=== PATIENT | male | born 1940 | race Caucasian/White ===

== ENCOUNTER 2016-10-30 19:30 | Emergency (ER) | payer MEDICARE, OTHER ==
[2016-10-30] MEDS ORDERED: atorvaSTATin 40 MG Tab ONE ×2 (19:32→19:57)
[2016-10-30] MEDS ORDERED: Morphine 4 MG/ML Syringe ONE (19:32)
[2016-10-30] MEDS ORDERED: Ticagrelor 90 MG Tab PO ONE (19:32)
[2016-10-30] MEDS ORDERED: Heparin Sodium 5,000 Units/ML Vial ONE (19:32)
[2016-10-30] MEDS ORDERED: Sodium Chloride 0.9% 1,000 ML IV ONE (19:32)
--- NOTE | 2016-10-30 20:10 | EDM.PDOC ---
ED HISTORY OF PRESENT ILLNESS - General Chief Complaint: Chest Pain Stated Complaint: chest pain Time Seen by Provider: 10/30/16 19:30 Source of Information: Reports: Patient History Limitations: Reports: No limitations - History of Present Illness INITIAL COMMENTS - FREE TEXT/NARRATIVE: Patient presents by private vehicle with complaint of substernal aching and cramping chest pain radiating to the left arm that began at 17:00. He reports it was up to 8/10 and on arrival in the ER it was 6/10. He is diaphoretic and obviously uncomfortable on arrival. He was given aspirin 324 mg chewable on arrival and oxygen at 4 L per nasal cannula immediately. He has a history of hypertension and is on Benazepril for that and Rheumatoid Arthritis and is on Methotrexate and Prednisone 5 mg daily for that. He denies a history of UT, CAD , QUINN, or CABG. He denies history of DVT or PE. He denies history of stroke. - Related Data Allergies/ADRs: Allergies Allergy/AdvReac Type Severity Reaction Status Date / Time No Known Allergies Allergy Verified 07/21/13 16:01 Home Meds: Home Meds Benazepril HCl 20 mg PO DAILY 07/21/13 [History] Methotrexate Sodium [Methotrexate] 2.5 mg PO ASDIRECTED 07/21/13 [History] Acetaminophen [Tylenol Extra Strength] 1,000 mg PO Q4HR PRN #90 07/25/13 [Rx] Albuterol/Ipratropium [DuoNeb 3.0-0.5 MG/3 ML] 3 ml NEB QID #30 neb 07/25/13 [Rx ] Ascorbic Acid [Vitamin C] 1,000 mg PO DAILY #30 07/25/13 [Rx] Benazepril [Lotensin] 20 mg PO DAILY #30 tablet 07/25/13 [Rx] Fish Oil/[place]-3 Fatty Acids [Fish Oil 1,000 MG] 1,000 mg PO DAILY #90 [Rx] Folic Acid 1 mg PO DAILY #30 07/25/13 [Rx] Ibuprofen 800 mg PO Q8HR PRN #90 07/25/13 [Rx] Omeprazole [Prilosec] 20 mg PO ASDIRECTED #30 07/25/13 [Rx] Oseltamivir [Tamiflu] 75 mg PO BID #3 cap 07/25/13 [Rx] predniSONE [Prednisone] 5 mg PO DAILY #30 07/25/13 [Rx] Past Medical History Cardiovascular History: Reports: Hypertension Immunologic History: Reports: Other (see below) Other Immunologic History: Rheumatoid Arthritis Social & Family History - Alcohol Use Days Per Week of Alcohol Use: 1 Number of Drinks Per Day: 1 Total Drinks Per Week: 1 - Recreational Drug Use Recreational Drug Use: No - Living Situation & Occupation Living situation: Reports: , with significant other Occupation: retired ( with cancer at home currently undergoing treatments) ED ROS GENERAL - Review of Systems Review Of Systems: ROS reveals no pertinent complaints other than HPI. ED EXAM, GENERAL - Physical Exam Exam: See Below Exam Limited By: No limitations General Appearance: alert, WD/WN, moderate distress (Diaphoretic and moderate pain. Mild tachypnea. ) Eye Exam: bilateral eye: EOMI, normal inspection, PERRL Ears: normal external exam, normal canal, hearing grossly normal, normal TMs Ear Exam: bilateral ear: auricle normal, canal normal, TM normal Nose: normal inspection, normal mucosa, no blood Throat/Mouth: Normal inspection, Normal lips, Normal teeth, Normal gums, Normal oropharynx Head: atraumatic, normocephalic Neck: normal inspection, supple, non-tender, full range of motion Respiratory/Chest: no respiratory distress, lungs clear, normal breath sounds, no accessory muscle use, chest non-tender Cardiovascular: normal peripheral pulses, regular rate, rhythm, no edema, no gallop, no murmur, no rub Peripheral Pulses: 2+: radial (L), radial (R), dorsalis pedis (L), dorsalis pedis (R) GI/Abdominal: normal bowel sounds, soft, non tender, no organomegaly, no distention Extremities: normal inspection, normal range of motion, non-tender, no pedal edema, normal capillary refill Neurological: alert, oriented, CN II-XII intact, normal cognition, normal gait, normal reflexes, no motor/sensory deficits Psychiatric: normal affect, normal mood Skin Exam: Warm, Dry, Intact, Normal color, No rash Lymphatic: no adenopathy EKG INTERPRETATION EKG Interpretation Comments: EKG shows ectopic atrial rhythm with STEMI with ST elevation in III and aVF and reciprocal changes in precordial leads of ST depression. Course - Orders/Labs/Meds Orders: Active Orders 24 hr Category Date Time Status CK W CKMB [CHEM] Routine Lab 10/30/16 19:45 Received COMPREHENSIVE METABOLIC PN,CMP [CHEM] Routine Lab 10/30/16 19:45 Received TROPONIN I [CHEM] Routine Lab 10/30/16 19:45 Received Labs: Laboratory Tests 10/30/16 10/30/16 Range/Units 19:45 19:45 WBC 13.4 H (4.0-10.2) K/uL RBC 4.51 (4.33-5.41) M/uL Hgb 14.1 (13.1-16.8) g/dL Hct 41.9 (39.0-49.0) % MCV 92.9 (84.0-98.0) fL MCH 31.3 (28.2-33.3) pg MCHC 33.7 (31.7-36.0) g/dL RDW 13.7 (11.2-14.1) % Plt Count 215 (150-350) K/uL Neut % (Auto) 87.2 H (45.0-80.0) % Lymph % (Auto) 8.5 L (10.0-50.0) % [place] % (Auto) 3.6 (2.0-14.0) % Eos % (Auto) 0.0 (0.0-5.0) % Baso % (Auto) 0.7 (0.0-2.0) % Neut # (Auto) 11.63 H (1.40-7.00) K/uL Lymph # (Auto) 1.14 (0.50-3.50) K/uL [place] # (Auto) 0.48 (0.00-1.00) K/uL Eos # (Auto) 0.00 (0.00-0.50) K/uL Baso # (Auto) 0.10 (0.00-0.20) K/uL PT 12.0 H (9.8-11.7) SEC INR 1.1 APTT 26.4 (23.5-30.0) SEC Meds: Medications Discontinued Medications Generic Name Dose Route Start Last Admin Trade Name Freq PRN Reason Stop Dose Admin Atorvastatin Calcium Confirm 10/30/16 19:57 Lipitor Administered 10/30/16 19:58 Dose 80 mg .ROUTE .STK-MED ONE Departure - Departure Time of Disposition: 20:05 Disposition: DC/Tfer to Acute Hospital 02 Reason for Transfer *Q: Primary PCI Indicated (STEMI) Clinical Impression: Ectopic atrial rhythm STEMI (ST elevation myocardial infarction) Qualifiers: Involved coronary artery: unspecified coronary artery Qualified Code(s): I21.3 - ST elevation (STEMI) myocardial infarction of unspecified site Forms: ED Department Discharge - My Orders Last 24 Hours: My Active Orders 10/30/16 19:45 CK W CKMB [CHEM] Routine COMPREHENSIVE METABOLIC PN,CMP [CHEM] Routine TROPONIN I [CHEM] Routine - Assessment/Plan Last 24 Hours: My Active Orders 10/30/16 19:45 CK W CKMB [CHEM] Routine COMPREHENSIVE METABOLIC PN,CMP [CHEM] Routine TROPONIN I [CHEM] Routine Assessment:: STEMI with ST Elevation in III and aVF and reciprocal ST depression in precordial leads. Ectopic atrial rhythm. Plan: 1. Given aspirin 324 mg chewable on arrival. 2. Placed on NC at 4 L on arrival. 3. Faxed EKG to [facility] in [place] and called to discuss with on-call program administrator Dr. Jones who agrees with plan below and [facility]. 4. After STEMI identified, rapidly given heparin IV bolus of 4,000 units and drip started at 12 units/kg/hour. 5. Brylinta 180 mg PO in ER. 6. Lipitor 80 mg PO in ER. 7. Normal saline at 75 mL/hour started in ER. 8. Morphine 4 mg IV in ER. 9. [facility] ground ambulance transport to airport. 10. [facility] Flight service will transport to [facility] in [place] with NS at 75 mL/hour, O2 by NC at 4 L, Heparin drip at 12 units/kg/hour, continuous telemetry and pulse oximetry.
[2016-10-30 20:11] LABS: CHLORIDE,CL 101 mmol/L (98-107); SODIUM,NA 139 mmol/L (136-145)
== END 2016-10-30 20:18 ==
LOC: LL.ED 19:30
DX: I21.3 ST elevation (STEMI) myocardial infarction of unspecified site (principal); I49.1 Atrial premature depolarization; I10 Essential (primary) hypertension; M06.9 Rheumatoid arthritis, unspecified; Z79.899 Other long term (current) drug therapy
CPT/HCPCS: 36415; 80053; 82550; 82553; 84484; 85025; 85610; 85730; 93005; 96365; 96374; 96375; 99285; A9270-GY; J1644; J2270; J7030

== ENCOUNTER 2016-11-04 10:03 | Inpatient (IN) | payer MEDICARE, OTHER ==
[2016-11-04] MEDS ORDERED: TRAMADOL PO PRN (14:21)
[2016-11-04] MEDS ORDERED: ACETAMINOPHEN PO PRN (14:21)
[2016-11-04] MEDS ORDERED: Omeprazole 20 MG Cap.CR PO SCH (14:30)
[2016-11-04] MEDS ORDERED: Amiodarone 200 MG Tab PO SCH (14:30)
--- NOTE | 2016-11-04 14:36 | PCM.HP ---
H&P History of Present Illness - General Date of Service: 11/04/16 Admit Problem/Dx: Admission Diagnosis/Problem Admission Diagnosis/Problem Chest pain Source of Information: Patient, Old records History Limitations: Reports: No limitations - History of Present Illness Initial Comments - Free Text/Narative: 76 yowm S/P acute ST elevation myocardial infarction (STEMI) involving right coronary artery, involving right coronary artery, CAD, essential HTN, S/P CABG x4, seropositive rheumatoid arthritis multiple sites. - Related Data Allergies/Adverse Reactions: Allergies Allergy/AdvReac Type Severity Reaction Status Date / Time seasonal Allergy Other Uncoded 11/04/16 13:39 Home Medications: Home Meds Methotrexate Sodium [Methotrexate] 10 tab PO GARCIA@0800 07/21/13 [History] Folic Acid 1 mg PO DAILY #30 07/25/13 [Rx] Acetaminophen/traMADol [Ultracet] 1 tab PO Q4HR PRN 11/04/16 [History] Amiodarone [Cordarone] 200 mg PO [id number] 11/04/16 [History] Apixaban [Eliquis] 5 mg PO BID 11/04/16 [History] Aspirin [Ecotrin] 325 mg PO DAILY 11/04/16 [History] Benazepril [Lotensin] 10 mg PO DAILY 11/04/16 [History] Docusate Sodium [Colace] 250 mg PO DAILY 11/04/16 [History] Metoprolol Tartrate 37.5 mg PO BID 11/04/16 [History] Omeprazole [Prilosec] 20 mg PO [id number] 11/04/16 [History] atorvaSTATin [Lipitor] 40 mg PO DAILY 11/04/16 [History] predniSONE [Prednisone] 10 mg PO QAM 11/04/16 [History] sulfaSALAzine [sulfaSALAzine DR] 2 tab PO BIDMEALS 11/04/16 [History] Past Medical History Cardiovascular History: Reports: Afib, Bypass, CAD, Hypertension, PTCA Immunologic History: Reports: Other (see below) Other Immunologic History: Rheumatoid Arthritis Dermatologic History: Reports: Other (see below) (basal cell carcinoma) Social & Family History - Alcohol Use Days Per Week of Alcohol Use: 1 Number of Drinks Per Day: 1 Total Drinks Per Week: 1 - Recreational Drug Use Recreational Drug Use: No - Living Situation & Occupation Living situation: Reports: , with significant other Occupation: retired ( with cancer at home currently undergoing treatments) H&P Review of Systems - Review of Systems: Review Of Systems: See Below General: Reports: no symptoms HEENT: Reports: no symptoms Pulmonary: Reports: No Symptoms Cardiovascular: Reports: no symptoms Gastrointestinal: Reports: No symptoms Genitourinary: Reports: no symptoms Musculoskeletal: Reports: no symptoms Skin: Reports: no symptoms Psychiatric: Reports: no symptoms Neurological: Reports: No Symptoms Hematologic/Lymphatic: Reports: no symptoms Immunologic: Reports: no symptoms Exam - Exam Exam: See Below - Vital Signs Vital Signs: Last Vital Signs Temp 97.8 F 11/04/16 13:13 Pulse 65 11/04/16 13:13 Resp BP 147/75 H 11/04/16 13:13 Pulse Ox 98 11/04/16 13:13 Weight: 192 lb 12.8 oz - Exam General: alert, cooperative HEENT: Conjunctiva clear, Hearing intact, Mucosa moist & pink, Nares patent Neck: trachea midline Lungs: Decreased breath sounds, Wheezing Cardiovascular: irregular rhythm Abdomen: normal bowel sounds, soft (Male) Exam: Deferred Rectal (Males) Exam: Deferred Back Exam: normal inspection Extremities: other (arthritis deformity, synovial swelling) Skin: warm, dry, intact Neurological: reflexes equal bilateral, strength equal bilateral Neuro Extensive - Mental Status: alert, normal mood/affect, normal cognition Psychiatric: alert, normal affect, normal mood *Q Meaningful Use (ADM) - VTE *Q VTE Criteria *Q: - Stroke *Q Stroke Criteria *Q: - AMI *Q AMI Criteria *Q: - Problem List (1) Coronary arteriosclerosis in patient with history of previous myocardial infarction SNOMED Code(s): 108314571170889 ICD Code: I25.10 - ATHSCL HEART DISEASE OF [place] CORONARY ARTERY W/O ANG PCTRS; I25.2 - OLD MYOCARDIAL INFARCTION Status: Acute Priority: High Current Visit: Yes (2) Asthma SNOMED Code(s): 778206029 ICD Code: J45.909 - UNSPECIFIED ASTHMA, UNCOMPLICATED Status: Acute Priority: Medium Current Visit: No (3) Rheumatoid arthritis SNOMED Code(s): 23846223 ICD Code: M06.9 - RHEUMATOID ARTHRITIS, UNSPECIFIED Status: Acute Priority: Low Current Visit: No (4) ST elevation (STEMI) myocardial infarction involving right coronary artery SNOMED Code(s): 271101698 ICD Code: I21.11 - STEMI INVOLVING RIGHT CORONARY ARTERY Status: Acute Priority: High Current Visit: Yes (5) S/P CABG x 4 SNOMED Code(s): 515357418, 307103259 ICD Code: Z95.1 - PRESENCE OF AORTOCORONARY BYPASS GRAFT Status: Acute Priority: High Current Visit: Yes Problem List Initiated/Reviewed/Updated: Yes Orders Last 24hrs: Active Orders 24 hr Category Date Time Status Patient Status [ADT] Routine ADT 11/04/16 14:11 Ordered May Shower [RC] ASDIRECTED Care 11/04/16 14:11 Ordered Oxygen Therapy [RC] PRN Care 11/04/16 14:11 Ordered Up With Assistance [RC] ASDIRECTED Care 11/04/16 14:11 Ordered VTE/DVT Education [RC] PER UNIT ROUTINE Care 11/04/16 14:11 Ordered Vital Signs [RC] BID Care 11/04/16 14:11 Ordered Consult to Case Management [CONS] Routine Cons 11/04/16 14:11 Ordered OT Evaluation and Treatment [CONS] Routine Cons 11/04/16 14:11 Ordered PT Evaluation and Treatment [CONS] Routine Cons 11/04/16 14:11 Ordered Regular Diet [DIET] Diet 11/04/16 Dinner Ordered Acetaminophen/traMADol [Ultracet] Med 11/04/16 14:21 Ordered 1 tab PO Q4HR PRN Amiodarone [Cordarone] Med 11/05/16 08:00 Ordered 200 mg PO [id number] Apixaban [Eliquis] Med 11/04/16 20:00 Ordered 5 mg PO Q12HR Aspirin [Ecotrin] Med 11/05/16 08:00 Ordered 325 mg PO DAILY Benazepril [Lotensin] Med 11/05/16 08:00 Ordered 10 mg PO DAILY Docusate Sodium [Colace] Med 11/05/16 08:00 Ordered 250 mg PO DAILY Folic Acid Med 11/05/16 08:00 Ordered 1 mg PO DAILY Methotrexate Med 11/09/16 08:00 Ordered 10 tab PO GARCIA@0800 Metoprolol Tartrate [Lopressor] Med 11/04/16 20:00 Ordered 37.5 mg PO Q12HR Omeprazole Med 11/05/16 08:00 Ordered 20 mg PO [id number] atorvaSTATin [Lipitor] Med 11/04/16 20:00 Ordered 40 mg PO BEDTIME predniSONE Med 11/05/16 08:00 Ordered 10 mg PO QAM sulfaSALAzine [sulfaSALAzine DR] Med 11/04/16 17:30 Ordered 2 tab PO BIDMEALS Resuscitation Status Routine Resus Stat 11/04/16 14:11 Ordered Medication Orders Amiodarone HCl (Cordarone) 200 mg PO [id number] [facility] Stop: 11/15/16 08:01 Aspirin (Ecotrin) 325 mg PO DAILY [facility] Atorvastatin Calcium (Lipitor) 40 mg PO BEDTIME [facility] Benazepril HCl (Lotensin) 10 mg PO DAILY [facility] Docusate Sodium (Colace) 250 mg PO DAILY [facility] Folic Acid (Folic Acid) 1 mg PO DAILY [facility] Methotrexate (Methotrexate) mg PO GARCIA@0800 [facility] Metoprolol Tartrate (Lopressor) 37.5 mg PO Q12HR [facility] Non-Formulary Medication (Acetaminophen/Tramadol [Ultracet]) 1 tab PO Q4HR PRN PRN Reason: Pain (moderate 4-6) Non-Formulary Medication (Apixaban [Eliquis]) 5 mg PO Q12HR [facility] Omeprazole (Omeprazole) 20 mg PO [id number] [facility] Stop: 12/05/16 08:01 Prednisone (Prednisone) 10 mg PO QAM [facility] Sulfasalazine (Sulfasalazine Dr) mg PO BIDMEALS [facility] Assessment/Plan Comment:: 76 yowm S/P STEMI and CABG x4 now here for swingbed status for PT-OT.
[2016-11-04] MEDS ORDERED: Acetaminophen 325 MG Tab PO PRN (15:00)
[2016-11-04] MEDS ORDERED: traMADol 50 MG Tab PO PRN (15:00)
[2016-11-04] MEDS ORDERED: Albuterol 0.083% 2.5 MG/3 ML Neb Soln NEB PRN (15:00)
[2016-11-04] MEDS: sulfaSALAzine 500 MG Tab.EC PO SCH (17:11)
[2016-11-04] MEDS: Budesonide 0.5 MG/2 ML Neb Susp NEB SCH (20:59)
[2016-11-04] MEDS: Metoprolol Tartrate 25 MG Tab PO SCH (20:59)
[2016-11-04] MEDS: Apixaban 5 MG Tab PO SCH (20:59)
[2016-11-04] MEDS: Albuterol/Ipratropium 3.0-0.5 MG/3 ML Neb Soln NEB SCH (20:59)
[2016-11-05] MEDS: Metoprolol Tartrate 25 MG Tab PO SCH ×2 (08:07→19:31)
[2016-11-05] MEDS: Docusate Sodium 100 MG Cap PO SCH (08:10)
[2016-11-05] MEDS: predniSONE 5 MG Tab PO SCH (08:11)
[2016-11-05] MEDS: Omeprazole 20 MG Cap.CR PO SCH (08:12)
[2016-11-05] MEDS: Amiodarone 200 MG Tab PO SCH (08:12)
[2016-11-05] MEDS: Aspirin 325 MG Tab.EC PO SCH (08:13)
[2016-11-05] MEDS: Benazepril 10 MG Tab PO SCH (08:14)
[2016-11-05] MEDS: Apixaban 5 MG Tab PO SCH ×2 (08:14→19:30)
[2016-11-05] MEDS: Folic Acid 1 MG Tab PO SCH (08:14)
[2016-11-05] MEDS: sulfaSALAzine 500 MG Tab.EC PO SCH ×2 (08:15→19:01)
[2016-11-05] MEDS: Budesonide 0.5 MG/2 ML Neb Susp NEB SCH ×2 (08:19→19:30)
[2016-11-05] MEDS: Albuterol/Ipratropium 3.0-0.5 MG/3 ML Neb Soln NEB SCH ×3 (08:19→19:30)
[2016-11-05] MEDS: atorvaSTATin 40 MG Tab PO SCH (19:30)
[2016-11-05] MEDS ORDERED: atorvaSTATin 40 MG Tab PO SCH (20:00)
[2016-11-06] MEDS: Docusate Sodium 100 MG Cap PO SCH (08:16)
[2016-11-06] MEDS: sulfaSALAzine 500 MG Tab.EC PO SCH ×2 (08:16→17:14)
[2016-11-06] MEDS: Folic Acid 1 MG Tab PO SCH (08:17)
[2016-11-06] MEDS: Apixaban 5 MG Tab PO SCH ×2 (08:17→19:10)
[2016-11-06] MEDS: Amiodarone 200 MG Tab PO SCH (08:17)
[2016-11-06] MEDS: Albuterol/Ipratropium 3.0-0.5 MG/3 ML Neb Soln NEB SCH ×3 (08:17→19:10)
[2016-11-06] MEDS: Aspirin 325 MG Tab.EC PO SCH (08:17)
[2016-11-06] MEDS: Omeprazole 20 MG Cap.CR PO SCH (08:18)
[2016-11-06] MEDS: predniSONE 5 MG Tab PO SCH (08:18)
[2016-11-06] MEDS: Metoprolol Tartrate 25 MG Tab PO SCH ×2 (08:18→19:10)
[2016-11-06] MEDS: Benazepril 10 MG Tab PO SCH (08:18)
[2016-11-06] MEDS: Budesonide 0.5 MG/2 ML Neb Susp NEB SCH ×2 (08:18→19:10)
[2016-11-06] MEDS: atorvaSTATin 40 MG Tab PO SCH (19:11)
[2016-11-06] MEDS ORDERED: Aloe Vera/Sodium Chloride Gel 14.1 GM Tube NAS PRN (23:27)
[2016-11-06] MEDS ORDERED: Aloe Vera/Sodium Chloride Gel 14.1 GM Tube ONE (23:38)
[2016-11-07] MEDS: Benazepril 10 MG Tab PO SCH (08:19)
[2016-11-07] MEDS: Amiodarone 200 MG Tab PO SCH (08:20)
[2016-11-07] MEDS: Apixaban 5 MG Tab PO SCH ×2 (08:21→21:19)
[2016-11-07] MEDS: Omeprazole 20 MG Cap.CR PO SCH (08:21)
[2016-11-07] MEDS: Aspirin 325 MG Tab.EC PO SCH (08:21)
[2016-11-07] MEDS: predniSONE 5 MG Tab PO SCH (08:22)
[2016-11-07] MEDS: Folic Acid 1 MG Tab PO SCH (08:22)
[2016-11-07] MEDS: Docusate Sodium 100 MG Cap PO SCH (08:24)
[2016-11-07] MEDS: Metoprolol Tartrate 25 MG Tab PO SCH ×2 (08:25→20:57)
[2016-11-07] MEDS: sulfaSALAzine 500 MG Tab.EC PO SCH ×2 (08:27→18:04)
[2016-11-07] MEDS: Albuterol/Ipratropium 3.0-0.5 MG/3 ML Neb Soln NEB SCH ×3 (08:28→20:10)
[2016-11-07] MEDS: Budesonide 0.5 MG/2 ML Neb Susp NEB SCH ×2 (08:28→20:56)
[2016-11-07] MEDS: atorvaSTATin 40 MG Tab PO SCH (20:55)
[2016-11-08] MEDS: sulfaSALAzine 500 MG Tab.EC PO SCH ×2 (07:37→16:41)
[2016-11-08] MEDS: predniSONE 5 MG Tab PO SCH (07:38)
[2016-11-08] MEDS: Omeprazole 20 MG Cap.CR PO SCH (07:38)
[2016-11-08] MEDS: Aspirin 325 MG Tab.EC PO SCH (07:38)
[2016-11-08] MEDS: Docusate Sodium 100 MG Cap PO SCH (07:38)
[2016-11-08] MEDS: Apixaban 5 MG Tab PO SCH ×2 (07:38→20:07)
[2016-11-08] MEDS: Folic Acid 1 MG Tab PO SCH (07:41)
[2016-11-08] MEDS: Benazepril 10 MG Tab PO SCH (07:42)
[2016-11-08] MEDS: Amiodarone 200 MG Tab PO SCH (07:42)
[2016-11-08] MEDS: Metoprolol Tartrate 25 MG Tab PO SCH ×2 (07:44→20:24)
[2016-11-08] MEDS: Albuterol/Ipratropium 3.0-0.5 MG/3 ML Neb Soln NEB SCH ×3 (07:45→20:09)
[2016-11-08] MEDS: Budesonide 0.5 MG/2 ML Neb Susp NEB SCH ×2 (07:45→20:24)
[2016-11-08] MEDS: atorvaSTATin 40 MG Tab PO SCH (20:08)
[2016-11-09] MEDS: Budesonide 0.5 MG/2 ML Neb Susp NEB SCH ×2 (07:54→20:47)
[2016-11-09] MEDS: Albuterol/Ipratropium 3.0-0.5 MG/3 ML Neb Soln NEB SCH ×3 (07:55→20:47)
[2016-11-09] MEDS: Metoprolol Tartrate 25 MG Tab PO SCH ×2 (07:55→20:47)
[2016-11-09] MEDS: Apixaban 5 MG Tab PO SCH ×2 (07:55→20:47)
[2016-11-09] MEDS: sulfaSALAzine 500 MG Tab.EC PO SCH ×2 (07:55→16:40)
[2016-11-09] MEDS ORDERED: Methotrexate 2.5 MG Tab PO SCH (08:00)
[2016-11-09] MEDS: predniSONE 5 MG Tab PO SCH (08:02)
[2016-11-09] MEDS: Docusate Sodium 100 MG Cap PO SCH (08:03)
[2016-11-09] MEDS: Amiodarone 200 MG Tab PO SCH (08:03)
[2016-11-09] MEDS: Aspirin 325 MG Tab.EC PO SCH (08:03)
[2016-11-09] MEDS: Omeprazole 20 MG Cap.CR PO SCH (08:03)
[2016-11-09] MEDS: Benazepril 10 MG Tab PO SCH (08:03)
[2016-11-09] MEDS: Folic Acid 1 MG Tab PO SCH (08:03)
[2016-11-09] MEDS: atorvaSTATin 40 MG Tab PO SCH (20:47)
[2016-11-10] MEDS: Metoprolol Tartrate 25 MG Tab PO SCH ×2 (08:23→20:34)
[2016-11-10] MEDS: sulfaSALAzine 500 MG Tab.EC PO SCH ×2 (08:23→17:55)
[2016-11-10] MEDS: Omeprazole 20 MG Cap.CR PO SCH (08:24)
[2016-11-10] MEDS: Apixaban 5 MG Tab PO SCH ×2 (08:24→20:46)
[2016-11-10] MEDS: Docusate Sodium 100 MG Cap PO SCH (08:25)
[2016-11-10] MEDS: Aspirin 325 MG Tab.EC PO SCH (08:25)
[2016-11-10] MEDS: Benazepril 10 MG Tab PO SCH (08:25)
[2016-11-10] MEDS: Folic Acid 1 MG Tab PO SCH (08:25)
[2016-11-10] MEDS: predniSONE 5 MG Tab PO SCH (08:26)
[2016-11-10] MEDS: Amiodarone 200 MG Tab PO SCH (08:26)
[2016-11-10] MEDS: Albuterol/Ipratropium 3.0-0.5 MG/3 ML Neb Soln NEB SCH ×3 (08:27→20:35)
[2016-11-10] MEDS: Budesonide 0.5 MG/2 ML Neb Susp NEB SCH ×2 (08:27→20:35)
[2016-11-10] MEDS: atorvaSTATin 40 MG Tab PO SCH (20:35)
[2016-11-11] MEDS: Apixaban 5 MG Tab PO SCH ×2 (07:48→20:22)
[2016-11-11] MEDS: Benazepril 10 MG Tab PO SCH (07:48)
[2016-11-11] MEDS: Aspirin 325 MG Tab.EC PO SCH (07:48)
[2016-11-11] MEDS: Omeprazole 20 MG Cap.CR PO SCH (07:49)
[2016-11-11] MEDS: Folic Acid 1 MG Tab PO SCH (07:49)
[2016-11-11] MEDS: Amiodarone 200 MG Tab PO SCH (07:49)
[2016-11-11] MEDS: predniSONE 5 MG Tab PO SCH (07:50)
[2016-11-11] MEDS: Docusate Sodium 100 MG Cap PO SCH (07:50)
[2016-11-11] MEDS: Metoprolol Tartrate 25 MG Tab PO SCH ×2 (07:52→20:22)
[2016-11-11] MEDS: sulfaSALAzine 500 MG Tab.EC PO SCH ×2 (07:54→17:10)
[2016-11-11] MEDS: Budesonide 0.5 MG/2 ML Neb Susp NEB SCH ×2 (07:55→20:23)
[2016-11-11] MEDS: Albuterol/Ipratropium 3.0-0.5 MG/3 ML Neb Soln NEB SCH ×3 (07:55→20:22)
--- NOTE | 2016-11-11 18:22 | PCM.PN ---
- General Info Date of Service: 11/11/16 Admission Dx/Problem (Free Text): Admission Diagnosis/Problem Admission Diagnosis/Problem Chest pain Functional Status: Reports: pain controlled, ambulating - Review of Systems General: Reports: No Symptoms HEENT: Reports: no symptoms Pulmonary: Reports: no symptoms Cardiovascular: Reports: No Symptoms Gastrointestinal: Reports: No symptoms Genitourinary: Reports: no symptoms Musculoskeletal: Reports: no symptoms Skin: Reports: bruising Neurological: Reports: No Symptoms Psychiatric: Reports: no symptoms - Patient Data Vitals - most recent: Last Vital Signs Temp 98.4 F 11/11/16 08:00 Pulse 65 11/11/16 08:00 Resp 15 11/11/16 08:00 BP 138/72 11/11/16 08:00 Pulse Ox 97 11/11/16 08:00 Weight - most recent: 178 lb 12.718 oz I&O - last 24 hours: Intake & Output 11/11/16 11/11/16 11/11/16 06:59 14:59 22:59 Intake Total 1540 Balance 1540 Med Orders - Current: Current Medications Acetaminophen (Tylenol) 325 mg PO Q4H PRN PRN Reason: MODERATE OR SEVERE PAIN Last Admin: 11/10/16 21:30 Dose: 325 mg Albuterol (Proventil Neb Soln) 2.5 mg NEB Q2H PRN PRN Reason: Wheezing Last Admin: 11/04/16 15:43 Dose: 2.5 mg Albuterol/Ipratropium (Duoneb 3.0-0.5 Mg/3 Ml) 3 ml NEB TIDRT [facility] Last Admin: 11/11/16 13:30 Dose: 3 ml Amiodarone HCl (Cordarone) 200 mg PO DAILY [facility] Stop: 11/14/16 08:01 Last Admin: 11/11/16 07:49 Dose: 200 mg Apixaban (Eliquis) 5 mg PO Q12HR [facility] Last Admin: 11/11/16 07:48 Dose: 5 mg Aspirin (Ecotrin) 325 mg PO DAILY [facility] Last Admin: 11/11/16 07:48 Dose: 325 mg Atorvastatin Calcium (Lipitor) 40 mg PO BEDTIME [facility] Last Admin: 11/10/16 20:35 Dose: 40 mg Benazepril HCl (Lotensin) 10 mg PO DAILY [facility] Last Admin: 11/11/16 07:48 Dose: 10 mg Budesonide (Pulmicort) 0.5 mg NEB BIDRT [facility] Last Admin: 11/11/16 07:55 Dose: 0.5 mg Docusate Sodium (Colace) 200 mg PO DAILY [facility] Last Admin: 11/11/16 07:50 Dose: 200 mg Folic Acid (Folic Acid) 1 mg PO DAILY [facility] Last Admin: 11/11/16 07:49 Dose: 1 mg Methotrexate (Methotrexate) 25 mg PO GARCIA@0800 [facility] Last Admin: 11/09/16 08:03 Dose: 25 mg Metoprolol Tartrate (Lopressor) 37.5 mg PO Q12HR [facility] Last Admin: 11/11/16 07:52 Dose: 37.5 mg Omeprazole (Omeprazole) 20 mg PO DAILY [facility] Stop: 12/04/16 08:01 Last Admin: 11/11/16 07:49 Dose: 20 mg Prednisone (Prednisone) 10 mg PO QAM [facility] Last Admin: 11/11/16 07:50 Dose: 10 mg Sodium Chloride ([place] Saline Nasal Gel) 0 gm REGINA ASDIRECTED PRN PRN Reason: dry nares Last Admin: 11/06/16 23:43 Dose: 1 applic Sulfasalazine (Sulfasalazine Dr) 1,000 mg PO BIDMEALS [facility] Last Admin: 11/11/16 17:10 Dose: 1,000 mg Tramadol HCl (Ultram) 25 mg PO Q4H PRN PRN Reason: MODERATE OR SEVERE PAIN Last Admin: 11/10/16 20:44 Dose: 25 mg Discontinued Medications Amiodarone HCl (Cordarone) 200 mg PO [id number] [facility] Atorvastatin Calcium (Lipitor) 40 mg PO BEDTIME [facility] Omeprazole (Omeprazole) 20 mg PO [id number] [facility] Sodium Chloride ([place] Saline Nasal Gel) Confirm Administered Dose 14.1 gm .ROUTE .STK-MED ONE Stop: 11/06/16 23:39 Last Admin: 11/06/16 23:42 Dose: Not Given - Exam General: alert, oriented, no acute distress HEENT: Mucous membr. moist/pink Neck: trachea midline, no JVD Lungs: Clear to auscultation Cardiovascular: Regular Rate, Regular Rhythm Abdomen: bowel sounds present, soft, no tenderness, no distension (Male) Exam: Deferred Back Exam: normal inspection Extremities: no edema Skin: warm, dry, intact, ecchymosis Wound/Incisions: healing well Neurological: no new focal deficit Psy/Mental Status: alert, normal affect, normal mood - Problem List & Annotations (1) Coronary arteriosclerosis in patient with history of previous myocardial infarction SNOMED Code(s): 393850278427070 Code(s): I25.10 - ATHSCL HEART DISEASE OF [place] CORONARY ARTERY W/O ANG PCTRS; I25.2 - OLD MYOCARDIAL INFARCTION Status: Acute Priority: High Current Visit: Yes (2) Asthma SNOMED Code(s): 434041946 Code(s): J45.909 - UNSPECIFIED ASTHMA, UNCOMPLICATED Status: Acute Priority: Medium Current Visit: No (3) Rheumatoid arthritis SNOMED Code(s): 95374981 Code(s): M06.9 - RHEUMATOID ARTHRITIS, UNSPECIFIED Status: Acute Priority : Low Current Visit: No (4) ST elevation (STEMI) myocardial infarction involving right coronary artery SNOMED Code(s): 505914154 Code(s): I21.11 - STEMI INVOLVING RIGHT CORONARY ARTERY Status: Acute Priority: High Current Visit: Yes (5) S/P CABG x 4 SNOMED Code(s): 019194965, 100604157 Code(s): Z95.1 - PRESENCE OF AORTOCORONARY BYPASS GRAFT Status: Acute Priority: High Current Visit: Yes - Problem List Review Problem List Initiated/Reviewed/Updated: Yes - Plan Plan:: 76 yowm S/P STEMI and CABG x4 now here for swingbed status for PT-OT. 11/11/16 Agustin Devi MD Doing okay. [place] a chill last night. Tylenol helped. Working in PT.
[2016-11-11] MEDS: atorvaSTATin 40 MG Tab PO SCH (20:22)
[2016-11-12] MEDS: Folic Acid 1 MG Tab PO SCH (07:23)
[2016-11-12] MEDS: Apixaban 5 MG Tab PO SCH ×2 (07:25→21:43)
[2016-11-12] MEDS: sulfaSALAzine 500 MG Tab.EC PO SCH ×2 (07:25→17:36)
[2016-11-12] MEDS: Amiodarone 200 MG Tab PO SCH (07:25)
[2016-11-12] MEDS: Omeprazole 20 MG Cap.CR PO SCH (07:26)
[2016-11-12] MEDS: Docusate Sodium 100 MG Cap PO SCH (07:26)
[2016-11-12] MEDS: predniSONE 5 MG Tab PO SCH (07:27)
[2016-11-12] MEDS: Aspirin 325 MG Tab.EC PO SCH (07:27)
[2016-11-12] MEDS: Metoprolol Tartrate 25 MG Tab PO SCH ×2 (07:29→21:42)
[2016-11-12] MEDS: Benazepril 10 MG Tab PO SCH (07:29)
[2016-11-12] MEDS: Albuterol/Ipratropium 3.0-0.5 MG/3 ML Neb Soln NEB SCH ×3 (07:31→21:44)
[2016-11-12] MEDS: Budesonide 0.5 MG/2 ML Neb Susp NEB SCH ×2 (07:31→21:44)
[2016-11-12] MEDS: atorvaSTATin 40 MG Tab PO SCH (21:44)
[2016-11-13] MEDS: sulfaSALAzine 500 MG Tab.EC PO SCH ×2 (07:43→17:00)
[2016-11-13] MEDS: Omeprazole 20 MG Cap.CR PO SCH (07:44)
[2016-11-13] MEDS: Docusate Sodium 100 MG Cap PO SCH (07:44)
[2016-11-13] MEDS: Aspirin 325 MG Tab.EC PO SCH (07:44)
[2016-11-13] MEDS: predniSONE 5 MG Tab PO SCH (07:45)
[2016-11-13] MEDS: Benazepril 10 MG Tab PO SCH (07:46)
[2016-11-13] MEDS: Apixaban 5 MG Tab PO SCH ×2 (07:46→20:18)
[2016-11-13] MEDS: Amiodarone 200 MG Tab PO SCH (07:47)
[2016-11-13] MEDS: Folic Acid 1 MG Tab PO SCH (07:47)
[2016-11-13] MEDS: Metoprolol Tartrate 25 MG Tab PO SCH ×2 (07:48→20:18)
[2016-11-13] MEDS: Budesonide 0.5 MG/2 ML Neb Susp NEB SCH ×2 (07:50→20:16)
[2016-11-13] MEDS: Albuterol/Ipratropium 3.0-0.5 MG/3 ML Neb Soln NEB SCH ×3 (07:50→20:16)
[2016-11-13] MEDS: atorvaSTATin 40 MG Tab PO SCH (20:16)
[2016-11-14] MEDS: Docusate Sodium 100 MG Cap PO SCH (07:25)
[2016-11-14] MEDS: Amiodarone 200 MG Tab PO SCH (07:25)
[2016-11-14] MEDS: sulfaSALAzine 500 MG Tab.EC PO SCH (07:25)
[2016-11-14] MEDS: Metoprolol Tartrate 25 MG Tab PO SCH (07:26)
[2016-11-14] MEDS: Albuterol/Ipratropium 3.0-0.5 MG/3 ML Neb Soln NEB SCH (07:26)
[2016-11-14] MEDS: Folic Acid 1 MG Tab PO SCH (07:26)
[2016-11-14] MEDS: Aspirin 325 MG Tab.EC PO SCH (07:26)
[2016-11-14] MEDS: Apixaban 5 MG Tab PO SCH (07:26)
[2016-11-14] MEDS: predniSONE 5 MG Tab PO SCH (07:27)
[2016-11-14] MEDS: Benazepril 10 MG Tab PO SCH (07:27)
[2016-11-14] MEDS: Budesonide 0.5 MG/2 ML Neb Susp NEB SCH (07:27)
[2016-11-14] MEDS: Omeprazole 20 MG Cap.CR PO SCH (07:27)
[2016-11-14 07:28] VITALS: BP 126/66
--- NOTE | 2016-11-14 14:56 | PCM.PN ---
- General Info Date of Service: 11/14/16 Admission Dx/Problem (Free Text): Admission Diagnosis/Problem Admission Diagnosis/Problem Chest pain Functional Status: Reports: pain controlled (except when he coughs) - Review of Systems General: Reports: No Symptoms HEENT: Reports: no symptoms Pulmonary: Reports: no symptoms Cardiovascular: Reports: No Symptoms Gastrointestinal: Reports: No symptoms Genitourinary: Reports: no symptoms Musculoskeletal: Reports: no symptoms Skin: Reports: no symptoms Neurological: Reports: No Symptoms Psychiatric: Reports: no symptoms - Patient Data Vitals - most recent: Last Vital Signs Temp 99.1 F 11/14/16 07:28 Pulse 62 11/14/16 07:28 Resp 18 11/14/16 07:28 BP 126/66 11/14/16 07:28 Pulse Ox 95 11/14/16 07:28 Weight - most recent: 177 lb 12.8 oz I&O - last 24 hours: Intake & Output 11/13/16 11/14/16 11/14/16 22:59 06:59 14:59 Intake Total 120 100 240 Balance 120 100 240 Med Orders - Current: Current Medications Discontinued Medications Acetaminophen (Tylenol) 325 mg PO Q4H PRN PRN Reason: MODERATE OR SEVERE PAIN Last Admin: 11/10/16 21:30 Dose: 325 mg Albuterol (Proventil Neb Soln) 2.5 mg NEB Q2H PRN PRN Reason: Wheezing Last Admin: 11/04/16 15:43 Dose: 2.5 mg Albuterol/Ipratropium (Duoneb 3.0-0.5 Mg/3 Ml) 3 ml NEB TIDRT [facility] Last Admin: 11/14/16 07:26 Dose: 3 ml Amiodarone HCl (Cordarone) 200 mg PO [id number] [facility] Amiodarone HCl (Cordarone) 200 mg PO DAILY [facility] Stop: 11/14/16 08:01 Last Admin: 11/14/16 07:25 Dose: 200 mg Apixaban (Eliquis) 5 mg PO Q12HR [facility] Last Admin: 11/14/16 07:26 Dose: 5 mg Aspirin (Ecotrin) 325 mg PO DAILY [facility] Last Admin: 11/14/16 07:26 Dose: 325 mg Atorvastatin Calcium (Lipitor) 40 mg PO BEDTIME [facility] Atorvastatin Calcium (Lipitor) 40 mg PO BEDTIME [facility] Last Admin: 11/13/16 20:16 Dose: 40 mg Benazepril HCl (Lotensin) 10 mg PO DAILY [facility] Last Admin: 11/14/16 07:27 Dose: 10 mg Budesonide (Pulmicort) 0.5 mg NEB BIDRT [facility] Last Admin: 11/14/16 07:27 Dose: 0.5 mg Docusate Sodium (Colace) 200 mg PO DAILY [facility] Last Admin: 11/14/16 07:25 Dose: 200 mg Folic Acid (Folic Acid) 1 mg PO DAILY [facility] Last Admin: 11/14/16 07:26 Dose: 1 mg Methotrexate (Methotrexate) 25 mg PO GARCIA@0800 [facility] Last Admin: 11/09/16 08:03 Dose: 25 mg Metoprolol Tartrate (Lopressor) 37.5 mg PO Q12HR [facility] Last Admin: 11/14/16 07:26 Dose: 37.5 mg Omeprazole (Omeprazole) 20 mg PO [id number] [facility] Omeprazole (Omeprazole) 20 mg PO DAILY [facility] Stop: 12/04/16 08:01 Last Admin: 11/14/16 07:27 Dose: 20 mg Prednisone (Prednisone) 10 mg PO QAM [facility] Last Admin: 11/14/16 07:27 Dose: 10 mg Sodium Chloride ([place] Saline Nasal Gel) 0 gm REGINA ASDIRECTED PRN PRN Reason: dry nares Last Admin: 11/06/16 23:43 Dose: 1 applic Sodium Chloride ([place] Saline Nasal Gel) Confirm Administered Dose 14.1 gm .ROUTE .STK-MED ONE Stop: 11/06/16 23:39 Last Admin: 11/06/16 23:42 Dose: Not Given Sulfasalazine (Sulfasalazine Dr) 1,000 mg PO BIDMEALS [facility] Last Admin: 11/14/16 07:25 Dose: 1,000 mg Tramadol HCl (Ultram) 25 mg PO Q4H PRN PRN Reason: MODERATE OR SEVERE PAIN Last Admin: 11/10/16 20:44 Dose: 25 mg - Exam General: alert, cooperative, no acute distress HEENT: Pupils equal, Pupils reactive, Mucous membr. moist/pink Neck: trachea midline, no JVD Lungs: Clear to auscultation, Normal respiratory effort Cardiovascular: Regular Rate, Regular Rhythm Abdomen: bowel sounds present, soft, no tenderness, no distension (Male) Exam: Deferred Back Exam: Normal Inspection Extremities: no edema, no calf tenderness Skin: warm, dry, intact, ecchymosis Wound/Incisions: healing well, dressing dry and intact, no drainage, erythema improving Neurological: no new focal deficit Psy/Mental Status: alert, normal affect, normal mood - Problem List & Annotations (1) Coronary arteriosclerosis in patient with history of previous myocardial infarction SNOMED Code(s): 039667541058647 Code(s): I25.10 - ATHSCL HEART DISEASE OF [place] CORONARY ARTERY W/O ANG PCTRS; I25.2 - OLD MYOCARDIAL INFARCTION Status: Acute Priority: High (2) Asthma SNOMED Code(s): 161317553 Code(s): J45.909 - UNSPECIFIED ASTHMA, UNCOMPLICATED Status: Acute Priority: Medium (3) Rheumatoid arthritis SNOMED Code(s): 10069147 Code(s): M06.9 - RHEUMATOID ARTHRITIS, UNSPECIFIED Status: Acute Priority : Low (4) ST elevation (STEMI) myocardial infarction involving right coronary artery SNOMED Code(s): 356393749 Code(s): I21.11 - STEMI INVOLVING RIGHT CORONARY ARTERY Status: Acute Priority: High (5) S/P CABG x 4 SNOMED Code(s): 986100383, 080427649 Code(s): Z95.1 - PRESENCE OF AORTOCORONARY BYPASS GRAFT Status: Acute Priority: High - Problem List Review Problem List Initiated/Reviewed/Updated: Yes - My Orders Last 24 Hours: My Active Orders 11/14/16 10:56 Ready for Discharge [RC] PER UNIT ROUTINE - Plan Plan:: 76 yowm S/P STEMI and CABG x4 now here for [facility] status for PT-OT. 11/11/16 Agustin Devi MD Doing okay. [place] a chill last night. Tylenol helped. Working in PT. 11/14/16 Agustin Devi MD Doing okay. Ready for discharge to home with home health and eventually cardiac rehabilitation.
--- NOTE | 2016-11-14 14:56 | PCM.DCSUM1 ---
Discharge Summary - Discharge Data Discharge Date: 11/14/16 Discharge Disposition: Home, W Home Health Agency 06 Condition: Good - Discharge Diagnosis/Problem(s) (1) Coronary arteriosclerosis in patient with history of previous myocardial infarction SNOMED Code(s): 039139411199391 ICD Code: I25.10 - ATHSCL HEART DISEASE OF [place] CORONARY ARTERY W/O ANG PCTRS; I25.2 - OLD MYOCARDIAL INFARCTION Status: Acute Priority: High (2) Asthma SNOMED Code(s): 774112317 ICD Code: J45.909 - UNSPECIFIED ASTHMA, UNCOMPLICATED Status: Acute Priority: Medium (3) Rheumatoid arthritis SNOMED Code(s): 93906850 ICD Code: M06.9 - RHEUMATOID ARTHRITIS, UNSPECIFIED Status: Acute Priority: Low (4) ST elevation (STEMI) myocardial infarction involving right coronary artery SNOMED Code(s): 074886419 ICD Code: I21.11 - STEMI INVOLVING RIGHT CORONARY ARTERY Status: Acute Priority: High (5) S/P CABG x 4 SNOMED Code(s): 337616817, 395300720 ICD Code: Z95.1 - PRESENCE OF AORTOCORONARY BYPASS GRAFT Status: Acute Priority: High - Patient Summary/Data Consults: Consultations 11/04/16 14:11 Consult to Case Management [CONS] Routine OT Evaluation and Treatment [CONS] Routine PT Evaluation and Treatment [CONS] Routine - Patient Instructions Diet: Heart Healthy Diet Activity: As Tolerated, Cough & Deep Breathe, No Lifting Over 10 Pounds Driving: Do Not Drive Showering/Bathing: May Shower Wound/Incision Care: Keep Operative Site/Wound Site Clean and Dry, Change Dressing Daily Notify Provider of: Fever, Increased Pain, Swelling and Redness, Drainage, Nausea and/or Vomiting Other/Special Instructions: Keep your [place] doctor appointments. Follow up at [facility] as needed. - Discharge Plan Prescriptions/Med Rec: Acetaminophen/traMADol [Ultracet] 1 tab PO Q4HR PRN #30 tablet PRN Reason: Pain (Moderate 4-6) Apixaban [Eliquis] 5 mg PO BID #60 tablet Benazepril [Lotensin] 10 mg PO DAILY #90 tablet Omeprazole 20 mg PO DAILY #30 cap.cr Home Medications: Home Meds Methotrexate Sodium [Methotrexate] 10 tab PO GARCIA@0800 07/21/13 [History] Folic Acid 1 mg PO DAILY #30 07/25/13 [Rx] Aspirin [Ecotrin] 325 mg PO DAILY 11/04/16 [History] Docusate Sodium [Colace] 250 mg PO DAILY 11/04/16 [History] Metoprolol Tartrate 37.5 mg PO BID 11/04/16 [History] predniSONE [Prednisone] 10 mg PO QAM 11/04/16 [History] sulfaSALAzine [sulfaSALAzine DR] 2 tab PO BIDMEALS 11/04/16 [History] Acetaminophen [Tylenol] 325 mg PO Q4H PRN #100 tablet 11/14/16 [Rx] Acetaminophen/traMADol [Ultracet] 1 tab PO Q4HR PRN #30 tablet 11/14/16 [Rx] Albuterol [IJD: Albuterol] 2.5 mg NEB Q2H PRN #30 nebule 11/14/16 [Rx] Albuterol/Ipratropium [DuoNeb 3.0-0.5 MG/3 ML] 3 ml NEB TIDRT neb 11/14/16 [Rx] Aloe Vera/Sodium Chloride [[place] Saline Nasal Gel] 1 gm REGINA ASDIRECTED PRN #1 tube 11/14/16 [Rx] Apixaban [Eliquis] 5 mg PO BID #60 tablet 11/14/16 [Rx] Benazepril [Lotensin] 10 mg PO DAILY #90 tablet 11/14/16 [Rx] Budesonide [Pulmicort] 0.5 mg NEB BIDRT neb 11/14/16 [Rx] Omeprazole 20 mg PO DAILY #30 cap.cr 11/14/16 [Rx] atorvaSTATin [Lipitor] 40 mg PO BEDTIME tablet 11/14/16 [Rx] Patient Handouts: Coronary Artery Bypass Grafting, Care After, [id number], Nonspecific Chest Pain Referrals: Sheets-Jadyn Devi MD [Primary Care Provider] - - Discharge Summary/Plan Comment DC Time >30 min.: No - Patient Data Vitals - Most Recent: Last Vital Signs Temp 99.1 F 11/14/16 07:28 Pulse 62 11/14/16 07:28 Resp 18 11/14/16 07:28 BP 126/66 11/14/16 07:28 Pulse Ox 95 11/14/16 07:28 Weight - Most Recent: 177 lb 12.8 oz I&O - Last 24 hours: Intake & Output 11/13/16 11/14/16 11/14/16 22:59 06:59 14:59 Intake Total 120 100 240 Balance 120 100 240 Med Orders - Current: Current Medications Discontinued Medications Acetaminophen (Tylenol) 325 mg PO Q4H PRN PRN Reason: MODERATE OR SEVERE PAIN Last Admin: 11/10/16 21:30 Dose: 325 mg Albuterol (Proventil Neb Soln) 2.5 mg NEB Q2H PRN PRN Reason: Wheezing Last Admin: 11/04/16 15:43 Dose: 2.5 mg Albuterol/Ipratropium (Duoneb 3.0-0.5 Mg/3 Ml) 3 ml NEB TIDRT [facility] Last Admin: 11/14/16 07:26 Dose: 3 ml Amiodarone HCl (Cordarone) 200 mg PO [id number] [facility] Amiodarone HCl (Cordarone) 200 mg PO DAILY [facility] Stop: 11/14/16 08:01 Last Admin: 11/14/16 07:25 Dose: 200 mg Apixaban (Eliquis) 5 mg PO Q12HR [facility] Last Admin: 11/14/16 07:26 Dose: 5 mg Aspirin (Ecotrin) 325 mg PO DAILY [facility] Last Admin: 11/14/16 07:26 Dose: 325 mg Atorvastatin Calcium (Lipitor) 40 mg PO BEDTIME [facility] Atorvastatin Calcium (Lipitor) 40 mg PO BEDTIME [facility] Last Admin: 11/13/16 20:16 Dose: 40 mg Benazepril HCl (Lotensin) 10 mg PO DAILY [facility] Last Admin: 11/14/16 07:27 Dose: 10 mg Budesonide (Pulmicort) 0.5 mg NEB BIDRT [facility] Last Admin: 11/14/16 07:27 Dose: 0.5 mg Docusate Sodium (Colace) 200 mg PO DAILY [facility] Last Admin: 11/14/16 07:25 Dose: 200 mg Folic Acid (Folic Acid) 1 mg PO DAILY [facility] Last Admin: 11/14/16 07:26 Dose: 1 mg Methotrexate (Methotrexate) 25 mg PO GARCIA@0800 [facility] Last Admin: 11/09/16 08:03 Dose: 25 mg Metoprolol Tartrate (Lopressor) 37.5 mg PO Q12HR [facility] Last Admin: 11/14/16 07:26 Dose: 37.5 mg Omeprazole (Omeprazole) 20 mg PO [id number] [facility] Omeprazole (Omeprazole) 20 mg PO DAILY [facility] Stop: 12/04/16 08:01 Last Admin: 11/14/16 07:27 Dose: 20 mg Prednisone (Prednisone) 10 mg PO QAM [facility] Last Admin: 11/14/16 07:27 Dose: 10 mg Sodium Chloride ([place] Saline Nasal Gel) 0 gm REGINA ASDIRECTED PRN PRN Reason: dry nares Last Admin: 11/06/16 23:43 Dose: 1 applic Sodium Chloride ([place] Saline Nasal Gel) Confirm Administered Dose 14.1 gm .ROUTE .STK-MED ONE Stop: 11/06/16 23:39 Last Admin: 11/06/16 23:42 Dose: Not Given Sulfasalazine (Sulfasalazine Dr) 1,000 mg PO BIDMEALS [facility] Last Admin: 11/14/16 07:25 Dose: 1,000 mg Tramadol HCl (Ultram) 25 mg PO Q4H PRN PRN Reason: MODERATE OR SEVERE PAIN Last Admin: 11/10/16 20:44 Dose: 25 mg *Q Meaningful Use (DIS) - VTE *Q VTE Criteria *Q: - Stroke *Q Stroke Criteria *Q: - AMI *Q AMI Criteria *Q:
== END 2016-11-14 13:20 | disposition home health service (06) | DRG 949 ==
LOC: LL.MS 13:00
PROVIDERS: ADMIT Family Medicine; ATTEND Family Medicine
DX: Z48.812 Encounter for surgical aftercare following surgery on the circulatory system (principal); I21.11 ST elevation (STEMI) myocardial infarction involving right coronary artery; I25.810 Atherosclerosis of coronary artery bypass graft(s) without angina pectoris; I10 Essential (primary) hypertension; Z95.1 Presence of aortocoronary bypass graft; J45.909 Unspecified asthma, uncomplicated; M06.9 Rheumatoid arthritis, unspecified; Z79.82 Long term (current) use of aspirin; Z79.01 Long term (current) use of anticoagulants; Z79.899 Other long term (current) drug therapy; I48.91 Unspecified atrial fibrillation
CPT/HCPCS: 94640; 94664; 97110-GO; 97110-GP; 97116-GP; 97161-GP; 97165-GO; 97530-GP; 97535-GO; A9270-GY; J7620-GY; J8610

== ENCOUNTER 2017-05-29 23:13 | Emergency (ER) | payer MEDICARE, OTHER ==
[2017-05-29 23:28] VITALS: BP 155/78
--- NOTE | 2017-05-29 23:45 | EDM.PDOC ---
ED HPI GENERAL MEDICAL PROBLEM - General Chief Complaint: General Stated Complaint: Tooth pain Time Seen by Provider: 05/29/17 23:40 Source of Information: Reports: Patient, Old Records ([facility] chart/EMR) History Limitations: Reports: No Limitations - History of Present Illness INITIAL COMMENTS - FREE TEXT/NARRATIVE: The patient drove himself to the emergency room via private automobile for evaluation of intermittent 10/10 left upper dental pain secondary to a cracked tooth, which was diagnosed by his local dentist, Dr. Hinojosa, 2 days ago. He denies any drainage, acute injury, etc. with symptoms usually occurring in the evening hours. He did not start ibuprofen as directed by his dentist, however symptoms are refractory to Tylenol with 1000 mg taken earlier this evening. No recent history of abdominal pain, heartburn, nausea, diarrhea, melena, gross hematochezia, or any food intolerance, including fatty foods, etc.. The patient denies any chest pain/pressure, heart flutter, dizziness, orthostasis, orthopnea , diaphoresis, paresthesias, recent decreased exercise tolerance, or any other anginal-type symptoms. The patient also denies any recent fever, cough, wheezing , dyspnea, etc.. Onset: Gradual Onset Date: 05/25/17 Duration: Getting Worse, Intermittent Location: Reports: Face (Dental pain as above). Denies: Head, Neck, Chest, Abdomen, Upper Extremity, Left, Upper Extremity, Right, Generalized Quality: Reports: Same as Previous Episode, Sharp, Stabbing Severity: Severe Improves with: Reports: None Worsens with: Reports: None Context: Reports: Other (As above) Associated Symptoms: Denies: Confusion, Chest Pain, Cough, Diaphoresis, Fever/ Chills, Headaches, Loss of Appetite, Malaise, Nausea/Vomiting, Shortness of Breath, Weakness Treatments TRADE FACILITATOR: Reports: Acetaminophen Left Upper Tooth/Teeth Pain Score (Numeric/FACES): 7 - Related Data Allergies Allergy/AdvReac Type Severity Reaction Status Date / Time seasonal Allergy Other Uncoded 05/29/17 23:28 Home Meds: Home Meds Methotrexate Sodium [Methotrexate] 10 tab PO GARCIA@0800 07/21/13 [History] Folic Acid 1 mg PO DAILY #30 07/25/13 [Rx] Aspirin [Ecotrin] 325 mg PO DAILY 11/04/16 [History] Docusate Sodium [Colace] 250 mg PO DAILY 11/04/16 [History] Metoprolol Tartrate 25 mg PO BID 11/04/16 [History] predniSONE [Prednisone] 10 mg PO QAM 11/04/16 [History] sulfaSALAzine [sulfaSALAzine DR] 2 tab PO BIDMEALS 11/04/16 [History] Albuterol [IJD: Albuterol] 2.5 mg NEB Q2H PRN #30 nebule 11/14/16 [Rx] Albuterol/Ipratropium [DuoNeb 3.0-0.5 MG/3 ML] 3 ml NEB TIDRT neb 11/14/16 [Rx] Aloe Vera/Sodium Chloride [[place] Saline Nasal Gel] 1 gm REGINA ASDIRECTED PRN #1 tube 11/14/16 [Rx] Budesonide [Pulmicort] 0.5 mg NEB BIDRT neb 11/14/16 [Rx] Omeprazole 20 mg PO DAILY #30 cap.cr 11/14/16 [Rx] Benazepril [Lotensin] 20 mg PO DAILY 05/29/17 [History] atorvaSTATin [Lipitor] 40 mg PO BEDTIME 05/29/17 [History] Amoxicillin/Potassium Clav [Augmentin 875-125 Tablet] 1 each PO BIDMEALS #20 tablet 05/30/17 [Rx] Past Medical History HEENT History: Reports: Hard of Hearing, Impaired Vision, Other (See Below) Other HEENT History: Patient wears glasses; bilateral presbycusis with bilateral hearing aide therapy Cardiovascular History: Reports: Afib, Arrhythmia, Bypass, CAD, High Cholesterol , Hypertension, GA, PTCA, Stents, Other (See Below) Other Cardiovascular History: History with inferior wall STEMI requiring four- vessel CABG as below with newly diagnosed atrial fibrillation with rapid ventricular response at that time; PVCs and PACs Respiratory History: Reports: COPD, Intubation, Previous, Pulmonary Fibrosis, Other (See Below). Denies: Intubation, Difficult Other Respiratory History: Bilateral benign pulmonary granulomas Gastrointestinal History: Reports: Chronic Constipation, Colon Polyp, Diverticulosis, Gastritis, GERD, Helicobacter Pylori, Hiatal Hernia, Other (See Below) Other Gastrointestinal History: History of recurrent sigmoid colonic polyps including initial hyperplastic polyps 2 on 06/26/03 with subsequent 1 hyperplastic polyp and an additional tubular adenoma in the sigmoid region on 15/02; positive H pylori biopsy at time of EGD on 09/16/07; nonsymptomatic cholelithiasis by CT scan on 02/21/14 Genitourinary History: Reports: BPH, Other (See Below) Other Genitourinary History: bilateral hydroceles Musculoskeletal History: Reports: Arthritis, Back Pain, Chronic, Fracture, Neck Pain, Chronic, Osteoarthritis, RA, Other (See Below) Other Musculoskeletal History: Left clavicular fracture as a child; bilateral carpal tunnel syndrome with right sided surgery as below; rheumatoid arthritis with current aggressive medical therapy, mild scoliosis Immunologic History: Reports: Other (See Below) Other Immunologic History: Rheumatoid Arthritis Dermatologic History: Reports: Other (See Below) Other Dermatologic History: Actinic keratosis with additional history of unknown type of Skin cancer in the facial region with 3 previous excisions - Past Surgical History HEENT Surgical History: Reports: Adenoidectomy, Tonsillectomy, Other (See Below) Other HEENT Surgeries/Procedures: Tonsillectomy and adenoidectomy at age 4 Cardiovascular Surgical History: Reports: Coronary Artery Bypass, Coronary Artery Stent, Percutaneous Transluminal Angioplasty, Other (See Below) Other Cardiovascular Surgeries/Procedures: CABG 4 on 10/31/16 GI Surgical History: Reports: Colonoscopy, EGD, Polypectomy, Other (See Below) Other GI Surgeries/Procedures: Last EGD and colonoscopy on 09/16/07 with previous colonoscopy on 06/26/03 Male Surgical History: Reports: Other (See Below) Other Male Surgeries/Procedures: Right testicular surgery 1992 Musculoskeletal Surgical History: Reports: Carpal Tunnel, Other (See Below) Other Musculoskeletal Surgeries/Procedures:: Right carpal tunnel release in 1998 Dermatological Surgical History: Reports: Skin Biopsy, Other (See Below) Other Dermatological Surgeries/Procedures: Facial skin excisions 3 as above - Past Imaging History Past Imaging History: Reports: CAT Scan (CT of the chest on 02/21/14), MRI (MRI of the cervical spine on 11/01/13), Stress Testing (Low level cardiac stress test on 11/25/16, Cardiolite stress test on 08/25/02 with ejection fraction of 63% ), Ultrasound (bilateral scrotal ultrasounds on 07/25/13 and 05/26/06 with previous left-sided evaluation on 11/05/04), Venous Doppler (Venous Doppler study of the right leg on 09/09/13) Social & Family History - Family History Endocrine/Metabolic: Reports: Diabetes, Type I, Diabetes, type II, IDDM, Other ( See Below) Other Endocrine/Metabolic Family History: Sister with type I IDDM; brother with AODM with paternal uncle and maternal uncles having IDDM Oncologic: Reports: Other (See Below) Other Oncologic Family History: Mother with fatal breast cancer at age 78, father with possible testicular cancer at age 88 - Alcohol Use Days Per Week of Alcohol Use: 1 Number of Drinks Per Day: 1 Total Drinks Per Week: 1 - Recreational Drug Use Recreational Drug Use: No - Living Situation & Occupation Living situation: Reports: , with Significant Other Occupation: Retired ED ROS GENERAL - Review of Systems Review Of Systems: ROS reveals no pertinent complaints other than HPI. ED EXAM, GENERAL - Physical Exam Exam: See Below Exam Limited By: No Limitations General Appearance: Alert, WD/WN, No Apparent Distress, Anxious Eye Exam: Bilateral Eye: EOMI, Normal Inspection (No nystagmus, patient wearing glasses), PERRL Ears: Normal External Exam, Normal Canal, Normal TMs, Hearing Loss (Moderate bilateral hearing loss with patient only wearing his right hearing aid) Nose: Normal Inspection, Normal Mucosa, No Blood Throat/Mouth: Normal Lips, Normal Oropharynx, Normal Voice, No Airway Compromise. No: Normal Teeth (Mild palpation pain over the last remaining left upper premolar tooth with filling in place but no visual tooth injury, drainage , swelling, etc.), Dysphagia, Perioral Cyanosis Head: Atraumatic, Normocephalic. No: Facial Swelling, Facial Tenderness, Sinus Tenderness Neck: Normal Inspection, Supple, Non-Tender, Full Range of Motion. No: Lymphadenopathy (L), Lymphadenopathy (R), Thyromegaly Respiratory/Chest: No Respiratory Distress, Lungs Clear, Normal Breath Sounds, No Accessory Muscle Use, Chest Non-Tender. No: Pleural Rub, Retractions Cardiovascular: Normal Peripheral Pulses, Regular Rate, Rhythm, No Edema, No Gallop, No JVD, No Murmur, No Rub. No: Gallop/S3, Gallop/S4, Friction Rub Peripheral Pulses: 2+: Radial (L), Radial (R) GI/Abdominal: Normal Bowel Sounds, Soft, Non-Tender, No Organomegaly, No Distention, No Abnormal Bruit, No Mass. No: Guarding (Male) Exam: Deferred Rectal (Males) Exam: Deferred Back Exam: Normal Inspection, Full Range of Motion. No: CVA Tenderness (L), CVA Tenderness (R) Extremities: Normal Inspection, Normal Range of Motion, Non-Tender, No Pedal Edema, Normal Capillary Refill. No: Kya's Sign Neurological: Alert, Oriented, CN II-XII Intact, Normal Cognition, Normal Gait, No Motor/Sensory Deficits Psychiatric: Normal Affect, Normal Mood Skin Exam: Warm, Dry, Intact, Normal Color, No Rash. No: Diaphoretic, Wound/ Incision Lymphatic: No Adenopathy Course - Vital Signs Last Recorded V/S: Last Vital Signs Temp 36.4 C 05/29/17 23:15 Pulse 80 05/29/17 23:15 Resp 20 05/29/17 23:15 BP 155/78 H 05/29/17 23:15 Pulse Ox 95 05/29/17 23:15 Vital Signs - 24 hr 05/29/17 23:15 Temperature [ 36.4 C Oral] Pulse, 80 Peripheral [ Right Radial] Respiratory 20 Rate Blood Pressure 155/78 H [Left] O2 Sat by Pulse 95 Oximetry - Orders/Labs/Meds Labs: None Meds: Medications Discontinued Medications Generic Name Dose Route Start Last Admin Trade Name [place] PRN Reason Stop Dose Admin Amoxicillin/Clavulanate Potassium 1 tab 05/30/17 00:05 05/30/17 00:19 Augmentin 875 Mg/125 Mg PO 05/30/17 00:06 1 tab ONETIME ONE Administration Ketorolac Tromethamine 60 mg 05/30/17 00:07 05/30/17 00:19 Toradol IM 05/30/17 00:08 60 mg ONETIME ONE Administration - Radiology Interpretation Free Text/Narrative:: None Departure - Departure Time of Disposition: 00:40 Disposition: Home, Self-Care 01 Condition: Good Clinical Impression: Dental abscess, Peptic reflux disease Coronary artery disease Qualifiers: Coronary Disease-Associated Artery/Lesion type: bypass graft, autologous vein Associated angina: without angina Qualified Code(s): I25.810 - Atherosclerosis of coronary artery bypass graft(s) without angina pectoris Hypertension Qualifiers: Hypertension type: essential hypertension Qualified Code(s): I10 - Essential ( primary) hypertension COPD (chronic obstructive pulmonary disease) Qualifiers: COPD type: emphysema Emphysema type: panlobular Qualified Code(s): J43.1 - Panlobular emphysema Rheumatoid arthritis Qualifiers: Rheumatoid arthritis location: multiple sites Rheumatoid factor presence: unspecified presence Qualified Code(s): M06.9 - Rheumatoid arthritis, unspecified Hyperlipidemia Qualifiers: Hyperlipidemia type: unspecified Qualified Code(s): E78.5 - Hyperlipidemia, unspecified - Discharge Information Prescriptions: Amoxicillin/Potassium Clav [Augmentin 875-125 Tablet] 1 each PO BIDMEALS #20 tablet Instructions: Dental Abscess, [id number] Referrals: Agustin-Jadyn Devi MD [Primary Care Provider] - Forms: ED Department Discharge Additional Instructions: 1. Follow up with your dentist as already scheduled on 06/01 for probable tooth extraction 2. Tylenol 650 mg by mouth every 4 hours and/or OTC ibuprofen 2-3 tabs by mouth every 6 hours with food as directed./needed. Next dose of ibuprofen in 6 hours as needed secondary to medications given in the emergency room 3. Listerine gargles four times per day, after meals and at bedtime, with additional Chloroseptic lozenges or spray as needed for 10 days and/or until symptoms resolve. - Problem List & Annotations (1) Dental abscess SNOMED Code(s): 331830431 Code(s): K04.7 - PERIAPICAL ABSCESS WITHOUT SINUS Status: Acute Priority : High Onset Date: ~05/25/17 Annotation/Comment:: IM Toradol given and Augmentin therapy initiated in the emergency room. Follow-up with his dentist GRACIELA as already scheduled on 06/01 with probable tooth extraction at that time. Otherwise symptomatic relief as per discharge instructions, including initiation of ibuprofen as advised by his dentist (2) COPD (chronic obstructive pulmonary disease) SNOMED Code(s): 32500908 Code(s): J44.9 - CHRONIC OBSTRUCTIVE PULMONARY DISEASE, UNSPECIFIED Status : Chronic Priority: Medium Annotation/Comment:: Stable by history with no recent fever, cough, or other bronchitic type symptoms Qualifiers: COPD type: emphysema Emphysema type: panlobular Qualified Code(s): J43.1 - Panlobular emphysema (3) Coronary artery disease SNOMED Code(s): 94304653 Code(s): I25.10 - ATHSCL HEART DISEASE OF [place] CORONARY ARTERY W/O ANG PCTRS Status: Chronic Priority: Medium Annotation/Comment:: Stable by history with no recent chest pain or anginal complaints Qualifiers: Coronary Disease-Associated Artery/Lesion type: bypass graft, autologous vein Associated angina: without angina Qualified Code(s): I25.810 - Atherosclerosis of coronary artery bypass graft(s) without angina pectoris (4) Hyperlipidemia SNOMED Code(s): 70341073 Code(s): E78.5 - HYPERLIPIDEMIA, UNSPECIFIED Status: Chronic Priority: Medium Annotation/Comment:: Under therapy Qualifiers: Hyperlipidemia type: unspecified Qualified Code(s): E78.5 - Hyperlipidemia , unspecified (5) Hypertension SNOMED Code(s): 24573764 Code(s): I10 - ESSENTIAL (PRIMARY) HYPERTENSION Status: Acute Qualifiers: Hypertension type: essential hypertension Qualified Code(s): I10 - Essential (primary) hypertension (6) Peptic reflux disease SNOMED Code(s): 77128503 Code(s): K21.9 - GASTRO-ESOPHAGEAL REFLUX DISEASE WITHOUT ESOPHAGITIS Status: Chronic Priority: Medium Annotation/Comment:: Stable by history (7) Rheumatoid arthritis SNOMED Code(s): 83570906 Code(s): M06.9 - RHEUMATOID ARTHRITIS, UNSPECIFIED Status: Chronic Priority: Medium Annotation/Comment:: Continue current aggressive medical therapy. Stable by history - Problem List Review Problem List Initiated/Reviewed/Updated: Yes - Assessment/Plan Assessment:: As above Plan: As above. Extensive precautions were given to the patient, who is in agreement with the treatment plan. See Patient Instructions for further treatment and plan.
[2017-05-30] MEDS ORDERED: Amoxicillin/Clavulanate K 875-125 MG Tab PO ONE (00:05)
[2017-05-30] MEDS ORDERED: Ketorolac 60 MG/2 ML SDV IM ONE (00:07)
== END 2017-05-30 00:40 | disposition home or self-care (01) ==
LOC: LL.ED 23:13
DX: K04.7 Periapical abscess without sinus (principal); J43.1 Panlobular emphysema; M06.9 Rheumatoid arthritis, unspecified; E78.5 Hyperlipidemia, unspecified; I25.810 Atherosclerosis of coronary artery bypass graft(s) without angina pectoris; I10 Essential (primary) hypertension; Z79.82 Long term (current) use of aspirin; Z79.899 Other long term (current) drug therapy
CPT/HCPCS: 96372; 99283; A9270; J1885

== ENCOUNTER 2018-08-12 10:49 | Inpatient (IN) | payer OTHER, MEDICARE ==
[2018-08-12] MEDS ORDERED: Albuterol/Ipratropium 3.0-0.5 MG/3 ML Neb Soln NEB ONE (11:11)
[2018-08-12] MEDS ORDERED: Acetaminophen 325 MG Tab PO ONE (11:11)
--- NOTE | 2018-08-12 11:11 | EDM.PDOC ---
ED HPI GENERAL MEDICAL PROBLEM - General Chief Complaint: General Stated Complaint: fever, cough, weakness, confusion Time Seen by Provider: 08/12/18 11:05 Source of Information: Reports: Family ([id number], Paulina), Old Records ( [facility] chart/EMR), Other ([place] [facility]) History Limitations: Reports: No Limitations - History of Present Illness INITIAL COMMENTS - FREE TEXT/NARRATIVE: Patient was brought to the emergency room via private automobile by his daughter -in-law, Paulina, for evaluation of progressive nonproductive cough with symptoms starting a few days ago as below. His symptoms have progressed during the last 24-48 hours, including some moderate confusion since about 5 PM yesterday afternoon. Patient apparently did not take his evening medications yesterday or morning medications today. His confusion has improved since yesterday, although he did not remember his grandson visited him yesterday afternoon and forgot to take his medications as above. Patient denies any known exposure to infection, including influenza, etc., and he did have his influenza booster in April 2018. No apparent fever with symptoms as above with no recent use of antipyretic medication, etc. The patient denies any chest pain/pressure, heart flutter, dizziness, orthostasis, orthopnea, diaphoresis, paresthesias, recent decreased exercise tolerance, or any other anginal-type symptoms. No recent history of abdominal pain, heartburn, nausea, diarrhea, melena, gross hematochezia, or any food intolerance, including fatty foods, etc.. He denies any gross hematuria, colic, or other UTI symptoms. Note some progressive dyspnea , wheezing, etc. this morning with the patient not taking his nebulizer treatments since yesterday afternoon as above. No history of recent headaches, visual changes, diplopia, or other change in neurological status. He denies any pain or discomfort. Onset: Gradual Onset Date: 08/07/18 Duration: Getting Worse Location: Reports: Other (No pain) Severity: Moderate Improves with: Reports: Rest Worsens with: Reports: Movement Context: Reports: Other (As above). Denies: Sick Contact, Trauma Associated Symptoms: Reports: Confusion, Cough, Shortness of Breath. Denies: Chest Pain, cough w sputum, Diaphoresis, Fever/Chills, Headaches, Loss of Appetite, Malaise, Nausea/Vomiting, Rash, Seizure, Syncope, Weakness Treatments [employer]: Reports: Other (see below) (None) - Related Data Allergies Allergy/AdvReac Type Severity Reaction Status Date / Time seasonal Allergy Other Uncoded 08/12/18 11:06 Home Meds: Home Meds Methotrexate Sodium [Methotrexate] 10 tab PO GARCIA@0800 07/21/13 [History] Folic Acid 1 mg PO DAILY #30 07/25/13 [Rx] Aspirin [Ecotrin] 325 mg PO DAILY 11/04/16 [History] Metoprolol Tartrate 25 mg PO BID 11/04/16 [History] predniSONE [Prednisone] 10 mg PO QAM 11/04/16 [History] sulfaSALAzine [sulfaSALAzine DR] 2 tab PO BIDMEALS 11/04/16 [History] Omeprazole 20 mg PO DAILY #30 cap.cr 11/14/16 [Rx] Benazepril [Lotensin] 20 mg PO DAILY 05/29/17 [History] atorvaSTATin [Lipitor] 40 mg PO BEDTIME 05/29/17 [History] Albuterol/Ipratropium [DuoNeb 3.0-0.5 MG/3 ML] 3 ml NEB QID 08/12/18 [History] Budesonide [Pulmicort] 0.5 mg NEB BID 08/12/18 [History] Past Medical History HEENT History: Reports: Cataract, Hard of Hearing, Impaired Vision, Other (See Below). Denies: Allergic Rhinitis, Glaucoma, Macular Degeneration, Retinal Detachment Other HEENT History: Patient wears glasses; bilateral presbycusis with suboptimal bilateral hearing aide therapy Cardiovascular History: Reports: Afib, Arrhythmia, Bypass, CAD, Cardiomyopathy, Heart Failure, High Cholesterol, Hypertension, LA, PTCA, Stents, Other (See Below). Denies: Aneurysm, Blood Clots/VTE/DVT, Heart Murmur, PVD, Syncope Other Cardiovascular History: Grade 1 diastolic dysfunction by echocardiogram in 2017 as below. History with inferior wall STEMI requiring four-vessel CABG as below with newly diagnosed atrial fibrillation with rapid ventricular response at that time; PVCs and PACs Respiratory History: Reports: Bronchitis, Recurrent, COPD, Intubation, Previous , Pneumonia, Recurrent, Pulmonary Fibrosis, Other (See Below). Denies: Asthma, Intubation, Difficult, PE, Pneumothorax, Sleep Apnea, TB Other Respiratory History: Bilateral benign pulmonary granulomas, including the left lower lobe. Botello's lung/COPD. Gastrointestinal History: Reports: Cholelithiasis, Chronic Constipation, Colon Polyp, Diverticulosis, Gastritis, GERD, Helicobacter Pylori, Hiatal Hernia, Other (See Below). Denies: Bowel Obstruction, Celiac Disease, Chronic Diarrhea , Fecal Incontinence, Hepatitis, Inflammatory Bowel Disease, Irritable Bowel Syndrome, Jaundice, Pancreatitis, PUD Other Gastrointestinal History: History of recurrent sigmoid colonic polyps including initial hyperplastic polyps 2 on 06/26/03 with subsequent 1 hyperplastic polyp and an additional tubular adenoma in the sigmoid region on 15/02; positive H pylori biopsy at time of EGD on 09/16/07; nonsymptomatic cholelithiasis by CT scan on 02/21/14. Genitourinary History: Reports: BPH, Chronic Renal Insuffiency, Other (See Below ). Denies: Renal Calculus, STD, Urinary Incontinence, UTI, Recurrent Other Genitourinary History: bilateral hydroceles Musculoskeletal History: Reports: Arthritis, Back Pain, Chronic, Fracture, Neck Pain, Chronic, Osteoarthritis, RA, Other (See Below). Denies: Amputation, Fibromyalgia, Gout, Osteoporosis, SLE Other Musculoskeletal History: Left clavicular fracture as a child; bilateral carpal tunnel syndrome with right sided surgery as below; rheumatoid factor positive rheumatoid arthritis with current aggressive medical therapy, mild scoliosis Neurological History: Reports: None. Denies: Alzheimers Disease, Cerebral Aneurysms, Concussion, CVA, Headaches, Chronic, Head Trauma, Migraines, MS, Neuropathy, Diabetic, Neuropathy, Peripheral, Parkinson's, Seizure, TIA, Vertigo Psychiatric History: Reports: None. Denies: Abuse, Victim of, ADD, ADHD, Addiction, Anxiety, Depression, Psych Hospitalization(s), PTSD, Suicide Attempt , Suicidal Ideation Endocrine/Metabolic History: Reports: None. Denies: Diabetes, Type I, Diabetes , Type II, Diabetes Mellitus, Type 3c, Hypothyroidism, IDDM, Osteopenia, Osteoporosis Hematologic History: Reports: None. Denies: Anemia, B12 Deficiency, Blood Transfusion(s), Iron Deficiency Immunologic History: Reports: Immunosuppression, Other (See Below). Denies: AIDS, HIV, SLE Other Immunologic History: Rheumatoid Arthritis Oncologic (Cancer) History: Reports: Basal Cell Carcinoma, Squamous Cell Carcinoma, Other (See Below). 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 Dermatologic History: Reports: Other (See Below) Other Dermatologic History: Actinic keratosis with additional history of skin cancer as above. - Infectious Disease History Infectious Disease History: Reports: Chicken Pox, Influenza (Influenza A), Measles, Mumps, Shingles (Left posterior cervical herpes zoster in about 2015.) . Denies: C-Difficile, Meningitis, Mononucleosis, MRSA, Pertussis (Whooping Cough), Rheumatic Fever, Rubella, Scarlet Fever, TB, VRE - Past Surgical History Head Surgeries/Procedures: Reports: None HEENT Surgical History: Reports: Adenoidectomy, Cataract Surgery, Eye Surgery, Oral Surgery, Tonsillectomy, Other (See Below). Denies: Laser Surgery, LASIK, Myringotomy w Tube(s), Naso-Sinus Surgery Other HEENT Surgeries/Procedures: Tonsillectomy and adenoidectomy at age 4. Bilateral cataract surgery in about 2013. [place] teeth extraction 4 and multiple teeth extractions. Cardiovascular Surgical History: Reports: Coronary Artery Bypass, Coronary Artery Stent, Percutaneous Transluminal Angioplasty, Other (See Below) Other Cardiovascular Surgeries/Procedures: CABG 4 on 10/31/16 Respiratory Surgical History: Reports: None. Denies: Thoracentesis GI Surgical History: Reports: Colonoscopy, EGD, Polypectomy, Other (See Below). Denies: Appendectomy, Cholecystectomy, Hernia, Abdominal, Hernia, Inguinal, Hernia Repair/Other Other GI Surgeries/Procedures: Last EGD and colonoscopy on 09/16/07 with previous colonoscopy on 06/26/03 Male Surgical History: Reports: Other (See Below). Denies: Circumcision, TURP-Transurethral Resection of Prostate, Vasectomy Other Male Surgeries/Procedures: Right testicular surgery 1992 Endocrine Surgical History: Reports: None. Denies: Thyroid Biopsy Neurological Surgical History: Reports: None. Denies: C-Spine, Discectomy, Laminectomy, Lumbar Spine, Sacral Spine, Spinal Fusion, Thoracic Spine Musculoskeletal Surgical History: Reports: Carpal Tunnel, Other (See Below). Denies: Amputation, Arthroscopic Procedure, Ganglion Cyst, Joint Replacement, ORIF, Shoulder Surgery Other Musculoskeletal Surgeries/Procedures:: Right carpal tunnel release in 1998 with left-sided carpal tunnel release in about 2000. Oncologic Surgical History: Reports: None Dermatological Surgical History: Reports: Skin Biopsy, Other (See Below) Other Dermatological Surgeries/Procedures: Multiple skin excisions for recurrent skin cancer as above. - Past Imaging History Past Imaging History: Reports: Angiography (Heart catheterization on 10/30/16.), Cardiac Echo (Echocardiogram on 10/31/16 with ejection fraction of 60%.), CAT Scan (CT of the chest on 02/21/14), MRI (MRI of the cervical spine on 11/01/13), Stress Testing (Low level cardiac stress test on 11/25/16, Cardiolite stress test on 08/25/02 with ejection fraction of 63%), Ultrasound (Left arm arterial duplex evaluation prior to CABG on 10/30/17. Bilateral scrotal ultrasounds on and 05/26/06 with previous left-sided evaluation on 11/05/04), Venous Doppler (Venous Doppler study of the right leg on 09/09/13.) Social & Family History - Family History HEENT: Reports: Other (See Below). Denies: Cataract, Glaucoma, Macular Degeneration, Retinal Detachment Other HEENT Family History: Brother with color blindness. Cardiac: Reports: High Cholesterol, Hypertension, Other (See Below). Denies: Afib, Aneurysm, Arrhythmia, Blood Clots/VTE/DVT, CAD, Heart Failure, Heart Murmur, LA, PVD/COD, Syncope Other Cardiac Family History: Brother with hyperlipidemia and hypertension. Respiratory: Reports: COPD, Other (See Below). Denies: Asthma, PE, Sleep Apnea , TB Other Respiratory Family Hisory: Brother with history of COPD with history of tobacco use. GI: Reports: None. Denies: Celiac Disease, Cholelithiasis, Colon Polyps, GERD, GI bleed, Inflammatory Bowel Disease, Irritable Bowel Syndrome, Jaundice, PUD : Reports: None. Denies: Renal Calculus, Renal Disease/Insufficiency OBGYN: Reports: None. Denies: Endometriosis, Recurrent Spontaneous Musculoskeletal: Reports: Arthritis, Osteoarthritis, Other (See Below). Denies : Gout, RA, SLE Other Musculoskeletal Family History: Brother with osteoarthritis. Neurological: Reports: Neuropathy, Diabetic, Other (See Below). Denies: Alzheimers Disease, Cerebral Aneurysms, CVA, Dementia, Migraines, MS, Neuropathy , Peripheral, Parkinson's, Seizure, TIA Other Neurological Family History: Daughter with diabetic neuropathy. Psychiatric: Reports: Anxiety, Depression, PTSD, Other (See Below). Denies: Abuse, Victim of, ADD, ADHD, Psych Hospitalization(s), Suicide Attempt Other Psychiatric Family History: Brother with history of alcohol abuse, PTSD, anxiety, and depression. Endocrine/Metabolic: Reports: Diabetes, Type I, Diabetes, type II, IDDM, Other ( See Below). Denies: Diabetes Mellitus, Type 3c Other Endocrine/Metabolic Family History: Daughter with type I IDDM initially diagnosed at age 28; brother with obesity and subsequent IDDM with fatal complications from his diabetes at age 75. Maternal grandfather with IDDM. AODM in paternal uncle and maternal uncles having IDDM Hematologic: Reports: None. Denies: Anemia, SLE, Transfusion Reaction Immunologic: Reports: None. Denies: AIDS, HIV, SLE Dermatologic: Reports: None. Denies: Eczema, Psoriasis Oncologic: Reports: Breast, Metastatic, Skin, Other (See Below). Denies: Colon , Hodgkin's Lymphoma, Leukemia, Lymphoma, Non-Hodgkin's Lymphoma, Prostate Other Oncologic Family History: Mother with fatal metastatic breast cancer at age 78, father with testicular cancer at age 88. Father with unknown type of skin cancer. - Tobacco Use Smoking Status *Q: Never Smoker Tobacco Use Within Last Twelve Months: No Used Tobacco, but Quit: No Smoking Cessation Information Provided To Patient: No Second Hand Smoke Exposure: No Second Hand Smoke Education Provided: No - Caffeine Use Caffeine Use: Reports: Coffee (4 cups per day). Denies: Energy Drinks, Soda, Tea - Alcohol Use Alcohol Use History: Yes Days Per Week of Alcohol Use: 0 Number of Drinks Per Day: 1 Number of Drinks Per Day Comment: Glass of wine usually for holidays. No previous DWIs, problems with alcohol abuse, etc. 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 ED EXAM, GENERAL - Physical Exam Exam: See Below Exam Limited By: No Limitations General Appearance: Alert, WD/WN, No Apparent Distress Eye Exam: Bilateral Eye: EOMI, Normal Inspection (No nystagmus. Patient wearing glasses.), Proptosis Ears: Normal External Exam. No: Hearing Loss (Bilateral hearing aids with suboptimal effectiveness ) Nose: Normal Inspection, Normal Mucosa, No Blood. No: Clear Rhinorrhea Throat/Mouth: Normal Inspection, Normal Lips, Normal Teeth (Multiple Missing Teeth), Normal Gums, Normal Oropharynx, Normal Voice, No Airway Compromise Head: Atraumatic, Normocephalic. No: Facial Swelling, Facial Tenderness, Sinus Tenderness Neck: Normal Inspection, Supple, Non-Tender, Full Range of Motion, Carotid Bruit (Mild bilateral carotid bruits). No: Lymphadenopathy (L), Lymphadenopathy (R), Thyromegaly Respiratory/Chest: No Respiratory Distress, No Accessory Muscle Use, Chest Non- Tender, Rales (Mild diffuse bilateral), Rhonchi (Occasional bilateral), Wheezing (Diffuse bilateralmild). No: Pleural Rub, Retractions Cardiovascular: Normal Peripheral Pulses, Regular Rate, Rhythm, No Gallop, No JVD, No Murmur, No Rub. No: No Edema (Dependent edema as below), Gallop/S3, Gallop/S4, Friction Rub Peripheral Pulses: 2+: Radial (L), Radial (R), Dorsalis Pedis (L), Dorsalis Pedis (R) GI/Abdominal: Normal Bowel Sounds, Soft, Non-Tender, No Organomegaly, No Distention, No Abnormal Bruit, No Mass, Pelvis Stable. No: Guarding (Male) Exam: Deferred Rectal (Males) Exam: Deferred Back Exam: Full Range of Motion, Other (Mild scoliosis). No: CVA Tenderness (L) , CVA Tenderness (R), Muscle Spasm Extremities: Normal Inspection, Normal Range of Motion, Non-Tender, Normal Capillary Refill, Pedal Edema (Trace to +1 bilateral pedal/pretibial edema). No : Kya's Sign Neurological: Alert, Oriented, CN II-XII Intact, Normal Cognition, Normal Gait, Normal Reflexes (Negative Babinski's), No Motor/Sensory Deficits Psychiatric: Normal Affect, Normal Mood Skin Exam: Warm, Dry, Intact, Normal Color, No Rash. No: Diaphoretic, Ecchymosis, Petechiae, Wound/Incision Lymphatic: No Adenopathy EKG INTERPRETATION EKG Date: 08/12/18 Time: 11:24 Rhythm: Other (Normal sinus rhythm with occasional PVC) Rate (Beats/Min): 86 [place]: Normal (Neutral cardiac axis) P-Wave: Present (Diffuse biphasic P wavesmild) QRS: Normal (QRS interval of 0.[address].) [address]-T: Other (Nonspecific ST changes in leads 2, 3, aVF and V5V6) QT: Normal AL/PQ Interval: 0.14 seconds with no delta waves noted Comparison: Change From Previous EKG (Returned PVC from 11/03/16 at [facility]) EKG Interpretation Comments: 1. No acute ischemic changes with nonspecific inferolateral ST changes 2. Atrial enlargement- left 3. PVC Course - Vital Signs Last Recorded V/S: Last Vital Signs Temp 37.8 C 08/12/18 10:51 Pulse 93 08/12/18 11:05 Resp 25 H 08/12/18 13:15 BP 142/65 H 08/12/18 13:15 Pulse Ox 94 L 08/12/18 13:15 Vital Signs - 24 hr 08/12/18 08/12/18 08/12/18 10:51 11:05 12:00 Temperature [ 37.8 C Oral] Pulse, 92 93 Peripheral [ Right Pulse Oximetry] Respiratory 28 H 28 H 25 H Rate Blood Pressure 147/59 H [Left Upper Arm ] Blood Pressure 170/86 H 156/69 H [Right Upper Arm] O2 Sat by Pulse 94 L 96 96 Oximetry 08/12/18 08/12/18 08/12/18 12:30 12:45 13:00 Temperature [ Oral] Pulse, Peripheral [ Right Pulse Oximetry] Respiratory 23 H 26 H 22 H Rate Blood Pressure 156/62 H 140/63 154/99 H [Left Upper Arm ] Blood Pressure [Right Upper Arm] O2 Sat by Pulse 94 L 93 L 94 L Oximetry 08/12/18 13:15 Temperature [ Oral] Pulse, Peripheral [ Right Pulse Oximetry] Respiratory 25 H Rate Blood Pressure 142/65 H [Left Upper Arm ] Blood Pressure [Right Upper Arm] O2 Sat by Pulse 94 L Oximetry - Orders/Labs/Meds Orders: Active Orders 24 hr Category Date Time Status Cardiac Monitoring [RC] CONTINUOUS Care 08/12/18 11:11 Active Communication Order [RC] ROUTINE Care 08/12/18 11:11 Active EKG Documentation Completion [RC] ASDIRECTED Care 08/12/18 11:13 Active Oxygen Therapy, ED [RC] CONTINUOUS Care 08/12/18 11:11 Active Peripheral IV Care [RC] . DIRECTED Care 08/12/18 11:13 Active Pulse Oximetry [RC] PRN Care 08/12/18 11:11 Active Up With Assistance [RC] ASDIRECTED Care 08/12/18 11:11 Active Nothing Per Oral Diet [DIET] Diet 08/12/18 Breakfast Active Chest 2V [CR] Stat Exams 08/12/18 11:11 Taken Chest PE [Ang Chest] [CT] Stat Exams 08/12/18 12:05 Taken CULTURE BLOOD [BC] Stat Lab 08/12/18 11:20 Received CULTURE BLOOD [BC] Stat Lab 08/12/18 11:25 Received CULTURE SPUTUM + SMEAR [] Urgent Lab 08/12/18 12:00 Results CULTURE STREP A CONFIRMATION [] Stat Lab 08/12/18 11:40 Results STREP SCRN A RAPID W CULT CONF [RM] Stat Lab 08/12/18 11:40 Results UA W/MICROSCOPIC [URIN] Stat Lab 08/12/18 11:11 Ordered Sodium Chloride 0.9% [Saline Flush] Med 08/12/18 11:11 Active 10 ml FLUSH ASDIRECTED PRN Blood Culture x2 Reflex Set [OM.PC] Stat Oth 08/12/18 11:11 Ordered Obtain Past Medical Record [OM.PC] Stat Oth 08/12/18 11:11 Active Peripheral IV Insertion Adult [OM.PC] Stat Oth 08/12/18 11:11 Ordered Resuscitation Status Routine Resus Stat 08/12/18 11:11 Ordered Medication Orders Sodium Chloride (Saline Flush) 10 ml FLUSH ASDIRECTED PRN PRN Reason: Keep Vein Open Last Admin: 08/12/18 11:42 Dose: 10 ml Labs: Laboratory Tests 02/07/19 02/07/19 02/07/19 Range/Units 11:20 11:20 11:20 WBC 6.8 (4.0-10.2) K/uL RBC 4.36 (4.33-5.41) M/uL Hgb 13.8 (13.1-16.8) g/dL Hct 41.1 (39.0-49.0) % MCV 94.3 (84.0-98.0) fL MCH 31.7 (28.2-33.3) pg MCHC 33.6 (31.7-36.0) g/dL RDW 14.5 H (11.2-14.1) % Plt Count 141 L (150-350) K/uL Neut % (Auto) 73.6 (45.0-80.0) % Lymph % (Auto) 12.7 (10.0-50.0) % [place] % (Auto) 13.1 (2.0-14.0) % Eos % (Auto) 0.0 (0.0-5.0) % Baso % (Auto) 0.6 (0.0-2.0) % Neut # (Auto) 4.99 (1.40-7.00) K/uL Lymph # (Auto) 0.86 (0.50-3.50) K/uL [place] # (Auto) 0.89 (0.00-1.00) K/uL Eos # (Auto) 0.00 (0.00-0.50) K/uL Baso # (Auto) 0.04 (0.00-0.20) K/uL PT 13.2 H (9.5-12.0) SEC INR 1.2 APTT 28.5 (21.0-31.3) SEC D-Dimer, Quantitative 1060 H (0-400) ng/mL Sodium (136-145) mmol/L Potassium (3.5-5.1) mmol/L Chloride (98-107) mmol/L Carbon Dioxide (21.0-32.0) mmol/L BUN (7-18) mg/dL Creatinine (0.51-1.17) mg/dL Est Cr Clr Drug Dosing mL/min Estimated GFR (MDRD) mL/min Glucose (74-106) mg/dL Lactic Acid (0.4-2.0) mmol/L Calcium (8.5-10.1) mg/dL Magnesium (1.8-2.4) mg/dL Total Bilirubin (0.2-1.0) mg/dL AST (15-37) U/L ALT (12-78) U/L Alkaline Phosphatase (46-116) IU/L Creatine Kinase (26-308) U/L Creatine Kinase Index (0.0-2.5) % CK-MB (CK-2) (0.00-3.60) ng/mL Troponin I (0.000-0.056) ng/mL NT-Pro-B Natriuret Pep (0-125) pg/mL Total Protein (6.4-8.2) g/dL Albumin (3.4-5.0) g/dL TSH, Ultra Sensitive (0.358-3.740) mIU/mL 08/12/18 08/12/18 Range/Units 11:20 11:20 WBC (4.0-10.2) K/uL RBC (4.33-5.41) M/uL Hgb (13.1-16.8) g/dL Hct (39.0-49.0) % MCV (84.0-98.0) fL MCH (28.2-33.3) pg MCHC (31.7-36.0) g/dL RDW (11.2-14.1) % Plt Count (150-350) K/uL Neut % (Auto) (45.0-80.0) % Lymph % (Auto) (10.0-50.0) % [place] % (Auto) (2.0-14.0) % Eos % (Auto) (0.0-5.0) % Baso % (Auto) (0.0-2.0) % Neut # (Auto) (1.40-7.00) K/uL Lymph # (Auto) (0.50-3.50) K/uL [place] # (Auto) (0.00-1.00) K/uL Eos # (Auto) (0.00-0.50) K/uL Baso # (Auto) (0.00-0.20) K/uL PT (9.5-12.0) SEC INR APTT (21.0-31.3) SEC D-Dimer, Quantitative (0-400) ng/mL Sodium 139 (136-145) mmol/L Potassium 4.0 (3.5-5.1) mmol/L Chloride 99 (98-107) mmol/L Carbon Dioxide 31.0 (21.0-32.0) mmol/L BUN 22 H (7-18) mg/dL Creatinine 1.19 H (0.51-1.17) mg/dL Est Cr Clr Drug Dosing 51.97 mL/min Estimated GFR (MDRD) 59 mL/min Glucose 107 H (74-106) mg/dL Lactic Acid 2.0 (0.4-2.0) mmol/L Calcium 9.1 (8.5-10.1) mg/dL Magnesium 1.7 L (1.8-2.4) mg/dL Total Bilirubin 0.6 (0.2-1.0) mg/dL AST 23 (15-37) U/L ALT 29 (12-78) U/L Alkaline Phosphatase 23 L (46-116) IU/L Creatine Kinase 68 (26-308) U/L Creatine Kinase Index 1.2 (0.0-2.5) % CK-MB (CK-2) 0.80 (0.00-3.60) ng/mL Troponin I 0.040 (0.000-0.056) ng/mL NT-Pro-B Natriuret Pep 447 H (0-125) pg/mL Total Protein 6.9 (6.4-8.2) g/dL Albumin 3.7 (3.4-5.0) g/dL TSH, Ultra Sensitive 0.609 (0.358-3.740) mIU/mL Blood Cultures 2 and sputum collected Microbiology 08/12/18 11:40 Group A Streptococcus Rapid Screen - Final Throat NEGATIVE STREP A SCREEN 08/12/18 11:40 Influenza Type A Antigen Screen - Final Nasal, Unspecified Positive Influenza A Ag Influenza Type B Antigen Screen - Final NEGATIVE INFLUENZA B VIRUS AG Meds: Medications Generic Name Dose Route Start Last Admin Trade Name Freq PRN Reason Stop Dose Admin Sodium Chloride 10 ml 08/12/18 11:11 08/12/18 11:42 Saline Flush FLUSH 10 ml ASDIRECTED PRN Administration Keep Vein Open Discontinued Medications Generic Name Dose Route Start Last Admin Trade Name Freq PRN Reason Stop Dose Admin Acetaminophen 650 mg 08/12/18 11:11 08/12/18 11:42 Tylenol PO 08/12/18 11:12 650 mg ONETIME ONE Administration Albuterol/Ipratropium 3 ml 08/12/18 11:11 08/12/18 11:43 Duoneb 3.0-0.5 Mg/3 Ml NEB 08/12/18 11:12 3 ml ONETIME ONE Administration Iopamidol 100 ml 08/12/18 12:06 [id number] (76%) IVPUSH 08/12/18 12:07 ONETIME ONE - Radiology Interpretation Free Text/Narrative:: active directory administrator shows overall normal sinus rhythm in the 70s to 80s with only very occasional PVCs noted. Chest x-ray, PA and lateral, shows status post medial sternotomy with moderate COPD changes present. Mild pulmonary hypertension, bilateral perihilar infiltrates, and concomitant mild CHF also noted. Mild aortic valve calcification. Scoliosis with mild osteophytic changes in the thoracic spine. No pneumothorax. Telephone consultation at 13:08 hours with the radiology department at [facility] with preliminary verbal report of CTA of the chest under PE protocol. No acute findings, including evidence of PE. Note stable cholelithiasis with some nonspecific increased headache duct visualized but no evidence of dilatation. Stable left lower lobe pulmonary nodule. CT Results Date: 08/12/18 CT Results Time: 13:08 Departure - Departure Time of Disposition: 13:30 Disposition: Admitted As Inpatient 65 Condition: Good Clinical Impression: Influenza, Peptic reflux disease, D-dimer, elevated, Confusion, Hypomagnesemia , Renal insufficiency Bilateral pneumonia Qualifiers: Pneumonia type: due to unspecified organism Lung location: unspecified part of lung Qualified Code(s): J18.9 - Pneumonia, unspecified organism Hypertension Qualifiers: Hypertension type: essential hypertension Qualified Code(s): I10 - Essential ( primary) hypertension COPD (chronic obstructive pulmonary disease) Qualifiers: COPD type: COPD with acute lower respiratory infection Qualified Code(s): J44.0 - Chronic obstructive pulmonary disease with acute lower respiratory infection Coronary artery disease Qualifiers: Coronary Disease-Associated Artery/Lesion type: bypass graft, autologous vein Associated angina: without angina Qualified Code(s): I25.810 - Atherosclerosis of coronary artery bypass graft(s) without angina pectoris Rheumatoid arthritis Qualifiers: Rheumatoid arthritis location: multiple sites Rheumatoid factor presence: unspecified presence Qualified Code(s): M06.9 - Rheumatoid arthritis, unspecified Hyperlipidemia Qualifiers: Hyperlipidemia type: unspecified Qualified Code(s): E78.5 - Hyperlipidemia, unspecified CHF (congestive heart failure) Qualifiers: Heart failure type: combined systolic and diastolic Heart failure chronicity: acute on chronic Qualified Code(s): I50.43 - Acute on chronic combined systolic (congestive) and diastolic (congestive) heart failure - Discharge Information *PRESCRIPTION DRUG MONITORING PROGRAM REVIEWED*: Not Applicable *COPY OF PRESCRIPTION DRUG MONITORING REPORT IN PATIENT LISA: Not Applicable - Problem List & Annotations (1) Bilateral pneumonia SNOMED Code(s): 968532337 Code(s): J18.9 - PNEUMONIA, UNSPECIFIED ORGANISM Status: Acute Priority: High Current Visit: Yes Onset Date: ~08/07/18 Annotation/Comment:: Initiate IV antibiotic therapy as prophylaxis with etiology of his pneumonia likely secondary to his influenza A infection as below. Continue aggressive nebulizer treatments with overall good results of his DuoNeb treatment in the emergency room. Blood Cultures 2 and sputum specimen collected. Qualifiers: Pneumonia type: due to unspecified organism Lung location: unspecified part of lung Qualified Code(s): J18.9 - Pneumonia, unspecified organism (2) Influenza due to Influenza A virus SNOMED Code(s): 225783244 Code(s): J10.1 - FLU DUE TO OTH IDENT INFLUENZA VIRUS W OTH RESP MANIFEST Status: Acute Priority: High Current Visit: No Onset Date: ~08/07/18 Annotation/Comment:: Note patient did have an influenza booster this past season , however he does have a history of chronic methotrexate and prednisone use with breakthrough influenza A infection about 3 years ago as above. Secondary to length of his symptoms he is not a candidate for Tamiflu at this time with overall improved symptoms with nebulizer treatments as above. Droplet precautions to be initiated. (3) COPD (chronic obstructive pulmonary disease) SNOMED Code(s): 60818928 Code(s): J44.9 - CHRONIC OBSTRUCTIVE PULMONARY DISEASE, UNSPECIFIED Status : Chronic Priority: Medium Current Visit: Yes Annotation/Comment:: Continue nebulizer treatments as above. Qualifiers: COPD type: COPD with acute lower respiratory infection Qualified Code(s): J44.0 - Chronic obstructive pulmonary disease with acute lower respiratory infection (4) CHF (congestive heart failure) SNOMED Code(s): 69023031 Code(s): I50.9 - HEART FAILURE, UNSPECIFIED Status: Acute Priority: High Current Visit: Yes Onset Date: 08/12/18 Annotation/Comment:: Initiate low -dose IV Lasix therapy. Note previous echocardiogram on 10/23/16 at time of his [place]. Patient is requesting a NO CODE STATUS with no further repeat echocardiogram , etc. per their request. Qualifiers: Heart failure type: combined systolic and diastolic Heart failure chronicity: acute on chronic Qualified Code(s): I50.43 - Acute on chronic combined systolic (congestive) and diastolic (congestive) heart failure (5) D-dimer, elevated SNOMED Code(s): 405252587 Code(s): R79.89 - OTHER SPECIFIED ABNORMAL FINDINGS OF BLOOD CHEMISTRY Status: Acute Priority: High Current Visit: Yes Onset Date: 08/12/18 Annotation/Comment:: CTA of the chest results as above. Secondary to blizzard conditions venous Doppler evaluation cannot be conducted until tomorrow. High- dose subcutaneous Lovenox as prophylaxis until results are obtained. Note mild thrombocytopenia. Repeat blood work in the a.m. (6) Coronary artery disease SNOMED Code(s): 63382562 Code(s): I25.10 - ATHSCL HEART DISEASE OF [place] CORONARY ARTERY W/O ANG PCTRS Status: Chronic Priority: Medium Current Visit: Yes Annotation/ Comment:: Stable by history with no recent chest pain or anginal complaints. Repeat EKG and blood work in the a.m. secondary to his borderline CHF. Qualifiers: Coronary Disease-Associated Artery/Lesion type: bypass graft, autologous vein Associated angina: without angina Qualified Code(s): I25.810 - Atherosclerosis of coronary artery bypass graft(s) without angina pectoris (7) Rheumatoid arthritis SNOMED Code(s): 09707310 Code(s): M06.9 - RHEUMATOID ARTHRITIS, UNSPECIFIED Status: Chronic Priority: Medium Current Visit: Yes Annotation/Comment:: Stable by history current methotrexate and prednisone therapy as above. He is closely followed by agricultural equipment design engineer [facility] in [place] with next appointment on 09/09 by their history. (8) Hypertension SNOMED Code(s): 02587054 Code(s): I10 - ESSENTIAL (PRIMARY) HYPERTENSION Status: Acute Priority: Medium Current Visit: Yes Annotation/Comment:: His blood pressures were initially somewhat elevated in the emergency room secondary to medication noncompliance from current illness as above. Continue to observe closely during this hospitalization. Qualifiers: Hypertension type: essential hypertension Qualified Code(s): I10 - Essential (primary) hypertension (9) Peptic reflux disease SNOMED Code(s): 262370803 Code(s): K21.9 - GASTRO-ESOPHAGEAL REFLUX DISEASE WITHOUT ESOPHAGITIS Status: Chronic Priority: Medium Current Visit: Yes Annotation/Comment:: Stable by history (10) Hyperlipidemia SNOMED Code(s): 03885376 Code(s): E78.5 - HYPERLIPIDEMIA, UNSPECIFIED Status: Chronic Priority: Medium Current Visit: Yes Annotation/Comment:: Under therapy with patient and family requesting repeat lipid panel by his regular providers on his outpatient basis Qualifiers: Hyperlipidemia type: unspecified Qualified Code(s): E78.5 - Hyperlipidemia , unspecified (11) Confusion SNOMED Code(s): 600878706 Code(s): R41.0 - DISORIENTATION, UNSPECIFIED Status: Acute Priority: High Current Visit: Yes Onset Date: ~08/11/18 Annotation/Comment:: Confusion improved at this time as above. Neurological checks with vitals. Cannot rule out possible threatening sepsis, however note no leukocytosis or lactic acid elevation. (12) Hypomagnesemia SNOMED Code(s): 068905407 Code(s): E83.42 - HYPOMAGNESEMIA Status: Acute Priority: Medium Current Visit: Yes Onset Date: 08/12/18 Annotation/Comment:: Initiate magnesium oxide therapy especially in light of IV Lasix as above. (13) Need for comfort care SNOMED Code(s): 993206145, 523173229 Code(s): TKT5117 - Status: Chronic Priority: High Current Visit: Yes Annotation/Comment:: NO CODE STATUS confirmed by patient and his daughter today. (14) Renal insufficiency SNOMED Code(s): 178185626, 074405946 Code(s): N28.9 - DISORDER OF KIDNEY AND URETER, UNSPECIFIED Status: Acute Priority: Medium Current Visit: Yes Annotation/Comment:: Mild Renal insufficiency. Observe closely especially in light of IV Lasix therapy. - Problem List Review Problem List Initiated/Reviewed/Updated: Yes - My Orders Last 24 Hours: My Active Orders 08/12/18 11:11 Cardiac Monitoring [RC] CONTINUOUS Communication Order [RC] ROUTINE Oxygen Therapy, ED [RC] CONTINUOUS Pulse Oximetry [RC] PRN Up With Assistance [RC] ASDIRECTED Chest 2V [CR] Stat UA W/MICROSCOPIC [URIN] Stat Sodium Chloride 0.9% [Saline Flush] 10 ml FLUSH ASDIRECTED PRN Blood Culture x2 Reflex Set [OM.PC] Stat Obtain Past Medical Record [OM.PC] Stat Peripheral IV Insertion Adult [OM.PC] Stat Resuscitation Status Routine 08/12/18 11:13 EKG Documentation Completion [RC] ASDIRECTED Peripheral IV Care [RC] . DIRECTED 08/12/18 11:20 CULTURE BLOOD [BC] Stat 08/12/18 11:25 CULTURE BLOOD [BC] Stat 08/12/18 11:40 CULTURE STREP A CONFIRMATION [RM] Stat STREP SCRN A RAPID W CULT CONF [RM] Stat 08/12/18 12:00 CULTURE SPUTUM + SMEAR [RM] Urgent 08/12/18 12:05 Chest PE [Ang Chest] [CT] Stat 08/12/18 Breakfast Nothing Per Oral Diet [DIET] - Assessment/Plan Admission H&P: Please use this note as an admission H&P Last 24 Hours: My Active Orders 08/12/18 11:11 Cardiac Monitoring [RC] CONTINUOUS Communication Order [RC] ROUTINE Oxygen Therapy, ED [RC] CONTINUOUS Pulse Oximetry [RC] PRN Up With Assistance [RC] ASDIRECTED Chest 2V [CR] Stat UA W/MICROSCOPIC [URIN] Stat Sodium Chloride 0.9% [Saline Flush] 10 ml FLUSH ASDIRECTED PRN Blood Culture x2 Reflex Set [OM.PC] Stat Obtain Past Medical Record [OM.PC] Stat Peripheral IV Insertion Adult [OM.PC] Stat Resuscitation Status Routine 08/12/18 11:13 EKG Documentation Completion [RC] ASDIRECTED Peripheral IV Care [RC] . DIRECTED 08/12/18 11:20 CULTURE BLOOD [BC] Stat 08/12/18 11:25 CULTURE BLOOD [BC] Stat 08/12/18 11:40 CULTURE STREP A CONFIRMATION [RM] Stat STREP SCRN A RAPID W CULT CONF [RM] Stat 08/12/18 12:00 CULTURE SPUTUM + SMEAR [RM] Urgent 08/12/18 12:05 Chest PE [Ang Chest] [CT] Stat 08/12/18 Breakfast Nothing Per Oral Diet [DIET] Assessment:: As above. Plan: As above. Extensive precautions were given to the patient and his family, who are in agreement with the treatment plan. The patient will require about 3-4 days of inpatient/acute care secondary to multiple health problems as above. [facility] [place] care in the a.[place].
[2018-08-12] MEDS: Sodium Chloride 0.9% 10 ML Syringe FLUSH PRN ×3 (11:42→22:12)
[2018-08-12] MEDS ORDERED: Albuterol/Ipratropium 3.0-0.5 MG/3 ML Neb Soln NEB PRN (13:43)
[2018-08-12] MEDS ORDERED: Temazepam 15 MG Cap PO PRN (13:43)
[2018-08-12] MEDS ORDERED: Albuterol 0.083% 2.5 MG/3 ML Neb Soln NEB PRN (14:00)
[2018-08-12] MEDS: Iopamidol 755 Mg/ML 100 ML Bottle IVPUSH ONE ×2 (14:13→14:23)
[2018-08-12] MEDS: predniSONE 5 MG Tab PO SCH (15:10)
[2018-08-12] MEDS: Omeprazole 20 MG Cap.CR PO SCH (15:10)
[2018-08-12] MEDS: Benazepril 10 MG Tab PO SCH (15:10)
[2018-08-12] MEDS: Levofloxacin/Dextrose 5%-Water 500 MG in Premix Bag 1 BAG IV SCH (15:10)
[2018-08-12] MEDS: Albuterol/Ipratropium 3.0-0.5 MG/3 ML Neb Soln NEB SCH ×2 (15:10→19:30)
[2018-08-12] MEDS: Furosemide 40 MG/4 ML VIAL IVPUSH SCH (15:10)
[2018-08-12] MEDS: Enoxaparin 80 MG/0.8 ML Syringe SUBCUT SCH (15:11)
[2018-08-12] MEDS: Magnesium Oxide 400 MG Tab PO SCH (15:11)
[2018-08-12] MEDS: Piperacillin/Tazobactam 3.375 GM in Sodium Chloride 0.9% 100 ML IV SCH ×2 (16:21→22:11)
[2018-08-12] MEDS: sulfaSALAzine 500 MG Tab.EC PO SCH (17:39)
[2018-08-12] MEDS: Potassium Chloride 20 MEQ Tab.ER PO SCH (17:40)
[2018-08-12] MEDS: Metoprolol Tartrate 25 MG Tab PO SCH (17:40)
[2018-08-12] MEDS: Dextromethorphan/guaiFENesin 600-30 MG Tab.ER PO SCH (17:40)
[2018-08-12] MEDS: Budesonide 0.5 MG/2 ML Neb Susp NEB SCH (19:30)
[2018-08-12] MEDS: atorvaSTATin 40 MG Tab PO SCH (19:30)
[2018-08-12] MEDS: Sodium Chloride 0.9% 10 ML Syringe FLUSH SCH (19:31)
[2018-08-13] MEDS: Albuterol/Ipratropium 3.0-0.5 MG/3 ML Neb Soln NEB SCH ×5 (02:59→21:08)
[2018-08-13] MEDS: Furosemide 40 MG/4 ML VIAL IVPUSH SCH (02:59)
[2018-08-13] MEDS: Sodium Chloride 0.9% 10 ML Syringe FLUSH PRN (02:59)
[2018-08-13] MEDS: Piperacillin/Tazobactam 3.375 GM in Sodium Chloride 0.9% 100 ML IV SCH ×4 (02:59→21:26)
[2018-08-13] MEDS ORDERED: Folic Acid 1 MG Tab PO SCH (08:00)
[2018-08-13] MEDS: sulfaSALAzine 500 MG Tab.EC PO SCH (08:10)
[2018-08-13] MEDS: Benazepril 10 MG Tab PO SCH (08:11)
[2018-08-13] MEDS: Metoprolol Tartrate 25 MG Tab PO SCH ×2 (08:11→21:03)
[2018-08-13] MEDS: Potassium Chloride 20 MEQ Tab.ER PO SCH (08:11)
[2018-08-13] MEDS: Magnesium Oxide 400 MG Tab PO SCH (08:12)
[2018-08-13] MEDS: Omeprazole 20 MG Cap.CR PO SCH (08:12)
[2018-08-13] MEDS: Dextromethorphan/guaiFENesin 600-30 MG Tab.ER PO SCH ×2 (08:12→21:03)
[2018-08-13] MEDS: predniSONE 5 MG Tab PO SCH (08:12)
[2018-08-13] MEDS: Sodium Chloride 0.9% 10 ML Syringe FLUSH SCH ×2 (08:13→20:36)
[2018-08-13] MEDS: Budesonide 0.5 MG/2 ML Neb Susp NEB SCH (08:13)
[2018-08-13] MEDS: Enoxaparin 80 MG/0.8 ML Syringe SUBCUT SCH (13:13)
[2018-08-13] MEDS: Levofloxacin/Dextrose 5%-Water 500 MG in Premix Bag 1 BAG IV SCH (13:13)
[2018-08-13] MEDS ORDERED: Oseltamivir 75 MG Cap PO ONE (14:30)
--- NOTE | 2018-08-13 16:37 | PCM.PN ---
- General Info Date of Service: 08/13/18 Functional Status: Reports: Pain Controlled - Review of Systems General: Reports: Fever (improved), Weakness (improving), Malaise HEENT: Reports: No Symptoms Pulmonary: Reports: Cough Cardiovascular: Reports: No Symptoms Gastrointestinal: Reports: No Symptoms Genitourinary: Reports: No Symptoms Musculoskeletal: Reports: No Symptoms Skin: Reports: No Symptoms Neurological: Reports: Confusion (improved), Weakness (improving) Psychiatric: Reports: Confusion - Patient Data Vitals - Most Recent: Last Vital Signs Temp 99.1 F 08/13/18 12:00 Pulse 75 08/13/18 12:00 Resp 16 08/13/18 12:00 BP 141/69 H 08/13/18 12:00 Pulse Ox 96 08/13/18 12:00 Weight - Most Recent: 174 lb 6.417 oz I&O - Last 24 Hours: Intake & Output 08/13/18 08/13/18 08/13/18 06:59 14:59 22:59 Intake Total 100 1320 Output Total 1150 900 Balance -1050 420 Lab Results Last 24 Hours: Laboratory Results - last 24 hr 08/13/18 08/13/18 08/13/18 Range/Units 06:30 06:30 06:30 WBC 5.6 (4.0-10.2) K/uL RBC 4.44 (4.33-5.41) M/uL Hgb 13.8 (13.1-16.8) g/dL Hct 41.7 (39.0-49.0) % MCV 93.9 (84.0-98.0) fL MCH 31.1 (28.2-33.3) pg MCHC 33.1 (31.7-36.0) g/dL RDW 14.4 H (11.2-14.1) % Plt Count 125 L (150-350) K/uL Neut % (Auto) 71.4 (45.0-80.0) % Lymph % (Auto) 14.7 (10.0-50.0) % [place] % (Auto) 12.9 (2.0-14.0) % Eos % (Auto) 0.5 (0.0-5.0) % Baso % (Auto) 0.5 (0.0-2.0) % Neut # (Auto) 3.97 (1.40-7.00) K/uL Lymph # (Auto) 0.82 (0.50-3.50) K/uL [place] # (Auto) 0.72 (0.00-1.00) K/uL Eos # (Auto) 0.03 (0.00-0.50) K/uL Baso # (Auto) 0.03 (0.00-0.20) K/uL D-Dimer, Quantitative 1070 H (0-400) ng/mL Sodium 140 (136-145) mmol/L Potassium 3.5 (3.5-5.1) mmol/L Chloride 98 (98-107) mmol/L Carbon Dioxide 34.5 H (21.0-32.0) mmol/L BUN 21 H (7-18) mg/dL Creatinine 1.37 H (0.51-1.17) mg/dL Est Cr Clr Drug Dosing 45.14 mL/min Estimated GFR (MDRD) 50 mL/min Glucose 100 (74-106) mg/dL Calcium 9.0 (8.5-10.1) mg/dL Total Bilirubin 0.6 (0.2-1.0) mg/dL AST 28 (15-37) U/L ALT 29 (12-78) U/L Alkaline Phosphatase 22 L (46-116) IU/L Creatine Kinase 154 (26-308) U/L Creatine Kinase Index 0.6 (0.0-2.5) % CK-MB (CK-2) 1.00 (0.00-3.60) ng/mL Troponin I 0.054 (0.000-0.056) ng/mL C-Reactive Protein (<=0.9) mg/dL NT-Pro-B Natriuret Pep 418 H (0-125) pg/mL Total Protein 6.7 (6.4-8.2) g/dL Albumin 3.4 (3.4-5.0) g/dL 08/13/18 Range/Units 06:30 WBC (4.0-10.2) K/uL RBC (4.33-5.41) M/uL Hgb (13.1-16.8) g/dL Hct (39.0-49.0) % MCV (84.0-98.0) fL MCH (28.2-33.3) pg MCHC (31.7-36.0) g/dL RDW (11.2-14.1) % Plt Count (150-350) K/uL Neut % (Auto) (45.0-80.0) % Lymph % (Auto) (10.0-50.0) % [place] % (Auto) (2.0-14.0) % Eos % (Auto) (0.0-5.0) % Baso % (Auto) (0.0-2.0) % Neut # (Auto) (1.40-7.00) K/uL Lymph # (Auto) (0.50-3.50) K/uL [place] # (Auto) (0.00-1.00) K/uL Eos # (Auto) (0.00-0.50) K/uL Baso # (Auto) (0.00-0.20) K/uL D-Dimer, Quantitative (0-400) ng/mL Sodium (136-145) mmol/L Potassium (3.5-5.1) mmol/L Chloride (98-107) mmol/L Carbon Dioxide (21.0-32.0) mmol/L BUN (7-18) mg/dL Creatinine (0.51-1.17) mg/dL Est Cr Clr Drug Dosing mL/min Estimated GFR (MDRD) mL/min Glucose (74-106) mg/dL Calcium (8.5-10.1) mg/dL Total Bilirubin (0.2-1.0) mg/dL AST (15-37) U/L ALT (12-78) U/L Alkaline Phosphatase (46-116) IU/L Creatine Kinase (26-308) U/L Creatine Kinase Index (0.0-2.5) % CK-MB (CK-2) (0.00-3.60) ng/mL Troponin I (0.000-0.056) ng/mL C-Reactive Protein 9.8 H (<=0.9) mg/dL NT-Pro-B Natriuret Pep (0-125) pg/mL Total Protein (6.4-8.2) g/dL Albumin (3.4-5.0) g/dL Neftali Results Last 24 Hours: Microbiology 08/12/18 11:20 Aerobic Blood Culture - Preliminary Blood - Venous NO GROWTH AFTER 1 DAY Anaerobic Blood Culture - Preliminary NO GROWTH AFTER 1 DAY 08/12/18 11:25 Aerobic Blood Culture - Preliminary Blood - Venous - Lab Draw NO GROWTH AFTER 1 DAY Anaerobic Blood Culture - Preliminary NO GROWTH AFTER 1 DAY 08/12/18 15:36 Urine Culture - Preliminary Urine, Clean Catch NO GROWTH AFTER 1 DAY 08/12/18 12:00 Gram Stain - Final Sputum - Expectorated Sputum Culture - Preliminary Normal Leti 08/12/18 11:40 Quick Strep Confirmation Culture - Final Throat NO GROUP A STREP ISOLATED Group A Streptococcus Rapid Screen - Final NEGATIVE STREP A SCREEN 08/12/18 15:36 Stool Occult Blood (NEFTALI) - Final Stool / Feces NEGATIVE OCCULT BLOOD 08/12/18 11:40 Influenza Type A Antigen Screen - Final Nasal, Unspecified Positive Influenza A Ag Influenza Type B Antigen Screen - Final NEGATIVE INFLUENZA B VIRUS AG Med Orders - Current: Current Medications Acetaminophen (Tylenol) 650 mg PO Q4H PRN PRN Reason: Pain/Fever Albuterol (Proventil Neb Soln) 2.5 mg NEB Q2H PRN PRN Reason: Dyspnea Albuterol/Ipratropium (Duoneb 3.0-0.5 Mg/3 Ml) 3 ml NEB QIDRT [facility] Last Admin: 08/13/18 15:01 Dose: Not Given Atorvastatin Calcium (Lipitor) 40 mg PO BEDTIME [facility] Last Admin: 08/12/18 19:30 Dose: 40 mg Benazepril HCl (Lotensin) 20 mg PO DAILY [facility] Last Admin: 08/13/18 08:11 Dose: 20 mg Famotidine (Pepcid) 20 mg IVPUSH Q12HR [facility] Guaifenesin/Dextromethorphan (Mucinex Dm Er 600-30 Mg) 1 tab PO BID [facility] Last Admin: 08/13/18 08:12 Dose: 1 tab Piperacillin Sod/Tazobactam (Sod 3.375 gm/ Sodium Chloride) 100 mls @ 200 mls/ hr IV Q6H [facility] Last Admin: 08/13/18 14:19 Dose: 200 mls/hr Magnesium Oxide (Magnesium Oxide) 400 mg PO DAILY [facility] Last Admin: 08/13/18 08:12 Dose: 400 mg Methylprednisolone Sodium Succinate (Solu-Medrol) 20 mg IVPUSH Q12HR [facility] Metoprolol Tartrate (Lopressor) 25 mg PO Q12HR [facility] Oseltamivir Phosphate (Tamiflu) 30 mg PO BID [facility] Stop: 08/18/18 18:01 Sodium Chloride (Saline Flush) 10 ml FLUSH ASDIRECTED PRN PRN Reason: Keep Vein Open Last Admin: 08/13/18 02:59 Dose: 10 ml Sodium Chloride (Saline Flush) 10 ml FLUSH Q12HR [facility] Last Admin: 08/13/18 08:13 Dose: 10 ml Temazepam (Restoril) 15 mg PO BEDTIME PRN PRN Reason: Insomnia Discontinued Medications Acetaminophen (Tylenol) 650 mg PO ONETIME ONE Stop: 08/12/18 11:12 Last Admin: 08/12/18 11:42 Dose: 650 mg Albuterol/Ipratropium (Duoneb 3.0-0.5 Mg/3 Ml) 3 ml NEB ONETIME ONE Stop: 08/12/18 11:12 Last Admin: 08/12/18 11:43 Dose: 3 ml Albuterol/Ipratropium (Duoneb 3.0-0.5 Mg/3 Ml) 3 ml NEB Q4HRRT PRN PRN Reason: Dyspnea Albuterol/Ipratropium (Duoneb 3.0-0.5 Mg/3 Ml) 3 ml NEB Q6HRRT [facility] Last Admin: 08/13/18 13:13 Dose: 3 ml Budesonide (Pulmicort) 0.5 mg NEB BIDRT [facility] Last Admin: 08/13/18 08:13 Dose: 0.5 mg Enoxaparin Sodium (Lovenox) 80 mg SUBCUT Q24H [facility] Last Admin: 08/13/18 13:13 Dose: 80 mg Folic Acid (Folic Acid) 1 mg PO DAILY [facility] Last Admin: 08/13/18 08:10 Dose: 1 mg Furosemide (Lasix) 40 mg IVPUSH Q12H [facility] Last Admin: 08/13/18 02:59 Dose: 40 mg Levofloxacin/Dextrose 500 mg/ (Premix) 100 mls @ 100 mls/hr IV Q24H [facility] Last Admin: 08/13/18 13:13 Dose: 100 mls/hr Iopamidol (Isovue-370 (76%)) 100 ml IVPUSH ONETIME ONE Stop: 08/12/18 12:07 Last Admin: 08/12/18 14:23 Dose: 100 ml Methotrexate (Methotrexate) 25 mg PO GARCIA@0800 [facility] Metoprolol Tartrate (Lopressor) 25 mg PO BID [facility] Last Admin: 08/13/18 08:11 Dose: 25 mg Omeprazole (Omeprazole) 20 mg PO DAILY [facility] Last Admin: 08/13/18 08:12 Dose: 20 mg Oseltamivir Phosphate (Tamiflu) 75 mg PO BID [facility] Oseltamivir Phosphate (Tamiflu) 75 mg PO ONETIME ONE Stop: 08/13/18 14:31 Last Admin: 08/13/18 15:00 Dose: 75 mg Potassium Chloride (Klor-Con M20) 20 meq PO BID [facility] Last Admin: 08/13/18 08:11 Dose: 20 meq Prednisone (Prednisone) 10 mg PO QAM [facility] Last Admin: 08/13/18 08:12 Dose: 10 mg Sulfasalazine (Sulfasalazine Dr) 1,000 mg PO BIDMEALS [facility] Last Admin: 08/13/18 08:10 Dose: 1,000 mg - Exam General: Alert, Cooperative, No Acute Distress HEENT: Mucous Membr. Moist/[place] Neck: Trachea Midline, No JVD Lungs: Clear to Auscultation, Normal Respiratory Effort Cardiovascular: Regular Rate, Regular Rhythm GI/Abdominal Exam: Soft, Non-Tender, No Distention (Male) Exam: Deferred Back Exam: Normal Inspection Extremities: Normal Inspection, Non-Tender (venous doppler studies negative for DVT), No Pedal Edema Skin: Warm, Dry, Intact Neurological: No New Focal Deficit, Other (generalized weakness but improving) Psy/Mental Status: Alert, Normal Affect, Normal Mood - Problem List & Annotations (1) Influenza A virus present SNOMED Code(s): 635213770731 Code(s): J10.1 - FLU DUE TO OTH IDENT INFLUENZA VIRUS W OTH RESP MANIFEST Status: Acute Priority: High Current Visit: Yes (2) Acute delirium SNOMED Code(s): 4336679, 9742552 Code(s): R41.0 - DISORIENTATION, UNSPECIFIED Status: Acute Priority: High Current Visit: Yes (3) D-dimer, elevated SNOMED Code(s): 516944404 Code(s): R79.89 - OTHER SPECIFIED ABNORMAL FINDINGS OF BLOOD CHEMISTRY Status: Acute Priority: High Current Visit: Yes Onset Date: 08/12/18 Annotation/Comment:: CTA of the chest results as above. Secondary to blizzard conditions venous Doppler evaluation cannot be conducted until tomorrow. High- dose subcutaneous Lovenox as prophylaxis until results are obtained. Note mild thrombocytopenia. Repeat blood work in the a.m. (4) Hypertension SNOMED Code(s): 10547264 Code(s): I10 - ESSENTIAL (PRIMARY) HYPERTENSION Status: Acute Priority: Medium Current Visit: Yes Qualifiers: Hypertension type: essential hypertension Qualified Code(s): I10 - Essential (primary) hypertension Annotation/Comment:: His blood pressures were initially somewhat elevated in the emergency room secondary to medication noncompliance from current illness as above. Continue to observe closely during this hospitalization. (5) Hypomagnesemia SNOMED Code(s): 593455555 Code(s): E83.42 - HYPOMAGNESEMIA Status: Acute Priority: Medium Current Visit: Yes Onset Date: 08/12/18 Annotation/Comment:: Initiate magnesium oxide therapy especially in light of IV Lasix as above. (6) Renal insufficiency SNOMED Code(s): 722099359, 160236201 Code(s): N28.9 - DISORDER OF KIDNEY AND URETER, UNSPECIFIED Status: Acute Priority: Medium Current Visit: Yes Annotation/Comment:: Mild Renal insufficiency. Observe closely especially in light of IV Lasix therapy. (7) Rheumatoid arthritis SNOMED Code(s): 81124032 Code(s): M06.9 - RHEUMATOID ARTHRITIS, UNSPECIFIED Status: Acute Current Visit: Yes Qualifiers: Rheumatoid arthritis location: multiple sites Rheumatoid factor presence: unspecified presence Qualified Code(s): M06.9 - Rheumatoid arthritis, unspecified (8) COPD (chronic obstructive pulmonary disease) SNOMED Code(s): 79135955 Code(s): J44.9 - CHRONIC OBSTRUCTIVE PULMONARY DISEASE, UNSPECIFIED Status : Chronic Priority: Medium Current Visit: Yes Qualifiers: COPD type: COPD with acute lower respiratory infection Qualified Code(s): J44.0 - Chronic obstructive pulmonary disease with acute lower respiratory infection Annotation/Comment:: Continue nebulizer treatments as above. (9) Coronary artery disease SNOMED Code(s): 95036184 Code(s): I25.10 - ATHSCL HEART DISEASE OF [place] CORONARY ARTERY W/O ANG PCTRS Status: Chronic Priority: Medium Current Visit: Yes Qualifiers: Coronary Disease-Associated Artery/Lesion type: bypass graft, autologous vein Associated angina: without angina Qualified Code(s): I25.810 - Atherosclerosis of coronary artery bypass graft(s) without angina pectoris Annotation/Comment:: Stable by history with no recent chest pain or anginal complaints. Repeat EKG and blood work in the a.m. secondary to his borderline CHF. (10) Hyperlipidemia SNOMED Code(s): 87759031 Code(s): E78.5 - HYPERLIPIDEMIA, UNSPECIFIED Status: Chronic Priority: Medium Current Visit: Yes Qualifiers: Hyperlipidemia type: unspecified Qualified Code(s): E78.5 - Hyperlipidemia , unspecified Annotation/Comment:: Under therapy with patient and family requesting repeat lipid panel by his regular providers on his outpatient basis (11) Need for comfort care SNOMED Code(s): 717411309, 249235041 Code(s): BHO2419 - Status: Chronic Priority: High Current Visit: Yes Annotation/Comment:: NO CODE STATUS confirmed by patient and his daughter today. (12) Peptic reflux disease SNOMED Code(s): 098605557 Code(s): K21.9 - GASTRO-ESOPHAGEAL REFLUX DISEASE WITHOUT ESOPHAGITIS Status: Chronic Priority: Medium Current Visit: Yes Annotation/Comment:: Stable by history (13) Asthma SNOMED Code(s): 952436521 Code(s): J45.909 - UNSPECIFIED ASTHMA, UNCOMPLICATED Status: Acute Priority: Medium Current Visit: No (14) Coronary arteriosclerosis in patient with history of previous myocardial infarction SNOMED Code(s): 914186483259285 Code(s): I25.10 - ATHSCL HEART DISEASE OF [place] CORONARY ARTERY W/O ANG PCTRS; I25.2 - OLD MYOCARDIAL INFARCTION Status: Acute Priority: High Current Visit: No (15) Pneumonia SNOMED Code(s): 752967710 Code(s): J18.9 - PNEUMONIA, UNSPECIFIED ORGANISM Status: Acute Current Visit: No (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 SNOMED Code(s): 179648586, 413243044, 651969211 Code(s): Z95.1 - PRESENCE OF AORTOCORONARY BYPASS GRAFT Status: Acute Priority: High Current Visit: No - Problem List Review Problem List Initiated/Reviewed/Updated: Yes - My Orders Last 24 Hours: My Active Orders 08/13/18 14:26 Discontinue Telemetry Monitoring [Cardiac Monitoring Discontinue] [RC] Click to Edit 08/13/18 16:00 Albuterol/Ipratropium [DuoNeb 3.0-0.5 MG/3 ML] 3 ml NEB QIDRT 08/13/18 20:00 Famotidine [Pepcid] 20 mg IVPUSH Q12HR Metoprolol Tartrate [Lopressor] 25 mg PO Q12HR methylPREDNISolone Sod Succ [Solu-MEDROL] 20 mg IVPUSH Q12HR 08/13/18 Dinner Heart Healthy Diet [DIET] 08/14/18 05:11 CBC WITH AUTO DIFF [HEME] DAILY CMP [COMPREHENSIVE METABOLIC PN,CMP] [CHEM] DAILY CRP [C-REACTIVE PROTEIN] [CHEM] DAILY MAGNESIUM [CHEM] Routine 08/14/18 08:00 Oseltamivir [Tamiflu] 30 mg PO BID 08/15/18 05:11 CBC WITH AUTO DIFF [HEME] DAILY CMP [COMPREHENSIVE METABOLIC PN,CMP] [CHEM] DAILY CRP [C-REACTIVE PROTEIN] [CHEM] DAILY 08/16/18 05:11 CBC WITH AUTO DIFF [HEME] DAILY CMP [COMPREHENSIVE METABOLIC PN,CMP] [CHEM] DAILY CRP [C-REACTIVE PROTEIN] [CHEM] DAILY - Plan Plan:: 08/13/18 Agustin Devi MD He is feeling a little bit better today. Still coughing. No mental confusion. Medications adjusted.
[2018-08-13] MEDS ORDERED: Oseltamivir 75 MG Cap PO SCH (18:00)
[2018-08-13] MEDS: methylPREDNISolone Sodium Succinate 40 MG/1 ML SDV IVPUSH SCH (20:35)
[2018-08-13] MEDS: Famotidine 20 MG/2 ML SDV IVPUSH SCH (20:55)
[2018-08-13] MEDS: Acetaminophen 325 MG Tab PO PRN (21:07)
[2018-08-13] MEDS: atorvaSTATin 40 MG Tab PO SCH (21:07)
[2018-08-14] MEDS: Piperacillin/Tazobactam 3.375 GM in Sodium Chloride 0.9% 100 ML IV SCH ×4 (02:45→20:28)
[2018-08-14] MEDS: Sodium Chloride 0.9% 10 ML Syringe FLUSH PRN ×4 (02:46→20:29)
[2018-08-14] MEDS: Benazepril 10 MG Tab PO SCH (08:13)
[2018-08-14] MEDS: Metoprolol Tartrate 25 MG Tab PO SCH ×2 (08:14→19:46)
[2018-08-14] MEDS: Dextromethorphan/guaiFENesin 600-30 MG Tab.ER PO SCH ×2 (08:14→19:47)
[2018-08-14] MEDS: methylPREDNISolone Sodium Succinate 40 MG/1 ML SDV IVPUSH SCH ×2 (08:15→19:57)
[2018-08-14] MEDS: Oseltamivir 30 MG Cap PO SCH ×2 (08:15→17:34)
[2018-08-14] MEDS: Albuterol/Ipratropium 3.0-0.5 MG/3 ML Neb Soln NEB SCH ×4 (08:15→19:45)
[2018-08-14] MEDS: Famotidine 20 MG/2 ML SDV IVPUSH SCH ×2 (08:16→19:48)
[2018-08-14] MEDS: Sodium Chloride 0.9% 10 ML Syringe FLUSH SCH ×2 (08:16→19:51)
[2018-08-14] MEDS: Magnesium Oxide 400 MG Tab PO SCH (08:17)
--- NOTE | 2018-08-14 08:40 | PCM.PN ---
- General Info Date of Service: 08/14/18 Admission Dx/Problem (Free Text): Influenza Pneumonia Acute delirium from the Influenza and Pneumonia Functional Status: Reports: Pain Controlled, Tolerating Diet - Review of Systems General: Reports: Weakness HEENT: Reports: No Symptoms Pulmonary: Reports: Cough, Sputum (yellow sputum) Cardiovascular: Reports: No Symptoms Gastrointestinal: Reports: No Symptoms Genitourinary: Reports: No Symptoms Musculoskeletal: Reports: No Symptoms Skin: Reports: No Symptoms Neurological: Reports: No Symptoms Psychiatric: Reports: No Symptoms - Patient Data Vitals - Most Recent: Last Vital Signs Temp 97.5 F 08/14/18 08:00 Pulse 60 08/14/18 08:14 Resp 16 08/14/18 08:00 BP 148/71 H 08/14/18 08:14 Pulse Ox 95 08/14/18 08:00 Weight - Most Recent: 174 lb 6.417 oz I&O - Last 24 Hours: Intake & Output 08/13/18 08/14/18 08/14/18 22:59 06:59 14:59 Intake Total 240 Balance 240 Lab Results Last 24 Hours: Laboratory Results - last 24 hr 08/13/18 08/14/18 08/14/18 Range/Units 06:30 07:15 07:15 WBC 4.9 (4.0-10.2) K/uL RBC 4.31 L (4.33-5.41) M/uL Hgb 13.3 (13.1-16.8) g/dL Hct 40.7 (39.0-49.0) % MCV 94.4 (84.0-98.0) fL MCH 30.9 (28.2-33.3) pg MCHC 32.7 (31.7-36.0) g/dL RDW 14.4 H (11.2-14.1) % Plt Count 126 L (150-350) K/uL Neut % (Auto) 68.8 (45.0-80.0) % Lymph % (Auto) 19.1 (10.0-50.0) % [place] % (Auto) 11.9 (2.0-14.0) % Eos % (Auto) 0.0 (0.0-5.0) % Baso % (Auto) 0.2 (0.0-2.0) % Neut # (Auto) 3.35 (1.40-7.00) K/uL Lymph # (Auto) 0.93 (0.50-3.50) K/uL [place] # (Auto) 0.58 (0.00-1.00) K/uL Eos # (Auto) 0.00 (0.00-0.50) K/uL Baso # (Auto) 0.01 (0.00-0.20) K/uL Sodium 141 (136-145) mmol/L Potassium 4.4 (3.5-5.1) mmol/L Chloride 102 (98-107) mmol/L Carbon Dioxide 32.9 H (21.0-32.0) mmol/L BUN 24 H (7-18) mg/dL Creatinine 1.28 H (0.51-1.17) mg/dL Est Cr Clr Drug Dosing 48.44 mL/min Estimated GFR (MDRD) 54 mL/min Glucose 108 H (74-106) mg/dL Calcium 8.9 (8.5-10.1) mg/dL Magnesium 1.8 (1.8-2.4) mg/dL Total Bilirubin 0.4 (0.2-1.0) mg/dL AST 30 (15-37) U/L ALT 27 (12-78) U/L Alkaline Phosphatase 20 L (46-116) IU/L C-Reactive Protein 9.8 H 6.2 H (<=0.9) mg/dL Total Protein 6.4 (6.4-8.2) g/dL Albumin 3.1 L (3.4-5.0) g/dL Neftali Results Last 24 Hours: Microbiology 08/12/18 11:20 Aerobic Blood Culture - Preliminary Blood - Venous NO GROWTH AFTER 1 DAY Anaerobic Blood Culture - Preliminary NO GROWTH AFTER 1 DAY 08/12/18 11:25 Aerobic Blood Culture - Preliminary Blood - Venous - Lab Draw NO GROWTH AFTER 1 DAY Anaerobic Blood Culture - Preliminary NO GROWTH AFTER 1 DAY 08/12/18 15:36 Urine Culture - Preliminary Urine, Clean Catch NO GROWTH AFTER 1 DAY 08/12/18 12:00 Gram Stain - Final Sputum - Expectorated Sputum Culture - Preliminary Normal Leti 08/12/18 11:40 Quick Strep Confirmation Culture - Final Throat NO GROUP A STREP ISOLATED Group A Streptococcus Rapid Screen - Final NEGATIVE STREP A SCREEN Med Orders - Current: Current Medications Acetaminophen (Tylenol) 650 mg PO Q4H PRN PRN Reason: Pain/Fever Last Admin: 08/13/18 21:07 Dose: 650 mg Albuterol (Proventil Neb Soln) 2.5 mg NEB Q2H PRN PRN Reason: Dyspnea Albuterol/Ipratropium (Duoneb 3.0-0.5 Mg/3 Ml) 3 ml NEB QIDRT [facility] Last Admin: 08/14/18 08:15 Dose: 3 ml Atorvastatin Calcium (Lipitor) 40 mg PO BEDTIME [facility] Last Admin: 08/13/18 21:07 Dose: 40 mg Benazepril HCl (Lotensin) 20 mg PO DAILY [facility] Last Admin: 08/14/18 08:13 Dose: 20 mg Famotidine (Pepcid) 20 mg IVPUSH Q12HR [facility] Last Admin: 08/14/18 08:16 Dose: 20 mg Guaifenesin/Dextromethorphan (Mucinex Dm Er 600-30 Mg) 1 tab PO 0800,1999 [facility] Last Admin: 08/14/18 08:14 Dose: 1 tab Piperacillin Sod/Tazobactam (Sod 3.375 gm/ Sodium Chloride) 100 mls @ 200 mls/ hr IV Q6H [facility] Last Admin: 08/14/18 08:21 Dose: 200 mls/hr Magnesium Oxide (Magnesium Oxide) 400 mg PO DAILY [facility] Last Admin: 08/14/18 08:17 Dose: 400 mg Methylprednisolone Sodium Succinate (Solu-Medrol) 20 mg IVPUSH Q12HR [facility] Last Admin: 08/14/18 08:15 Dose: 20 mg Metoprolol Tartrate (Lopressor) 25 mg PO Q12HR [facility] Last Admin: 08/14/18 08:14 Dose: 25 mg Oseltamivir Phosphate (Tamiflu) 30 mg PO BID [facility] Stop: 08/18/18 18:01 Last Admin: 08/14/18 08:15 Dose: 30 mg Sodium Chloride (Saline Flush) 10 ml FLUSH ASDIRECTED PRN PRN Reason: Keep Vein Open Last Admin: 08/14/18 02:46 Dose: 10 ml Sodium Chloride (Saline Flush) 10 ml FLUSH Q12HR [facility] Last Admin: 08/14/18 08:16 Dose: 10 ml Temazepam (Restoril) 15 mg PO BEDTIME PRN PRN Reason: Insomnia Discontinued Medications Acetaminophen (Tylenol) 650 mg PO ONETIME ONE Stop: 08/12/18 11:12 Last Admin: 08/12/18 11:42 Dose: 650 mg Albuterol/Ipratropium (Duoneb 3.0-0.5 Mg/3 Ml) 3 ml NEB ONETIME ONE Stop: 08/12/18 11:12 Last Admin: 08/12/18 11:43 Dose: 3 ml Albuterol/Ipratropium (Duoneb 3.0-0.5 Mg/3 Ml) 3 ml NEB Q4HRRT PRN PRN Reason: Dyspnea Albuterol/Ipratropium (Duoneb 3.0-0.5 Mg/3 Ml) 3 ml NEB Q6HRRT [facility] Last Admin: 08/13/18 13:13 Dose: 3 ml Budesonide (Pulmicort) 0.5 mg NEB BIDRT [facility] Last Admin: 08/13/18 08:13 Dose: 0.5 mg Enoxaparin Sodium (Lovenox) 80 mg SUBCUT Q24H [facility] Last Admin: 08/13/18 13:13 Dose: 80 mg Folic Acid (Folic Acid) 1 mg PO DAILY [facility] Last Admin: 08/13/18 08:10 Dose: 1 mg Furosemide (Lasix) 40 mg IVPUSH Q12H [facility] Last Admin: 08/13/18 02:59 Dose: 40 mg Guaifenesin/Dextromethorphan (Mucinex Dm Er 600-30 Mg) 1 tab PO BID [facility] Last Admin: 08/13/18 08:12 Dose: 1 tab Levofloxacin/Dextrose 500 mg/ (Premix) 100 mls @ 100 mls/hr IV Q24H [facility] Last Admin: 08/13/18 13:13 Dose: 100 mls/hr Iopamidol (Isovue-370 (76%)) 100 ml IVPUSH ONETIME ONE Stop: 08/12/18 12:07 Last Admin: 08/12/18 14:23 Dose: 100 ml Methotrexate (Methotrexate) 25 mg PO GARCIA@0800 [facility] Metoprolol Tartrate (Lopressor) 25 mg PO BID [facility] Last Admin: 08/13/18 08:11 Dose: 25 mg Omeprazole (Omeprazole) 20 mg PO DAILY [facility] Last Admin: 08/13/18 08:12 Dose: 20 mg Oseltamivir Phosphate (Tamiflu) 75 mg PO BID [facility] Oseltamivir Phosphate (Tamiflu) 75 mg PO ONETIME ONE Stop: 08/13/18 14:31 Last Admin: 08/13/18 15:00 Dose: 75 mg Potassium Chloride (Klor-Con M20) 20 meq PO BID [facility] Last Admin: 08/13/18 08:11 Dose: 20 meq Prednisone (Prednisone) 10 mg PO QAM [facility] Last Admin: 08/13/18 08:12 Dose: 10 mg Sulfasalazine (Sulfasalazine Dr) 1,000 mg PO BIDMEALS [facility] Last Admin: 08/13/18 08:10 Dose: 1,000 mg - Exam Quality Assessment: DVT Prophylaxis General: Alert, Oriented, Cooperative, No Acute Distress HEENT: Mucous Membr. Moist/[place] Neck: Supple, Trachea Midline, No JVD Lungs: Normal Respiratory Effort, Decreased Breath Sounds, Rhonchi Cardiovascular: Regular Rate, Regular Rhythm, No Murmurs GI/Abdominal Exam: Normal Bowel Sounds, Soft, Non-Tender, No Organomegaly Back Exam: Normal Inspection Extremities: Normal Inspection, No Pedal Edema, Normal Capillary Refill Peripheral Pulses: 1+: Dorsalis Pedis (L), Dorsalis Pedis (R) Skin: Warm, Dry, Intact Neurological: No New Focal Deficit Psy/Mental Status: Alert, Normal Affect, Normal Mood (discussed with patient the recent loss of his , states doing okay but lonely. He states having close family support) - Problem List & Annotations (1) Bilateral pneumonia SNOMED Code(s): 198649126 Code(s): J18.9 - PNEUMONIA, UNSPECIFIED ORGANISM Status: Acute Priority: High Current Visit: Yes Onset Date: ~08/07/18 Qualifiers: Pneumonia type: due to unspecified organism Lung location: unspecified part of lung Qualified Code(s): J18.9 - Pneumonia, unspecified organism Annotation/Comment:: Will continue on IV antibiotics and nebulizer treatments (2) Acute delirium SNOMED Code(s): 4473822, 2325599 Code(s): R41.0 - DISORIENTATION, UNSPECIFIED Status: Acute Priority: High Current Visit: Yes Annotation/Comment:: Delirium resolved which was due to the infections (3) Influenza SNOMED Code(s): 5159901 Code(s): J11.1 - FLU DUE TO UNIDENTIFIED INFLUENZA VIRUS W OTH RESP MANIFEST Status: Acute Current Visit: Yes (4) Asthma SNOMED Code(s): 947508136 Code(s): J45.909 - UNSPECIFIED ASTHMA, UNCOMPLICATED Status: Acute Priority: Medium Current Visit: No Annotation/Comment:: Will continue on IV solumedrol - Problem List Review Problem List Initiated/Reviewed/Updated: Yes - Plan Plan:: 08/13/18 Agustin Devi MD He is feeling a little bit better today. Still coughing. No mental confusion. Medications adjusted. 08/14/2018 Patient is feeling better, still with productive cough yellow phlegm. Labs reviewed, cr improved after IV Lasix adjusted. Patient states recently lost his , it would be her birthday tomorrow. Patient states he has close family support, who checks on him often. Patient states doing okay and not wanting to start on any medications for depression. Support was given. Patient continues to need inpatient hospitalization for treatment of pneumonia and influenza. Patient has asthma and RA, in which pneumonia and influenza could be life threatening in this elderly patient. Marie Morales,BALANCE RECESSER
[2018-08-14] MEDS: atorvaSTATin 40 MG Tab PO SCH (19:45)
[2018-08-15] MEDS: Piperacillin/Tazobactam 3.375 GM in Sodium Chloride 0.9% 100 ML IV SCH ×4 (03:09→21:52)
[2018-08-15] MEDS: Sodium Chloride 0.9% 10 ML Syringe FLUSH PRN ×5 (03:11→21:55)
[2018-08-15] MEDS: Dextromethorphan/guaiFENesin 600-30 MG Tab.ER PO SCH ×2 (07:24→19:12)
[2018-08-15] MEDS: Magnesium Oxide 400 MG Tab PO SCH (07:24)
[2018-08-15] MEDS: Benazepril 10 MG Tab PO SCH (07:24)
[2018-08-15] MEDS: Metoprolol Tartrate 25 MG Tab PO SCH ×2 (07:26→19:12)
[2018-08-15] MEDS: Albuterol/Ipratropium 3.0-0.5 MG/3 ML Neb Soln NEB SCH ×4 (07:26→19:08)
[2018-08-15] MEDS: Oseltamivir 30 MG Cap PO SCH ×2 (07:26→17:14)
[2018-08-15] MEDS: Famotidine 20 MG/2 ML SDV IVPUSH SCH ×2 (07:26→19:13)
[2018-08-15] MEDS: methylPREDNISolone Sodium Succinate 40 MG/1 ML SDV IVPUSH SCH (07:26)
[2018-08-15] MEDS: Sodium Chloride 0.9% 10 ML Syringe FLUSH SCH ×2 (07:27→19:13)
[2018-08-15] MEDS ORDERED: Methotrexate 2.5 MG Tab PO SCH (08:00)
--- NOTE | 2018-08-15 08:34 | PCM.PN ---
- General Info Date of Service: 08/15/18 Admission Dx/Problem (Free Text): Influenza Pneumonia Acute delirium from the Influenza and Pneumonia Functional Status: Reports: Pain Controlled, Tolerating Diet, Ambulating - Review of Systems General: Reports: No Symptoms HEENT: Reports: No Symptoms Pulmonary: Reports: Cough, Sputum Cardiovascular: Reports: No Symptoms Gastrointestinal: Reports: No Symptoms Genitourinary: Reports: Frequency Musculoskeletal: Reports: No Symptoms Skin: Reports: No Symptoms Neurological: Reports: No Symptoms Psychiatric: Reports: No Symptoms - Patient Data Vitals - Most Recent: Last Vital Signs Temp 97.8 F 08/15/18 07:35 Pulse 60 08/15/18 07:35 Resp 15 08/15/18 07:35 BP 159/82 H 08/15/18 07:35 Pulse Ox 96 08/15/18 07:35 Weight - Most Recent: 174 lb 6.417 oz I&O - Last 24 Hours: Intake & Output 08/14/18 08/15/18 08/15/18 22:59 06:59 14:59 Intake Total 200 Balance 200 Lab Results Last 24 Hours: Laboratory Results - last 24 hr 08/15/18 08/15/18 Range/Units 07:05 07:05 WBC 4.4 (4.0-10.2) K/uL RBC 4.09 L (4.33-5.41) M/uL Hgb 12.9 L (13.1-16.8) g/dL Hct 38.5 L (39.0-49.0) % MCV 94.1 (84.0-98.0) fL MCH 31.5 (28.2-33.3) pg MCHC 33.5 (31.7-36.0) g/dL RDW 14.3 H (11.2-14.1) % Plt Count 127 L (150-350) K/uL Neut % (Auto) 66.1 (45.0-80.0) % Lymph % (Auto) 22.6 (10.0-50.0) % [place] % (Auto) 11.1 (2.0-14.0) % Eos % (Auto) 0.0 (0.0-5.0) % Baso % (Auto) 0.2 (0.0-2.0) % Neut # (Auto) 2.92 (1.40-7.00) K/uL Lymph # (Auto) 1.00 (0.50-3.50) K/uL [place] # (Auto) 0.49 (0.00-1.00) K/uL Eos # (Auto) 0.00 (0.00-0.50) K/uL Baso # (Auto) 0.01 (0.00-0.20) K/uL Sodium 141 (136-145) mmol/L Potassium 4.5 (3.5-5.1) mmol/L Chloride 103 (98-107) mmol/L Carbon Dioxide 32.1 H (21.0-32.0) mmol/L BUN 24 H (7-18) mg/dL Creatinine 1.24 H (0.51-1.17) mg/dL Est Cr Clr Drug Dosing 50.00 mL/min Estimated GFR (MDRD) 56 mL/min Glucose 105 (74-106) mg/dL Calcium 9.0 (8.5-10.1) mg/dL Total Bilirubin 0.4 (0.2-1.0) mg/dL AST 29 (15-37) U/L ALT 30 (12-78) U/L Alkaline Phosphatase 24 L (46-116) IU/L C-Reactive Protein 3.7 H (<=0.9) mg/dL Total Protein 6.1 L (6.4-8.2) g/dL Albumin 3.1 L (3.4-5.0) g/dL Neftali Results Last 24 Hours: Microbiology 08/12/18 11:20 Aerobic Blood Culture - Preliminary Blood - Venous NO GROWTH AFTER 2 DAYS Anaerobic Blood Culture - Preliminary NO GROWTH AFTER 2 DAYS 08/12/18 11:25 Aerobic Blood Culture - Preliminary Blood - Venous - Lab Draw NO GROWTH AFTER 2 DAYS Anaerobic Blood Culture - Preliminary NO GROWTH AFTER 2 DAYS 08/12/18 12:00 Gram Stain - Final Sputum - Expectorated Sputum Culture - Final Normal Leti 08/12/18 15:36 Urine Culture - Final Urine, Clean Catch NO GROWTH AFTER 2 DAYS Med Orders - Current: Current Medications Acetaminophen (Tylenol) 650 mg PO Q4H PRN PRN Reason: Pain/Fever Last Admin: 08/13/18 21:07 Dose: 650 mg Albuterol (Proventil Neb Soln) 2.5 mg NEB Q2H PRN PRN Reason: Dyspnea Albuterol/Ipratropium (Duoneb 3.0-0.5 Mg/3 Ml) 3 ml NEB QIDRT [facility] Last Admin: 08/15/18 07:26 Dose: 3 ml Atorvastatin Calcium (Lipitor) 40 mg PO BEDTIME [facility] Last Admin: 08/14/18 19:45 Dose: 40 mg Benazepril HCl (Lotensin) 20 mg PO DAILY [facility] Last Admin: 08/15/18 07:24 Dose: 20 mg Famotidine (Pepcid) 20 mg IVPUSH Q12HR [facility] Last Admin: 08/15/18 07:26 Dose: 20 mg Guaifenesin/Dextromethorphan (Mucinex Dm Er 600-30 Mg) 1 tab PO 08,1999 [facility] Last Admin: 08/15/18 07:24 Dose: 1 tab Piperacillin Sod/Tazobactam (Sod 3.375 gm/ Sodium Chloride) 100 mls @ 200 mls/ hr IV Q6H [facility] Last Admin: 08/15/18 03:09 Dose: 200 mls/hr Magnesium Oxide (Magnesium Oxide) 400 mg PO DAILY [facility] Last Admin: 08/15/18 07:24 Dose: 400 mg Methylprednisolone Sodium Succinate (Solu-Medrol) 20 mg IVPUSH Q12HR [facility] Last Admin: 08/15/18 07:26 Dose: 20 mg Metoprolol Tartrate (Lopressor) 25 mg PO Q12HR [facility] Last Admin: 08/15/18 07:26 Dose: 25 mg Oseltamivir Phosphate (Tamiflu) 30 mg PO BID [facility] Stop: 08/18/18 18:01 Last Admin: 08/15/18 07:26 Dose: 30 mg Sodium Chloride (Saline Flush) 10 ml FLUSH ASDIRECTED PRN PRN Reason: Keep Vein Open Last Admin: 08/15/18 03:11 Dose: 10 ml Sodium Chloride (Saline Flush) 10 ml FLUSH Q12HR [facility] Last Admin: 08/15/18 07:27 Dose: 10 ml Temazepam (Restoril) 15 mg PO BEDTIME PRN PRN Reason: Insomnia Discontinued Medications Acetaminophen (Tylenol) 650 mg PO ONETIME ONE Stop: 08/12/18 11:12 Last Admin: 08/12/18 11:42 Dose: 650 mg Albuterol/Ipratropium (Duoneb 3.0-0.5 Mg/3 Ml) 3 ml NEB ONETIME ONE Stop: 08/12/18 11:12 Last Admin: 08/12/18 11:43 Dose: 3 ml Albuterol/Ipratropium (Duoneb 3.0-0.5 Mg/3 Ml) 3 ml NEB Q4HRRT PRN PRN Reason: Dyspnea Albuterol/Ipratropium (Duoneb 3.0-0.5 Mg/3 Ml) 3 ml NEB Q6HRRT [facility] Last Admin: 08/13/18 13:13 Dose: 3 ml Budesonide (Pulmicort) 0.5 mg NEB BIDRT [facility] Last Admin: 08/13/18 08:13 Dose: 0.5 mg Enoxaparin Sodium (Lovenox) 80 mg SUBCUT Q24H [facility] Last Admin: 08/13/18 13:13 Dose: 80 mg Folic Acid (Folic Acid) 1 mg PO DAILY [facility] Last Admin: 08/13/18 08:10 Dose: 1 mg Furosemide (Lasix) 40 mg IVPUSH Q12H [facility] Last Admin: 08/13/18 02:59 Dose: 40 mg Guaifenesin/Dextromethorphan (Mucinex Dm Er 600-30 Mg) 1 tab PO BID [facility] Last Admin: 08/13/18 08:12 Dose: 1 tab Levofloxacin/Dextrose 500 mg/ (Premix) 100 mls @ 100 mls/hr IV Q24H [facility] Last Admin: 08/13/18 13:13 Dose: 100 mls/hr Iopamidol (Isovue-370 (76%)) 100 ml IVPUSH ONETIME ONE Stop: 08/12/18 12:07 Last Admin: 08/12/18 14:23 Dose: 100 ml Methotrexate (Methotrexate) 25 mg PO GARCIA@0800 [facility] Metoprolol Tartrate (Lopressor) 25 mg PO BID [facility] Last Admin: 08/13/18 08:11 Dose: 25 mg Omeprazole (Omeprazole) 20 mg PO DAILY [facility] Last Admin: 08/13/18 08:12 Dose: 20 mg Oseltamivir Phosphate (Tamiflu) 75 mg PO BID [facility] Oseltamivir Phosphate (Tamiflu) 75 mg PO ONETIME ONE Stop: 08/13/18 14:31 Last Admin: 08/13/18 15:00 Dose: 75 mg Potassium Chloride (Klor-Con M20) 20 meq PO BID [facility] Last Admin: 08/13/18 08:11 Dose: 20 meq Prednisone (Prednisone) 10 mg PO QAM [facility] Last Admin: 08/13/18 08:12 Dose: 10 mg Sulfasalazine (Sulfasalazine Dr) 1,000 mg PO BIDMEALS [facility] Last Admin: 08/13/18 08:10 Dose: 1,000 mg - Exam Quality Assessment: DVT Prophylaxis General: Alert, Oriented, Cooperative, No Acute Distress HEENT: Mucous Membr. Moist/[place] Neck: Supple Lungs: Normal Respiratory Effort, Decreased Breath Sounds Cardiovascular: Regular Rate, Regular Rhythm, No Murmurs GI/Abdominal Exam: Normal Bowel Sounds, Soft, Non-Tender, No Organomegaly, No Distention Extremities: Normal Inspection, Normal Range of Motion, Non-Tender, No Pedal Edema, Normal Capillary Refill Peripheral Pulses: 1+: Dorsalis Pedis (L), Dorsalis Pedis (R) Skin: Warm, Dry, Intact Neurological: No New Focal Deficit Psy/Mental Status: Alert, Normal Affect, Normal Mood - Problem List & Annotations (1) Bilateral pneumonia SNOMED Code(s): 737630228 Code(s): J18.9 - PNEUMONIA, UNSPECIFIED ORGANISM Status: Acute Priority: High Current Visit: Yes Onset Date: ~08/07/18 Qualifiers: Pneumonia type: due to unspecified organism Lung location: unspecified part of lung Qualified Code(s): J18.9 - Pneumonia, unspecified organism Annotation/Comment:: Will continue on IV antibiotics and nebulizer treatments (2) Acute delirium SNOMED Code(s): 2763716, 6420914 Code(s): R41.0 - DISORIENTATION, UNSPECIFIED Status: Acute Priority: High Current Visit: Yes Annotation/Comment:: Delirium resolved which was due to the infections (3) Influenza SNOMED Code(s): 7844894 Code(s): J11.1 - FLU DUE TO UNIDENTIFIED INFLUENZA VIRUS W OTH RESP MANIFEST Status: Acute Current Visit: Yes (4) Asthma SNOMED Code(s): 477589866 Code(s): J45.909 - UNSPECIFIED ASTHMA, UNCOMPLICATED Status: Acute Priority: Medium Current Visit: No Annotation/Comment:: Will continue on IV solumedrol - Problem List Review Problem List Initiated/Reviewed/Updated: Yes - My Orders Last 24 Hours: My Active Orders 08/16/18 05:11 PSA DIAGNOSTIC [CHEM] Routine 08/16/18 07:00 Chest 2V [CR] Routine - Plan Plan:: 08/13/18 Agustin Devi MD He is feeling a little bit better today. Still coughing. No mental confusion. Medications adjusted. 08/14/2018 Patient is feeling better, still with productive cough yellow phlegm. Labs reviewed, cr improved after IV Lasix adjusted. Patient states recently lost his , it would be her birthday tomorrow. Patient states he has close family support, who checks on him often. Patient states doing okay and not wanting to start on any medications for depression. Support was given. Patient continues to need inpatient hospitalization for treatment of pneumonia and influenza. Patient has asthma and RA, in which pneumonia and influenza could be life threatening in this elderly patient. Marie Morales CNP 08/15/2018 Patient states he is getting stronger. Will continue on tamiflu and IV antibiotics. Labs reviewed, CRP still elevated but trending downward. Patient continues to have a productive cough, but states slept well. Chest Xray ordered for tomorrow. Recheck labs in the morning. Will decrease Solumedrol IV to daily , patient's lung are improving, no wheezing noted. Marie Morales,CURT
[2018-08-15] MEDS: atorvaSTATin 40 MG Tab PO SCH (19:11)
[2018-08-15] MEDS: Acetaminophen 325 MG Tab PO PRN (19:11)
[2018-08-16] MEDS: Piperacillin/Tazobactam 3.375 GM in Sodium Chloride 0.9% 100 ML IV SCH ×2 (02:56→08:43)
[2018-08-16] MEDS: Sodium Chloride 0.9% 10 ML Syringe FLUSH PRN ×2 (02:57→08:47)
[2018-08-16] MEDS ORDERED: methylPREDNISolone Sodium Succinate 40 MG/1 ML SDV IVPUSH SCH (08:00)
[2018-08-16] MEDS: Sodium Chloride 0.9% 10 ML Syringe FLUSH SCH (08:43)
[2018-08-16] MEDS: Albuterol/Ipratropium 3.0-0.5 MG/3 ML Neb Soln NEB SCH ×2 (08:45→12:02)
[2018-08-16] MEDS: Famotidine 20 MG/2 ML SDV IVPUSH SCH (08:45)
[2018-08-16] MEDS: Magnesium Oxide 400 MG Tab PO SCH (08:46)
[2018-08-16] MEDS: Dextromethorphan/guaiFENesin 600-30 MG Tab.ER PO SCH (08:47)
[2018-08-16] MEDS: Oseltamivir 30 MG Cap PO SCH (08:47)
[2018-08-16] MEDS: Metoprolol Tartrate 25 MG Tab PO SCH (08:47)
[2018-08-16] MEDS: Benazepril 10 MG Tab PO SCH (08:47)
[2018-08-16 12:01] VITALS: BP 167/98
--- NOTE | 2018-08-16 14:43 | PCM.PN ---
- General Info Date of Service: 08/16/18 Admission Dx/Problem (Free Text): Influenza Pneumonia Acute delirium from the Influenza and Pneumonia Functional Status: Reports: Pain Controlled - Review of Systems General: Reports: No Symptoms HEENT: Reports: No Symptoms Pulmonary: Reports: Cough Cardiovascular: Reports: No Symptoms Gastrointestinal: Reports: No Symptoms Genitourinary: Reports: No Symptoms Musculoskeletal: Reports: No Symptoms Skin: Reports: No Symptoms Neurological: Reports: No Symptoms Psychiatric: Reports: No Symptoms - Patient Data Vitals - Most Recent: Last Vital Signs Temp 97.3 F 08/16/18 12:00 Pulse 56 L 08/16/18 12:00 Resp 16 08/16/18 12:00 BP 167/98 H 08/16/18 12:00 Pulse Ox 92 L 08/16/18 12:00 Weight - Most Recent: 174 lb 6.417 oz I&O - Last 24 Hours: Intake & Output 08/15/18 08/16/18 08/16/18 22:59 06:59 14:59 Intake Total 500 200 720 Balance 500 200 720 Lab Results Last 24 Hours: Laboratory Results - last 24 hr 08/16/18 08/16/18 Range/Units 06:55 06:55 WBC 5.2 (4.0-10.2) K/uL RBC 3.99 L (4.33-5.41) M/uL Hgb 12.6 L (13.1-16.8) g/dL Hct 38.0 L (39.0-49.0) % MCV 95.2 (84.0-98.0) fL MCH 31.6 (28.2-33.3) pg MCHC 33.2 (31.7-36.0) g/dL RDW 14.3 H (11.2-14.1) % Plt Count 125 L (150-350) K/uL Neut % (Auto) 52.4 (45.0-80.0) % Lymph % (Auto) 35.3 (10.0-50.0) % [place] % (Auto) 11.7 (2.0-14.0) % Eos % (Auto) 0.2 (0.0-5.0) % Baso % (Auto) 0.4 (0.0-2.0) % Neut # (Auto) 2.70 (1.40-7.00) K/uL Lymph # (Auto) 1.82 (0.50-3.50) K/uL [place] # (Auto) 0.60 (0.00-1.00) K/uL Eos # (Auto) 0.01 (0.00-0.50) K/uL Baso # (Auto) 0.02 (0.00-0.20) K/uL Sodium 142 (136-145) mmol/L Potassium 4.1 (3.5-5.1) mmol/L Chloride 105 (98-107) mmol/L Carbon Dioxide 32.5 H (21.0-32.0) mmol/L BUN 23 H (7-18) mg/dL Creatinine 1.25 H (0.51-1.17) mg/dL Est Cr Clr Drug Dosing 49.60 mL/min Estimated GFR (MDRD) 56 mL/min Glucose 96 (74-106) mg/dL Calcium 8.6 (8.5-10.1) mg/dL Total Bilirubin 0.4 (0.2-1.0) mg/dL AST 30 (15-37) U/L ALT 33 (12-78) U/L Alkaline Phosphatase 29 L (46-116) IU/L C-Reactive Protein 2.1 H (<=0.9) mg/dL Total Protein 5.7 L (6.4-8.2) g/dL Albumin 2.8 L (3.4-5.0) g/dL Prostate Specific Ag 2.40 (0.13-4.0) ng/ml Neftali Results Last 24 Hours: Microbiology 08/12/18 11:20 Aerobic Blood Culture - Preliminary Blood - Venous NO GROWTH AFTER 4 DAYS Anaerobic Blood Culture - Preliminary NO GROWTH AFTER 4 DAYS 08/12/18 11:25 Aerobic Blood Culture - Preliminary Blood - Venous - Lab Draw NO GROWTH AFTER 4 DAYS Anaerobic Blood Culture - Preliminary NO GROWTH AFTER 4 DAYS Med Orders - Current: Current Medications Acetaminophen (Tylenol) 650 mg PO Q4H PRN PRN Reason: Pain/Fever Last Admin: 08/15/18 19:11 Dose: 650 mg Albuterol (Proventil Neb Soln) 2.5 mg NEB Q2H PRN PRN Reason: Dyspnea Albuterol/Ipratropium (Duoneb 3.0-0.5 Mg/3 Ml) 3 ml NEB QIDRT [facility] Last Admin: 08/16/18 12:02 Dose: 3 ml Atorvastatin Calcium (Lipitor) 40 mg PO BEDTIME [facility] Last Admin: 08/15/18 19:11 Dose: 40 mg Benazepril HCl (Lotensin) 20 mg PO DAILY [facility] Last Admin: 08/16/18 08:47 Dose: 20 mg Famotidine (Pepcid) 20 mg IVPUSH Q12HR [facility] Last Admin: 08/16/18 08:45 Dose: 20 mg Guaifenesin/Dextromethorphan (Mucinex Dm Er 600-30 Mg) 1 tab PO 08,1999 [facility] Last Admin: 08/16/18 08:47 Dose: 1 tab Piperacillin Sod/Tazobactam (Sod 3.375 gm/ Sodium Chloride) 100 mls @ 200 mls/ hr IV Q6H [facility] Last Admin: 08/16/18 08:43 Dose: 200 mls/hr Magnesium Oxide (Magnesium Oxide) 400 mg PO DAILY [facility] Last Admin: 08/16/18 08:46 Dose: 400 mg Methylprednisolone Sodium Succinate (Solu-Medrol) 20 mg IVPUSH DAILY [facility] Last Admin: 08/16/18 08:43 Dose: 20 mg Metoprolol Tartrate (Lopressor) 25 mg PO Q12HR [facility] Last Admin: 08/16/18 08:47 Dose: 25 mg Oseltamivir Phosphate (Tamiflu) 30 mg PO BID [facility] Stop: 08/18/18 18:01 Last Admin: 08/16/18 08:47 Dose: 30 mg Sodium Chloride (Saline Flush) 10 ml FLUSH ASDIRECTED PRN PRN Reason: Keep Vein Open Last Admin: 08/16/18 08:47 Dose: 10 ml Sodium Chloride (Saline Flush) 10 ml FLUSH Q12HR [facility] Last Admin: 08/16/18 08:43 Dose: 10 ml Temazepam (Restoril) 15 mg PO BEDTIME PRN PRN Reason: Insomnia Discontinued Medications Acetaminophen (Tylenol) 650 mg PO ONETIME ONE Stop: 08/12/18 11:12 Last Admin: 08/12/18 11:42 Dose: 650 mg Albuterol/Ipratropium (Duoneb 3.0-0.5 Mg/3 Ml) 3 ml NEB ONETIME ONE Stop: 08/12/18 11:12 Last Admin: 08/12/18 11:43 Dose: 3 ml Albuterol/Ipratropium (Duoneb 3.0-0.5 Mg/3 Ml) 3 ml NEB Q4HRRT PRN PRN Reason: Dyspnea Albuterol/Ipratropium (Duoneb 3.0-0.5 Mg/3 Ml) 3 ml NEB Q6HRRT [facility] Last Admin: 08/13/18 13:13 Dose: 3 ml Budesonide (Pulmicort) 0.5 mg NEB BIDRT [facility] Last Admin: 08/13/18 08:13 Dose: 0.5 mg Enoxaparin Sodium (Lovenox) 80 mg SUBCUT Q24H [facility] Last Admin: 08/13/18 13:13 Dose: 80 mg Folic Acid (Folic Acid) 1 mg PO DAILY [facility] Last Admin: 08/13/18 08:10 Dose: 1 mg Furosemide (Lasix) 40 mg IVPUSH Q12H [facility] Last Admin: 08/13/18 02:59 Dose: 40 mg Guaifenesin/Dextromethorphan (Mucinex Dm Er 600-30 Mg) 1 tab PO BID [facility] Last Admin: 08/13/18 08:12 Dose: 1 tab Levofloxacin/Dextrose 500 mg/ (Premix) 100 mls @ 100 mls/hr IV Q24H [facility] Last Admin: 08/13/18 13:13 Dose: 100 mls/hr Iopamidol (Isovue-370 (76%)) 100 ml IVPUSH ONETIME ONE Stop: 08/12/18 12:07 Last Admin: 08/12/18 14:23 Dose: 100 ml Methotrexate (Methotrexate) 25 mg PO GARCIA@0800 [facility] Methylprednisolone Sodium Succinate (Solu-Medrol) 20 mg IVPUSH Q12HR [facility] Last Admin: 08/15/18 07:26 Dose: 20 mg Metoprolol Tartrate (Lopressor) 25 mg PO BID [facility] Last Admin: 08/13/18 08:11 Dose: 25 mg Omeprazole (Omeprazole) 20 mg PO DAILY [facility] Last Admin: 08/13/18 08:12 Dose: 20 mg Oseltamivir Phosphate (Tamiflu) 75 mg PO BID [facility] Oseltamivir Phosphate (Tamiflu) 75 mg PO ONETIME ONE Stop: 08/13/18 14:31 Last Admin: 08/13/18 15:00 Dose: 75 mg Potassium Chloride (Klor-Con M20) 20 meq PO BID [facility] Last Admin: 08/13/18 08:11 Dose: 20 meq Prednisone (Prednisone) 10 mg PO QAM [facility] Last Admin: 08/13/18 08:12 Dose: 10 mg Sulfasalazine (Sulfasalazine Dr) 1,000 mg PO BIDMEALS [facility] Last Admin: 08/13/18 08:10 Dose: 1,000 mg - Exam General: Alert, Cooperative, No Acute Distress HEENT: Pupils Equal, Mucous Membr. Moist/[place] Neck: Trachea Midline, No JVD Lungs: Clear to Auscultation, Normal Respiratory Effort Cardiovascular: Regular Rate, Regular Rhythm GI/Abdominal Exam: Soft, Non-Tender, No Distention (Male) Exam: Deferred Back Exam: Normal Inspection Extremities: Normal Inspection, Non-Tender Skin: Warm, Dry, Intact Neurological: No New Focal Deficit Psy/Mental Status: Alert, Normal Affect, Normal Mood - Problem List & Annotations (1) Influenza A virus present SNOMED Code(s): 045637835697 Code(s): J10.1 - FLU DUE TO OTH IDENT INFLUENZA VIRUS W OTH RESP MANIFEST Status: Acute Priority: High Current Visit: Yes (2) Acute delirium SNOMED Code(s): 6258844, 9082780 Code(s): R41.0 - DISORIENTATION, UNSPECIFIED Status: Acute Priority: High Current Visit: Yes Annotation/Comment:: Delirium resolved which was due to the infections (3) D-dimer, elevated SNOMED Code(s): 330943225 Code(s): R79.89 - OTHER SPECIFIED ABNORMAL FINDINGS OF BLOOD CHEMISTRY Status: Acute Priority: High Current Visit: Yes Onset Date: 08/12/18 Annotation/Comment:: CTA of the chest results as above. Secondary to blizzard conditions venous Doppler evaluation cannot be conducted until tomorrow. High- dose subcutaneous Lovenox as prophylaxis until results are obtained. Note mild thrombocytopenia. Repeat blood work in the a.m. (4) Hypertension SNOMED Code(s): 10058449 Code(s): I10 - ESSENTIAL (PRIMARY) HYPERTENSION Status: Acute Priority: [facility] Current Visit: Yes Qualifiers: Hypertension type: essential hypertension Qualified Code(s): I10 - Essential (primary) hypertension Annotation/Comment:: His blood pressures were initially somewhat elevated in the emergency room secondary to medication noncompliance from current illness as above. Continue to observe closely during this hospitalization. (5) Hypomagnesemia SNOMED Code(s): 578761456 Code(s): E83.42 - HYPOMAGNESEMIA Status: Acute Priority: Medium Current Visit: Yes Onset Date: 08/12/18 Annotation/Comment:: Initiate magnesium oxide therapy especially in light of IV Lasix as above. (6) Renal insufficiency SNOMED Code(s): 764402512, 604501574 Code(s): N28.9 - DISORDER OF KIDNEY AND URETER, UNSPECIFIED Status: Acute Priority: Medium Current Visit: Yes Annotation/Comment:: Mild Renal insufficiency. Observe closely especially in light of IV Lasix therapy. (7) Rheumatoid arthritis SNOMED Code(s): 26318160 Code(s): M06.9 - RHEUMATOID ARTHRITIS, UNSPECIFIED Status: Acute Current Visit: Yes Qualifiers: Rheumatoid arthritis location: multiple sites Rheumatoid factor presence: unspecified presence Qualified Code(s): M06.9 - Rheumatoid arthritis, unspecified (8) COPD (chronic obstructive pulmonary disease) SNOMED Code(s): 65971309 Code(s): J44.9 - CHRONIC OBSTRUCTIVE PULMONARY DISEASE, UNSPECIFIED Status : Chronic Priority: Medium Current Visit: Yes Qualifiers: COPD type: COPD with acute lower respiratory infection Qualified Code(s): J44.0 - Chronic obstructive pulmonary disease with acute lower respiratory infection Annotation/Comment:: Continue nebulizer treatments as above. (9) Coronary artery disease SNOMED Code(s): 57466714 Code(s): I25.10 - ATHSCL HEART DISEASE OF [place] CORONARY ARTERY W/O ANG PCTRS Status: Chronic Priority: Medium Current Visit: Yes Qualifiers: Coronary Disease-Associated Artery/Lesion type: bypass graft, autologous vein Associated angina: without angina Qualified Code(s): I25.810 - Atherosclerosis of coronary artery bypass graft(s) without angina pectoris Annotation/Comment:: Stable by history with no recent chest pain or anginal complaints. Repeat EKG and blood work in the a.m. secondary to his borderline CHF. (10) Hyperlipidemia SNOMED Code(s): 47741699 Code(s): E78.5 - HYPERLIPIDEMIA, UNSPECIFIED Status: Chronic Priority: Medium Current Visit: Yes Qualifiers: Hyperlipidemia type: unspecified Qualified Code(s): E78.5 - Hyperlipidemia , unspecified Annotation/Comment:: Under therapy with patient and family requesting repeat lipid panel by his regular providers on his outpatient basis (11) Need for comfort care SNOMED Code(s): 424640027, 919545635 Code(s): SSQ3248 - Status: Chronic Priority: High Current Visit: Yes Annotation/Comment:: NO CODE STATUS confirmed by patient and his daughter today. (12) Peptic reflux disease SNOMED Code(s): 927811611 Code(s): K21.9 - GASTRO-ESOPHAGEAL REFLUX DISEASE WITHOUT ESOPHAGITIS Status: Chronic Priority: Medium Current Visit: Yes Annotation/Comment:: Stable by history (13) Asthma SNOMED Code(s): 892460539 Code(s): J45.909 - UNSPECIFIED ASTHMA, UNCOMPLICATED Status: Acute Priority: Medium Current Visit: No Annotation/Comment:: Will continue on IV solumedrol (14) Coronary arteriosclerosis in patient with history of previous myocardial infarction SNOMED Code(s): 980700861167391 Code(s): I25.10 - ATHSCL HEART DISEASE OF [place] CORONARY ARTERY W/O ANG PCTRS; I25.2 - OLD MYOCARDIAL INFARCTION Status: Acute Priority: High Current Visit: No (15) Pneumonia SNOMED Code(s): 990522730 Code(s): J18.9 - PNEUMONIA, UNSPECIFIED ORGANISM Status: Acute Current Visit: No (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 SNOMED Code(s): 626465046, 864744402, 609425501 Code(s): Z95.1 - PRESENCE OF AORTOCORONARY BYPASS GRAFT Status: Acute Priority: High Current Visit: No - Problem List Review Problem List Initiated/Reviewed/Updated: Yes - My Orders Last 24 Hours: My Active Orders 08/16/18 13:01 Discontinue Saline Lock [Peripheral IV Discontinue] [OM.PC] Routine 08/16/18 13:09 Ready for Discharge [RC] PER UNIT ROUTINE - Plan Plan:: 08/13/18 Agustin Devi MD He is feeling a little bit better today. Still coughing. No mental confusion. Medications adjusted. 08/14/2018 Patient is feeling better, still with productive cough yellow phlegm. Labs reviewed, cr improved after IV Lasix adjusted. Patient states recently lost his , it would be her birthday tomorrow. Patient states he has close family support, who checks on him often. Patient states doing okay and not wanting to start on any medications for depression. Support was given. Patient continues to need inpatient hospitalization for treatment of pneumonia and influenza. Patient has asthma and RA, in which pneumonia and influenza could be life threatening in this elderly patient. Marie Morales,CURT 08/15/2018 Patient states he is getting stronger. Will continue on tamiflu and IV antibiotics. Labs reviewed, CRP still elevated but trending downward. Patient continues to have a productive cough, but states slept well. Chest Xray ordered for tomorrow. Recheck labs in the morning. Will decrease Solumedrol IV to daily , patient's lung are improving, no wheezing noted. Marie Morales,CURT 08/16/18 Agustin Devi MD Feels better. Still some cough but improved. Ready for home.
--- NOTE | 2018-08-16 14:47 | PCM.DCSUM1 ---
Discharge Summary - Hospital Course Diagnosis: Stroke: No - Discharge Data Discharge Date: 08/16/18 Discharge Disposition: Home, Self-Care 01 Condition: Good - Discharge Diagnosis/Problem(s) (1) Influenza A virus present SNOMED Code(s): 984490369750 ICD Code: J10.1 - FLU DUE TO OTH IDENT INFLUENZA VIRUS W OTH RESP MANIFEST Status: Acute Priority: High Current Visit: Yes (2) Acute delirium SNOMED Code(s): 7126197, 5003763 ICD Code: R41.0 - DISORIENTATION, UNSPECIFIED Status: Acute Priority: High Current Visit: Yes Problem Details: Delirium resolved which was due to the infections (3) D-dimer, elevated SNOMED Code(s): 027821078 ICD Code: R79.89 - OTHER SPECIFIED ABNORMAL FINDINGS OF BLOOD CHEMISTRY Status: Acute Priority: High Current Visit: Yes Onset Date: 08/12/18 Problem Details: CTA of the chest results as above. Secondary to blizzard conditions venous Doppler evaluation cannot be conducted until tomorrow. High- dose subcutaneous Lovenox as prophylaxis until results are obtained. Note mild thrombocytopenia. Repeat blood work in the a.m. (4) Hypertension SNOMED Code(s): 39476405 ICD Code: I10 - ESSENTIAL (PRIMARY) HYPERTENSION Status: Acute Priority: Medium Current Visit: Yes Problem Details: His blood pressures were initially somewhat elevated in the emergency room secondary to medication noncompliance from current illness as above. Continue to observe closely during this hospitalization. Qualifiers: Hypertension type: essential hypertension Qualified Code(s): I10 - Essential (primary) hypertension (5) Hypomagnesemia SNOMED Code(s): 269272405 ICD Code: E83.42 - HYPOMAGNESEMIA Status: Acute Priority: Medium Current Visit: Yes Onset Date: 08/12/18 Problem Details: Initiate magnesium oxide therapy especially in light of IV Lasix as above. (6) Renal insufficiency SNOMED Code(s): 135304756, 924114760 ICD Code: N28.9 - DISORDER OF KIDNEY AND URETER, UNSPECIFIED Status: Acute Priority: Medium Current Visit: Yes Problem Details: Mild Renal insufficiency. Observe closely especially in light of IV Lasix therapy. (7) Rheumatoid arthritis SNOMED Code(s): 61034495 ICD Code: M06.9 - RHEUMATOID ARTHRITIS, UNSPECIFIED Status: Acute Current Visit: Yes Qualifiers: Rheumatoid arthritis location: multiple sites Rheumatoid factor presence: unspecified presence Qualified Code(s): M06.9 - Rheumatoid arthritis, unspecified (8) COPD (chronic obstructive pulmonary disease) SNOMED Code(s): 27408815 ICD Code: J44.9 - CHRONIC OBSTRUCTIVE PULMONARY DISEASE, UNSPECIFIED Status : Chronic Priority: Medium Current Visit: Yes Problem Details: Continue nebulizer treatments as above. Qualifiers: COPD type: COPD with acute lower respiratory infection Qualified Code(s): J44.0 - Chronic obstructive pulmonary disease with acute lower respiratory infection (9) Coronary artery disease SNOMED Code(s): 63915027 ICD Code: I25.10 - ATHSCL HEART DISEASE OF [place] CORONARY ARTERY W/O ANG PCTRS Status: Chronic Priority: Medium Current Visit: Yes Problem Details: Stable by history with no recent chest pain or anginal complaints. Repeat EKG and blood work in the a.m. secondary to his borderline CHF. Qualifiers: Coronary Disease-Associated Artery/Lesion type: bypass graft, autologous vein Associated angina: without angina Qualified Code(s): I25.810 - Atherosclerosis of coronary artery bypass graft(s) without angina pectoris (10) Hyperlipidemia SNOMED Code(s): 88949940 ICD Code: E78.5 - HYPERLIPIDEMIA, UNSPECIFIED Status: Chronic Priority: Medium Current Visit: Yes Problem Details: Under therapy with patient and family requesting repeat lipid panel by his regular providers on his outpatient basis Qualifiers: Hyperlipidemia type: unspecified Qualified Code(s): E78.5 - Hyperlipidemia , unspecified (11) Need for comfort care SNOMED Code(s): 708428280, 415212150 ICD Code: [id number] - Status: Chronic Priority: High Current Visit: Yes Problem Details: NO CODE STATUS confirmed by patient and his daughter today. (12) Peptic reflux disease SNOMED Code(s): 056313006 ICD Code: K21.9 - GASTRO-ESOPHAGEAL REFLUX DISEASE WITHOUT ESOPHAGITIS Status: Chronic Priority: Medium Current Visit: Yes Problem Details: Stable by history (13) Asthma SNOMED Code(s): 953846544 ICD Code: J45.909 - UNSPECIFIED ASTHMA, UNCOMPLICATED Status: Acute Priority: Medium Current Visit: No Problem Details: Will continue on IV solumedrol (14) Coronary arteriosclerosis in patient with history of previous myocardial infarction SNOMED Code(s): 912755746717564 ICD Code: I25.10 - ATHSCL HEART DISEASE OF [place] CORONARY ARTERY W/O ANG PCTRS; I25.2 - OLD MYOCARDIAL INFARCTION Status: Acute Priority: High Current Visit: No (15) Pneumonia SNOMED Code(s): 506503210 ICD Code: J18.9 - PNEUMONIA, UNSPECIFIED ORGANISM Status: Acute Current Visit: No (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 SNOMED Code(s): 308319623, 593553218, 409207960 ICD Code: Z95.1 - PRESENCE OF AORTOCORONARY BYPASS GRAFT Status: Acute Priority: High Current Visit: No - Patient Instructions Diet: Heart Healthy Diet Activity: As Tolerated Showering/Bathing: May Shower Other/Special Instructions: Follow up with [facility]/ Bessy SALAS in the next 1-2 weeks. Call for an appointment. - Discharge Plan *PRESCRIPTION DRUG MONITORING PROGRAM REVIEWED*: Not Applicable *COPY OF PRESCRIPTION DRUG MONITORING REPORT IN PATIENT LISA: Not Applicable Prescriptions/Med Rec: Cefuroxime Axetil [Ceftin] 500 mg PO BID #14 tablet Oseltamivir [Tamiflu] 30 mg PO BID #5 cap Home Medications: Home Meds Aspirin [Ecotrin] 325 mg PO DAILY 11/04/16 [History] Metoprolol Tartrate 25 mg PO BID 11/04/16 [History] predniSONE [Prednisone] 10 mg PO QAM 11/04/16 [History] Omeprazole 20 mg PO DAILY #30 cap.cr 11/14/16 [Rx] Benazepril [Lotensin] 20 mg PO DAILY 05/29/17 [History] atorvaSTATin [Lipitor] 40 mg PO BEDTIME 05/29/17 [History] Albuterol/Ipratropium [DuoNeb 3.0-0.5 MG/3 ML] 3 ml NEB QID 08/12/18 [History] Budesonide [Pulmicort] 0.5 mg NEB BID 08/12/18 [History] Cefuroxime Axetil [Ceftin] 500 mg PO BID #14 tablet 08/16/18 [Rx] Oseltamivir [Tamiflu] 30 mg PO BID #5 cap 08/16/18 [Rx] Oxygen Therapy Mode: Room Air Forms: ED Department Discharge Referrals: Bessy English PA [Primary Care Provider] - - Discharge Summary/Plan Comment DC Time >30 min.: No - Patient Data Vitals - Most Recent: Last Vital Signs Temp 97.3 F 08/16/18 12:00 Pulse 56 L 08/16/18 12:00 Resp 16 08/16/18 12:00 BP 167/98 H 08/16/18 12:00 Pulse Ox 92 L 08/16/18 12:00 Weight - Most Recent: 174 lb 6.417 oz I&O - Last 24 hours: Intake & Output 08/15/18 08/16/18 08/16/18 22:59 06:59 14:59 Intake Total 500 200 720 Balance 500 200 720 Lab Results - Last 24 hrs: Laboratory Results - last 24 hr 08/16/18 08/16/18 Range/Units 06:55 06:55 WBC 5.2 (4.0-10.2) K/uL RBC 3.99 L (4.33-5.41) M/uL Hgb 12.6 L (13.1-16.8) g/dL Hct 38.0 L (39.0-49.0) % MCV 95.2 (84.0-98.0) fL MCH 31.6 (28.2-33.3) pg MCHC 33.2 (31.7-36.0) g/dL RDW 14.3 H (11.2-14.1) % Plt Count 125 L (150-350) K/uL Neut % (Auto) 52.4 (45.0-80.0) % Lymph % (Auto) 35.3 (10.0-50.0) % [place] % (Auto) 11.7 (2.0-14.0) % Eos % (Auto) 0.2 (0.0-5.0) % Baso % (Auto) 0.4 (0.0-2.0) % Neut # (Auto) 2.70 (1.40-7.00) K/uL Lymph # (Auto) 1.82 (0.50-3.50) K/uL [place] # (Auto) 0.60 (0.00-1.00) K/uL Eos # (Auto) 0.01 (0.00-0.50) K/uL Baso # (Auto) 0.02 (0.00-0.20) K/uL Sodium 142 (136-145) mmol/L Potassium 4.1 (3.5-5.1) mmol/L Chloride 105 (98-107) mmol/L Carbon Dioxide 32.5 H (21.0-32.0) mmol/L BUN 23 H (7-18) mg/dL Creatinine 1.25 H (0.51-1.17) mg/dL Est Cr Clr Drug Dosing 49.60 mL/min Estimated GFR (MDRD) 56 mL/min Glucose 96 (74-106) mg/dL Calcium 8.6 (8.5-10.1) mg/dL Total Bilirubin 0.4 (0.2-1.0) mg/dL AST 30 (15-37) U/L ALT 33 (12-78) U/L Alkaline Phosphatase 29 L (46-116) IU/L C-Reactive Protein 2.1 H (<=0.9) mg/dL Total Protein 5.7 L (6.4-8.2) g/dL Albumin 2.8 L (3.4-5.0) g/dL Prostate Specific Ag 2.40 (0.13-4.0) ng/ml [facility]INA Results - Last 24 hrs: Microbiology 08/12/18 11:20 Aerobic Blood Culture - Preliminary Blood - Venous NO GROWTH AFTER 4 DAYS Anaerobic Blood Culture - Preliminary NO GROWTH AFTER 4 DAYS 08/12/18 11:25 Aerobic Blood Culture - Preliminary Blood - Venous - Lab Draw NO GROWTH AFTER 4 DAYS Anaerobic Blood Culture - Preliminary NO GROWTH AFTER 4 DAYS Med Orders - Current: Current Medications Acetaminophen (Tylenol) 650 mg PO Q4H PRN PRN Reason: Pain/Fever Last Admin: 08/15/18 19:11 Dose: 650 mg Albuterol (Proventil Neb Soln) 2.5 mg NEB Q2H PRN PRN Reason: Dyspnea Albuterol/Ipratropium (Duoneb 3.0-0.5 Mg/3 Ml) 3 ml NEB QIDRT [facility] Last Admin: 08/16/18 12:02 Dose: 3 ml Atorvastatin Calcium (Lipitor) 40 mg PO BEDTIME [facility] Last Admin: 08/15/18 19:11 Dose: 40 mg Benazepril HCl (Lotensin) 20 mg PO DAILY [facility] Last Admin: 08/16/18 08:47 Dose: 20 mg Famotidine (Pepcid) 20 mg IVPUSH Q12HR [facility] Last Admin: 08/16/18 08:45 Dose: 20 mg Guaifenesin/Dextromethorphan (Mucinex Dm Er 600-30 Mg) 1 tab PO 08,1999 [facility] Last Admin: 08/16/18 08:47 Dose: 1 tab Piperacillin Sod/Tazobactam (Sod 3.375 gm/ Sodium Chloride) 100 mls @ 200 mls/ hr IV Q6H [facility] Last Admin: 08/16/18 08:43 Dose: 200 mls/hr Magnesium Oxide (Magnesium Oxide) 400 mg PO DAILY [facility] Last Admin: 08/16/18 08:46 Dose: 400 mg Methylprednisolone Sodium Succinate (Solu-Medrol) 20 mg IVPUSH DAILY [facility] Last Admin: 08/16/18 08:43 Dose: 20 mg Metoprolol Tartrate (Lopressor) 25 mg PO Q12HR [facility] Last Admin: 08/16/18 08:47 Dose: 25 mg Oseltamivir Phosphate (Tamiflu) 30 mg PO BID [facility] Stop: 08/18/18 18:01 Last Admin: 08/16/18 08:47 Dose: 30 mg Sodium Chloride (Saline Flush) 10 ml FLUSH ASDIRECTED PRN PRN Reason: Keep Vein Open Last Admin: 08/16/18 08:47 Dose: 10 ml Sodium Chloride (Saline Flush) 10 ml FLUSH Q12HR [facility] Last Admin: 08/16/18 08:43 Dose: 10 ml Temazepam (Restoril) 15 mg PO BEDTIME PRN PRN Reason: Insomnia Discontinued Medications Acetaminophen (Tylenol) 650 mg PO ONETIME ONE Stop: 08/12/18 11:12 Last Admin: 08/12/18 11:42 Dose: 650 mg Albuterol/Ipratropium (Duoneb 3.0-0.5 Mg/3 Ml) 3 ml NEB ONETIME ONE Stop: 08/12/18 11:12 Last Admin: 08/12/18 11:43 Dose: 3 ml Albuterol/Ipratropium (Duoneb 3.0-0.5 Mg/3 Ml) 3 ml NEB Q4HRRT PRN PRN Reason: Dyspnea Albuterol/Ipratropium (Duoneb 3.0-0.5 Mg/3 Ml) 3 ml NEB Q6HRRT [facility] Last Admin: 08/13/18 13:13 Dose: 3 ml Budesonide (Pulmicort) 0.5 mg NEB BIDRT [facility] Last Admin: 08/13/18 08:13 Dose: 0.5 mg Enoxaparin Sodium (Lovenox) 80 mg SUBCUT Q24H [facility] Last Admin: 08/13/18 13:13 Dose: 80 mg Folic Acid (Folic Acid) 1 mg PO DAILY [facility] Last Admin: 08/13/18 08:10 Dose: 1 mg Furosemide (Lasix) 40 mg IVPUSH Q12H [facility] Last Admin: 08/13/18 02:59 Dose: 40 mg Guaifenesin/Dextromethorphan (Mucinex Dm Er 600-30 Mg) 1 tab PO BID [facility] Last Admin: 08/13/18 08:12 Dose: 1 tab Levofloxacin/Dextrose 500 mg/ (Premix) 100 mls @ 100 mls/hr IV Q24H [facility] Last Admin: 08/13/18 13:13 Dose: 100 mls/hr Iopamidol (Isovue-370 (76%)) 100 ml IVPUSH ONETIME ONE Stop: 08/12/18 12:07 Last Admin: 08/12/18 14:23 Dose: 100 ml Methotrexate (Methotrexate) 25 mg PO GARCIA@0800 [facility] Methylprednisolone Sodium Succinate (Solu-Medrol) 20 mg IVPUSH Q12HR [facility] Last Admin: 08/15/18 07:26 Dose: 20 mg Metoprolol Tartrate (Lopressor) 25 mg PO BID [facility] Last Admin: 08/13/18 08:11 Dose: 25 mg Omeprazole (Omeprazole) 20 mg PO DAILY [facility] Last Admin: 08/13/18 08:12 Dose: 20 mg Oseltamivir Phosphate (Tamiflu) 75 mg PO BID [facility] Oseltamivir Phosphate (Tamiflu) 75 mg PO ONETIME ONE Stop: 08/13/18 14:31 Last Admin: 08/13/18 15:00 Dose: 75 mg Potassium Chloride (Klor-Con M20) 20 meq PO BID [facility] Last Admin: 08/13/18 08:11 Dose: 20 meq Prednisone (Prednisone) 10 mg PO QAM [facility] Last Admin: 08/13/18 08:12 Dose: 10 mg Sulfasalazine (Sulfasalazine Dr) 1,000 mg PO BIDMEALS [facility] Last Admin: 08/13/18 08:10 Dose: 1,000 mg
== END 2018-08-16 14:00 | disposition home or self-care (01) | DRG 193 ==
LOC: LL.ED 10:49 → LL.MS 13:17 → OBSVTOIN 13:17
PROVIDERS: ADMIT Family Medicine; ATTEND Family Medicine
DX: J10.00 Influenza due to other identified influenza virus with unspecified type of pneumonia (principal); I50.43 Acute on chronic combined systolic (congestive) and diastolic (congestive) heart failure; F05 Delirium due to known physiological condition; J44.0 Chronic obstructive pulmonary disease with (acute) lower respiratory infection; I42.9 Cardiomyopathy, unspecified; I13.0 Hypertensive heart and chronic kidney disease with heart failure and stage 1 through stage 4 chronic kidney disease, or unspecified chronic kidney disease; J18.9 Pneumonia, unspecified organism; R79.1 Abnormal coagulation profile; D69.6 Thrombocytopenia, unspecified; E83.42 Hypomagnesemia; M06.9 Rheumatoid arthritis, unspecified; I25.10 Atherosclerotic heart disease of native coronary artery without angina pectoris; E78.5 Hyperlipidemia, unspecified; K21.9 Gastro-esophageal reflux disease without esophagitis; K63.5 Polyp of colon; H54.7 Unspecified visual loss; H91.90 Unspecified hearing loss, unspecified ear; I48.91 Unspecified atrial fibrillation; E78.00 Pure hypercholesterolemia, unspecified; J84.10 Pulmonary fibrosis, unspecified; K59.09 Other constipation; N40.0 Benign prostatic hyperplasia without lower urinary tract symptoms; N18.9 Chronic kidney disease, unspecified; M19.90 Unspecified osteoarthritis, unspecified site; G89.29 Other chronic pain; M41.9 Scoliosis, unspecified; L57.0 Actinic keratosis; I25.2 Old myocardial infarction; Z51.5 Encounter for palliative care; Z95.1 Presence of aortocoronary bypass graft; Z79.899 Other long term (current) drug therapy; Z85.828 Personal history of other malignant neoplasm of skin; Z95.5 Presence of coronary angioplasty implant and graft; Z79.52 Long term (current) use of systemic steroids; Z87.01 Personal history of pneumonia (recurrent); Z79.82 Long term (current) use of aspirin; Z91.14 Patient's other noncompliance with medication regimen
CPT/HCPCS: 36000; 36415; 71046; 71275; 80053; 81001; 82272; 82550; 82553; 83605; 83735; 83880; 84153; 84443; 84484; 85025; 85379; 85610; 85730; 86140; 87040; 87070; 87081; 87086; 87205; 87430; 87804; 93005; 93970; 94640; 99285; A9270-GY; J1650; J1940; J1956; J2543; J2920; J3490; J7050; J7620-GY; Q9967

== ENCOUNTER 2019-01-09 18:04 | Emergency (ER) | payer MEDICARE, OTHER ==
--- NOTE | 2019-01-09 18:45 | EDM.PDOC ---
ED HPI GENERAL MEDICAL PROBLEM - General Chief Complaint: Respiratory Problem Stated Complaint: Fever, cough Time Seen by Provider: 01/09/19 18:20 Source of Information: Reports: Patient, Family History Limitations: Reports: No Limitations - History of Present Illness INITIAL COMMENTS - FREE TEXT/NARRATIVE: Patient brought in by family member to be evaluated for cough. Also mild fever last night. Has been coughing for several weeks. No significant sputum production. No earlier fevers. Denies acute increase in SOB, has baseline issues with COPD and uses nebs at home. No obvious cold symptoms such as runny nose/sore throat. No GI/Gu/Neuro changes. Denies chest pain/palpitations/CV complaints. No other reported changes. Generalized Pain Score (Numeric/FACES): 8 - Related Data Allergies Allergy/AdvReac Type Severity Reaction Status Date / Time seasonal Allergy Other Uncoded 01/09/19 18:06 Home Meds: Home Meds Aspirin [Ecotrin EC] 325 mg PO DAILY 11/04/16 [History] Metoprolol Tartrate 25 mg PO BID 11/04/16 [History] predniSONE [Prednisone] 10 mg PO QAM 11/04/16 [History] Omeprazole 20 mg PO DAILY #30 cap.cr 11/14/16 [Rx] Benazepril [Lotensin] 20 mg PO DAILY 05/29/17 [History] atorvaSTATin [Lipitor] 40 mg PO BEDTIME 05/29/17 [History] Albuterol/Ipratropium [DuoNeb 3.0-0.5 MG/3 ML] 3 ml NEB QID 08/12/18 [History] Budesonide [Pulmicort] 0.5 mg NEB BID 08/12/18 [History] Acetaminophen [Tylenol Arthritis] 1,300 mg PO Q6H PRN 01/09/19 [History] Cetirizine [ZyrTEC] 10 mg PO DAILY 01/09/19 [History] Doxycycline [Vibramycin] 100 mg PO BID #10 cap 01/09/19 [Rx] Past Medical History HEENT History: Reports: Cataract, Hard of Hearing, Impaired Vision, Other (See Below) Other HEENT History: Patient wears glasses; bilateral presbycusis with suboptimal bilateral hearing aide therapy Cardiovascular History: Reports: Afib, Arrhythmia, Bypass, CAD, Cardiomyopathy, Heart Failure, High Cholesterol, Hypertension, [place], PTCA, Stents, Other (See Below) Other Cardiovascular History: Grade 1 diastolic dysfunction by echocardiogram in 2017 as below. History with inferior wall STEMI requiring four-vessel CABG as below with newly diagnosed atrial fibrillation with rapid ventricular response at that time; PVCs and PACs Respiratory History: Reports: Bronchitis, Recurrent, COPD, Intubation, Previous , Pneumonia, Recurrent, Pulmonary Fibrosis, Other (See Below) Other Respiratory History: Bilateral benign pulmonary granulomas, including the left lower lobe. [place]ello's lung/COPD. Gastrointestinal History: Reports: Cholelithiasis, Chronic Constipation, Colon Polyp, Diverticulosis, Gastritis, GERD, Helicobacter Pylori, Hiatal Hernia, Other (See Below) Other Gastrointestinal History: History of recurrent sigmoid colonic polyps including initial hyperplastic polyps 2 on 06/26/03 with subsequent 1 hyperplastic polyp and an additional tubular adenoma in the sigmoid region on 15/02; positive H pylori biopsy at time of EGD on 09/16/07; nonsymptomatic cholelithiasis by CT scan on 02/21/14. Genitourinary History: Reports: BPH, Chronic Renal Insuffiency, Other (See Below ) Other Genitourinary History: bilateral hydroceles Musculoskeletal History: Reports: Arthritis, Back Pain, Chronic, Fracture, Neck Pain, Chronic, Osteoarthritis, RA, Other (See Below) Other Musculoskeletal History: Left clavicular fracture as a child; bilateral carpal tunnel syndrome with right sided surgery as below; rheumatoid factor positive rheumatoid arthritis with current aggressive medical therapy, mild scoliosis Neurological History: Reports: None Psychiatric History: Reports: None Endocrine/Metabolic History: Reports: None Hematologic History: Reports: None Immunologic History: Reports: Immunosuppression, Other (See Below) Other Immunologic History: Rheumatoid Arthritis Oncologic (Cancer) History: Reports: Basal Cell Carcinoma, Squamous Cell Carcinoma, Other (See Below) Other Oncologic History: 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 Dermatologic History: Reports: Other (See Below) Other Dermatologic History: Actinic keratosis with additional history of skin cancer as above. - Infectious Disease History Infectious Disease History: Reports: Chicken Pox, Influenza, Measles, Mumps, Shingles - Past Surgical History Head Surgeries/Procedures: Reports: None HEENT Surgical History: Reports: Adenoidectomy, Cataract Surgery, Eye Surgery, Oral Surgery, Tonsillectomy, Other (See Below) Other HEENT Surgeries/Procedures: Tonsillectomy and adenoidectomy at age 4. Bilateral cataract surgery in about 2013. [place] teeth extraction 4 and multiple teeth extractions. Cardiovascular Surgical History: Reports: Coronary Artery Bypass, Coronary Artery Stent, Percutaneous Transluminal Angioplasty, Other (See Below) Other Cardiovascular Surgeries/Procedures: CABG 4 on 10/31/16 Respiratory Surgical History: Reports: None GI Surgical History: Reports: Colonoscopy, EGD, Polypectomy, Other (See Below) Other GI Surgeries/Procedures: Last EGD and colonoscopy on 09/16/07 with previous colonoscopy on 06/26/03 Male Surgical History: Reports: Other (See Below) Other Male Surgeries/Procedures: Right testicular surgery 1992 Endocrine Surgical History: Reports: None Neurological Surgical History: Reports: None Musculoskeletal Surgical History: Reports: Carpal Tunnel, Other (See Below) Other Musculoskeletal Surgeries/Procedures:: Right carpal tunnel release in 1998 with left-sided carpal tunnel release in about 2000. Oncologic Surgical History: Reports: None Dermatological Surgical History: Reports: Skin Biopsy, Other (See Below) - Past Imaging History Past Imaging History: Reports: Angiography (Heart catheterization on 10/30/16.), Cardiac Echo (Echocardiogram on 10/31/16 with ejection fraction of 60%.), CAT Scan (CT of the chest on 02/21/14), MRI (MRI of the cervical spine on 11/01/13), Stress Testing (Low level cardiac stress test on 11/25/16, Cardiolite stress test on 08/25/02 with ejection fraction of 63%), Ultrasound (Left arm arterial duplex evaluation prior to CABG on 10/30/17. Bilateral scrotal ultrasounds on and 05/26/06 with previous left-sided evaluation on 11/05/04), Venous Doppler (Venous Doppler study of the right leg on 09/09/13.) Social & Family History - Family History HEENT: Reports: Other (See Below) Other HEENT Family History: Brother with color blindness. Cardiac: Reports: High Cholesterol, Hypertension, Other (See Below) Other Cardiac Family History: Brother with hyperlipidemia and hypertension. Respiratory: Reports: COPD, Other (See Below) Other Respiratory Family Hisory: Brother with history of COPD with history of tobacco use. GI: Reports: None : Reports: None OBGYN: Reports: None Musculoskeletal: Reports: Arthritis, Osteoarthritis, Other (See Below) Other Musculoskeletal Family History: Brother with osteoarthritis. Neurological: Reports: Neuropathy, Diabetic, Other (See Below) Other Neurological Family History: Daughter with diabetic neuropathy. Psychiatric: Reports: Anxiety, Depression, PTSD, Other (See Below) Other Psychiatric Family History: Brother with history of alcohol abuse, PTSD, anxiety, and depression. Endocrine/Metabolic: Reports: Diabetes, Type I, Diabetes, type II, IDDM, Other ( See Below) Other Endocrine/Metabolic Family History: Daughter with type I IDDM initially diagnosed at age 28; brother with obesity and subsequent IDDM with fatal complications from his diabetes at age 75. Maternal grandfather with IDDM. AODM in paternal uncle and maternal uncles having IDDM Hematologic: Reports: None Immunologic: Reports: None Dermatologic: Reports: None Oncologic: Reports: Breast, Metastatic, Skin, Other (See Below) Other Oncologic Family History: Mother with fatal metastatic breast cancer at age 78, father with testicular cancer at age 88. Father with unknown type of skin cancer. 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 ED EXAM, GENERAL - Physical Exam Exam: See Below Exam Limited By: No Limitations General Appearance: Alert, WD/WN, No Apparent Distress Eye Exam: Bilateral Eye: EOMI, PERRL Ears: Normal External Exam Nose: No: Nasal Deformity, Nasal Swelling, Nasal Drainage Throat/Mouth: Normal Lips, Normal Voice, No Airway Compromise Head: Atraumatic, Normocephalic Neck: Normal Inspection, Supple, Non-Tender, Full Range of Motion Respiratory/Chest: No Respiratory Distress, Lungs Clear, No Accessory Muscle Use , Chest Non-Tender, Decreased Breath Sounds (throughout) Cardiovascular: Normal Peripheral Pulses, Regular Rate, Rhythm, No Murmur Peripheral Pulses: 2+: Radial (L), Radial (R) GI/Abdominal: Normal Bowel Sounds, Soft, Non-Tender, No Distention (Male) Exam: Deferred Rectal (Males) Exam: Deferred Back Exam: No: CVA Tenderness (L), CVA Tenderness (R), Muscle Spasm, Paraspinal Tenderness, Vertebral Tenderness Extremities: Normal Range of Motion, Non-Tender, Normal Capillary Refill Neurological: Alert, Oriented, Normal Cognition, No Motor/Sensory Deficits Psychiatric: Normal Affect, Normal Mood Skin Exam: Warm, Dry, Intact, Normal Color Course - Orders/Labs/Meds Orders: Active Orders 24 hr Category Date Time Status Chest 2V [CR] Stat Exams 01/09/19 18:20 Ordered Labs: Laboratory Tests 01/09/19 01/09/19 01/09/19 Range/Units 18:27 18:27 18:27 WBC 6.6 (4.0-10.2) K/uL RBC 5.16 (4.33-5.41) M/uL Hgb 15.6 D (13.1-16.8) g/dL Hct 45.8 (39.0-49.0) % MCV 88.8 D (84.0-98.0) fL MCH 30.2 (28.2-33.3) pg MCHC 34.1 (31.7-36.0) g/dL RDW 14.2 H (11.2-14.1) % Plt Count 145 L (150-350) K/uL Neut % (Auto) 73.7 (45.0-80.0) % Lymph % (Auto) 15.8 (10.0-50.0) % [place] % (Auto) 8.0 (2.0-14.0) % Eos % (Auto) 1.7 (0.0-5.0) % Baso % (Auto) 0.8 (0.0-2.0) % Neut # (Auto) 4.87 (1.40-7.00) K/uL Lymph # (Auto) 1.04 (0.50-3.50) K/uL [place] # (Auto) 0.53 (0.00-1.00) K/uL Eos # (Auto) 0.11 (0.00-0.50) K/uL Baso # (Auto) 0.05 (0.00-0.20) K/uL Sodium 137 (136-145) mmol/L Potassium 4.7 (3.5-5.1) mmol/L Chloride 100 (98-107) mmol/L Carbon Dioxide 29.5 (21.0-32.0) mmol/L BUN 26 H (7-18) mg/dL Creatinine 1.34 H (0.51-1.17) mg/dL Est Cr Clr Drug Dosing 43.25 mL/min Estimated GFR (MDRD) 51 mL/min Glucose 120 H (74-106) mg/dL Lactic Acid 1.5 (0.4-2.0) mmol/L Calcium 9.1 (8.5-10.1) mg/dL Magnesium 1.7 L (1.8-2.4) mg/dL Total Bilirubin 0.8 (0.2-1.0) mg/dL AST 22 (15-37) U/L ALT 44 (12-78) U/L Alkaline Phosphatase 33 L (46-116) IU/L Total Protein 6.5 (6.4-8.2) g/dL Albumin 2.8 L (3.4-5.0) g/dL - Radiology Interpretation Free Text/Narrative:: Chest xray showed no acute infiltrates. Pending RAdiology review. - Re-Assessments/Exams Free Text/Narrative Re-Assessment/Exam: 01/09/19 19:26 WBC normal. O2 sats on room air above 95%. Afebrile. Plan at this time is to place patient on a 10 day course of Doxy given his history. Precautions reviewed. To follow up as needed if any worsening problems develop. Departure - Departure Time of Disposition: 19:00 Disposition: Home, Self-Care 01 Condition: Good Clinical Impression: Bronchitis - Discharge Information *PRESCRIPTION DRUG MONITORING PROGRAM REVIEWED*: Not Applicable *COPY OF PRESCRIPTION DRUG MONITORING REPORT IN PATIENT LISA: Not Applicable Prescriptions: Doxycycline [Vibramycin] 100 mg PO BID #10 cap Referrals: Bessy English PA [Primary Care Provider] - Forms: ED Department Discharge Additional Instructions: Continue your breathing treatments. Start the Doxy and take it every 12 hours for 10 days. supply manager the remaining pills at the pharmacy. Follow up for recheck if you start to feel worse. - My Orders Last 24 Hours: My Active Orders 01/09/19 18:20 Chest 2V [CR] Stat - Assessment/Plan Last 24 Hours: My Active Orders 01/09/19 18:20 Chest 2V [CR] Stat
[2019-01-09 19:28] VITALS: BP 135/57; PULSE 62
== END 2019-01-09 19:05 | disposition home or self-care (01) ==
LOC: LL.ED 18:04
DX: J40 Bronchitis, not specified as acute or chronic (principal); I48.91 Unspecified atrial fibrillation; Z79.82 Long term (current) use of aspirin; Z79.899 Other long term (current) drug therapy; Z91.048 Other nonmedicinal substance allergy status
CPT/HCPCS: 36415; 71046; 80053; 83605; 83735; 85025; 99283; 99284-25

== ENCOUNTER 2019-01-20 12:45 | Day surgery (SDC) | payer MEDICARE, OTHER ==
[~2019-01-20 12:45] MED LIST: Lactated Ringers 1,000 ML IV SCH; Propofol 200 MG/20 ML SDV ONE; Sodium Chloride 0.9% 10 ML Syringe FLUSH PRN
--- NOTE | 2019-01-20 14:55 | PCM.PN ---
- General Info Date of Service: 01/20/19 - Review of Systems Systems Review Comment:: 78-year-old male referred for colonoscopy. He notes a recent history of hematochezia. It is been several years since his last colonoscopy. He is medically stable to proceed today. His recent history and physical is reviewed and no significant changes are noted. I have discussed the proposed colonoscopy with the patient. He agrees to proceed accepting risks. - Patient Data Vitals - Most Recent: Last Vital Signs Temp 98.2 F 01/20/19 13:52 Pulse 61 01/20/19 13:55 Resp 18 01/20/19 13:52 BP 181/88 H 01/20/19 13:55 Pulse Ox 98 01/20/19 13:52 Weight - Most Recent: 84.368 kg Med Orders - Current: Current Medications Lactated Ringer's (Ringers, Lactated) 1,000 mls @ 125 mls/hr IV ASDIRECTED LANDY Last Admin: 01/20/19 13:40 Dose: 125 mls/hr Sodium Chloride (Saline Flush) 10 ml FLUSH ASDIRECTED PRN PRN Reason: Keep Vein Open Discontinued Medications Propofol (Diprivan 20 Ml) Confirm Administered Dose 400 mg .ROUTE .STK-MED ONE Stop: 01/20/19 12:13 - Problem List Review Problem List Initiated/Reviewed/Updated: Yes - Assessment Assessment:: hematochezia - Plan Plan:: colonoscopy
[2019-01-20] MEDS ORDERED: Propofol 200 MG/20 ML SDV ONE (14:56)
--- NOTE | 2019-01-20 15:30 | PCM.OPNOTE ---
- General Post-Op/Procedure Note Date of Surgery/Procedure: 01/20/19 Operative Procedure(s): Colonoscopy with polypectomy Findings: Colon polyps in rectum and transverse colon Small hemorrhoids Pre Op Diagnosis: Hematochezia Post-Op Diagnosis: Colon Polyps. Hemorrhoids Anesthesia Technique: MAC Primary Surgeon: Jc Thomas Pathology: Colon polyps Output, Urine Amount: 0 EBL in mLs: 2 Complications: None Condition: Good
[2019-01-20 16:39] VITALS: BP 158/82; PULSE 60
--- NOTE | 2019-01-21 10:31 | OR ---
Date of Procedure: 01/20/2019 PREOPERATIVE DIAGNOSIS: Hematochezia. POSTOPERATIVE DIAGNOSIS: Colon polyps and internal hemorrhoids. OPERATION PERFORMED: Colonoscopy with polypectomy. INDICATIONS FOR SURGERY: This 78-year-old male has developed some recent symptoms of hematochezia. It has been several years since his last colonoscopy and he comes for this exam. FINDINGS: The patient has multiple polyps. There was a cluster of 3 small polyps in the rectum approximately 5 cm from the anal verge. These are 4 to 5 mm in size. There is a 7 mm semi-pedunculated polyp noted in the transverse colon. The colon otherwise appears normal. He does have some small internal hemorrhoids. There is no active bleeding seen today. DESCRIPTION OF PROCEDURE: The patient was taken to the operating room. He was given intravenous sedation, and with him in the left lateral decubitus position, digital rectal exam was performed showing no rectal masses. The Olympus colonoscope was inserted into the rectum and retroflexed examination of the rectal canal was performed. In the rectum, the above-described small rectal polyps were identified. These were each removed with biopsy forceps and will be submitted as a single specimen. The scope was then carefully advanced under direct visualization through the entire length of the colon until the cecum was reached. Cecal acquisition was confirmed by noting the normal internal cecal anatomy including the appendiceal orifice and ileocecal valve. The light was also noted to transilluminate the abdominal wall in the right lower quadrant. After examining the cecum, the scope was slowly withdrawn sequentially re- examining the colonic segments. In the transverse colon, the other above- described polyp was identified. This was removed with a cautery snare and retrieved into a polyp trap. The scope was then slowly withdrawn sequentially re-examining the colonic segments, and once the entire colon and rectum had been fully examined and with no sign of any complication, the scope was removed, and the patient was taken from the operating room in satisfactory condition. ESTIMATED BLOOD LOSS: 2 mL. COMPLICATIONS: None. PROGNOSIS: Good. LEANDRO Thomas MD /[id number]
== END 2019-01-20 16:15 | disposition home or self-care (01) ==
LOC: LL.SDS 12:45
PROVIDERS: ATTEND Surgery
DX: K63.5 Polyp of colon (principal); K62.1 Rectal polyp; K64.8 Other hemorrhoids; I10 Essential (primary) hypertension; I25.2 Old myocardial infarction; J45.40 Moderate persistent asthma, uncomplicated; M06.9 Rheumatoid arthritis, unspecified; N40.0 Benign prostatic hyperplasia without lower urinary tract symptoms; Z95.1 Presence of aortocoronary bypass graft; Z79.82 Long term (current) use of aspirin; Z79.899 Other long term (current) drug therapy
CPT/HCPCS: 45380; 45385; J2704; J7120; 00811; 88305

== ENCOUNTER 2019-08-12 17:44 | Inpatient (IN) | payer MEDICARE, OTHER ==
[2019-08-12] MEDS ORDERED: Acetaminophen 325 MG Tab PO PRN (19:46)
[2019-08-12] MEDS ORDERED: Metoprolol Tartrate 25 MG Tab PO SCH (20:00)
[2019-08-12] MEDS ORDERED: Albuterol 0.083% 2.5 MG/3 ML Neb Soln NEB PRN (20:08)
[2019-08-12] MEDS ORDERED: Sodium Chloride 0.9% 1,000 ML IV SCH (20:15)
[2019-08-12] MEDS: Albuterol/Ipratropium 3.0-0.5 MG/3 ML Neb Soln NEB SCH (21:00)
[2019-08-12] MEDS: cefTRIAXone 1 GM in Sodium Chloride 0.9% 100 ML IV SCH (21:00)
[2019-08-12] MEDS: Budesonide 0.5 MG/2 ML Neb Susp NEB SCH (21:00)
[2019-08-12] MEDS: Sodium Chloride 0.9% 10 ML Syringe FLUSH PRN (21:01)
[2019-08-12] MEDS: Oseltamivir 30 MG Cap PO SCH (21:34)
--- NOTE | 2019-08-12 22:19 | PCM.HP.2 ---
H&P History of Present Illness - General Date of Service: 08/12/19 Admit Problem/Dx: Admission Diagnosis/Problem Admission Diagnosis/Problem Influenza-like illness Source of Information: Patient, Old Records History Limitations: Reports: No Limitations - History of Present Illness Onset of Symptoms: Reports: Today, Sudden Duration of Symptoms: Reports: Getting Worse Context: Reports: Sick Contact (strep throat, ?flu) Associated Symptoms: Reports: Cough, Fever/Chills, Weakness - Related Data Allergies/Adverse Reactions: Allergies Allergy/AdvReac Type Severity Reaction Status Date / Time doxycycline AdvReac Redness Verified 01/20/19 13:51 seasonal Allergy Other Uncoded 01/20/19 10:17 Home Medications: Home Meds Albuterol [Ventolin HFA] 2 puff INH Q4H PRN 01/20/19 [History] Aspirin 325 mg PO DAILY 01/20/19 [History] Budesonide [Pulmicort] 0.5 mg IH BID 01/20/19 [History] Metoprolol Tartrate [Lopressor] 25 mg PO BID 01/20/19 [History] Omeprazole 20 mg PO DAILY 01/20/19 [History] Albuterol/Ipratropium [DuoNeb 3.0-0.5 MG/3 ML] 1 unit PO QID PRN 08/12/19 [ History] Benazepril [Lotensin] 1 tab PO DAILY 08/12/19 [History] Folic Acid 1 tab PO DAILY 08/12/19 [History] Methotrexate Sodium [Methotrexate] 8 tab PO WEEKLY 08/12/19 [History] atorvaSTATin Calcium [Lipitor] 20 mg PO BEDTIME 08/12/19 [History] predniSONE [Prednisone] 2 tab PO DAILY 08/12/19 [History] Past Medical History HEENT History: Reports: Cataract, Hard of Hearing, Impaired Vision, Other (See Below) Other HEENT History: Patient wears glasses; bilateral presbycusis with suboptimal bilateral hearing aide therapy Cardiovascular History: Reports: Bypass, Hypertension, MS Other Cardiovascular History: Grade 1 diastolic dysfunction by echocardiogram in 2017 as below. History with inferior wall STEMI requiring four-vessel CABG as below with newly diagnosed atrial fibrillation with rapid ventricular response at that time; PVCs and PACs Respiratory History: Reports: Asthma Other Respiratory History: Bilateral benign pulmonary granulomas, including the left lower lobe. [place]'s lung/COPD. Gastrointestinal History: Reports: Cholelithiasis, Chronic Constipation, Colon Polyp, Diverticulosis, Gastritis, GERD, Helicobacter Pylori, Hiatal Hernia, Other (See Below) Other Gastrointestinal History: History of recurrent sigmoid colonic polyps including initial hyperplastic polyps 2 on 06/26/03 with subsequent 1 hyperplastic polyp and an additional tubular adenoma in the sigmoid region on 15/02; positive H pylori biopsy at time of EGD on 09/16/07; nonsymptomatic cholelithiasis by CT scan on 02/21/14. Genitourinary History: Reports: BPH Other Genitourinary History: bilateral hydroceles Musculoskeletal History: Reports: Arthritis Other Musculoskeletal History: Left clavicular fracture as a child; bilateral carpal tunnel syndrome with right sided surgery as below; rheumatoid factor positive rheumatoid arthritis with current aggressive medical therapy, mild scoliosis Neurological History: Reports: None Psychiatric History: Reports: None Endocrine/Metabolic History: Reports: None Hematologic History: Reports: None Immunologic History: Reports: Immunosuppression, Other (See Below) Other Immunologic History: Rheumatoid Arthritis Oncologic (Cancer) History: Reports: Basal Cell Carcinoma, Squamous Cell Carcinoma, Other (See Below) Other Oncologic History: 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 Dermatologic History: Reports: Other (See Below) Other Dermatologic History: Actinic keratosis with additional history of skin cancer as above. - Infectious Disease History Infectious Disease History: Reports: Chicken Pox, Influenza, Measles, Mumps, Shingles - Past Surgical History Head Surgeries/Procedures: Reports: None HEENT Surgical History: Reports: Adenoidectomy, Cataract Surgery, Eye Surgery, Oral Surgery, Tonsillectomy, Other (See Below) Other HEENT Surgeries/Procedures: Tonsillectomy and adenoidectomy at age 4. Bilateral cataract surgery in about 2013. [place] teeth extraction 4 and multiple teeth extractions. Cardiovascular Surgical History: Reports: Coronary Artery Bypass, Coronary Artery Stent, Percutaneous Transluminal Angioplasty, Other (See Below) Other Cardiovascular Surgeries/Procedures: CABG 4 on 10/31/16 Respiratory Surgical History: Reports: None GI Surgical History: Reports: Colonoscopy, EGD, Polypectomy, Other (See Below) Other GI Surgeries/Procedures: Last EGD and colonoscopy on 09/16/07 with previous colonoscopy on 06/26/03 Male Surgical History: Reports: Other (See Below) Other Male Surgeries/Procedures: Right testicular surgery 1993 Endocrine Surgical History: Reports: None Neurological Surgical History: Reports: None Musculoskeletal Surgical History: Reports: Carpal Tunnel, Other (See Below) Other Musculoskeletal Surgeries/Procedures:: Right carpal tunnel release in 1998 with left-sided carpal tunnel release in about 2000. Oncologic Surgical History: Reports: None Dermatological Surgical History: Reports: Skin Biopsy, Other (See Below) - Past Imaging History Past Imaging History: Reports: Angiography (Heart catheterization on 10/30/16.), Cardiac Echo (Echocardiogram on 10/31/16 with ejection fraction of 60%.), CAT Scan (CT of the chest on 02/21/14), MRI (MRI of the cervical spine on 11/01/13), Stress Testing (Low level cardiac stress test on 11/25/16, Cardiolite stress test on 08/25/02 with ejection fraction of 63%), Ultrasound (Left arm arterial duplex evaluation prior to CABG on 10/30/17. Bilateral scrotal ultrasounds on and 05/26/06 with previous left-sided evaluation on 11/05/04), Venous Doppler (Venous Doppler study of the right leg on 09/09/13.) Social & Family History - Family History HEENT: Reports: Other (See Below) Other HEENT Family History: Brother with color blindness. Cardiac: Reports: High Cholesterol, Hypertension, Other (See Below) Other Cardiac Family History: Brother with hyperlipidemia and hypertension. Respiratory: Reports: COPD, Other (See Below) Other Respiratory Family Hisory: Brother with history of COPD with history of tobacco use. GI: Reports: None : Reports: None OBGYN: Reports: None Musculoskeletal: Reports: Arthritis, Osteoarthritis, Other (See Below) Other Musculoskeletal Family History: Brother with osteoarthritis. Neurological: Reports: Neuropathy, Diabetic, Other (See Below) Other Neurological Family History: Daughter with diabetic neuropathy. Psychiatric: Reports: Anxiety, Depression, PTSD, Other (See Below) Other Psychiatric Family History: Brother with history of alcohol abuse, PTSD, anxiety, and depression. Endocrine/Metabolic: Reports: Diabetes, Type I, Diabetes, type II, IDDM, Other ( See Below) Other Endocrine/Metabolic Family History: Daughter with type I IDDM initially diagnosed at age 28; brother with obesity and subsequent IDDM with fatal complications from his diabetes at age 75. Maternal grandfather with IDDM. AODM in paternal uncle and maternal uncles having IDDM Hematologic: Reports: None Immunologic: Reports: None Dermatologic: Reports: None Oncologic: Reports: Breast, Metastatic, Skin, Other (See Below) Other Oncologic Family History: Mother with fatal metastatic breast cancer at age 78, father with testicular cancer at age 88. Father with unknown type of skin cancer. 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[employer]) H&P Review of Systems - Review of Systems: Review Of Systems: See Below General: Reports: Fever, Chills, Weakness, Diaphoresis HEENT: Reports: Sore Throat Pulmonary: Reports: Cough Cardiovascular: Reports: No Symptoms Gastrointestinal: Reports: No Symptoms Genitourinary: Reports: No Symptoms Musculoskeletal: Reports: No Symptoms Skin: Reports: Diaphoresis, Change in Color (flushed, ears red) Psychiatric: Reports: No Symptoms Hematologic/Lymphatic: Reports: No Symptoms Immunologic: Reports: Other (suceptible to infections) Exam - Exam Exam: See Below - Vital Signs Vital Signs: Last Vital Signs Temp 98.5 F 08/12/19 20:50 Pulse 57 L 08/12/19 21:00 Resp 20 08/12/19 20:50 BP 139/78 08/12/19 21:00 Pulse Ox 96 08/12/19 20:50 Weight: 199 lb 3.2 oz - Exam General: Alert, Cooperative, Mild Distress HEENT: Nares Patent, Other (posterior pharynx injection) Neck: Trachea Midline Lungs: Normal Respiratory Effort, Decreased Breath Sounds, Rhonchi Cardiovascular: Regular Rate, Regular Rhythm GI/Abdominal Exam: Soft, Non-Tender, No Distention (Male) Exam: Deferred Rectal (Males) Exam: Deferred Back Exam: Normal Inspection Extremities: Non-Tender, Joint Swelling (chronic synovial swelling) Skin: Warm, Dry, Intact, Other (face flushed and ears red) Neurological: Other (generalized weakness) Neuro Extensive - Mental Status: Alert, Normal Mood/Affect, Normal Cognition, Memory Intact - Patient Data Lab Results Last 24 hrs: Laboratory Results - last 24 hr 08/12/19 08/12/19 Range/Units 19:35 19:35 WBC 10.2 (4.0-10.2) K/uL RBC 4.34 (4.33-5.41) M/uL Hgb 13.6 (13.1-16.8) g/dL Hct 41.3 (39.0-49.0) % MCV 95.2 (84.0-98.0) fL MCH 31.3 (28.2-33.3) pg MCHC 32.9 (31.7-36.0) g/dL RDW 14.0 (11.2-14.1) % Plt Count 158 (150-350) K/uL Neut % (Auto) 88.2 H (45.0-80.0) % Lymph % (Auto) 6.3 L (10.0-50.0) % [place] % (Auto) 4.9 (2.0-14.0) % Eos % (Auto) 0.1 (0.0-5.0) % Baso % (Auto) 0.5 (0.0-2.0) % Neut # (Auto) 8.95 H (1.40-7.00) K/uL Lymph # (Auto) 0.64 (0.50-3.50) K/uL [place] # (Auto) 0.50 (0.00-1.00) K/uL Eos # (Auto) 0.01 (0.00-0.50) K/uL Baso # (Auto) 0.05 (0.00-0.20) K/uL Sodium 143 (136-145) mmol/L Potassium 5.0 (3.5-5.1) mmol/L Chloride 105 (98-107) mmol/L Carbon Dioxide 30.4 (21.0-32.0) mmol/L BUN 21 H (7-18) mg/dL Creatinine 1.17 (0.51-1.17) mg/dL Est Cr Clr Drug Dosing 43.80 mL/min Estimated GFR (MDRD) 60 mL/min Glucose 124 H (74-106) mg/dL Calcium 9.1 (8.5-10.1) mg/dL Total Bilirubin 0.6 (0.2-1.0) mg/dL AST 26 (15-37) U/L ALT 38 (12-78) U/L Alkaline Phosphatase 38 L (46-116) IU/L C-Reactive Protein 1.8 H (<=0.9) mg/dL Total Protein 6.5 (6.4-8.2) g/dL Albumin 3.4 (3.4-5.0) g/dL Result Diagrams: 08/12/19 19:35 08/12/19 19:35 [place] Results Last 24 hrs: Microbiology 08/12/19 19:40 Group A Streptococcus Rapid Screen - Final Throat NEGATIVE STREP A SCREEN REFERENCE RANGE: NEGATIVE Sepsis Event Note - Evaluation Sepsis Screening Result: No Definite Risk - Focused Exam Vital Signs: Vital Signs Temp Temp Pulse Pulse Resp BP BP 08/12/19 21:00 57 L 139/78 08/12/19 20:50 98.5 F 60 20 115/49 L 08/12/19 19:47 08/12/19 17:45 98.7 F 57 L 16 139/78 Pulse Ox 08/12/19 21:00 08/12/19 20:50 96 08/12/19 19:47 99 08/12/19 17:45 99 Date Exam was Performed: 08/12/19 Time Exam was Performed: 22:14 *Q Meaningful Use (ADM) - VTE *Q VTE Mechanical Contraindications *Q: At Risk for Falls VTE Pharmacological Contraindications *Q: Renal Impairment VTE Anticoagulation Contraindications: Treatment Not Tolerated - Problem List (1) COPD (chronic obstructive pulmonary disease) SNOMED Code(s): 79847419 ICD Code: J44.9 - CHRONIC OBSTRUCTIVE PULMONARY DISEASE, UNSPECIFIED Status : Chronic Priority: Medium Current Visit: No Problem Details: Continue nebulizer treatments as above. Qualifiers: COPD type: COPD with acute lower respiratory infection Qualified Code(s): J44.0 - Chronic obstructive pulmonary disease with (acute) lower respiratory infection (2) Dehydration determined by examination SNOMED Code(s): 068614047 ICD Code: E86.0 - DEHYDRATION Status: Acute Priority: High Current Visit: Yes (3) Influenza SNOMED Code(s): 7197781 ICD Code: J11.1 - FLU DUE TO UNIDENTIFIED INFLUENZA VIRUS W OTH RESP MANIFEST Status: Acute Priority: High Current Visit: No (4) Dehydration SNOMED Code(s): 59438762 ICD Code: E86.0 - DEHYDRATION Status: Acute Current Visit: No (5) Asthma SNOMED Code(s): 128435815 ICD Code: J45.909 - UNSPECIFIED ASTHMA, UNCOMPLICATED Status: Acute Priority: Medium Current Visit: No Problem Details: Will continue on IV solumedrol (6) Coronary arteriosclerosis in patient with history of previous myocardial infarction SNOMED Code(s): 469170064827139 ICD Code: I25.10 - ATHSCL HEART DISEASE OF [place] CORONARY ARTERY W/O ANG PCTRS; I25.2 - OLD MYOCARDIAL INFARCTION Status: Acute Priority: High Current Visit: No (7) Hypertension SNOMED Code(s): 94926114 ICD Code: I10 - ESSENTIAL (PRIMARY) HYPERTENSION Status: Acute Priority: Medium Current Visit: No Problem Details: His blood pressures were initially somewhat elevated in the emergency room secondary to medication noncompliance from current illness as above. Continue to observe closely during this hospitalization. Qualifiers: Hypertension type: essential hypertension Qualified Code(s): I10 - Essential (primary) hypertension (8) Renal insufficiency SNOMED Code(s): 383063186, 231416089 ICD Code: N28.9 - DISORDER OF KIDNEY AND URETER, UNSPECIFIED Status: Acute Priority: Medium Current Visit: No Problem Details: Mild Renal insufficiency. Observe closely especially in light of IV Lasix therapy. (9) Rheumatoid arthritis SNOMED Code(s): 87662236 ICD Code: M06.9 - RHEUMATOID ARTHRITIS, UNSPECIFIED Status: Acute Current Visit: No Qualifiers: Rheumatoid arthritis location: multiple sites Rheumatoid factor presence: unspecified presence Qualified Code(s): M06.9 - Rheumatoid arthritis, unspecified (10) S/P CABG x 4 SNOMED Code(s): 490930961, 288590126, 377951582 ICD Code: Z95.1 - PRESENCE OF AORTOCORONARY BYPASS GRAFT Status: Acute Priority: High Current Visit: No (11) Coronary artery disease SNOMED Code(s): 11073949 ICD Code: I25.10 - ATHSCL HEART DISEASE OF [place] CORONARY ARTERY W/O ANG PCTRS Status: Chronic Priority: Medium Current Visit: No Problem Details : Stable by history with no recent chest pain or anginal complaints. Repeat EKG and blood work in the a.m. secondary to his borderline CHF. Qualifiers: Coronary Disease-Associated Artery/Lesion type: bypass graft, autologous vein Associated angina: without angina Qualified Code(s): I25.810 - Atherosclerosis of coronary artery bypass graft(s) without angina pectoris (12) Hyperlipidemia SNOMED Code(s): 43998549 ICD Code: E78.5 - HYPERLIPIDEMIA, UNSPECIFIED Status: Chronic Priority: Medium Current Visit: No Problem Details: Under therapy with patient and family requesting repeat lipid panel by his regular providers on his outpatient basis Qualifiers: Hyperlipidemia type: unspecified Qualified Code(s): E78.5 - Hyperlipidemia , unspecified (13) Need for comfort care SNOMED Code(s): 339496667, 411841381 ICD Code: CGO2011 - Status: Chronic Priority: High Current Visit: No Problem Details: NO CODE STATUS confirmed by patient and his daughter today. (14) Peptic reflux disease SNOMED Code(s): 409895913 ICD Code: K21.9 - GASTRO-ESOPHAGEAL REFLUX DISEASE WITHOUT ESOPHAGITIS Status: Chronic Priority: Medium Current Visit: No Problem Details: Stable by history Problem List Initiated/Reviewed/Updated: Yes Orders Last 24hrs: Active Orders 24 hr Category Date Time Status Patient Status [ADT] Routine ADT 08/12/19 17:48 Active Ambulate [RC] ASDIRECTED Care 08/12/19 19:46 Active Influenza Vaccine Charge [RC] .DISCHARGE Care 08/12/19 20:14 Active May Shower [RC] ASDIRECTED Care 08/12/19 19:46 Active Oxygen Therapy [RC] .PRN Care 08/12/19 19:47 Active Pulse Oximetry [RC] PRN Care 08/12/19 19:47 Active RT Aerosol Therapy [RC] .PRN Care 08/12/19 20:08 Active RT Aerosol Therapy [RC] 08,12,16,20 Care 08/12/19 20:00 Active Vaccines to be Administered [RC] .DISCHARGE Care 08/12/19 19:49 Active Vital Signs [RC] QID Care 08/12/19 19:46 Active Regular Diet [DIET] Diet 08/13/19 Breakfast Active Chest 2V [CR] Routine Exams 08/12/19 17:50 Taken BASIC METABOLIC PANEL,BMP [CHEM] DAILY Lab 08/13/19 05:11 Ordered BASIC METABOLIC PANEL,BMP [CHEM] DAILY Lab 08/14/19 05:11 Ordered BASIC METABOLIC PANEL,BMP [CHEM] DAILY Lab 08/15/19 05:11 Ordered CBC WITH AUTO DIFF [HEME] DAILY Lab 08/13/19 05:11 Ordered CBC WITH AUTO DIFF [HEME] DAILY Lab 08/14/19 05:11 Ordered CBC WITH AUTO DIFF [HEME] DAILY Lab 08/15/19 05:11 Ordered CRP [C-REACTIVE PROTEIN] [CHEM] DAILY Lab 08/13/19 05:11 Ordered CRP [C-REACTIVE PROTEIN] [CHEM] DAILY Lab 08/14/19 05:11 Ordered CRP [C-REACTIVE PROTEIN] [CHEM] DAILY Lab 08/15/19 05:11 Ordered CULTURE BLOOD [BC] Stat Lab 08/12/19 19:35 Received CULTURE BLOOD [BC] Stat Lab 08/12/19 19:50 Received CULTURE STREP A CONFIRMATION [RM] Stat Lab 08/12/19 19:40 Results LACTIC ACID [CHEM] Routine Lab 08/13/19 05:11 Ordered SEDIMENTATION RATE AUTO [HEME] Routine Lab 08/13/19 05:11 Ordered STREP SCRN A RAPID W CULT CONF [RM] Stat Lab 08/12/19 19:40 Results UA W/NEFTALI RFLX IF INDICATED [URIN] Routine Lab 08/12/19 17:50 Ordered Acetaminophen [Tylenol] Med 08/12/19 19:46 Active 650 mg PO Q4H PRN Albuterol [Proventil Neb Soln] Med 08/12/19 20:08 Active 2.5 mg NEB Q2H PRN Albuterol/Ipratropium [DuoNeb 3.0-0.5 MG/3 ML] Med 08/12/19 20:00 Active 3 ml NEB QIDRT Budesonide [Pulmicort] Med 08/12/19 20:00 Active 0.5 mg NEB BID Metoprolol Tartrate [Lopressor] Med 08/13/19 08:00 Ordered 25 mg PO Q12HR Omeprazole Med 08/13/19 07:30 Active 20 mg PO ACBREAKFAST Oseltamivir [Tamiflu] Med 08/12/19 21:00 Active 30 mg PO BID Sodium Chloride 0.9% [Normal Saline] 1,000 ml Med 08/12/19 20:15 Active IV ASDIRECTED Sodium Chloride 0.9% [Saline Flush] Med 08/12/19 17:50 Active 10 ml FLUSH ASDIRECTED PRN cefTRIAXone [Rocephin] 1 gm Med 08/12/19 20:00 Active Sodium Chloride 0.9% [Normal Saline] 100 ml IV Q24H lisinopriL [Prinivil] Med 08/13/19 08:00 Active 20 mg PO DAILY methylPREDNISolone Sod Succ [Solu-MEDROL] Med 08/13/19 08:00 Active 40 mg IVPUSH Q12HR Blood Culture x2 Reflex Set [OM.PC] Stat Ot 08/12/19 17:50 Ordered GM Immunization Reflex [OM.PC] Click To Edit Oth 08/12/19 19:46 Ordered Saline Lock Insert [OM.PC] Routine Oth 08/12/19 17:50 Ordered Resuscitation Status Routine Resus Stat 08/12/19 17:50 Ordered Medication Orders Acetaminophen (Tylenol) 650 mg PO Q4H PRN PRN Reason: analgesia/fever Albuterol (Proventil Neb Soln) 2.5 mg NEB Q2H PRN PRN Reason: Shortness of Breath Albuterol/Ipratropium (Duoneb 3.0-0.5 Mg/3 Ml) 3 ml NEB QIDRT [facility] Last Admin: 08/12/19 21:00 Dose: 3 ml Budesonide (Pulmicort) 0.5 mg NEB BID [facility] Last Admin: 08/12/19 21:00 Dose: 0.5 mg Ceftriaxone Sodium 1 gm/ (Sodium Chloride) 100 mls @ 200 mls/hr IV Q24H [facility] Last Admin: 08/12/19 21:00 Dose: 200 mls/hr Sodium Chloride (Normal Saline) 1,000 mls @ 75 mls/hr IV ASDIRECTED [facility] Last Admin: 08/12/19 21:01 Dose: 75 mls/hr Lisinopril (Prinivil) 20 mg PO DAILY [facility] Methylprednisolone Sodium Succinate (Solu-Medrol) 40 mg IVPUSH Q12HR [facility] Metoprolol Tartrate (Lopressor) 25 mg PO Q12HR [facility] Omeprazole (Omeprazole) 20 mg PO ACBREAKFAST [facility] Oseltamivir Phosphate (Tamiflu) 30 mg PO BID [facility] Last Admin: 08/12/19 21:34 Dose: 30 mg Sodium Chloride (Saline Flush) 10 ml FLUSH ASDIRECTED PRN PRN Reason: Keep Vein Open Last Admin: 08/12/19 21:01 Dose: 10 ml Assessment/Plan Comment:: 08/12/2019 Agustin Devi MD He started feeling ill ~11:00am today. Had fever and then shaking chills. Then took a nap. Now coughing and sore throat. He is immuno-compromised on methotrexate and prednisone for RA. Has been exposed to strep throat and people with "flu-like" syndrome. He needs inpatient status for IV antibiotics, IV fluids. - Mortality Measure Prognosis:: Good
[2019-08-13] MEDS: Lisinopril 20 MG Tab PO SCH (07:27)
[2019-08-13] MEDS: Metoprolol Tartrate 25 MG Tab PO SCH ×2 (07:27→20:14)
[2019-08-13] MEDS: Omeprazole 20 MG Cap.CR PO SCH (07:27)
[2019-08-13] MEDS: Oseltamivir 30 MG Cap PO SCH ×2 (07:27→17:17)
[2019-08-13] MEDS: methylPREDNISolone Sodium Succinate 40 MG/1 ML SDV IVPUSH SCH ×2 (07:27→19:59)
[2019-08-13] MEDS: Budesonide 0.5 MG/2 ML Neb Susp NEB SCH ×2 (07:28→17:18)
[2019-08-13] MEDS: Albuterol/Ipratropium 3.0-0.5 MG/3 ML Neb Soln NEB SCH ×4 (07:28→20:14)
[2019-08-13 07:49] LABS: CHLORIDE,CL 107 mmol/L (98-107); SODIUM,NA 144 mmol/L (136-145)
[2019-08-13] MEDS ORDERED: BENAZEPRIL PO SCH (08:00)
[2019-08-13] MEDS ORDERED: Ondansetron 4 MG/2 ML SDV IVPUSH PRN (17:22)
--- NOTE | 2019-08-13 18:05 | PCM.PN ---
- General Info Date of Service: 08/13/19 Admission Dx/Problem (Free Text): Admission Diagnosis/Problem Admission Diagnosis/Problem Influenza-like illness Functional Status: Reports: Ambulating, Urinating, New Symptoms (emesis) - Review of Systems General: Reports: Malaise, Other (feels hot) HEENT: Reports: No Symptoms Pulmonary: Reports: Cough (improved) Cardiovascular: Reports: No Symptoms Gastrointestinal: Reports: Vomiting Genitourinary: Reports: No Symptoms Musculoskeletal: Reports: Joint Swelling (wrists and hands) Skin: Reports: No Symptoms Neurological: Reports: No Symptoms Psychiatric: Reports: No Symptoms - Patient Data Vitals - Most Recent: Last Vital Signs Temp 98.1 F 08/13/19 16:00 Pulse 77 08/13/19 16:00 Resp 18 08/13/19 16:00 BP 137/59 L 08/13/19 16:00 Pulse Ox 97 08/13/19 16:00 Weight - Most Recent: 199 lb 3.2 oz I&O - Last 24 Hours: Intake & Output 08/13/19 08/13/19 08/13/19 06:59 14:59 22:59 Intake Total 694 1080 Balance 694 1080 Lab Results Last 24 Hours: Laboratory Results - last 24 hr 08/12/19 08/12/19 08/12/19 Range/Units 19:35 19:35 21:50 WBC 10.2 (4.0-10.2) K/uL RBC 4.34 (4.33-5.41) M/uL Hgb 13.6 (13.1-16.8) g/dL Hct 41.3 (39.0-49.0) % MCV 95.2 (84.0-98.0) fL MCH 31.3 (28.2-33.3) pg MCHC 32.9 (31.7-36.0) g/dL RDW 14.0 (11.2-14.1) % Plt Count 158 (150-350) K/uL Neut % (Auto) 88.2 H (45.0-80.0) % Lymph % (Auto) 6.3 L (10.0-50.0) % [place] % (Auto) 4.9 (2.0-14.0) % Eos % (Auto) 0.1 (0.0-5.0) % Baso % (Auto) 0.5 (0.0-2.0) % Neut # (Auto) 8.95 H (1.40-7.00) K/uL Lymph # (Auto) 0.64 (0.50-3.50) K/uL [place] # (Auto) 0.50 (0.00-1.00) K/uL Eos # (Auto) 0.01 (0.00-0.50) K/uL Baso # (Auto) 0.05 (0.00-0.20) K/uL ESR (0-20) mm/hr Sodium 143 (136-145) mmol/L Potassium 5.0 (3.5-5.1) mmol/L Chloride 105 (98-107) mmol/L Carbon Dioxide 30.4 (21.0-32.0) mmol/L BUN 21 H (7-18) mg/dL Creatinine 1.17 (0.51-1.17) mg/dL Est Cr Clr Drug Dosing 43.80 mL/min Estimated GFR (MDRD) 60 mL/min Glucose 124 H (74-106) mg/dL Lactic Acid (0.4-2.0) mmol/L Calcium 9.1 (8.5-10.1) mg/dL Total Bilirubin 0.6 (0.2-1.0) mg/dL AST 26 (15-37) U/L ALT 38 (12-78) U/L Alkaline Phosphatase 38 L (46-116) IU/L C-Reactive Protein 1.8 H (<=0.9) mg/dL Total Protein 6.5 (6.4-8.2) g/dL Albumin 3.4 (3.4-5.0) g/dL Specimen Type . Urine Color Yellow Urine Appearance Clear Urine pH 5.5 (5.0-9.0) Ur Specific [place] 1.010 (1.005-1.030) Urine Protein Negative (NEGATIVE) mg/dL Urine Glucose (UA) Negative (NEGATIVE) mg/dL Urine Ketones Negative (NEGATIVE) mg/dL Urine Occult Blood Negative (NEGATIVE) Urine Nitrite Negative (NEGATIVE) Urine Bilirubin Negative (NEGATIVE) Urine Urobilinogen 0.2 (0.2-1.0) E.U./dL Ur Leukocyte Esterase Trace H (NEGATIVE) Urine RBC 0-5 /HPF Urine WBC 5-10 H /HPF Ur Epithelial Cells Few /LPF Urine Bacteria Few (NONE TO FEW) /HPF 08/13/19 08/13/19 08/13/19 Range/Units 07:04 07:04 07:04 WBC 5.7 (4.0-10.2) K/uL RBC 4.03 L (4.33-5.41) M/uL Hgb 12.4 L (13.1-16.8) g/dL Hct 38.2 L (39.0-49.0) % MCV 94.8 (84.0-98.0) fL MCH 30.8 (28.2-33.3) pg MCHC 32.5 (31.7-36.0) g/dL RDW 14.0 (11.2-14.1) % Plt Count 127 L (150-350) K/uL Neut % (Auto) 74.9 (45.0-80.0) % Lymph % (Auto) 15.6 (10.0-50.0) % [place] % (Auto) 8.7 (2.0-14.0) % Eos % (Auto) 0.4 (0.0-5.0) % Baso % (Auto) 0.4 (0.0-2.0) % Neut # (Auto) 4.24 (1.40-7.00) K/uL Lymph # (Auto) 0.88 (0.50-3.50) K/uL [place] # (Auto) 0.49 (0.00-1.00) K/uL Eos # (Auto) 0.02 (0.00-0.50) K/uL Baso # (Auto) 0.02 (0.00-0.20) K/uL ESR 19 (0-20) mm/hr Sodium 144 (136-145) mmol/L Potassium 4.0 (3.5-5.1) mmol/L Chloride 107 (98-107) mmol/L Carbon Dioxide 30.5 (21.0-32.0) mmol/L BUN 19 H (7-18) mg/dL Creatinine 1.02 (0.51-1.17) mg/dL Est Cr Clr Drug Dosing 50.25 mL/min Estimated GFR (MDRD) > 60 mL/min Glucose 90 (74-106) mg/dL Lactic Acid 1.0 (0.4-2.0) mmol/L Calcium 8.7 (8.5-10.1) mg/dL Total Bilirubin (0.2-1.0) mg/dL AST (15-37) U/L ALT (12-78) U/L Alkaline Phosphatase (46-116) IU/L C-Reactive Protein 4.1 H (<=0.9) mg/dL Total Protein (6.4-8.2) g/dL Albumin (3.4-5.0) g/dL Specimen Type Urine Color Urine Appearance Urine pH (5.0-9.0) Ur Specific [place] (1.005-1.030) Urine Protein (NEGATIVE) mg/dL Urine Glucose (UA) (NEGATIVE) mg/dL Urine Ketones (NEGATIVE) mg/dL Urine Occult Blood (NEGATIVE) Urine Nitrite (NEGATIVE) Urine Bilirubin (NEGATIVE) Urine Urobilinogen (0.2-1.0) E.U./dL Ur Leukocyte Esterase (NEGATIVE) Urine RBC /HPF Urine WBC /HPF Ur Epithelial Cells /LPF Urine Bacteria (NONE TO FEW) /HPF [place] Results Last 24 Hours: Microbiology 08/12/19 19:40 Group A Streptococcus Rapid Screen - Final Throat NEGATIVE STREP A SCREEN REFERENCE RANGE: NEGATIVE Med Orders - Current: Current Medications Acetaminophen (Tylenol) 650 mg PO Q4H PRN PRN Reason: analgesia/fever Albuterol (Proventil Neb Soln) 2.5 mg NEB Q2H PRN PRN Reason: Shortness of Breath Albuterol/Ipratropium (Duoneb 3.0-0.5 Mg/3 Ml) 3 ml NEB QIDRT [facility] Last Admin: 08/13/19 15:31 Dose: 3 ml Budesonide (Pulmicort) 0.5 mg NEB BID [facility] Last Admin: 08/13/19 17:18 Dose: 0.5 mg Ceftriaxone Sodium 1 gm/ (Sodium Chloride) 100 mls @ 200 mls/hr IV Q24H [facility] Last Admin: 08/12/19 21:00 Dose: 200 mls/hr Lisinopril (Prinivil) 20 mg PO DAILY [facility] Last Admin: 08/13/19 07:27 Dose: 20 mg Methylprednisolone Sodium Succinate (Solu-Medrol) 40 mg IVPUSH Q12HR [facility] Last Admin: 08/13/19 07:27 Dose: 40 mg Metoprolol Tartrate (Lopressor) 25 mg PO Q12HR [facility] Last Admin: 08/13/19 07:27 Dose: 25 mg Omeprazole (Omeprazole) 20 mg PO ACBREAKFAST [facility] Last Admin: 08/13/19 07:27 Dose: 20 mg Ondansetron HCl (Zofran) 4 mg IVPUSH Q4H PRN PRN Reason: Nausea/Vomiting Last Admin: 08/13/19 17:32 Dose: 4 mg Oseltamivir Phosphate (Tamiflu) 30 mg PO BID [facility] Stop: 08/17/19 08:01 Last Admin: 08/13/19 17:17 Dose: 30 mg Sodium Chloride (Saline Flush) 10 ml FLUSH ASDIRECTED PRN PRN Reason: Keep Vein Open Last Admin: 08/12/19 21:01 Dose: 10 ml Sodium Chloride (Saline Flush) 10 ml FLUSH Q12HR [facility] Discontinued Medications Sodium Chloride (Normal Saline) 1,000 mls @ 75 mls/hr IV ASDIRECTED [facility] Last Admin: 08/12/19 21:01 Dose: 75 mls/hr Metoprolol Tartrate (Lopressor) 25 mg PO BID [facility] Last Admin: 08/12/19 21:00 Dose: 25 mg Non-Formulary Medication (Benazepril) 1 tab PO DAILY [facility] - Exam General: Alert, Cooperative, No Acute Distress HEENT: Mucous Membr. Moist/[place] Neck: Trachea Midline, No JVD Lungs: Normal Respiratory Effort, Decreased Breath Sounds Cardiovascular: Regular Rate, Regular Rhythm GI/Abdominal Exam: Normal Bowel Sounds, Soft, Non-Tender, No Distention (Male) Exam: Deferred Back Exam: Normal Inspection Extremities: Joint Swelling (MCPs, PIP, DIP) Skin: Warm, Dry, Intact Neurological: No New Focal Deficit Psy/Mental Status: Alert, Normal Affect, Normal Mood Sepsis Event Note - Evaluation Sepsis Screening Result: No Definite Risk - Focused Exam Vital Signs: Vital Signs Temp Pulse Pulse Pulse Resp BP BP 08/13/19 16:00 98.1 F 77 18 137/59 L 08/13/19 13:00 98.3 F 76 18 138/57 L 08/13/19 07:59 98.0 F 52 L 16 167/79 H 08/13/19 07:27 52 L 167/69 H Pulse Ox 08/13/19 16:00 97 08/13/19 13:00 93 L 08/13/19 07:59 94 L 08/13/19 07:27 Date Exam was Performed: 08/13/19 Time Exam was Performed: 17:57 - Problem List & Annotations (1) COPD (chronic obstructive pulmonary disease) SNOMED Code(s): 16937315 Code(s): J44.9 - CHRONIC OBSTRUCTIVE PULMONARY DISEASE, UNSPECIFIED Status : Chronic Priority: Medium Current Visit: No Qualifiers: COPD type: COPD with acute lower respiratory infection Qualified Code(s): J44.0 - Chronic obstructive pulmonary disease with (acute) lower respiratory infection Annotation/Comment:: Continue nebulizer treatments as above. (2) Dehydration determined by examination SNOMED Code(s): 071900758 Code(s): E86.0 - DEHYDRATION Status: Acute Priority: High Current Visit : Yes (3) Influenza SNOMED Code(s): 0557230 Code(s): J11.1 - FLU DUE TO UNIDENTIFIED INFLUENZA VIRUS W OTH RESP MANIFEST Status: Acute Priority: High Current Visit: No (4) Asthma SNOMED Code(s): 792957012 Code(s): J45.909 - UNSPECIFIED ASTHMA, UNCOMPLICATED Status: Acute Priority: Medium Current Visit: No Annotation/Comment:: Will continue on IV solumedrol (5) Coronary arteriosclerosis in patient with history of previous myocardial infarction SNOMED Code(s): 897839209574938 Code(s): I25.10 - ATHSCL HEART DISEASE OF [place] CORONARY ARTERY W/O ANG PCTRS; I25.2 - OLD MYOCARDIAL INFARCTION Status: Acute Priority: High Current Visit: No (6) Hypertension SNOMED Code(s): 78920245 Code(s): I10 - ESSENTIAL (PRIMARY) HYPERTENSION Status: Acute Priority: Medium Current Visit: No Qualifiers: Hypertension type: essential hypertension Qualified Code(s): I10 - Essential (primary) hypertension Annotation/Comment:: His blood pressures were initially somewhat elevated in the emergency room secondary to medication noncompliance from current illness as above. Continue to observe closely during this hospitalization. (7) Renal insufficiency SNOMED Code(s): 327418130, 275628591 Code(s): N28.9 - DISORDER OF KIDNEY AND URETER, UNSPECIFIED Status: Acute Priority: Medium Current Visit: No Annotation/Comment:: Mild Renal insufficiency. Observe closely especially in light of IV Lasix therapy. (8) Rheumatoid arthritis SNOMED Code(s): 55041487 Code(s): M06.9 - RHEUMATOID ARTHRITIS, UNSPECIFIED Status: Acute Current Visit: No Qualifiers: Rheumatoid arthritis location: multiple sites Rheumatoid factor presence: unspecified presence Qualified Code(s): M06.9 - Rheumatoid arthritis, unspecified (9) S/P CABG x 4 SNOMED Code(s): 622260868, 030931444, 704958690 Code(s): Z95.1 - PRESENCE OF AORTOCORONARY BYPASS GRAFT Status: Acute Priority: High Current Visit: No (10) Coronary artery disease SNOMED Code(s): 62429570 Code(s): I25.10 - ATHSCL HEART DISEASE OF [place] CORONARY ARTERY W/O ANG PCTRS Status: Chronic Priority: Medium Current Visit: No Qualifiers: Coronary Disease-Associated Artery/Lesion type: bypass graft, autologous vein Associated angina: without angina Qualified Code(s): I25.810 - Atherosclerosis of coronary artery bypass graft(s) without angina pectoris Annotation/Comment:: Stable by history with no recent chest pain or anginal complaints. Repeat EKG and blood work in the a.m. secondary to his borderline CHF. (11) Hyperlipidemia SNOMED Code(s): 93374493 Code(s): E78.5 - HYPERLIPIDEMIA, UNSPECIFIED Status: Chronic Priority: Medium Current Visit: No Qualifiers: Hyperlipidemia type: unspecified Qualified Code(s): E78.5 - Hyperlipidemia , unspecified Annotation/Comment:: Under therapy with patient and family requesting repeat lipid panel by his regular providers on his outpatient basis (12) Need for comfort care SNOMED Code(s): 246078033, 318995580 Code(s): MIS0395 - Status: Chronic Priority: High Current Visit: No Annotation/Comment:: NO CODE STATUS confirmed by patient and his daughter today. (13) Peptic reflux disease SNOMED Code(s): 959640387 Code(s): K21.9 - GASTRO-ESOPHAGEAL REFLUX DISEASE WITHOUT ESOPHAGITIS Status: Chronic Priority: Medium Current Visit: No Annotation/Comment:: Stable by history - Problem List Review Problem List Initiated/Reviewed/Updated: Yes - My Orders Last 24 Hours: My Active Orders 08/12/19 17:48 Patient Status [ADT] Routine 08/12/19 17:50 Chest 2V [CR] Routine Sodium Chloride 0.9% [Saline Flush] 10 ml FLUSH ASDIRECTED PRN Blood Culture x2 Reflex Set [OM.PC] Stat Saline Lock Insert [OM.PC] Routine Resuscitation Status Routine 08/12/19 19:35 CULTURE BLOOD [BC] Stat 08/12/19 19:40 CULTURE STREP A CONFIRMATION [RM] Stat STREP SCRN A RAPID W CULT CONF [RM] Stat 08/12/19 19:46 Ambulate [RC] ASDIRECTED May Shower [RC] ASDIRECTED Vital Signs [RC] QID Acetaminophen [Tylenol] 650 mg PO Q4H PRN GM Immunization Reflex [OM.PC] Click To Edit 08/12/19 19:47 Oxygen Therapy [RC] .PRN Pulse Oximetry [RC] .PRN 08/12/19 19:49 Vaccines to be Administered [RC] .DISCHARGE 08/12/19 19:50 CULTURE BLOOD [BC] Stat 08/12/19 20:00 RT Aerosol Therapy [RC] 08,12,16,20 Albuterol/Ipratropium [DuoNeb 3.0-0.5 MG/3 ML] 3 ml NEB QIDRT Budesonide [Pulmicort] 0.5 mg NEB BID cefTRIAXone [Rocephin] 1 gm Sodium Chloride 0.9% [Normal Saline] 100 ml IV Q24H 08/12/19 20:08 RT Aerosol Therapy [RC] .PRN Albuterol [Proventil Neb Soln] 2.5 mg NEB Q2H PRN 08/12/19 20:14 Influenza Vaccine Charge [RC] .DISCHARGE 08/12/19 21:00 Oseltamivir [Tamiflu] 30 mg PO BID 08/13/19 07:30 Omeprazole 20 mg PO ACBREAKFAST 08/13/19 08:00 Metoprolol Tartrate [Lopressor] 25 mg PO Q12HR lisinopriL [Prinivil] 20 mg PO DAILY methylPREDNISolone Sod Succ [Solu-MEDROL] 40 mg IVPUSH Q12HR 08/13/19 17:06 Comfort Measures [OM.PC] Routine 08/13/19 17:22 Ondansetron [Zofran] 4 mg IVPUSH Q4H PRN 08/13/19 20:00 Sodium Chloride 0.9% [Saline Flush] 10 ml FLUSH Q12HR 08/13/19 Breakfast Regular Diet [DIET] 08/14/19 05:11 BASIC METABOLIC PANEL,BMP [CHEM] DAILY CBC WITH AUTO DIFF [HEME] DAILY CRP [C-REACTIVE PROTEIN] [CHEM] DAILY 08/15/19 05:11 BASIC METABOLIC PANEL,BMP [CHEM] DAILY CBC WITH AUTO DIFF [HEME] DAILY CRP [C-REACTIVE PROTEIN] [CHEM] DAILY 08/15/19 08:00 Consult to Case Management/Laboratory Specialist [CONS] Routine Consult to Occupational Therapy [OT Evaluation and Treatment] [CONS] Routine Consult to Physical Therapy [PT Evaluation and Treatment] [CONS] Routine - Plan Plan:: 08/12/2019 Agustin Devi MD He started feeling ill ~11:00am today. Had fever and then shaking chills. Then took a nap. Now coughing and sore throat. He is immuno-compromised on methotrexate and prednisone for RA. Has been exposed to strep throat and people with "flu-like" syndrome. He needs inpatient status for IV antibiotics, IV fluids. 08/13/2019 Agustin Devi MD He was feeling much better but now he had abrupt episode of emesis x4. Stomach still a little bit upset. Otherwise cough and sore throat improved. Labs reviewed. Continue inpatient status and IV antibiotics and IV solumedrol.
[2019-08-13] MEDS: metroNIDAZOLE/Normal Saline 500 MG in Premix Bag 1 BAG IV SCH (18:21)
[2019-08-13] MEDS: Sodium Chloride 0.9% 10 ML Syringe FLUSH SCH (19:59)
[2019-08-13] MEDS: cefTRIAXone 1 GM in Sodium Chloride 0.9% 100 ML IV SCH (20:03)
[2019-08-14] MEDS: metroNIDAZOLE/Normal Saline 500 MG in Premix Bag 1 BAG IV SCH ×3 (01:15→17:01)
[2019-08-14] MEDS: Sodium Chloride 0.9% 10 ML Syringe FLUSH PRN ×3 (01:16→16:30)
[2019-08-14 07:38] LABS: CHLORIDE,CL 106 mmol/L (98-107); SODIUM,NA 143 mmol/L (136-145)
[2019-08-14] MEDS: Sodium Chloride 0.9% 10 ML Syringe FLUSH SCH ×2 (08:00→08:15)
[2019-08-14] MEDS: Budesonide 0.5 MG/2 ML Neb Susp NEB SCH ×2 (08:09→16:21)
[2019-08-14] MEDS: methylPREDNISolone Sodium Succinate 40 MG/1 ML SDV IVPUSH SCH (08:09)
[2019-08-14] MEDS: Albuterol/Ipratropium 3.0-0.5 MG/3 ML Neb Soln NEB SCH ×3 (08:09→16:21)
[2019-08-14] MEDS: Metoprolol Tartrate 25 MG Tab PO SCH (08:10)
[2019-08-14] MEDS: Lisinopril 20 MG Tab PO SCH (08:10)
[2019-08-14] MEDS: Oseltamivir 30 MG Cap PO SCH ×2 (08:10→16:22)
[2019-08-14] MEDS: Omeprazole 20 MG Cap.CR PO SCH (08:11)
[2019-08-14] MEDS ORDERED: Furosemide 20 MG/2 ML VIAL IVPUSH ONE (11:39)
--- NOTE | 2019-08-14 11:47 | PCM.DCSUM1 ---
Discharge Summary - Hospital Course Brief History: Patient admitted from clinic for treatment of dehydration. Suspicion of developing influenza/pneumonia. Diagnosis: Stroke: No - Discharge Data Discharge Date: 08/14/19 Discharge Disposition: Home, Self-Care 01 Condition: Good - Referral to Home Health Primary Care Physician: Jadyn Trent MD - Discharge Diagnosis/Problem(s) (1) Dehydration determined by examination SNOMED Code(s): 826944240 ICD Code: E86.0 - DEHYDRATION Status: Acute Priority: High Current Visit: Yes Problem Details: Initially seen in clinic and there was family concern that patient may be dehydrated. Clinical correlation per Dr.Sheets- [place]. IV fluids administered. D/C yesterday. Patient drinking well/good urine output. Brisk cap refill. Still receiving some fluid in the form of IV medications. (2) Influenza SNOMED Code(s): 7386265 ICD Code: J11.1 - FLU DUE TO UNIDENTIFIED INFLUENZA VIRUS W OTH RESP MANIFEST Status: Acute Priority: High Current Visit: Yes Problem Details : Concern that pt was developing viral infection/possible influenza based on complaint of cough/feeling feverish. Influenza and Strep negative. Blood cultures negative at this time. No fevers noted since admission. Normal WBC. Cough has essentially resolved since arrival and no additional symptoms other than single episode of emesis noted. Patient was started on Tamiflu as a precaution. This will be continued after discharge. (3) Peripheral edema SNOMED Code(s): 118510931 ICD Code: R60.9 - EDEMA, UNSPECIFIED Status: Chronic Priority: Medium Current Visit: Yes Problem Details: Patient notes increasing puffiness around ankles when trying to put on shoes for approximately 6 weeks per self report. Hx of elevated proBNPs noted a year ago but today's proBNP within normal limits. Suspect some degree of CHF given patient's cardiac history despite the negative proBNP. Edema worsened, moreso around hands/lower arms, since admission. Suspect lack of activity and IV fluids contributed. No increased in weight however. Will give single dose of lasix today. Patient to observe how the edema behaves over the next 24 hours and is to follow up with primary provider this week for continued care. (4) Allergy history, drug SNOMED Code(s): 626636599 ICD Code: Z88.9 - ALLERGY STATUS TO [facility] DRUG/MEDS/BIOL SUBST STATUS Status : Suspected Priority: Medium Current Visit: No Problem Details: Patient's clinic has listed Doxy as an allergy. Patient and his family member deny Doxy allergy. Patient tolerated Doxy well last year when he was placed on course of treatment utilizing the medication. (5) Asthma SNOMED Code(s): 589957042 ICD Code: J45.909 - UNSPECIFIED ASTHMA, UNCOMPLICATED Status: Chronic Priority: Medium Current Visit: No Problem Details: IV steroids given during stay. Stable. (6) Hypertension SNOMED Code(s): 62535858 ICD Code: I10 - ESSENTIAL (PRIMARY) HYPERTENSION Status: Chronic Priority : Medium Current Visit: No Problem Details: Overall stable during stay Qualifiers: Hypertension type: essential hypertension Qualified Code(s): I10 - Essential (primary) hypertension (7) Renal insufficiency SNOMED Code(s): 058086086, 789476567 ICD Code: N28.9 - DISORDER OF KIDNEY AND URETER, UNSPECIFIED Status: Chronic Priority: Medium Current Visit: No Problem Details: Currently stable (8) Rheumatoid arthritis SNOMED Code(s): 00018539 ICD Code: M06.9 - RHEUMATOID ARTHRITIS, UNSPECIFIED Status: Chronic Priority: Low Current Visit: Yes Problem Details: Patient has chronic issues with pain. Solumedrol received during stay. Methotrexate held today. CRP mild elevation. Qualifiers: Rheumatoid arthritis location: multiple sites Rheumatoid factor presence: unspecified presence (9) COPD (chronic obstructive pulmonary disease) SNOMED Code(s): 97248367 ICD Code: J44.9 - CHRONIC OBSTRUCTIVE PULMONARY DISEASE, UNSPECIFIED Status : Chronic Priority: Medium Current Visit: No Problem Details: Continue nebulizer treatments as above. No report of signficant cough at this time. No sputum complaint. No focal changes on chest xray noted suggestive of acute focal infiltrate Qualifiers: COPD type: COPD with acute lower respiratory infection Qualified Code(s): J44.0 - Chronic obstructive pulmonary disease with (acute) lower respiratory infection (10) Coronary artery disease SNOMED Code(s): 52245502 ICD Code: I25.10 - ATHSCL HEART DISEASE OF [place] CORONARY ARTERY W/O ANG PCTRS Status: Chronic Priority: Medium Current Visit: No Problem Details : Stable by history Qualifiers: Coronary Disease-Associated Artery/Lesion type: bypass graft, autologous vein Associated angina: without angina Qualified Code(s): I25.810 - Atherosclerosis of coronary artery bypass graft(s) without angina pectoris (11) Hyperlipidemia SNOMED Code(s): 27217230 ICD Code: E78.5 - HYPERLIPIDEMIA, UNSPECIFIED Status: Chronic Priority: Medium Current Visit: No Problem Details: Under therapy and followed by primary provider Qualifiers: Hyperlipidemia type: unspecified Qualified Code(s): E78.5 - Hyperlipidemia , unspecified (12) Need for comfort care SNOMED Code(s): 766142885, 494064828 ICD Code: JCF0355 - Status: Chronic Priority: High Current Visit: No Problem Details: NO CODE STATUS confirmed by patient and his daughter today. (13) Peptic reflux disease SNOMED Code(s): 452484969 ICD Code: K21.9 - GASTRO-ESOPHAGEAL REFLUX DISEASE WITHOUT ESOPHAGITIS Status: Chronic Priority: Medium Current Visit: No Problem Details: Stable by history (14) CHF (congestive heart failure) SNOMED Code(s): 97845806 ICD Code: I50.9 - HEART FAILURE, UNSPECIFIED Status: Acute Priority: High Current Visit: No Onset Date: 08/12/18 Problem Details: Suspect CHF contributing to patient's increased peripheral edema. He expressed interest in have cardiac echo performed and possibly seeing a Agricultural Research Engineer to have this further investigated. Negative proBNP today however has been elevated in past. Significant cardiac history including CABG/IL. Qualifiers: Heart failure type: combined systolic and diastolic Heart failure chronicity: acute on chronic Qualified Code(s): I50.43 - Acute on chronic combined systolic (congestive) and diastolic (congestive) heart failure - Patient Summary/Data Consults: Consultations 08/15/19 08:00 Consult to Case Management/Bakery Machine Mechanic [CONS] Routine Consult to Occupational Therapy [OT Evaluation and Treatment] [CONS] Routine Consult to Physical Therapy [PT Evaluation and Treatment] [CONS] Routine Hospital Course: Unremarkable hospital course. Received coverage with Tamiflu/Rocephin/ Solumedrol/Flagyl. Patient has history of rapid downhill progression in past with what appears to start out as mild illness/cold symptoms. WBC normal. Patient afebrile during stay/vital signs stable. Cough quickly improved. Patient had single episode emesis and no other GI complaints. Weight remained stable despite increased peripheral edema in forearms/hands. IV fluids given for rehydration discontinued on day two of stay. Influenza/Strep/Blood Cx negative. Patient would like to go home today. Plans made to give single dose Lasix and have patient and family observe response in area of edema. Will continue patient on Tamiflu. Given negative WBC/chest xray/UA/lactic acid will not continue antibiotics at this time. Patient to follow up closely with primary provider this week for recheck and to discuss outpatient cardiac echo/possible cardiology evaluation given the increasing problems with edema. He has not had a cardiology follow up for some time. Precautions reviewed. To return to ER if sudden worsening problems noted. - Patient Instructions Diet: Usual Diet as Tolerated Fluid Restriction: 1500 mL Activity: As Tolerated Showering/Bathing: May Shower Notify Provider of: Fever, Increased Pain, Swelling and Redness, Nausea and/or Vomiting Other/Special Instructions: Follow up this next week with your primary provider. Review results you had with the edema after taking the Lasix. Discuss arrangements for updated cardiac echo and possible recheck with Cardiology. Follow up in the ER if you have sudden worsening problems. - Discharge Plan *PRESCRIPTION DRUG MONITORING PROGRAM REVIEWED*: Not Applicable *COPY OF PRESCRIPTION DRUG MONITORING REPORT IN PATIENT LISA: Not Applicable Prescriptions/Med Rec: Oseltamivir [Tamiflu] 30 mg PO BID #5 cap Home Medications: Home Meds Albuterol [Ventolin HFA] 2 puff INH Q4H PRN 01/20/19 [History] Aspirin 325 mg PO DAILY 01/20/19 [History] Budesonide [Pulmicort] 0.5 mg IH BID 01/20/19 [History] Metoprolol Tartrate [Lopressor] 25 mg PO BID 01/20/19 [History] Omeprazole 20 mg PO DAILY 01/20/19 [History] Albuterol/Ipratropium [DuoNeb 3.0-0.5 MG/3 ML] 1 unit PO QID PRN 08/12/19 [ History] Benazepril [Lotensin] 1 tab PO DAILY 08/12/19 [History] Folic Acid 1 tab PO DAILY 08/12/19 [History] Methotrexate Sodium [Methotrexate] 8 tab PO WEEKLY 08/12/19 [History] atorvaSTATin Calcium [Lipitor] 20 mg PO BEDTIME 08/12/19 [History] predniSONE [Prednisone] 2 tab PO DAILY 08/12/19 [History] Oseltamivir [Tamiflu] 30 mg PO BID #5 cap 08/14/19 [Rx] - Discharge Summary/Plan Comment DC Time >30 min.: Yes (discharge later this afternoon) - General Info Date of Service: 08/14/19 Admission Dx/Problem (Free Text: Admission Diagnosis/Problem Admission Diagnosis/Problem Influenza-like illness Subjective Update: Patient feels back to baseline. Would like to go home. Functional Status: Reports: Pain Controlled, Tolerating Diet, Ambulating, Urinating. Denies: New Symptoms - Review of Systems General: Reports: Appetite (good). Denies: Fever, Weakness, Fatigue, Malaise, Chills, Night Sweats HEENT: Denies: Ear Pain, Eye Pain, Headaches, Post Nasal Drip, Sinus Congestion , Sore Throat, Rhinitis, Visual Changes Pulmonary: Reports: Cough (minmal). Denies: Shortness of Breath, Pleuritic Chest Pain, Sputum, Hemoptysis, Wheezing Cardiovascular: Reports: Edema. Denies: Chest Pain, Palpitations, Dyspnea on Exertion, Lightheadedness Gastrointestinal: Denies: Abdominal Pain, Constipation, Diarrhea, Difficulty Swallowing, Melena, Nausea, Vomiting Genitourinary: Denies: Dysuria, Frequency, Burning, Pain, Urgency, Hematuria, Retention, Flank Pain Musculoskeletal: Reports: Other (has chronic issues with R.A./chronic joint discomfort. No acute changes per patient) Skin: Reports: No Symptoms Neurological: Reports: No Symptoms Psychiatric: Reports: No Symptoms - Patient Data Vitals - Most Recent: Last Vital Signs Temp 36.6 C 08/14/19 08:00 Pulse 60 08/14/19 08:10 Resp 18 08/14/19 08:00 BP 157/76 H 08/14/19 08:10 Pulse Ox 96 08/14/19 08:00 Weight - Most Recent: 90.356 kg I&O - Last 24 hours: Intake & Output 08/13/19 08/14/19 08/14/19 22:59 06:59 14:59 Intake Total 400 Balance 400 Lab Results - Last 24 hrs: Laboratory Results - last 24 hr 08/14/19 08/14/19 08/14/19 Range/Units 07:07 07:07 07:07 WBC 9.8 (4.0-10.2) K/uL RBC 3.97 L (4.33-5.41) M/uL Hgb 12.4 L (13.1-16.8) g/dL Hct 37.7 L (39.0-49.0) % MCV 95.0 (84.0-98.0) fL MCH 31.2 (28.2-33.3) pg MCHC 32.9 (31.7-36.0) g/dL RDW 13.9 (11.2-14.1) % Plt Count 147 L (150-350) K/uL Neut % (Auto) 91.7 H (45.0-80.0) % Lymph % (Auto) 4.3 L (10.0-50.0) % [place] % (Auto) 3.8 (2.0-14.0) % Eos % (Auto) 0.0 (0.0-5.0) % Baso % (Auto) 0.2 (0.0-2.0) % Neut # (Auto) 8.97 H (1.40-7.00) K/uL Lymph # (Auto) 0.42 L (0.50-3.50) K/uL [place] # (Auto) 0.37 (0.00-1.00) K/uL Eos # (Auto) 0.00 (0.00-0.50) K/uL Baso # (Auto) 0.02 (0.00-0.20) K/uL Sodium 143 (136-145) mmol/L Potassium 4.4 (3.5-5.1) mmol/L Chloride 106 (98-107) mmol/L Carbon Dioxide 30.7 (21.0-32.0) mmol/L BUN 25 H (7-18) mg/dL Creatinine 0.97 (0.51-1.17) mg/dL Est Cr Clr Drug Dosing 52.84 mL/min Estimated GFR (MDRD) > 60 mL/min Glucose 124 H (74-106) mg/dL Calcium 8.3 L (8.5-10.1) mg/dL C-Reactive Protein 2.9 H (<=0.9) mg/dL NT-Pro-B Natriuret Pep 1 (0-125) pg/mL [facility] Results - Last 24 hrs: Microbiology 08/12/19 19:40 Quick Strep Confirmation Culture - Final Throat NO GROUP A STREP ISOLATED REFERENCE RANGE: NEGATIVE Group A Streptococcus Rapid Screen - Final NEGATIVE STREP A SCREEN REFERENCE RANGE: NEGATIVE 08/12/19 19:50 Aerobic Blood Culture - Preliminary Blood - Venous - Lab Draw NO GROWTH AFTER 1 DAY Anaerobic Blood Culture - Preliminary NO GROWTH AFTER 1 DAY 08/12/19 19:35 Aerobic Blood Culture - Preliminary Blood - Venous NO GROWTH AFTER 1 DAY Anaerobic Blood Culture - Preliminary NO GROWTH AFTER 1 DAY Med Orders - Current: Current Medications Acetaminophen (Tylenol) 650 mg PO Q4H PRN PRN Reason: analgesia/fever Albuterol (Proventil Neb Soln) 2.5 mg NEB Q2H PRN PRN Reason: Shortness of Breath Albuterol/Ipratropium (Duoneb 3.0-0.5 Mg/3 Ml) 3 ml NEB QIDRT [facility] Last Admin: 08/14/19 08:09 Dose: 3 ml Budesonide (Pulmicort) 0.5 mg NEB BID [facility] Last Admin: 08/14/19 08:09 Dose: 0.5 mg Furosemide (Lasix) 20 mg IVPUSH ONETIME ONE Stop: 08/14/19 11:40 Ceftriaxone Sodium 1 gm/ (Sodium Chloride) 100 mls @ 200 mls/hr IV Q24H [facility] Last Admin: 08/13/19 20:03 Dose: 200 mls/hr Metronidazole 500 mg/ Premix 100 mls @ 100 mls/hr IV Q8H [facility] Last Admin: 08/14/19 10:58 Dose: 100 mls/hr Lisinopril (Prinivil) 20 mg PO DAILY [facility] Last Admin: 08/14/19 08:10 Dose: 20 mg Methylprednisolone Sodium Succinate (Solu-Medrol) 40 mg IVPUSH Q12HR [facility] Last Admin: 08/14/19 08:09 Dose: 40 mg Metoprolol Tartrate (Lopressor) 25 mg PO Q12HR [facility] Last Admin: 08/14/19 08:10 Dose: 25 mg Omeprazole (Omeprazole) 20 mg PO ACBREAKFAST [facility] Last Admin: 08/14/19 08:11 Dose: 20 mg Ondansetron HCl (Zofran) 4 mg IVPUSH Q4H PRN PRN Reason: Nausea/Vomiting Last Admin: 08/13/19 17:32 Dose: 4 mg Oseltamivir Phosphate (Tamiflu) 30 mg PO BID [facility] Stop: 08/17/19 08:01 Last Admin: 08/14/19 08:10 Dose: 30 mg Sodium Chloride (Saline Flush) 10 ml FLUSH ASDIRECTED PRN PRN Reason: Keep Vein Open Last Admin: 08/14/19 01:16 Dose: 10 ml Sodium Chloride (Saline Flush) 10 ml FLUSH Q12HR [facility] Last Admin: 08/14/19 08:15 Dose: 10 ml Discontinued Medications Sodium Chloride (Normal Saline) 1,000 mls @ 75 mls/hr IV ASDIRECTED [facility] Last Admin: 08/12/19 21:01 Dose: 75 mls/hr Metoprolol Tartrate (Lopressor) 25 mg PO BID [facility] Last Admin: 08/12/19 21:00 Dose: 25 mg Non-Formulary Medication (Benazepril) 1 tab PO DAILY [facility] - Exam General: Reports: Alert, Oriented, Cooperative, No Acute Distress HEENT: Reports: Pupils Equal, Pupils Reactive, EOMI, Mucous Membr. Moist/[place] Neck: Reports: Supple Lungs: Reports: Clear to Auscultation, Normal Respiratory Effort Cardiovascular: Reports: Regular Rate, Regular Rhythm, No Murmurs GI/Abdominal Exam: Normal Bowel Sounds, Soft, Non-Tender, No Distention (Male) Exam: Deferred Rectal (Males) Exam: Deferred Back Exam: Denies: CVA Tenderness (L), CVA Tenderness (R), Muscle Spasm Extremities: Normal Capillary Refill, Pedal Edema, Other (also noted to have mildy puffiness lower arms/hands/fingers bilaterally). No: Kya's Sign, Increased Warmth Skin: Reports: Warm, Dry Neurological: Reports: No New Focal Deficit Psy/Mental Status: Reports: Alert, Normal Affect, Normal Mood *Q Meaningful Use (DIS) - VTE *Q VTE Mechanical Contraindications *Q: At Risk for Falls VTE Pharmacological Contraindications *Q: Renal Impairment VTE Anticoagulation Contraindications: Treatment Not Tolerated
[2019-08-14 17:00] VITALS: BP 158/79; PULSE 73
== END 2019-08-14 18:20 | disposition home or self-care (01) | DRG 640 ==
LOC: UNDOADMIN 17:44 → LL.MS 17:44 → UNDODISIN 08-14 18:20
PROVIDERS: ADMIT Family Medicine; ATTEND Family Medicine
DX: E86.0 Dehydration (principal); I50.43 Acute on chronic combined systolic (congestive) and diastolic (congestive) heart failure; J44.0 Chronic obstructive pulmonary disease with (acute) lower respiratory infection; I25.810 Atherosclerosis of coronary artery bypass graft(s) without angina pectoris; J11.1 Influenza due to unidentified influenza virus with other respiratory manifestations; N28.9 Disorder of kidney and ureter, unspecified; D89.9 Disorder involving the immune mechanism, unspecified; I11.0 Hypertensive heart disease with heart failure; H54.7 Unspecified visual loss; H91.90 Unspecified hearing loss, unspecified ear; M19.90 Unspecified osteoarthritis, unspecified site; M06.9 Rheumatoid arthritis, unspecified; E78.5 Hyperlipidemia, unspecified; Z51.5 Encounter for palliative care; K21.9 Gastro-esophageal reflux disease without esophagitis; Z88.8 Allergy status to other drugs, medicaments and biological substances; Z79.51 Long term (current) use of inhaled steroids; Z79.82 Long term (current) use of aspirin; Z85.828 Personal history of other malignant neoplasm of skin; Z90.89 Acquired absence of other organs; Z98.49 Cataract extraction status, unspecified eye; Z95.5 Presence of coronary angioplasty implant and graft; Z98.890 Other specified postprocedural states; Z95.1 Presence of aortocoronary bypass graft; I25.2 Old myocardial infarction
CPT/HCPCS: 36415; 71046; 80048; 80053; 81001; 83605; 83735; 83880; 85025; 85652; 86140; 87040; 87081; 87430; 94640; A9270-GY; J0696; J1940; J2405; J2920; J3490; J7030; J7050; J7620-GY

== ENCOUNTER 2021-03-29 16:40 | Observation (INO) | payer MEDICARE, OTHER ==
--- NOTE | 2021-03-29 17:08 | EDM.PDOC ---
ED HPI GENERAL MEDICAL PROBLEM - General Chief Complaint: General Stated Complaint: n/v, diarrhea, dehydrated, body aches Time Seen by Provider: 03/29/21 17:08 Source of Information: Reports: Patient History Limitations: Reports: No Limitations - History of Present Illness INITIAL COMMENTS - FREE TEXT/NARRATIVE: Patient comes emergency department today with complaints of nausea vomiting diarrhea malaise fatigue and body aches. This patient who has a significant history of hypertension STEMI coronary artery disease status post CABG x4 seropositive rheumatoid arthritis who is currently on methotrexate and prednisone chronically. This patient yesterday had high-dose influenza vaccine administered. During the night he started having body aches malaise fatigue nausea vomiting and diarrhea. Subjective fever and chills although he did not check his temperature. He has been unable to keep any fluids down. He continues to have chills and body aches malaise and fatigue and arthralgias. He has had no other change in his medications. No cough or congestion. No chest pain no shortness of breath or difficulty breathing. He is Covid vaccinated. No abdominal pain other than the nausea and the vomiting. And diarrhea. No hematuria dysuria urinary frequency. He has had some diarrhea has not been on antibiotics recently nor has he traveled recently. - Related Data Allergies Allergy/AdvReac Type Severity Reaction Status Date / Time doxycycline AdvReac Redness Verified 03/29/21 17:21 seasonal Allergy Other Uncoded 03/29/21 17:21 Home Meds: Home Meds Aspirin 325 mg PO DAILY 01/20/19 [History] Metoprolol Tartrate [Lopressor] 25 mg PO BID 01/20/19 [History] Omeprazole 20 mg PO DAILY 01/20/19 [History] Albuterol/Ipratropium [DuoNeb 3.0-0.5 MG/3 ML] 1 unit PO QID PRN 08/12/19 [History] Benazepril [Lotensin] 1 tab PO DAILY 08/12/19 [History] Folic Acid 1 tab PO DAILY 08/12/19 [History] metHOTREXate sodium [Methotrexate] 8 tab PO WEEKLY 08/12/19 [History] predniSONE [Prednisone] 2 tab PO DAILY 08/12/19 [History] Past Medical History HEENT History: Reports: Cataract, Hard of Hearing, Impaired Vision, Other (See Below) Other HEENT History: Patient wears glasses; bilateral presbycusis with suboptimal bilateral hearing aide therapy Cardiovascular History: Reports: Bypass, Hypertension, ND Other Cardiovascular History: Grade 1 diastolic dysfunction by echocardiogram in 2017 as below. History with inferior wall STEMI requiring four-vessel CABG as below with newly diagnosed atrial fibrillation with rapid ventricular response at that time; PVCs and PACs Respiratory History: Reports: Asthma Other Respiratory History: Bilateral benign pulmonary granulomas, including the left lower lobe. Botello's lung/COPD. Gastrointestinal History: Reports: Cholelithiasis, Chronic Constipation, Colon Polyp, Diverticulosis, Gastritis, GERD, Helicobacter Pylori, Hiatal Hernia, Other (See Below) Other Gastrointestinal History: History of recurrent sigmoid colonic polyps including initial hyperplastic polyps 2 on 06/26/03 with subsequent 1 hyperplastic polyp and an additional tubular adenoma in the sigmoid region on 09/16/07; positive H pylori biopsy at time of EGD on 09/16/07; nonsymptomatic cholelithiasis by CT scan on 02/21/14. Genitourinary History: Reports: BPH Other Genitourinary History: bilateral hydroceles Musculoskeletal History: Reports: Arthritis Other Musculoskeletal History: Left clavicular fracture as a child; bilateral carpal tunnel syndrome with right sided surgery as below; rheumatoid factor positive rheumatoid arthritis with current aggressive medical therapy, mild scoliosis Neurological History: Reports: None Psychiatric History: Reports: None Endocrine/Metabolic History: Reports: None Hematologic History: Reports: None Immunologic History: Reports: Immunosuppression, Other (See Below) Other Immunologic History: Rheumatoid Arthritis Oncologic (Cancer) History: Reports: Basal Cell Carcinoma, Squamous Cell Carcinoma, Other (See Below) Other Oncologic History: 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 Dermatologic History: Reports: Other (See Below) Other Dermatologic History: Actinic keratosis with additional history of skin cancer as above. - Infectious Disease History Infectious Disease History: Reports: Chicken Pox, Influenza, Measles, Mumps, Shingles - Past Surgical History Head Surgeries/Procedures: Reports: None HEENT Surgical History: Reports: Adenoidectomy, Cataract Surgery, Eye Surgery, Oral Surgery, Tonsillectomy, Other (See Below) Other HEENT Surgeries/Procedures: Tonsillectomy and adenoidectomy at age 4. Bilateral cataract surgery in about 2013. [place] teeth extraction 4 and multiple teeth extractions. Cardiovascular Surgical History: Reports: Coronary Artery Bypass, Coronary Artery Stent, Percutaneous Transluminal Angioplasty, Other (See Below) Other Cardiovascular Surgeries/Procedures: CABG 4 on 10/31/16 Respiratory Surgical History: Reports: None GI Surgical History: Reports: Colonoscopy, EGD, Polypectomy, Other (See Below) Other GI Surgeries/Procedures: Last EGD and colonoscopy on 09/16/07 with previous colonoscopy on 06/26/03 Male Surgical History: Reports: Other (See Below) Other Male Surgeries/Procedures: Right testicular surgery 1992 Endocrine Surgical History: Reports: None Neurological Surgical History: Reports: None Musculoskeletal Surgical History: Reports: Carpal Tunnel, Other (See Below) Other Musculoskeletal Surgeries/Procedures:: Right carpal tunnel release in 1998 with left-sided carpal tunnel release in about 2000. Oncologic Surgical History: Reports: None Dermatological Surgical History: Reports: Skin Biopsy, Other (See Below) - Past Imaging History Past Imaging History: Reports: Angiography (Heart catheterization on 10/30/16.), Cardiac Echo (Echocardiogram on 10/31/16 with ejection fraction of 60%.), CAT Scan (CT of the chest on 02/21/14), MRI (MRI of the cervical spine on 11/01/13), Stress Testing (Low level cardiac stress test on 11/25/16, Cardiolite stress test on 08/25/02 with ejection fraction of 63%), Ultrasound (Left arm arterial duplex evaluation prior to CABG on 10/30/17. Bilateral scrotal ultrasounds on 07/25/13 and 05/26/06 with previous left-sided evaluation on 11/05/04), Venous Doppler (Venous Doppler study of the right leg on 09/09/13.) Social & Family History - Family History HEENT: Reports: Other (See Below) Other HEENT Family History: Brother with color blindness. Cardiac: Reports: High Cholesterol, Hypertension, Other (See Below) Other Cardiac Family History: Brother with hyperlipidemia and hypertension. Respiratory: Reports: COPD, Other (See Below) Other Respiratory Family Hisory: Brother with history of COPD with history of tobacco use. GI: Reports: None : Reports: None OBGYN: Reports: None Musculoskeletal: Reports: Arthritis, Osteoarthritis, Other (See Below) Other Musculoskeletal Family History: Brother with osteoarthritis. Neurological: Reports: Neuropathy, Diabetic, Other (See Below) Other Neurological Family History: Daughter with diabetic neuropathy. Psychiatric: Reports: Anxiety, Depression, PTSD, Other (See Below) Other Psychiatric Family History: Brother with history of alcohol abuse, PTSD, anxiety, and depression. Endocrine/Metabolic: Reports: Diabetes, Type I, Diabetes, type II, IDDM, Other (See Below) Other Endocrine/Metabolic Family History: Daughter with type I IDDM initially diagnosed at age 28; brother with obesity and subsequent IDDM with fatal complications from his diabetes at age 75. Maternal grandfather with IDDM. AODM in paternal uncle and maternal uncles having IDDM Hematologic: Reports: None Immunologic: Reports: None Dermatologic: Reports: None Oncologic: Reports: Breast, Metastatic, Skin, Other (See Below) Other Oncologic Family History: Mother with fatal metastatic breast cancer at age 78, father with testicular cancer at age 88. Father with unknown type of skin cancer. 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 ED EXAM, GENERAL - Physical Exam Exam: See Below Exam Limited By: No Limitations General Appearance: Alert, WD/WN, No Apparent Distress Eye Exam: Bilateral Eye: EOMI Head: Atraumatic, Normocephalic Neck: Normal Inspection, Supple, Non-Tender, Full Range of Motion Respiratory/Chest: No Respiratory Distress, Lungs Clear, Normal Breath Sounds, No Accessory Muscle Use, Chest Non-Tender Cardiovascular: Normal Peripheral Pulses, Regular Rate, Rhythm GI/Abdominal: Normal Bowel Sounds, Soft, Non-Tender Back Exam: Normal Inspection, Full Range of Motion Extremities: Normal Inspection, Normal Range of Motion, No Pedal Edema, Normal Capillary Refill Neurological: Alert, Oriented, Normal Cognition, No Motor/Sensory Deficits Psychiatric: Normal Affect, Normal Mood Skin Exam: Dry, Intact, Normal Color, No Rash, Cool Course - Vital Signs Last Recorded V/S: Last Vital Signs Temp 98.8 F 03/29/21 16:42 Pulse 79 03/29/21 18:45 Resp 18 03/29/21 18:45 BP 113/90 03/29/21 18:45 Pulse Ox 93 L 03/29/21 18:45 - Orders/Labs/Meds Orders: Active Orders 24 hr Category Date Time Status Admission Status [Patient Status] [ADT] Routine ADT 03/29/21 19:27 Active Peripheral IV Care [RC] . DIRECTED Care 03/29/21 17:09 Active Chest 2V [CR] Urgent Exams 03/29/21 17:08 Taken CULTURE BLOOD [BC] Stat Lab 03/29/21 17:30 Received PROCALCITONIN [REF] Stat Lab 03/29/21 17:30 Received UA RFX TRINA AND CULT IF INDIC [URIN] Stat Lab 03/29/21 17:09 Ordered Sodium Chloride 0.9% [Saline Flush] Med 03/29/21 17:09 Active 10 ml FLUSH ASDIRECTED PRN Blood Culture x2 Reflex Set [OM.PC] Stat Oth 03/29/21 17:09 Ordered Peripheral IV Insertion Adult [OM.PC] Stat Oth 03/29/21 17:08 Ordered Medication Orders Albuterol/Ipratropium (Albuterol/Ipratropium 3.0-0.5 Mg/3 Ml Neb Soln) 3 ml NEB QID PRN PRN Reason: Shortness of Breath Aspirin (Aspirin 325 Mg Tab) 325 mg PO DAILY LANDY Folic Acid (Folic Acid 1 Mg Tab) 1 mg PO DAILY LANDY Lactated Ringer's (Ringers, Lactated) 1,000 mls @ 100 mls/hr IV ASDIRECTED LANDY Lisinopril (Lisinopril 20 Mg Tab) 20 mg PO DAILY LANDY Metoprolol Tartrate (Metoprolol Tartrate 25 Mg Tab) 25 mg PO BID LANDY Omeprazole (Omeprazole 20 Mg Cap.Cr) 20 mg PO DAILY LANDY Ondansetron HCl (Ondansetron 4 Mg/2 Ml Sdv) 4 mg IVPUSH Q6H PRN PRN Reason: Nausea/Vomiting Prednisone (Prednisone 5 Mg Tab) 10 mg PO DAILY LANDY Sodium Chloride (Sodium Chloride 0.9% 10 Ml Syringe) 10 ml FLUSH ASDIRECTED PRN PRN Reason: Keep Vein Open Labs: Laboratory Tests 03/29/21 03/29/21 03/29/21 Range/Units 17:08 17:09 17:30 WBC 5.8 (4.0-10.2) K/uL RBC 4.49 (4.33-5.41) M/uL Hgb 14.0 D (13.1-16.8) g/dL Hct 42.5 (39.0-49.0) % MCV 94.7 (84.0-98.0) fL MCH 31.2 (28.2-33.3) pg MCHC 32.9 (31.7-36.0) g/dL RDW 14.9 H (11.2-14.1) % Plt Count 153 (150-350) K/uL Neut % (Auto) 69.1 (45.0-80.0) % Lymph % (Auto) 18.6 (10.0-50.0) % [place] % (Auto) 11.5 (2.0-14.0) % Eos % (Auto) 0.3 (0.0-5.0) % Baso % (Auto) 0.5 (0.0-2.0) % Neut # (Auto) 3.98 (1.40-7.00) K/uL Lymph # (Auto) 1.07 (0.50-3.50) K/uL [place]uming # (Auto) 0.66 (0.00-1.00) K/uL Eos # (Auto) 0.02 (0.00-0.50) K/uL Baso # (Auto) 0.03 (0.00-0.20) K/uL Sodium 141 (136-145) mmol/L Potassium 4.2 (3.5-5.1) mmol/L Chloride 103 (98-107) mmol/L Carbon Dioxide 30.5 (21.0-32.0) mmol/L Anion Gap 7.5 (7-15) meq/L BUN 22 H (7-18) mg/dL Creatinine 1.50 H (0.51-1.17) mg/dL Est Cr Clr Drug Dosing TNP Estimated GFR (MDRD) 45 mL/min Glucose 92 (70-99) mg/dL Lactic Acid (0.4-2.0) mmol/L Calcium 8.9 (8.5-10.1) mg/dL Total Bilirubin 0.9 (0.2-1.0) mg/dL AST 51 H (15-37) U/L ALT 44 (12-78) U/L Alkaline Phosphatase 27 L (46-116) IU/L C-Reactive Protein 5.9 H (<=0.9) mg/dL Total Protein 6.8 (6.4-8.2) g/dL Albumin 3.6 (3.4-5.0) g/dL SARS-CoV-2 Ag (Rapid) Negative (NEGATIVE) 03/29/21 Range/Units 17:30 WBC (4.0-10.2) K/uL RBC (4.33-5.41) M/uL Hgb (13.1-16.8) g/dL Hct (39.0-49.0) % MCV (84.0-98.0) fL MCH (28.2-33.3) pg MCHC (31.7-36.0) g/dL RDW (11.2-14.1) % Plt Count (150-350) K/uL Neut % (Auto) (45.0-80.0) % Lymph % (Auto) (10.0-50.0) % [place] % (Auto) (2.0-14.0) % Eos % (Auto) (0.0-5.0) % Baso % (Auto) (0.0-2.0) % Neut # (Auto) (1.40-7.00) K/uL Lymph # (Auto) (0.50-3.50) K/uL [place] # (Auto) (0.00-1.00) K/uL Eos # (Auto) (0.00-0.50) K/uL Baso # (Auto) (0.00-0.20) K/uL Sodium (136-145) mmol/L Potassium (3.5-5.1) mmol/L Chloride (98-107) mmol/L Carbon Dioxide (21.0-32.0) mmol/L Anion Gap (7-15) meq/L BUN (7-18) mg/dL Creatinine (0.51-1.17) mg/dL Est Cr Clr Drug Dosing Estimated GFR (MDRD) mL/min Glucose (70-99) mg/dL Lactic Acid 2.1 H (0.4-2.0) mmol/L Calcium (8.5-10.1) mg/dL Total Bilirubin (0.2-1.0) mg/dL AST (15-37) U/L ALT (12-78) U/L Alkaline Phosphatase (46-116) IU/L C-Reactive Protein (<=0.9) mg/dL Total Protein (6.4-8.2) g/dL Albumin (3.4-5.0) g/dL SARS-CoV-2 Ag (Rapid) (NEGATIVE) Meds: Medications Generic Name Dose Route Start Last Admin Trade Name West PRN Reason Stop Dose Admin Albuterol/Ipratropium 3 ml 03/29/21 21:25 Albuterol/Ipratropium 3.0-0.5 Mg/3 Ml Neb Soln NEB QID PRN Shortness of Breath Aspirin 325 mg 03/30/21 08:00 Aspirin 325 Mg Tab PO DAILY LANDY Folic Acid 1 mg 03/30/21 08:00 Folic Acid 1 Mg Tab PO DAILY LANDY Lactated Ringer's 1,000 mls @ 100 mls/hr 03/29/21 20:30 Ringers, Lactated IV ASDIRECTED LANDY Lisinopril 20 mg 03/30/21 08:00 Lisinopril 20 Mg Tab PO DAILY LANDY Metoprolol Tartrate 25 mg 03/30/21 08:00 Metoprolol Tartrate 25 Mg Tab PO BID LANDY Omeprazole 20 mg 03/30/21 08:00 Omeprazole 20 Mg Cap.Cr PO DAILY LANDY Ondansetron HCl 4 mg 03/29/21 20:18 Ondansetron 4 Mg/2 Ml Sdv IVPUSH Q6H PRN Nausea/Vomiting Prednisone 10 mg 03/30/21 08:00 Prednisone 5 Mg Tab PO DAILY LANDY Sodium Chloride 10 ml 03/29/21 17:09 Sodium Chloride 0.9% 10 Ml Syringe FLUSH ASDIRECTED PRN Keep Vein Open Discontinued Medications Generic Name Dose Route Start Last Admin Trade Name West PRN Reason Stop Dose Admin Lactated Ringer's 1,000 mls @ 1,000 mls/hr 03/29/21 17:10 03/29/21 17:44 Ringers, Lactated IV 03/29/21 18:09 1,000 mls/hr .BOLUS ONE Administration - Radiology Interpretation Free Text/Narrative:: Chest x-ray per radiology shows stable chest no acute process. - Re-Assessments/Exams Free Text/Narrative Re-Assessment/Exam: 03/29/21 IV was established labs were drawn. Blood cultures x2. LR 500 mill bolus of 125 mils an hour blood pressure is little bit on the labile side 95 systolically. His chest x-ray is negative. His Covid test is negative. Laboratory evaluation with a normal CBC. CMP creatinine 1.50 with a BUN of 22 his baseline creatinine appears to be about 1.15-1.2 His lactic acid is mildly elevated at 2.1. His CRP is 5.9. The patient did feel quite a bit better after the fluid bolus. He is still wet shaky and cold fatigue and malaise. He has not had a fever. His Covid test is negative. His work-up is otherwise unremarkable. Morning with his underlying immunocompromise state in the presence of methotrexate as well as chronic prednisone if he is just not having more of an immune response to his high-dose influenza vaccine. He clearly has acute kidney injury at this time. I do not think that discharge is appropriate as he is unable to keep fluids down. We will admit him to the hospital under observation for IV hydration repeat labs and monitoring. He is comfortable with this plan and his questions were answered. Departure - Departure Time of Disposition: 19:00 Disposition: Refer to Observation Clinical Impression: Nausea vomiting and diarrhea, Acute kidney injury, Immunocompromised - Discharge Information Sepsis Event Note (ED) - Evaluation Sepsis Screening Result: No Definite Risk - Focused Exam Vital Signs: Vital Signs Temp Pulse Resp BP Pulse Ox 03/29/21 18:45 79 18 113/90 93 L 03/29/21 17:00 74 18 95/61 98 03/29/21 16:42 98.8 F 80 18 148/54 H 97 - Problem List & Annotations (1) Rheumatoid arthritis SNOMED Code(s): 72726539 Code(s): M06.9 - RHEUMATOID ARTHRITIS, UNSPECIFIED Status: Chronic Priority: Medium Current Visit: No Annotation/Comment:: Stable by history current methotrexate and prednisone therapy as above. He is closely followed by ethanol quality leader [facility] in [place]. Continue his prednisone he is getting his methotrexate on Sundays no acute flares or concerns. (2) Coronary artery disease SNOMED Code(s): 66975262 Code(s): I25.10 - ATHSCL HEART DISEASE OF [place] CORONARY ARTERY W/O ANG PCTRS Status: Chronic Priority: Medium Current Visit: No Annotation/Comment:: Stable by history. No complaints of chest pain coronary syndrome or shortness of breath monitor Qualifiers: Coronary Disease-Associated Artery/Lesion type: bypass graft, autologous vein Associated angina: without angina Qualified Code(s): I25.810 - Atherosclerosis of coronary artery bypass graft(s) without angina pectoris (3) Hypertension SNOMED Code(s): 95496315 Code(s): I10 - ESSENTIAL (PRIMARY) HYPERTENSION Status: Chronic Priority: Medium Current Visit: No Annotation/Comment:: Initially was was somewhat hypotensive in the emergency department with a blood pressure 95. Improved to the 130s systolically after fluid. We will continue his home medications monitor his blood pressure closely. Qualifiers: Hypertension type: essential hypertension Qualified Code(s): I10 - Essential (primary) hypertension (4) COPD (chronic obstructive pulmonary disease) SNOMED Code(s): 53457122 Code(s): J44.9 - CHRONIC OBSTRUCTIVE PULMONARY DISEASE, UNSPECIFIED Status: Chronic Priority: Medium Current Visit: No Annotation/Comment:: Continue home nebulizers. No increased work of breathing or signs of COPD exacerbation. Monitor not requiring oxygen Qualifiers: COPD type: COPD with acute lower respiratory infection (5) Acute kidney injury SNOMED Code(s): 49621702, 09392432 Code(s): N17.9 - ACUTE KIDNEY FAILURE, UNSPECIFIED Status: Acute Current Visit: Yes Annotation/Comment:: His acute kidney injury is most likely due to nausea vomiting dehydration. Creatinine is 1.5 on admission it appears his baseline is 1.151.2. We will gently hydrate him overnight repeat labs in the morning. I's and O's. (6) Immunocompromised SNOMED Code(s): 887893606 Code(s): D84.9 - IMMUNODEFICIENCY, UNSPECIFIED Status: Acute Current Visit: Yes Annotation/Comment:: He is chronically on methotrexate once a week as well as prednisone 10 mg daily which we will continue in the hospital. (7) Nausea vomiting and diarrhea SNOMED Code(s): 9659686 Code(s): R11.2 - NAUSEA WITH VOMITING, UNSPECIFIED; R19.7 - DIARRHEA, UNSPECIFIED Status: Acute Current Visit: Yes - Problem List Review Problem List Initiated/Reviewed/Updated: Yes - My Orders Last 24 Hours: My Active Orders 03/29/21 17:08 Chest 2V [CR] Urgent Peripheral IV Insertion Adult [OM.PC] Stat 03/29/21 17:09 Peripheral IV Care [RC] . DIRECTED UA RFX TRINA AND CULT IF INDIC [URIN] Stat Sodium Chloride 0.9% [Saline Flush] 10 ml FLUSH ASDIRECTED PRN Blood Culture x2 Reflex Set [OM.PC] Stat 03/29/21 17:30 CULTURE BLOOD [BC] Stat PROCALCITONIN [REF] Stat 03/29/21 19:27 Admission Status [Patient Status] [ADT] Routine - Assessment/Plan Admission H&P: Please use this note as an admission H&P Last 24 Hours: My Active Orders 03/29/21 17:08 Chest 2V [CR] Urgent Peripheral IV Insertion Adult [OM.PC] Stat 03/29/21 17:09 Peripheral IV Care [RC] . DIRECTED UA RFX TRINA AND CULT IF INDIC [URIN] Stat Sodium Chloride 0.9% [Saline Flush] 10 ml FLUSH ASDIRECTED PRN Blood Culture x2 Reflex Set [OM.PC] Stat 03/29/21 17:30 CULTURE BLOOD [BC] Stat PROCALCITONIN [REF] Stat 03/29/21 19:27 Admission Status [Patient Status] [ADT] Routine Assessment:: Assessment/plan as above. We will admit the patient in observation. I do not anticipate more than 1 to 2 days of dehydration and monitoring unless other situations develop or new complaints. LR 100 mils an hour overnight as needed Zofran. VTE: Short stay low risk. Teds. Sepsis: Lactic is normal blood cultures pending UA pending on admission. No fever. Continue to monitor closely. CODE STATUS: Full code. We will admit the patient in observation for gentle rehydration and monitoring. Continue his home therapies. Please use this note as the admission H&P.
[2021-03-29] MEDS ORDERED: Sodium Chloride 0.9% 10 ML Syringe FLUSH PRN (17:09)
[2021-03-29] MEDS ORDERED: Lactated Ringers 1,000 ML IV ONE (17:10)
[2021-03-29 18:34] LABS: ANION GAP 7.5 meq/L (7-15); CHLORIDE,CL 103 mmol/L (98-107); SODIUM,NA 141 mmol/L (136-145)
[2021-03-29] MEDS ORDERED: Ondansetron 4 MG/2 ML SDV IVPUSH PRN (20:18)
[2021-03-29] MEDS ORDERED: Albuterol/Ipratropium 3.0-0.5 MG/3 ML Neb Soln NEB PRN (21:25)
[2021-03-29] MEDS: Lactated Ringers 1,000 ML IV SCH (22:16)
[2021-03-30] MEDS: Lactated Ringers 1,000 ML IV SCH (05:45)
[2021-03-30 07:55] LABS: ANION GAP 7.9 meq/L (7-15)
[2021-03-30] MEDS ORDERED: Folic Acid 1 MG Tab PO SCH (08:00)
[2021-03-30] MEDS ORDERED: Lisinopril 20 MG Tab PO SCH (08:00)
[2021-03-30] MEDS ORDERED: Omeprazole 20 MG Cap.CR PO SCH (08:00)
[2021-03-30] MEDS ORDERED: Metoprolol Tartrate 25 MG Tab PO SCH (08:00)
[2021-03-30] MEDS ORDERED: Aspirin 325 MG Tab PO SCH (08:00)
[2021-03-30] MEDS ORDERED: Budesonide 0.5 MG/2 ML Neb Susp NEB SCH (08:00)
[2021-03-30] MEDS ORDERED: predniSONE 5 MG Tab PO SCH (08:00)
[2021-03-30 09:15] VITALS: BP 149/54; PULSE 82
--- NOTE | 2021-03-30 12:11 | PCM.DCSUM1 ---
Discharge Summary - Hospital Course Diagnosis: Stroke: No - Discharge Data Discharge Date: 03/30/21 Discharge Disposition: Home, Self-Care 01 Condition: Good - Referral to Home Health Primary Care Physician: ANGELIA Haywood - Discharge Diagnosis/Problem(s) (1) Rheumatoid arthritis SNOMED Code(s): 30777675 ICD Code: M06.9 - RHEUMATOID ARTHRITIS, UNSPECIFIED Status: Chronic Priority: Medium Current Visit: No Problem Details: Stable by history current methotrexate and prednisone therapy as above. He is closely followed by master plumber [facility] in [place]. Continue his prednisone he is getting his methotrexate on Sundays no acute flares or concerns. (2) Coronary artery disease SNOMED Code(s): 31340297 ICD Code: I25.10 - ATHSCL HEART DISEASE OF [place] CORONARY ARTERY W/O ANG PCTRS Status: Chronic Priority: Medium Current Visit: No Problem Details: Stable by history. No complaints of chest pain coronary syndrome or shortness of breath monitor. Continue home therapy Qualifiers: Coronary Disease-Associated Artery/Lesion type: bypass graft, autologous vein Associated angina: without angina Qualified Code(s): I25.810 - Atherosclerosis of coronary artery bypass graft(s) without angina pectoris (3) Hypertension SNOMED Code(s): 21758902 ICD Code: I10 - ESSENTIAL (PRIMARY) HYPERTENSION Status: Chronic Priority: Medium Current Visit: No Problem Details: 149/54. No hypotension. Continue home medications. Qualifiers: Hypertension type: essential hypertension Qualified Code(s): I10 - Essential (primary) hypertension (4) COPD (chronic obstructive pulmonary disease) SNOMED Code(s): 15289754 ICD Code: J44.9 - CHRONIC OBSTRUCTIVE PULMONARY DISEASE, UNSPECIFIED Status: Chronic Priority: Medium Current Visit: No Problem Details: Continue home nebulizers. No signs of acute flare. Qualifiers: COPD type: COPD with acute lower respiratory infection Qualified Code(s): J44.0 - Chronic obstructive pulmonary disease with (acute) lower respiratory infection (5) Acute kidney injury SNOMED Code(s): 21969234, 98820136 ICD Code: N17.9 - ACUTE KIDNEY FAILURE, UNSPECIFIED Status: Acute Current Visit: Yes Problem Details: Creat 1.5 on admission 1.29 today which is his baseline. Urinating well. No NVD. Continue hydration at home. (6) Immunocompromised SNOMED Code(s): 348630480 ICD Code: D84.9 - IMMUNODEFICIENCY, UNSPECIFIED Status: Acute Current Visit: Yes Problem Details: He is chronically on methotrexate once a week as well as prednisone 10 mg daily which we will continue in the hospital. NO fevers no chills. WBC normal lactic improving and normal. (7) Nausea vomiting and diarrhea SNOMED Code(s): 0881598 ICD Code: R11.2 - NAUSEA WITH VOMITING, UNSPECIFIED; R19.7 - DIARRHEA, UNSPECIFIED Status: Acute Current Visit: Yes Problem Details: No Nausea vomiting diarrhea. Urinating without difficulty. Normal bowel movement. Most likely from the side effects of the vaccine and resolved. Refuses anything for home management. Good appetite eating well. - Patient Summary/Data Hospital Course: Patient was admitted to the hospital under observation last evening following an episode of subjective chills nausea vomiting and diarrhea following getting his high-dose flu vaccination. His highest temperature was 100.2 which was upon admission but he has not had any fevers while his been in the hospital. He had acute kidney injury with a baseline creatinine of 1.2 upon arrival it was 1.5. Blood cultures were pending and so far negative. Covid was negative. Urinalysis was negative for infectious. He was hydrated gently overnight with lactated Ringer's 150 mils an hour. His kidney function has improved back down to his baseline. He feels quite a bit better today. He has been eating and drinking he has much more strength he has no fever or chills. He does not want a thing for nausea or vomiting at home. This is most likely sequelae of an immunocompromised patient post vaccine high-dose influenza vaccination. No signs of infection. He feels much better. We will discharge him home at this time without any new therapies and continue home medications. - Patient Instructions Other/Special Instructions: Home today. Rest. Drink plenty of fluids especially electrolyte containing fluids such as Gatorade and/or Powerade. Diet as tolerated. No dairy products until 48 hours symptom-free of nausea vomiting and diarrhea. Tylenol for discomfort. Continue all home medications as previous. Return to the emergency department new or worsening symptoms. Recheck with primary care middle of this week. - Discharge Plan *PRESCRIPTION DRUG MONITORING PROGRAM REVIEWED*: Not Applicable *COPY OF PRESCRIPTION DRUG MONITORING REPORT IN PATIENT LISA: Not Applicable Home Medications: Home Meds Aspirin 325 mg PO DAILY 01/20/19 [History] Metoprolol Tartrate [Lopressor] 25 mg PO BID 01/20/19 [History] Omeprazole 20 mg PO DAILY 01/20/19 [History] Albuterol/Ipratropium [DuoNeb 3.0-0.5 MG/3 ML] 1 unit PO QID PRN 08/12/19 [History] Benazepril [Lotensin] 1 tab PO DAILY 08/12/19 [History] Folic Acid 1 tab PO DAILY 08/12/19 [History] metHOTREXate sodium [Methotrexate] 8 tab PO WEEKLY 08/12/19 [History] predniSONE [Prednisone] 2 tab PO DAILY 08/12/19 [History] Alendronate Sodium [Fosamax] 1 tab PO WEEKLY 03/30/21 [History] Benazepril [Lotensin] 1 tab PO DAILY 03/30/21 [History] Budesonide [Pulmicort] 0.5 mg NEB BIDRT neb 03/30/21 [Rx] Budesonide [Pulmicort] 1 inh NEB BID 03/30/21 [History] atorvaSTATin [Lipitor] 1 tab PO DAILY 03/30/21 [History] atorvaSTATin [Lipitor] 20 mg PO BEDTIME tablet 03/30/21 [Rx] sulfaSALAzine [Azulfidine] 0.5 tab PO BIDMEALS 03/30/21 [History] Forms: ED Department Discharge Referrals: PCP,None [Ordering Only Provider] - - Discharge Summary/Plan Comment DC Time >30 min.: No Total # of Minutes for Discharge Time: 20 - General Info Date of Service: 03/30/21 Admission Dx/Problem (Free Text: Nausea vomiting diarrhea status post high-dose flu vaccination. Acute kidney injury in the presence of chronic renal insufficiency. Subjective Update: This patient feels back to his baseline today. He has much more energy. He has no fever no chills. No shortness of breath no chest pain weakness dizziness lightheadedness. No abdominal pain. No nausea no vomiting. He has had a normal bowel movement today. He is making urine. He feels back to baseline he feels much better and would like to go home. He has had a good appetite. He is not received anything for nausea or vomiting throughout the night. Functional Status: Reports: Pain Controlled - Patient Data Vitals - Most Recent: Last Vital Signs Temp 98.0 F 03/30/21 08:00 Pulse 82 03/30/21 09:14 Resp 20 03/30/21 09:14 BP 149/54 H 03/30/21 09:14 Pulse Ox 96 03/30/21 09:14 Weight - Most Recent: 193 lb 4.8 oz I&O - Last 24 hours: Intake & Output 03/29/21 03/30/21 03/30/21 22:59 06:59 14:59 Intake Total 966 Output Total 300 700 Balance 666 -700 Lab Results - Last 24 hrs: Laboratory Results - last 24 hr 03/29/21 03/29/21 03/29/21 Range/Units 00:00 17:08 17:09 WBC 5.8 (4.0-10.2) K/uL RBC 4.49 (4.33-5.41) M/uL Hgb 14.0 D (13.1-16.8) g/dL Hct 42.5 (39.0-49.0) % MCV 94.7 (84.0-98.0) fL MCH 31.2 (28.2-33.3) pg MCHC 32.9 (31.7-36.0) g/dL RDW 14.9 H (11.2-14.1) % Plt Count 153 (150-350) K/uL Neut % (Auto) 69.1 (45.0-80.0) % Lymph % (Auto) 18.6 (10.0-50.0) % [place] % (Auto) 11.5 (2.0-14.0) % Eos % (Auto) 0.3 (0.0-5.0) % Baso % (Auto) 0.5 (0.0-2.0) % Neut # (Auto) 3.98 (1.40-7.00) K/uL Lymph # (Auto) 1.07 (0.50-3.50) K/uL [place] # (Auto) 0.66 (0.00-1.00) K/uL Eos # (Auto) 0.02 (0.00-0.50) K/uL Baso # (Auto) 0.03 (0.00-0.20) K/uL Sodium (136-145) mmol/L Potassium (3.5-5.1) mmol/L Chloride (98-107) mmol/L Carbon Dioxide (21.0-32.0) mmol/L Anion Gap (7-15) meq/L BUN (7-18) mg/dL Creatinine (0.51-1.17) mg/dL Est Cr Clr Drug Dosing Estimated GFR (MDRD) mL/min Glucose (70-99) mg/dL Lactic Acid (0.4-2.0) mmol/L Calcium (8.5-10.1) mg/dL Total Bilirubin (0.2-1.0) mg/dL AST (15-37) U/L ALT (12-78) U/L Alkaline Phosphatase (46-116) IU/L C-Reactive Protein (<=0.9) mg/dL Total Protein (6.4-8.2) g/dL Albumin (3.4-5.0) g/dL Specimen Type Urinvoid Urine Color Dark yellow Urine Appearance Slightly cloudy Urine pH 6.0 (5.0-9.0) Ur Specific [place] 1.025 (1.005-1.030) Urine Protein 100 H (NEGATIVE) mg/dL Urine Glucose (UA) Negative (NEGATIVE) mg/dL Urine Ketones 15 H (NEGATIVE) mg/dL Urine Occult Blood Moderate H (NEGATIVE) Urine Nitrite Negative (NEGATIVE) Urine Bilirubin Small H (NEGATIVE) Urine Urobilinogen 0.2 (0.2-1.0) E.U./dL Ur Leukocyte Esterase Negative (NEGATIVE) U Hyaline Cast (Auto) Occasional Urine RBC 50-75 H /HPF Urine WBC 0-5 /HPF Ur Epithelial Cells Few /LPF Urine Bacteria Few (NONE TO FEW) /HPF Granular Casts (Auto) Occasional Urine Mucus Many H (NEGATIVE) /LPF SARS-CoV-2 Ag (Rapid) Negative (NEGATIVE) 03/29/21 03/29/21 03/30/21 Range/Units 17:30 17:30 07:36 WBC 4.8 (4.0-10.2) K/uL RBC 4.18 L (4.33-5.41) M/uL Hgb 13.1 (13.1-16.8) g/dL Hct 39.8 (39.0-49.0) % MCV 95.2 (84.0-98.0) fL MCH 31.3 (28.2-33.3) pg MCHC 32.9 (31.7-36.0) g/dL RDW 14.7 H (11.2-14.1) % Plt Count 137 L (150-350) K/uL Neut % (Auto) 62.1 (45.0-80.0) % Lymph % (Auto) 25.9 (10.0-50.0) % [place] % (Auto) 11.2 (2.0-14.0) % Eos % (Auto) 0.2 (0.0-5.0) % Baso % (Auto) 0.6 (0.0-2.0) % Neut # (Auto) 2.99 (1.40-7.00) K/uL Lymph # (Auto) 1.25 (0.50-3.50) K/uL [place] # (Auto) 0.54 (0.00-1.00) K/uL Eos # (Auto) 0.01 (0.00-0.50) K/uL Baso # (Auto) 0.03 (0.00-0.20) K/uL Sodium 141 (136-145) mmol/L Potassium 4.2 (3.5-5.1) mmol/L Chloride 103 (98-107) mmol/L Carbon Dioxide 30.5 (21.0-32.0) mmol/L Anion Gap 7.5 (7-15) meq/L BUN 22 H (7-18) mg/dL Creatinine 1.50 H (0.51-1.17) mg/dL Est Cr Clr Drug Dosing TNP Estimated GFR (MDRD) 45 mL/min Glucose 92 (70-99) mg/dL Lactic Acid 2.1 H (0.4-2.0) mmol/L Calcium 8.9 (8.5-10.1) mg/dL Total Bilirubin 0.9 (0.2-1.0) mg/dL AST 51 H (15-37) U/L ALT 44 (12-78) U/L Alkaline Phosphatase 27 L (46-116) IU/L C-Reactive Protein 5.9 H (<=0.9) mg/dL Total Protein 6.8 (6.4-8.2) g/dL Albumin 3.6 (3.4-5.0) g/dL Specimen Type Urine Color Urine Appearance Urine pH (5.0-9.0) Ur Specific [place] (1.005-1.030) Urine Protein (NEGATIVE) mg/dL Urine Glucose (UA) (NEGATIVE) mg/dL Urine Ketones (NEGATIVE) mg/dL Urine Occult Blood (NEGATIVE) Urine Nitrite (NEGATIVE) Urine Bilirubin (NEGATIVE) Urine Urobilinogen (0.2-1.0) E.U./dL Ur Leukocyte Esterase (NEGATIVE) U Hyaline Cast (Auto) Urine RBC /HPF Urine WBC /HPF Ur Epithelial Cells /LPF Urine Bacteria (NONE TO FEW) /HPF Granular Casts (Auto) Urine Mucus (NEGATIVE) /LPF SARS-CoV-2 Ag (Rapid) (NEGATIVE) 03/30/21 03/30/21 Range/Units 07:36 07:36 WBC (4.0-10.2) K/uL RBC (4.33-5.41) M/uL Hgb (13.1-16.8) g/dL Hct (39.0-49.0) % MCV (84.0-98.0) fL MCH (28.2-33.3) pg MCHC (31.7-36.0) g/dL RDW (11.2-14.1) % Plt Count (150-350) K/uL Neut % (Auto) (45.0-80.0) % Lymph % (Auto) (10.0-50.0) % [place] % (Auto) (2.0-14.0) % Eos % (Auto) (0.0-5.0) % Baso % (Auto) (0.0-2.0) % Neut # (Auto) (1.40-7.00) K/uL Lymph # (Auto) (0.50-3.50) K/uL [place] # (Auto) (0.00-1.00) K/uL Eos # (Auto) (0.00-0.50) K/uL Baso # (Auto) (0.00-0.20) K/uL Sodium 141 (136-145) mmol/L Potassium 4.5 (3.5-5.1) mmol/L Chloride 103 (98-107) mmol/L Carbon Dioxide 30.1 (21.0-32.0) mmol/L Anion Gap 7.9 (7-15) meq/L BUN 23 H (7-18) mg/dL Creatinine 1.29 H (0.51-1.17) mg/dL Est Cr Clr Drug Dosing 41.28 Estimated GFR (MDRD) 53 mL/min Glucose 83 (70-99) mg/dL Lactic Acid 1.3 (0.4-2.0) mmol/L Calcium 8.8 (8.5-10.1) mg/dL Total Bilirubin (0.2-1.0) mg/dL AST (15-37) U/L ALT (12-78) U/L Alkaline Phosphatase (46-116) IU/L C-Reactive Protein 10.4 H (<=0.9) mg/dL Total Protein (6.4-8.2) g/dL Albumin (3.4-5.0) g/dL Specimen Type Urine Color Urine Appearance Urine pH (5.0-9.0) Ur Specific [place] (1.005-1.030) Urine Protein (NEGATIVE) mg/dL Urine Glucose (UA) (NEGATIVE) mg/dL Urine Ketones (NEGATIVE) mg/dL Urine Occult Blood (NEGATIVE) Urine Nitrite (NEGATIVE) Urine Bilirubin (NEGATIVE) Urine Urobilinogen (0.2-1.0) E.U./dL Ur Leukocyte Esterase (NEGATIVE) U Hyaline Cast (Auto) Urine RBC /HPF Urine WBC /HPF Ur Epithelial Cells /LPF Urine Bacteria (NONE TO FEW) /HPF Granular Casts (Auto) Urine Mucus (NEGATIVE) /LPF SARS-CoV-2 Ag (Rapid) (NEGATIVE) Med Orders - Current: Current Medications Albuterol/Ipratropium (Albuterol/Ipratropium 3.0-0.5 Mg/3 Ml Neb Soln) 3 ml NEB QID PRN PRN Reason: Shortness of Breath Aspirin (Aspirin 325 Mg Tab) 325 mg PO DAILY [facility] Last Admin: 03/30/21 08:13 Dose: 325 mg Documented by: Atorvastatin Calcium (Atorvastatin 10 Mg Tab) 20 mg PO BEDTIME [facility]ANDY Budesonide (Budesonide 0.5 Mg/2 Ml Neb Susp) 0.5 mg NEB BIDRT [facility]ANDY Last Admin: 03/30/21 08:34 Dose: Not Given Documented by: Folic Acid (Folic Acid 1 Mg Tab) 1 mg PO DAILY [facility] Last Admin: 03/30/21 08:14 Dose: 1 mg Documented by: Lactated Ringer's (Ringers, Lactated) 1,000 mls @ 150 mls/hr IV ASDIRECTED [facility] Last Admin: 03/30/21 05:45 Dose: 100 mls/hr Documented by: Lisinopril (Lisinopril 20 Mg Tab) 20 mg PO DAILY [facility] Last Admin: 03/30/21 08:13 Dose: 20 mg Documented by: Metoprolol Tartrate (Metoprolol Tartrate 25 Mg Tab) 25 mg PO BID [facility] Last Admin: 03/30/21 08:13 Dose: 25 mg Documented by: Omeprazole (Omeprazole 20 Mg Cap.Cr) 20 mg PO DAILY [facility] Last Admin: 03/30/21 08:14 Dose: 20 mg Documented by: Ondansetron HCl (Ondansetron 4 Mg/2 Ml Sdv) 4 mg IVPUSH Q6H PRN PRN Reason: Nausea/Vomiting Prednisone (Prednisone 5 Mg Tab) 10 mg PO DAILY [facility] Last Admin: 03/30/21 08:14 Dose: 10 mg Documented by: Sodium Chloride (Sodium Chloride 0.9% 10 Ml Syringe) 10 ml FLUSH ASDIRECTED PRN PRN Reason: Keep Vein Open Discontinued Medications Lactated Ringer's (Ringers, Lactated) 1,000 mls @ 1,000 mls/hr IV .BOLUS ONE Stop: 03/29/21 18:09 Last Admin: 03/29/21 17:44 Dose: 1,000 mls/hr Documented by: Comments:: This patient really looks 180 degrees different than yesterday. He is alert he is active. He has energy. He is ambulating without difficulty. He has good color to his face. He is much more interactive and energized today. - Exam General: Reports: Alert, Oriented HEENT: Reports: Pupils Equal, Pupils Reactive, EOMI, Mucous Membr. Moist/[place] Neck: Reports: Supple Lungs: Reports: Clear to Auscultation, Normal Respiratory Effort Cardiovascular: Reports: Regular Rate, Regular Rhythm GI/Abdominal Exam: Normal Bowel Sounds, Non-Tender (Male) Exam: Deferred Rectal (Males) Exam: Deferred Back Exam: Reports: Normal Inspection, Full Range of Motion Extremities: Normal Inspection, Normal Range of Motion, Non-Tender, No Pedal Edema, Normal Capillary Refill Skin: Reports: Warm, Dry Neurological: Reports: No New Focal Deficit Psy/Mental Status: Reports: Alert, Normal Affect, Normal Mood
[2021-03-30] MEDS ORDERED: atorvaSTATin 10 MG Tab PO SCH (20:00)
== END 2021-03-30 13:02 | disposition home or self-care (01) ==
LOC: LL.ED 16:40 → LL.MS 19:45
PROVIDERS: ADMIT Nurse Practitioner Family; ATTEND Family Medicine
DX: R11.2 Nausea with vomiting, unspecified (principal); R19.7 Diarrhea, unspecified; R53.83 Other fatigue; I10 Essential (primary) hypertension; I25.10 Atherosclerotic heart disease of native coronary artery without angina pectoris; M06.9 Rheumatoid arthritis, unspecified; I25.2 Old myocardial infarction; J45.909 Unspecified asthma, uncomplicated; J44.9 Chronic obstructive pulmonary disease, unspecified; N17.9 Acute kidney failure, unspecified; D84.9 Immunodeficiency, unspecified; Z20.822 Contact with and (suspected) exposure to COVID-19; Z95.1 Presence of aortocoronary bypass graft; Z88.8 Allergy status to other drugs, medicaments and biological substances; Z79.82 Long term (current) use of aspirin; Z79.899 Other long term (current) drug therapy; Z98.890 Other specified postprocedural states
CPT/HCPCS: 36415; 71046; 80048; 80053; 81001; 83605; 84145; 85025; 86140; 87040; 87426; 96361; 96365; 99217; 99220; 99285-25; A9270-GY; G0378; J7120; J7512

== ENCOUNTER 2021-05-31 19:30 | Emergency (ER) | payer MEDICARE, OTHER ==
[2021-05-31] MEDS ORDERED: Sodium Chloride 0.9% 100 ML IV ONE (19:31)
[2021-05-31] MEDS ORDERED: Sodium Chloride 0.9% 10 ML Syringe FLUSH PRN (19:51)
--- NOTE | 2021-05-31 20:13 | EDM.PDOC ---
ED HPI GENERAL MEDICAL PROBLEM - General Chief Complaint: General Stated Complaint: weakness, lethargy, cough Time Seen by Provider: 05/31/21 20:00 Source of Information: Reports: Patient, Family History Limitations: Reports: No Limitations - History of Present Illness INITIAL COMMENTS - FREE TEXT/NARRATIVE: Patient presents to the Ed with feeling unwell. He states it started about two days ago with fatigue, loss of appetite and weakness. He has had a cough, sometimes productive but not bloody. He has been chilled. He did not eat or drink today. When family checked on him ( he lives alone but they live nearby), they decided to bring him in. He was hospitalized in late March after getting is high dose flu vaccine for N/V/D. he did get his covid vaccine x 2 with last one in September of this year. No booster, no known sick contact. Did not take anything for it. Normal stools and urination, no rashes, no travel. NO chest pain, he is immunocompromised on methotrexate and chronic steroids for RA. History of elevated ddimer Onset Date: 05/29/21 Duration: Getting Worse Location: Reports: Generalized Associated Symptoms: Reports: Cough, cough w sputum, Fever/Chills, Loss of Appetite, Malaise, Weakness Lower Back Pain Score (Numeric/FACES): 5 - Related Data Allergies Allergy/AdvReac Type Severity Reaction Status Date / Time doxycycline AdvReac Redness Verified 03/29/21 17:21 seasonal Allergy Other Uncoded 03/29/21 17:21 Home Meds: Home Meds Aspirin 325 mg PO DAILY 01/20/19 [History] Metoprolol Tartrate [Lopressor] 25 mg PO BID 01/20/19 [History] Omeprazole 20 mg PO DAILY 01/20/19 [History] Albuterol/Ipratropium [DuoNeb 3.0-0.5 MG/3 ML] 1 unit PO QID PRN 08/12/19 [History] Benazepril [Lotensin] 1 tab PO DAILY 08/12/19 [History] Folic Acid 1 tab PO DAILY 08/12/19 [History] metHOTREXate sodium [Methotrexate] 8 tab PO WEEKLY 08/12/19 [History] predniSONE [Prednisone] 1 tab PO DAILY 08/12/19 [History] Alendronate Sodium [Fosamax] 1 tab PO WEEKLY 03/30/21 [History] Benazepril [Lotensin] 1 tab PO DAILY 03/30/21 [History] Budesonide [Pulmicort] 1 inh NEB BID 03/30/21 [History] atorvaSTATin [Lipitor] 20 mg PO BEDTIME tablet 03/30/21 [Rx] sulfaSALAzine [Azulfidine] 0.5 tab PO BIDMEALS 03/30/21 [History] Benzonatate [Tessalon Perles] 100 mg PO TID PRN #30 cap 05/31/21 [Rx] predniSONE [Prednisone] 4 mg PO DAILY 05/31/21 [History] Past Medical History HEENT History: Reports: Cataract, Hard of Hearing, Impaired Vision, Other (See Below) Other HEENT History: Patient wears glasses; bilateral presbycusis with suboptimal bilateral hearing aide therapy Cardiovascular History: Reports: Bypass, Hypertension, [place] Other Cardiovascular History: Grade 1 diastolic dysfunction by echocardiogram in 2017 as below. History with inferior wall STEMI requiring four-vessel CABG as below with newly diagnosed atrial fibrillation with rapid ventricular response at that time; PVCs and PACs Respiratory History: Reports: Asthma Other Respiratory History: Bilateral benign pulmonary granulomas, including the left lower lobe. Botello's lung/COPD. Gastrointestinal History: Reports: Cholelithiasis, Chronic Constipation, Colon Polyp, Diverticulosis, Gastritis, GERD, Helicobacter Pylori, Hiatal Hernia, Other (See Below) Other Gastrointestinal History: History of recurrent sigmoid colonic polyps including initial hyperplastic polyps 2 on 06/26/03 with subsequent 1 hyperplastic polyp and an additional tubular adenoma in the sigmoid region on 09/16/07; positive H pylori biopsy at time of EGD on 09/16/07; nonsymptomatic cholelithiasis by CT scan on 02/21/14. Genitourinary History: Reports: BPH Other Genitourinary History: bilateral hydroceles Musculoskeletal History: Reports: Arthritis Other Musculoskeletal History: Left clavicular fracture as a child; bilateral carpal tunnel syndrome with right sided surgery as below; rheumatoid factor positive rheumatoid arthritis with current aggressive medical therapy, mild scoliosis Neurological History: Reports: None Psychiatric History: Reports: None Endocrine/Metabolic History: Reports: None Hematologic History: Reports: None Immunologic History: Reports: Immunosuppression, Other (See Below) Other Immunologic History: Rheumatoid Arthritis Oncologic (Cancer) History: Reports: Basal Cell Carcinoma, Squamous Cell C arcinoma, Other (See Below) Other Oncologic History: 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 Dermatologic History: Reports: Other (See Below) Other Dermatologic History: Actinic keratosis with additional history of skin cancer as above. - Infectious Disease History Infectious Disease History: Reports: Chicken Pox, Influenza, Measles, Mumps, Shingles - Past Surgical History Head Surgeries/Procedures: Reports: None HEENT Surgical History: Reports: Adenoidectomy, Cataract Surgery, Eye Surgery, Oral Surgery, Tonsillectomy, Other (See Below) Other HEENT Surgeries/Procedures: Tonsillectomy and adenoidectomy at age 4. Bilateral cataract surgery in about 2013. Walsh teeth extraction 4 and multiple teeth extractions. Cardiovascular Surgical History: Reports: Coronary Artery Bypass, Coronary Artery Stent, Percutaneous Transluminal Angioplasty, Other (See Below) Other Cardiovascular Surgeries/Procedures: CABG 4 on 10/31/16 Respiratory Surgical History: Reports: None GI Surgical History: Reports: Colonoscopy, EGD, Polypectomy, Other (See Below) Other GI Surgeries/Procedures: Last EGD and colonoscopy on 09/16/07 with previous colonoscopy on 06/26/03 Male Surgical History: Reports: Other (See Below) Other Male Surgeries/Procedures: Right testicular surgery 1992 Endocrine Surgical History: Reports: None Neurological Surgical History: Reports: None Musculoskeletal Surgical History: Reports: Carpal Tunnel, Other (See Below) Other Musculoskeletal Surgeries/Procedures:: Right carpal tunnel release in 1998 with left-sided carpal tunnel release in about 2000. Oncologic Surgical History: Reports: None Dermatological Surgical History: Reports: Skin Biopsy, Other (See Below) - Past Imaging History Past Imaging History: Reports: Angiography (Heart catheterization on 10/30/16.), Cardiac Echo (Echocardiogram on 10/31/16 with ejection fraction of 60%.), CAT Scan (CT of the chest on 02/21/14), MRI (MRI of the cervical spine on 11/01/13), Stress Testing (Low level cardiac stress test on 11/25/16, Cardiolite stress test on 08/25/02 with ejection fraction of 63%), Ultrasound (Left arm arterial duplex evaluation prior to CABG on 10/30/17. Bilateral scrotal ultrasounds on 07/25/13 and 05/26/06 with previous left-sided evaluation on 11/05/04), Venous Doppler (Venous Doppler study of the right leg on 09/09/13.) Social & Family History - Family History HEENT: Reports: Other (See Below) Other HEENT Family History: Brother with color blindness. Cardiac: Reports: High Cholesterol, Hypertension, Other (See Below) Other Cardiac Family History: Brother with hyperlipidemia and hypertension. Respiratory: Reports: COPD, Other (See Below) Other Respiratory Family Hisory: Brother with history of COPD with history of tobacco use. GI: Reports: None : Reports: None OBGYN: Reports: None Musculoskeletal: Reports: Arthritis, Osteoarthritis, Other (See Below) Other Musculoskeletal Family History: Brother with osteoarthritis. Neurological: Reports: Neuropathy, Diabetic, Other (See Below) Other Neurological Family History: Daughter with diabetic neuropathy. Psychiatric: Reports: Anxiety, Depression, PTSD, Other (See Below) Other Psychiatric Family History: Brother with history of alcohol abuse, PTSD, anxiety, and depression. Endocrine/Metabolic: Reports: Diabetes, Type I, Diabetes, type II, IDDM, Other (See Below) Other Endocrine/Metabolic Family History: Daughter with type I IDDM initially diagnosed at age 28; brother with obesity and subsequent IDDM with fatal complications from his diabetes at age 75. Maternal grandfather with IDDM. AODM in paternal uncle and maternal uncles having IDDM Hematologic: Reports: None Immunologic: Reports: None Dermatologic: Reports: None Oncologic: Reports: Breast, Metastatic, Skin, Other (See Below) Other Oncologic Family History: Mother with fatal metastatic breast cancer at age 78, father with testicular cancer at age 88. Father with unknown type of skin cancer. 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 Denies: Shortness of Breath, Wheezing Cardiovascular: Reports: No Symptoms. Denies: Chest Pain, Blood Pressure Problem, Dyspnea on Exertion, Edema Endocrine: Reports: Fatigue GI/Abdominal: Reports: Anorexia. Denies: Abdominal Pain, Constipation, Diarrhea, Nausea, Vomiting : Reports: No Symptoms. Denies: Dysuria, Frequency, Urinary Retention Musculoskeletal: Reports: Muscle Pain (generalized) Neurological: Reports: Headache, Weakness. Denies: Confusion, Dizziness, Trouble Speaking, Difficulty Walking Psychiatric: Reports: No Symptoms ED EXAM, GENERAL - Physical Exam Exam: See Below Exam Limited By: No Limitations General Appearance: Alert, WD/WN, No Apparent Distress Eye Exam: Bilateral Eye: EOMI, Normal Inspection, PERRL Ears: Normal External Exam, Normal Canal, Normal TMs, Hearing Loss Nose: Normal Inspection, Normal Mucosa Throat/Mouth: Normal Lips, Normal Oropharynx, Normal Voice, No Airway Compromise Head: Atraumatic Neck: Normal Inspection, Supple, Non-Tender, Full Range of Motion Respiratory/Chest: No Respiratory Distress, Normal Breath Sounds, Decreased Breath Sounds (lower rivas with very minimal crackles/rub) Cardiovascular: Normal Peripheral Pulses, Regular Rate, Rhythm, No Edema GI/Abdominal: Normal Bowel Sounds, Soft, Non-Tender, No Distention Extremities: Normal Inspection, Normal Range of Motion Neurological: Alert, Oriented, CN II-XII Intact, Normal Cognition, Normal Gait #1 Interpretation EKG Date: 05/31/21 Time: 20:34 Rhythm: NSR Rate (Beats/Min): 90 [place]: Normal P-Wave: Present QRS: Normal ST-T: Normal QT: Normal Course - Vital Signs Last Recorded V/S: Last Vital Signs Temp 38.1 C 05/31/21 19:31 Pulse 92 05/31/21 19:31 Resp 18 05/31/21 19:31 BP 150/60 H 05/31/21 19:31 Pulse Ox 93 L 05/31/21 19:31 - Orders/Labs/Meds Orders: Active Orders 24 hr Category Date Time Status EKG Documentation Completion [RC] ASDIRECTED Care 05/31/21 19:53 Active Peripheral IV Care [RC] . DIRECTED Care 05/31/21 19:53 Active Pulse Oximetry [RC] CONTINUOUS Care 05/31/21 19:52 Active Vital Signs [RC] Q1H Care 05/31/21 19:51 Active Chest 1V Frontal [CR] Stat Exams 05/31/21 20:45 Ordered C-REACTIVE PROTEIN [CHEM] Stat Lab 05/31/21 19:51 Ordered COMPREHENSIVE METABOLIC PN,CMP [CHEM] Stat Lab 05/31/21 19:51 Ordered CULTURE BLOOD [BC] Stat Lab 05/31/21 19:53 Ordered CULTURE BLOOD [BC] Stat Lab 05/31/21 19:53 Ordered D-DIMER QUANTITATIVE [COAG] Stat Lab 05/31/21 19:51 Ordered LACTIC ACID [CHEM] Stat Lab 05/31/21 19:51 Ordered TROPONIN I HIGH SENSITIVITY [CHEM] Stat Lab 05/31/21 19:51 Ordered UA RFX TRINA AND CULT IF INDIC [URIN] Stat Lab 05/31/21 19:51 Ordered Sodium Chloride 0.9% [Saline Flush] Med 05/31/21 19:51 Active 10 ml FLUSH ASDIRECTED PRN Blood Culture x2 Reflex Set [OM.PC] Stat Oth 05/31/21 19:53 Ordered Peripheral IV Insertion Adult [OM.PC] Urgent Oth 05/31/21 19:51 Ordered EKG 12 Lead [EK] Stat Ther 05/31/21 19:51 Ordered Medication Orders Sodium Chloride (Sodium Chloride 0.9% 10 Ml Syringe) 10 ml FLUSH ASDIRECTED PRN PRN Reason: Keep Vein Open Labs: Laboratory Tests 05/31/21 05/31/21 Range/Units 20:06 20:45 WBC 6.3 (4.0-10.2) K/uL RBC 4.49 (4.33-5.41) M/uL Hgb 14.0 (13.1-16.8) g/dL Hct 43.2 (39.0-49.0) % MCV 96.2 (84.0-98.0) fL MCH 31.2 (28.2-33.3) pg MCHC 32.4 (31.7-36.0) g/dL RDW 15.8 H (11.2-14.1) % Plt Count 168 (150-350) K/uL Neut % (Auto) 61.1 (45.0-80.0) % Lymph % (Auto) 26.5 (10.0-50.0) % [place] % (Auto) 11.9 (2.0-14.0) % Eos % (Auto) 0.2 (0.0-5.0) % Baso % (Auto) 0.3 (0.0-2.0) % Neut # (Auto) 3.85 (1.40-7.00) K/uL Lymph # (Auto) 1.67 (0.50-3.50) K/uL [place] # (Auto) 0.75 (0.00-1.00) K/uL Eos # (Auto) 0.01 (0.00-0.50) K/uL Baso # (Auto) 0.02 (0.00-0.20) K/uL Influenza Type A RNA Negative (NEGATIVE) RSV RNA (INAAT) Negative (NEGATIVE) Influenza Type B RNA Negative (NEGATIVE) SARS-CoV-2 RNA (LYNDON) Positive H (NEGATIVE) Meds: Medications Generic Name Dose Route Start Last Admin Trade Name Freq PRN Reason Stop Dose Admin Sodium Chloride 10 ml 05/31/21 19:51 Sodium Chloride 0.9% 10 Ml Syringe FLUSH ASDIRECTED PRN Keep Vein Open Discontinued Medications Generic Name Dose Route Start Last Admin Trade Name Freq PRN Reason Stop Dose Admin Acetaminophen 1,000 mg 05/31/21 19:51 Acetaminophen 500 Mg Tab PO 05/31/21 19:52 ONETIME ONE Sodium Chloride 1,000 mls @ 999 mls/hr 05/31/21 19:51 Normal Saline IV 05/31/21 20:51 .BOLUS ONE - Radiology Interpretation Free Text/Narrative:: chest x-ray one view, no acute changes, old sternotomy, interpreted by radiology - Re-Assessments/Exams Free Text/Narrative Re-Assessment/Exam: 05/31/21 20:15 Will do blood cultures x 2, given IV fluids due to not eating or drinking, give tylenol one gram po. Will check for UTI, flu/covid, sepsis work up. Has a fever of 100.6 05/31/21 21:25 Patient is covid positive, not tachycardic or hypoxic 9 O2 sats 98% on room air). Age adjusted ddimer is unlikiely for PE or DVT as age adjusted ddimer would be 820. Has had a ddimer of 1000 in the past with negative DVT and PE studies. Will not persue PE protocol given renal function. Can entertain this if he becomes hypoxic. Did discuss monoclonal antibodies give his methotrexate and steroid use, he is high risk for sever covid 19 and complications. Does not meet criteria for hospitalization. Will give antibody infusion. will get urine before leaves. Discussed with him the need for staying home, quarantining, wearing a mask. Discussed if he becomes confused, feels more short of breath, breathes are greater than 22 a minute, should return. needs to eat and drink, continue current meds. Will give tessalon and encourage cough medication and fever control. Discussed proning at home. Has a good support system. 05/31/21 21:57 Patient has an incentive spirometer at home and nebulizers. Daughter will stay with him. They are aware of need for symptom monitoring if fully vaccinated and quarantine if not vaccinated. Departure - Departure Time of Disposition: 23:30 Disposition: Home, Self-Care 01 Condition: Fair Clinical Impression: Fever, COVID-19 in immunocompromised patient - Discharge Information Prescriptions: Benzonatate [Tessalon Perles] 100 mg PO TID PRN #30 cap PRN Reason: Cough Instructions: COVID-19 Frequently Asked Questions, Prone Position Therapy, 10 Things You Can Do to Manage Your COVID-19 Symptoms at Home - CDC (01/18/2021), Fever, Adult, [id number] Referrals: Bessy English PA [Primary Care Provider] - Forms: ED Department Discharge Additional Instructions: It is important that you stay home and distance yourself from others. If you can not do this for the next 10 days, wear a mask. You need to make sure you are eating and drinking even if you are not hungry. if your urine is dark, you need to drink more fluids. Control fevers with 650-1000 mg of Tylenol ( acetaminophen) every 4-5 hours./ You can use the tessalon for the cough, over the counter delsym or other cough medications. use the incentive spirometer ( you have at home from heart surgery) every hour while awake to help with deep breathes, 10 repetitions each time. Use your inhaler and your nebulizers to help with your breathing. You were given monoclonal antibodies , this is a medication that neutralizes the covid in your body to help stop the replicating of the virus. It takes about a day to start to feel better. You should return to the ED for increased shortness of breath with minimal activity, breathing more than 22 breaths a minute, bluish discoloration of lips or fingernails, or increased confusion as your oxygen can slowly decrease with COVID without you knowing it. You should attempt to spend 12 hours a day laying on your stomach ( prone position) to help move the fluid that covid produces to the front of the lungs and help in your breathing. Sepsis Event Note (ED) - Evaluation Sepsis Screening Result: Possible Sepsis Risk - Focused Exam Vital Signs: Vital Signs Temp Pulse Resp BP Pulse Ox 05/31/21 19:31 38.1 C 92 18 150/60 H 93 L - My Orders Last 24 Hours: My Active Orders 05/31/21 19:51 Vital Signs [RC] Q1H C-REACTIVE PROTEIN [CHEM] Stat COMPREHENSIVE METABOLIC PN,CMP [CHEM] Stat D-DIMER QUANTITATIVE [COAG] Stat LACTIC ACID [CHEM] Stat TROPONIN I HIGH SENSITIVITY [CHEM] Stat UA RFX TRINA AND CULT IF INDIC [URIN] Stat Sodium Chloride 0.9% [Saline Flush] 10 ml FLUSH ASDIRECTED PRN Peripheral IV Insertion Adult [OM.PC] Urgent EKG 12 Lead [EK] Stat 05/31/21 19:52 Pulse Oximetry [RC] CONTINUOUS 05/31/21 19:53 EKG Documentation Completion [RC] ASDIRECTED Peripheral IV Care [RC] . DIRECTED CULTURE BLOOD [BC] Stat CULTURE BLOOD [BC] Stat Blood Culture x2 Reflex Set [OM.PC] Stat 05/31/21 20:45 Chest 1V Frontal [CR] Stat - Assessment/Plan Last 24 Hours: My Active Orders 05/31/21 19:51 Vital Signs [RC] Q1H C-REACTIVE PROTEIN [CHEM] Stat COMPREHENSIVE METABOLIC PN,CMP [CHEM] Stat D-DIMER QUANTITATIVE [COAG] Stat LACTIC ACID [CHEM] Stat TROPONIN I HIGH SENSITIVITY [CHEM] Stat UA RFX TRINA AND CULT IF INDIC [URIN] Stat Sodium Chloride 0.9% [Saline Flush] 10 ml FLUSH ASDIRECTED PRN Peripheral IV Insertion Adult [OM.PC] Urgent EKG 12 Lead [EK] Stat 05/31/21 19:52 Pulse Oximetry [RC] CONTINUOUS 05/31/21 19:53 EKG Documentation Completion [RC] ASDIRECTED Peripheral IV Care [RC] . DIRECTED CULTURE BLOOD [BC] Stat CULTURE BLOOD [BC] Stat Blood Culture x2 Reflex Set [OM.PC] Stat 05/31/21 20:45 Chest 1V Frontal [CR] Stat
[2021-05-31 20:59] LABS: RESPIRATORY SYNCYTIAL VIR NAA NEGATIVE (NEGATIVE)
[2021-05-31 21:01] LABS: CORONAVIRUS COVID-19 NAA POSITIVE (NEGATIVE)
[2021-05-31] MEDS: Acetaminophen 500 MG Tab PO ONE (21:06)
[2021-05-31] MEDS: Sodium Chloride 0.9% 1,000 ML IV ONE (21:08)
[2021-05-31 21:15] LABS: ANION GAP 11.4 meq/L (7-15)
[2021-05-31] MEDS ORDERED: Famotidine 20 MG/2 ML SDV IVPUSH PRN (21:34)
[2021-05-31] MEDS ORDERED: methylPREDNISolone Sodium Succinate 125 MG/2 ML SDV IVPUSH PRN (21:34)
[2021-05-31] MEDS ORDERED: diphenhydrAMINE 50 MG/ML SDV IVPUSH PRN (21:34)
[2021-05-31] MEDS ORDERED: EPINEPHrine 1 MG/ML SDV IM PRN (21:34)
[2021-05-31] MEDS: Sodium Chloride 0.9% 10 ML Syringe FLUSH SCH (22:30)
[2021-06-01 05:46] VITALS: BP 153/59
[2021-06-01 05:47] VITALS: PULSE 84
== END 2021-05-31 23:50 | disposition home or self-care (01) ==
LOC: LL.ED 19:30
DX: U07.1 COVID-19 (principal); D84.9 Immunodeficiency, unspecified; I25.2 Old myocardial infarction; I10 Essential (primary) hypertension; Z95.1 Presence of aortocoronary bypass graft; Z88.1 Allergy status to other antibiotic agents; Z79.82 Long term (current) use of aspirin; Z79.899 Other long term (current) drug therapy; Z91.09 Other allergy status, other than to drugs and biological substances; Z20.822 Contact with and (suspected) exposure to COVID-19
CPT/HCPCS: 0241U; 36415; 71045; 80053; 83605; 84484; 85025; 85379; 86140; 87040; 93005; 93010; 99284; 99284-25; A9270-GY; J7030; M0247; Q0247

== ENCOUNTER 2021-10-01 11:57 | Emergency (ER) | payer MEDICARE, OTHER ==
[2021-10-01 13:00] LABS: ANION GAP 8.1 meq/L (7-15); CHLORIDE,CL 103 mmol/L (98-107); SODIUM,NA 142 mmol/L (136-145)
[2021-10-01 13:34] LABS: RESPIRATORY SYNCYTIAL VIR NAA NEGATIVE (NEGATIVE)
[2021-10-01 13:39] LABS: CORONAVIRUS COVID-19 NAA POSITIVE (NEGATIVE)
[2021-10-01] MEDS ORDERED: EPINEPHrine 1 MG/ML SDV IM PRN (13:52)
[2021-10-01] MEDS ORDERED: diphenhydrAMINE 50 MG/ML SDV IVPUSH PRN (13:52)
[2021-10-01] MEDS ORDERED: Sodium Chloride 0.9% 10 ML Syringe FLUSH PRN (13:52)
[2021-10-01] MEDS ORDERED: Famotidine 20 MG/2 ML SDV IVPUSH PRN (13:52)
[2021-10-01] MEDS ORDERED: methylPREDNISolone Sodium Succinate 125 MG/2 ML SDV IVPUSH PRN (13:52)
[2021-10-01] MEDS ORDERED: Sodium Chloride 0.9% 10 ML Syringe FLUSH SCH (14:00)
[2021-10-01] MEDS ORDERED: Sodium Chloride 0.9% 100 ML IV ONE (15:10)
[2021-10-01] MEDS ORDERED: Azithromycin 250 MG Tab PO ONE (16:24)
[2021-10-01 16:38] VITALS: PULSE 83
[2021-10-01 17:25] VITALS: BP 165/82
== END 2021-10-01 17:05 | disposition home or self-care (01) ==
LOC: LL.ED 11:57
DX: U07.1 COVID-19 (principal); D84.821 Immunodeficiency due to drugs; T38.0X5A Adverse effect of glucocorticoids and synthetic analogues, initial encounter; I10 Essential (primary) hypertension; I25.2 Old myocardial infarction; N40.0 Benign prostatic hyperplasia without lower urinary tract symptoms; Z88.1 Allergy status to other antibiotic agents; Z88.8 Allergy status to other drugs, medicaments and biological substances; Z79.899 Other long term (current) drug therapy; Z95.1 Presence of aortocoronary bypass graft
CPT/HCPCS: 0241U; 36415; 71046; 80053; 81001; 83605; 84484; 85025; 93005; 93010; 99284; 99284-25; J3490; M0247; Q0247

== ENCOUNTER 2022-01-05 20:08 | Inpatient (IN) | payer MEDICARE, OTHER ==
[2022-01-05] MEDS ORDERED: Sodium Chloride 0.9% 10 ML Syringe FLUSH PRN (20:10)
[2022-01-05] MEDS ORDERED: Sodium Chloride 0.9% 1,000 ML IV SCH ×2 (20:15→21:45)
[2022-01-05 20:48] LABS: ANION GAP 7.5 meq/L (7-15); CHLORIDE,CL 101 mmol/L (98-107); SODIUM,NA 137 mmol/L (136-145)
[2022-01-05 20:50] LABS: ESTIMATED GFR 36 mL/min (>=60)
[2022-01-05] MEDS ORDERED: Polyethylene Glycol 3350 Powder 17 GM Packet PO PRN (22:21)
[2022-01-05] MEDS ORDERED: Ondansetron 4 MG Tab.DIS PO PRN (22:21)
[2022-01-05] MEDS: Albuterol/Ipratropium 3.0-0.5 MG/3 ML Neb Soln INH PRN (22:41)
[2022-01-05] MEDS: Heparin Sodium 5,000 Units/ML Vial SUBCUT SCH (22:42)
[2022-01-06] MEDS: Lactated Ringers 1,000 ML IV SCH ×3 (02:09→18:03)
[2022-01-06] MEDS: Omeprazole 20 MG Cap.CR PO SCH (07:48)
[2022-01-06] MEDS: Metoprolol Tartrate 25 MG Tab PO SCH ×2 (07:48→18:10)
[2022-01-06] MEDS: predniSONE 1 MG Tab PO SCH (07:49)
[2022-01-06] MEDS: Albuterol/Ipratropium 3.0-0.5 MG/3 ML Neb Soln INH PRN ×2 (07:52→21:59)
[2022-01-06] MEDS: Heparin Sodium 5,000 Units/ML Vial SUBCUT SCH ×2 (07:53→18:11)
[2022-01-06] MEDS: Budesonide 0.5 MG/2 ML Neb Susp NEB SCH ×3 (07:57→21:59)
[2022-01-06 08:24] LABS: ANION GAP 8.5 meq/L (7-15)
[2022-01-06] MEDS ORDERED: Magnesium Sulfate/Water 2 GM in Premix Bag 1 BAG IV ONE (09:06)
[2022-01-07] MEDS: Acetaminophen 325 MG Tab PO PRN ×2 (00:39→09:08)
[2022-01-07] MEDS: Heparin Sodium 5,000 Units/ML Vial SUBCUT SCH ×3 (02:43→18:21)
[2022-01-07] MEDS: Lactated Ringers 1,000 ML IV SCH ×2 (02:59→11:17)
[2022-01-07 08:08] LABS: ANION GAP 6.2 meq/L (7-15)
[2022-01-07] MEDS: Metoprolol Tartrate 25 MG Tab PO SCH ×2 (09:07→18:22)
[2022-01-07] MEDS: Omeprazole 20 MG Cap.CR PO SCH (09:07)
[2022-01-07] MEDS: predniSONE 1 MG Tab PO SCH (09:07)
[2022-01-07] MEDS: Budesonide 0.5 MG/2 ML Neb Susp NEB SCH ×2 (09:09→20:53)
[2022-01-07] MEDS ORDERED: Magnesium Sulfate/Water 2 GM in Premix Bag 1 BAG IV ONE (10:15)
[2022-01-07] MEDS: cefTRIAXone 2 GM in Sodium Chloride 0.9% 100 ML IV SCH (14:23)
[2022-01-07] MEDS ORDERED: hydrALAZINE 20 MG/ML SDV IVPUSH ONE (16:59)
[2022-01-07] MEDS: Lisinopril 20 MG Tab PO SCH (21:16)
[2022-01-08] MEDS: Heparin Sodium 5,000 Units/ML Vial SUBCUT SCH ×2 (02:12→09:01)
[2022-01-08 08:01] LABS: ANION GAP 4.7 meq/L (7-15)
[2022-01-08] MEDS ORDERED: Magnesium Chloride 64 MG Tab.ER PO SCH (08:50)
[2022-01-08] MEDS: predniSONE 1 MG Tab PO SCH (08:50)
[2022-01-08] MEDS: Lisinopril 20 MG Tab PO SCH (08:50)
[2022-01-08] MEDS: Omeprazole 20 MG Cap.CR PO SCH (08:51)
[2022-01-08] MEDS: Metoprolol Tartrate 25 MG Tab PO SCH (08:51)
[2022-01-08] MEDS: Budesonide 0.5 MG/2 ML Neb Susp NEB SCH (08:51)
[2022-01-08] MEDS: cefTRIAXone 2 GM in Sodium Chloride 0.9% 100 ML IV SCH (14:51)
[2022-01-08 15:46] VITALS: BP 177/56; PULSE 74
[2022-01-08] MEDS ORDERED: Chlorthalidone 25 MG Tab PO SCH (16:00)
[2022-01-09] MEDS ORDERED: Ciprofloxacin 500 MG Tab PO SCH (08:00)
== END 2022-01-08 17:20 | disposition home or self-care (01) | DRG 683 ==
LOC: SUPCPDRO 20:08 → LL.ED 20:08 → LL.MS 21:38
PROVIDERS: ADMIT Hospitalist; ATTEND Hospitalist
DX: T79.6XXA Traumatic ischemia of muscle, initial encounter (principal); W19.XXXA Unspecified fall, initial encounter; N17.9 Acute kidney failure, unspecified; B17.9 Acute viral hepatitis, unspecified; M62.82 Rhabdomyolysis; E87.2 Acidosis; R78.81 Bacteremia; I50.32 Chronic diastolic (congestive) heart failure; I13.0 Hypertensive heart and chronic kidney disease with heart failure and stage 1 through stage 4 chronic kidney disease, or unspecified chronic kidney disease; D84.821 Immunodeficiency due to drugs; Z66 Do not resuscitate; N18.2 Chronic kidney disease, stage 2 (mild); E83.42 Hypomagnesemia; I25.10 Atherosclerotic heart disease of native coronary artery without angina pectoris; E78.2 Mixed hyperlipidemia; K27.9 Peptic ulcer, site unspecified, unspecified as acute or chronic, without hemorrhage or perforation; J44.9 Chronic obstructive pulmonary disease, unspecified; M06.9 Rheumatoid arthritis, unspecified; H54.7 Unspecified visual loss; T38.0X5A Adverse effect of glucocorticoids and synthetic analogues, initial encounter; H91.90 Unspecified hearing loss, unspecified ear; K59.09 Other constipation; K57.90 Diverticulosis of intestine, part unspecified, without perforation or abscess without bleeding; N40.0 Benign prostatic hyperplasia without lower urinary tract symptoms; Z98.49 Cataract extraction status, unspecified eye; Z95.1 Presence of aortocoronary bypass graft; Z88.8 Allergy status to other drugs, medicaments and biological substances; Z88.1 Allergy status to other antibiotic agents; Z79.52 Long term (current) use of systemic steroids; Z79.82 Long term (current) use of aspirin; Z79.899 Other long term (current) drug therapy; I25.2 Old myocardial infarction; Z98.890 Other specified postprocedural states; Z95.5 Presence of coronary angioplasty implant and graft; Z87.891 Personal history of nicotine dependence; Z79.51 Long term (current) use of inhaled steroids
CPT/HCPCS: 36415; 51702; 80053; 82550; 83605; 85025; J7030; 81001; 83735; 85027; 85610; 87040; 87077; 87086; 87088; 87186; 94640; 96360; 96361; 97161-GP; 99285-25; A9270-GY; J0360; J0696; J1644; J3475; J7120; J7512; J7620-GY

== ENCOUNTER 2022-06-26 22:42 | Emergency (ER) | payer MEDICARE, OTHER ==
[2022-06-26] MEDS ORDERED: Clotrimazole 1% Crm 30 GM Tube TOP ONE (23:12)
[2022-06-26] MEDS ORDERED: cloNIDine 0.1 MG Tab PO ONE (23:21)
[2022-06-26] MEDS ORDERED: Clindamycin HCl 150 MG Cap PO ONE (23:21)
[2022-06-26 23:49] VITALS: BP 175/96; PULSE 61
== END 2022-06-26 23:45 | disposition home or self-care (01) ==
LOC: LL.ED 22:42
DX: R21 Rash and other nonspecific skin eruption (principal); I10 Essential (primary) hypertension; I25.2 Old myocardial infarction; J45.909 Unspecified asthma, uncomplicated; K21.9 Gastro-esophageal reflux disease without esophagitis; M19.90 Unspecified osteoarthritis, unspecified site; Z88.8 Allergy status to other drugs, medicaments and biological substances; Z91.048 Other nonmedicinal substance allergy status; Z79.82 Long term (current) use of aspirin; Z79.899 Other long term (current) drug therapy
CPT/HCPCS: 99283; 99284; A9270-GY

== ENCOUNTER 2024-02-19 15:47 | Observation (INO) | payer MEDICARE ==
[2024-02-19] MEDS ORDERED: Sodium Chloride 0.9% 10 ML Syringe FLUSH PRN (15:56)
[2024-02-19 16:10] LABS: BASOPHILS PERCENT AUTO 1.9 % (0.0-2.0); EOSINOPHILS ABSOLUTE AUTO 0.01 K/uL (0.00-0.50); EOSINOPHILS PERCENT AUTO 0.2 % (0.0-5.0); HEMATOCRIT 36.8 % (39.0-49.0); HEMOGLOBIN 11.9 g/dL (13.1-16.8); LYMPHOCYTES ABSOLUTE AUTO 1.61 K/uL (0.50-3.50); LYMPHOCYTES PERCENT AUTO 30.2 % (10.0-50.0); MEAN CORPUSCULAR HEMOGLOBIN 30.8 pg (28.2-33.3); MEAN CORPUSCULAR HGB CONC 32.3 g/dL (31.7-36.0); MEAN CORPUSCULAR VOLUME 95.3 fL (84.0-98.0); MONOCYTES ABSOLUTE AUTO 1.01 K/uL (0.00-1.00); MONOCYTES PERCENT AUTO 18.9 % (2.0-14.0); NEUTROPHILS PERCENT AUTO 48.8 % (45.0-80.0); PLATELET COUNT,PLT 120 K/uL (150-350); RED BLOOD CELL COUNT 3.86 M/uL (4.33-5.41); RED CELL DISTRIBUTION WIDTH 13.5 % (11.2-14.1); WHITE BLOOD CELL COUNT,WBC 5.3 K/uL (4.0-10.2)
[2024-02-19 16:47] LABS: INFLUENZA A NAA NEGATIVE (NEGATIVE); INFLUENZA B NAA NEGATIVE (NEGATIVE); RESPIRATORY SYNCYTIAL VIR NAA NEGATIVE (NEGATIVE)
[2024-02-19 16:50] LABS: ALANINE AMINOTRANSFERASE,ALT 29 U/L (12-78); ALBUMIN 3.9 g/dL (3.4-5.0); ALKALINE PHOSPHATASE 30 IU/L (46-116); ASPARTATE AMNIOTRANSFERASE,AST 34 U/L (15-37); BILIRUBIN TOTAL 0.5 mg/dL (0.2-1.0); BLOOD UREA NITROGEN,BUN 18 mg/dL (7-18); C-REACTIVE PROTEIN 2.95 mg/dL (0.05-0.30); CALCIUM 9.5 mg/dL (8.5-10.1); CARBON DIOXIDE,CO2 33.9 mmol/L (21.0-32.0); CHLORIDE,CL 101 mmol/L (98-107); CREATININE 1.45 mg/dL (0.51-1.17); GLUCOSE RANDOM 103 mg/dL (70-99); MAGNESIUM 1.6 mg/dL (1.8-2.4); POTASSIUM,K 4.2 mmol/L (3.5-5.1); PROTEIN TOTAL,TP 7.7 g/dL (6.4-8.2); SODIUM,NA 142 mmol/L (136-145)
[2024-02-19 16:51] LABS: ANION GAP 11.3 meq/L (7-15); CORONAVIRUS COVID-19 NAA POSITIVE (NEGATIVE); ESTIMATED GFR 48 mL/min (>=60)
[2024-02-19 18:12] LABS: BILIRUBIN,URINE NEGATIVE (NEGATIVE); COLOR,URINE YELLOW; GLUCOSE,URINE NEGATIVE (NEGATIVE); KETONES,URINE TRACE mg/dL (NEGATIVE); LEUKOCYTE ESTERASE,URINE NEGATIVE (NEGATIVE); NITRITE,URINE NEGATIVE (NEGATIVE); OCCULT BLOOD,URINE MODERATE (NEGATIVE); PROTEIN,URINE 100 mg/dL (NEGATIVE); UROBILINOGEN,URINE 0.2 E.U./dL (0.2-1.0)
[2024-02-19 18:21] LABS: AMORPHOUS SEDIMENT,URINE RARE /HPF (0/HPF); APPEARANCE,URINE CLEAR; BACTERIA,URINE NOT SEEN /HPF (NONE TO FEW); EPITHELIAL CELLS,URINE RARE /LPF; HYALINE CASTS,URINE RARE; MUCUS,URINE RARE /LPF (NEGATIVE)
[2024-02-19 18:23] LABS: LACTIC ACID 1.3 mmol/L (0.4-2.0)
[2024-02-19] MEDS: Sodium Chloride 0.9% 1,000 ML IV SCH (19:07)
[2024-02-19] MEDS ORDERED: Albuterol/Ipratropium 3.0-0.5 MG/3 ML Neb Soln INH PRN (19:13)
[2024-02-19] MEDS ORDERED: Alendronate 70 MG Tab PO SCH (19:15)
[2024-02-19] MEDS: Acetaminophen 500 MG Tab PO PRN (22:23)
[2024-02-20] MEDS: Magnesium Oxide 400 MG Tab PO SCH (00:35)
[2024-02-20 07:45] LABS: BASOPHILS ABSOLUTE AUTO 0.05 K/uL (0.00-0.20); BASOPHILS PERCENT AUTO 1.1 % (0.0-2.0); EOSINOPHILS ABSOLUTE AUTO 0.01 K/uL (0.00-0.50); EOSINOPHILS PERCENT AUTO 0.2 % (0.0-5.0); HEMATOCRIT 33.2 % (39.0-49.0); HEMOGLOBIN 10.6 g/dL (13.1-16.8); LYMPHOCYTES PERCENT AUTO 37.3 % (10.0-50.0); MEAN CORPUSCULAR HEMOGLOBIN 30.6 pg (28.2-33.3); MEAN CORPUSCULAR HGB CONC 31.9 g/dL (31.7-36.0); MONOCYTES ABSOLUTE AUTO 1.23 K/uL (0.00-1.00); NEUTROPHILS ABSOLUTE AUTO 1.57 K/uL (1.40-7.00); NEUTROPHILS PERCENT AUTO 34.4 % (45.0-80.0); PLATELET COUNT,PLT 103 K/uL (150-350); RED BLOOD CELL COUNT 3.46 M/uL (4.33-5.41); RED CELL DISTRIBUTION WIDTH 13.8 % (11.2-14.1); WHITE BLOOD CELL COUNT,WBC 4.6 K/uL (4.0-10.2)
[2024-02-20] MEDS: Omeprazole 20 MG Cap.CR PO SCH (07:47)
[2024-02-20] MEDS: Apixaban 5 MG Tab PO SCH (07:48)
[2024-02-20] MEDS: Aspirin 81 MG Tab.EC PO SCH (07:48)
[2024-02-20] MEDS: amLODIPine 5 MG Tab PO SCH (07:49)
[2024-02-20] MEDS: Lisinopril 10 MG Tab PO SCH ×2 (07:49→17:39)
[2024-02-20] MEDS: Metoprolol Tartrate 25 MG Tab PO SCH (07:51)
[2024-02-20] MEDS: sulfaSALAzine 500 MG Tab PO SCH (07:51)
[2024-02-20] MEDS: predniSONE 5 MG Tab PO SCH (07:52)
[2024-02-20] MEDS: Acetaminophen 500 MG Tab PO SCH (07:55)
[2024-02-20] MEDS ORDERED: Non-Formulary Medication 1 Each (Magnesium Oxide [Magnesium] 500 MG Capsule) PO SCH (08:00)
[2024-02-20] MEDS ORDERED: Magnesium Oxide 400 MG Tab PO SCH (08:00)
[2024-02-20 08:02] LABS: ANION GAP 9.3 meq/L (7-15); CARBON DIOXIDE,CO2 29.7 mmol/L (21.0-32.0); CREATININE 1.31 mg/dL (0.51-1.17); EST CRCL DRUG DOSING (CG) 40.61 mL/min; MAGNESIUM 1.4 mg/dL (1.8-2.4)
[2024-02-20] MEDS ORDERED: Sodium Chloride 0.9% 1,000 ML IV SCH (08:05)
[2024-02-20] MEDS: Budesonide 0.5 MG/2 ML Neb Susp INH SCH (08:11)
[2024-02-20] MEDS: Magnesium Sulfate/Water 2 GM in Premix Bag 1 BAG IV ONE (10:24)
[2024-02-20] MEDS: Apixaban 5 MG Tab PO ONE (18:23)
[2024-02-20 20:23] VITALS: BP 144/69; PULSE 78
== END 2024-02-20 20:40 | disposition home or self-care (01) ==
LOC: LL.ED 15:47 → LL.MS 17:39 → INTOOBSV 17:39 → UNDOADMIN 17:39 → UNDODISIN 02-20 20:40
PROVIDERS: ADMIT Physician Assistant; ATTEND Emergency Medicine
DX: U07.1 COVID-19 (principal); I13.0 Hypertensive heart and chronic kidney disease with heart failure and stage 1 through stage 4 chronic kidney disease, or unspecified chronic kidney disease; I50.43 Acute on chronic combined systolic (congestive) and diastolic (congestive) heart failure; E11.22 Type 2 diabetes mellitus with diabetic chronic kidney disease; N18.9 Chronic kidney disease, unspecified; D84.821 Immunodeficiency due to drugs; J44.0 Chronic obstructive pulmonary disease with (acute) lower respiratory infection; I25.10 Atherosclerotic heart disease of native coronary artery without angina pectoris; M06.9 Rheumatoid arthritis, unspecified; E78.5 Hyperlipidemia, unspecified; R62.7 Adult failure to thrive; E83.42 Hypomagnesemia; E86.0 Dehydration; K21.9 Gastro-esophageal reflux disease without esophagitis; Z95.1 Presence of aortocoronary bypass graft; Z79.51 Long term (current) use of inhaled steroids; Z79.01 Long term (current) use of anticoagulants; Z90.89 Acquired absence of other organs; Z95.5 Presence of coronary angioplasty implant and graft; Z79.52 Long term (current) use of systemic steroids; Z88.1 Allergy status to other antibiotic agents; Z88.8 Allergy status to other drugs, medicaments and biological substances; Z91.048 Other nonmedicinal substance allergy status; Z79.82 Long term (current) use of aspirin; Z79.899 Other long term (current) drug therapy
CPT/HCPCS: 0241U; 36415; 80048; 80053; 81001; 82550; 83605; 83735; 85025; 86140; 93005; 93010; 96361; 96365; 96366; 99223; 99238; 99285; A9270-GY; G0378; J3475; J3490; J7030; J7512

== ENCOUNTER 2024-03-08 11:45 | Inpatient (IN) | payer MEDICARE ==
[2024-03-08] MEDS: Sodium Chloride 0.9% 1,000 ML IV ONE (12:20)
[2024-03-08] MEDS: Ondansetron 4 MG/2 ML SDV IVPUSH ONE (12:21)
[2024-03-08] MEDS: Sodium Chloride 0.9% 10 ML Syringe FLUSH PRN (12:22)
[2024-03-08 12:24] LABS: HEMOGLOBIN 10.3 g/dL (13.1-16.8); MEAN CORPUSCULAR HEMOGLOBIN 30.6 pg (28.2-33.3); MEAN CORPUSCULAR HGB CONC 32.2 g/dL (31.7-36.0); PLATELET COUNT,PLT 138 K/uL (150-350); RED BLOOD CELL COUNT 3.37 M/uL (4.33-5.41); RED CELL DISTRIBUTION WIDTH 13.8 % (11.2-14.1); WHITE BLOOD CELL COUNT,WBC 6.6 K/uL (4.0-10.2)
[2024-03-08 12:53] LABS: ALBUMIN 3.6 g/dL (3.4-5.0); ANION GAP 7.3 meq/L (7-15); BILIRUBIN TOTAL 0.5 mg/dL (0.2-1.0); CALCIUM 9.1 mg/dL (8.5-10.1); CARBON DIOXIDE,CO2 30.7 mmol/L (21.0-32.0); CREATININE 1.41 mg/dL (0.51-1.17); POTASSIUM,K 3.9 mmol/L (3.5-5.1)
[2024-03-08 13:04] LABS: LYMPHOCYTES PERCENT MAN 20; SEG NEUTROPHILS PERCENT MAN 80
[2024-03-08] MEDS ORDERED: Ondansetron 4 MG/2 ML SDV IVPUSH PRN (15:27)
[2024-03-08] MEDS ORDERED: Albuterol/Ipratropium 3.0-0.5 MG/3 ML Neb Soln INH PRN ×2 (15:28→16:01)
[2024-03-08] MEDS ORDERED: Albuterol 6.7 GM Inhaler INH SCH (16:00)
[2024-03-08 16:03] LABS: APPEARANCE,URINE SLIGHTLY CLOUDY; BILIRUBIN,URINE NEGATIVE (NEGATIVE); COLOR,URINE YELLOW; GLUCOSE,URINE NEGATIVE (NEGATIVE); KETONES,URINE TRACE mg/dL (NEGATIVE); LEUKOCYTE ESTERASE,URINE SMALL (NEGATIVE); NITRITE,URINE NEGATIVE (NEGATIVE); OCCULT BLOOD,URINE TRACE-INTACT (NEGATIVE); PROTEIN,URINE 30 mg/dL (NEGATIVE); UROBILINOGEN,URINE 0.2 E.U./dL (0.2-1.0)
[2024-03-08 16:11] LABS: BACTERIA,URINE FEW /HPF (NONE TO FEW); EPITHELIAL CELLS,URINE RARE /LPF; RBC,URINE 0-5 /HPF
[2024-03-08] MEDS: Azithromycin 500 MG in Sodium Chloride 0.9% 250 ML IV SCH (16:17)
[2024-03-08] MEDS: Acetaminophen 500 MG Tab PO PRN (16:17)
[2024-03-08] MEDS: sulfaSALAzine 500 MG Tab PO SCH (17:01)
[2024-03-08] MEDS: Apixaban 5 MG Tab PO SCH (17:03)
[2024-03-08] MEDS: Metoprolol Tartrate 25 MG Tab PO SCH (17:03)
[2024-03-08] MEDS: Lisinopril 10 MG Tab PO SCH (17:03)
[2024-03-08] MEDS: Budesonide 0.5 MG/2 ML Neb Susp INH SCH (19:45)
[2024-03-08] MEDS: Albuterol/Ipratropium 3.0-0.5 MG/3 ML Neb Soln INH SCH (19:45)
[2024-03-08] MEDS: Acetaminophen 500 MG Tab PO SCH (19:46)
[2024-03-09] MEDS: amLODIPine 5 MG Tab PO SCH (07:03)
[2024-03-09] MEDS: Magnesium Oxide 400 MG Tab PO SCH (07:04)
[2024-03-09] MEDS: predniSONE 5 MG Tab PO SCH (07:05)
[2024-03-09] MEDS: Aspirin 81 MG Tab.EC PO SCH (07:05)
[2024-03-09 07:41] LABS: HEMATOCRIT 29.6 % (39.0-49.0); HEMOGLOBIN 9.3 g/dL (13.1-16.8); MEAN CORPUSCULAR HEMOGLOBIN 30.3 pg (28.2-33.3); MEAN CORPUSCULAR HGB CONC 31.4 g/dL (31.7-36.0); MEAN CORPUSCULAR VOLUME 96.4 fL (84.0-98.0); PLATELET COUNT,PLT 126 K/uL (150-350); RED BLOOD CELL COUNT 3.07 M/uL (4.33-5.41); RED CELL DISTRIBUTION WIDTH 14.3 % (11.2-14.1); WHITE BLOOD CELL COUNT,WBC 13.4 K/uL (4.0-10.2)
[2024-03-09 07:55] LABS: ANION GAP 10.9 meq/L (7-15); CALCIUM 8.3 mg/dL (8.5-10.1); CARBON DIOXIDE,CO2 26.1 mmol/L (21.0-32.0); CREATININE 1.54 mg/dL (0.51-1.17); EST CRCL DRUG DOSING (CG) 35.71 mL/min; POTASSIUM,K 4.2 mmol/L (3.5-5.1)
[2024-03-09] MEDS: Sodium Chloride 0.9% 1,000 ML IV SCH (08:08)
[2024-03-09] MEDS: cefTRIAXone 1 GM in Sodium Chloride 0.9% 100 ML IV SCH (08:09)
[2024-03-09 08:35] LABS: LYMPHOCYTES PERCENT MAN 32; MONOCYTES PERCENT MAN 2; SEG NEUTROPHILS PERCENT MAN 66
[2024-03-09] MEDS: Lisinopril 10 MG Tab PO SCH (09:57)
[2024-03-09 13:22] LABS: BASOPHILS ABSOLUTE AUTO 0.14 K/uL (0.00-0.20); BASOPHILS PERCENT AUTO 1.2 % (0.0-2.0); EOSINOPHILS ABSOLUTE AUTO 0.01 K/uL (0.00-0.50); EOSINOPHILS PERCENT AUTO 0.1 % (0.0-5.0); HEMATOCRIT 30.3 % (39.0-49.0); HEMOGLOBIN 9.6 g/dL (13.1-16.8); LYMPHOCYTES ABSOLUTE AUTO 1.47 K/uL (0.50-3.50); LYMPHOCYTES PERCENT AUTO 12.5 % (10.0-50.0); MEAN CORPUSCULAR HEMOGLOBIN 30.8 pg (28.2-33.3); MEAN CORPUSCULAR HGB CONC 31.7 g/dL (31.7-36.0); MEAN CORPUSCULAR VOLUME 97.1 fL (84.0-98.0); MONOCYTES ABSOLUTE AUTO 0.88 K/uL (0.00-1.00); MONOCYTES PERCENT AUTO 7.5 % (2.0-14.0); NEUTROPHILS ABSOLUTE AUTO 9.22 K/uL (1.40-7.00); NEUTROPHILS PERCENT AUTO 78.7 % (45.0-80.0); PLATELET COUNT,PLT 115 K/uL (150-350); RED BLOOD CELL COUNT 3.12 M/uL (4.33-5.41); RED CELL DISTRIBUTION WIDTH 14.2 % (11.2-14.1); WHITE BLOOD CELL COUNT,WBC 11.7 K/uL (4.0-10.2)
[2024-03-09 13:45] LABS: ALBUMIN 2.9 g/dL (3.4-5.0); ANION GAP 7.8 meq/L (7-15); BILIRUBIN TOTAL 0.4 mg/dL (0.2-1.0); CALCIUM 8.4 mg/dL (8.5-10.1); CARBON DIOXIDE,CO2 29.2 mmol/L (21.0-32.0); CREATININE 1.62 mg/dL (0.51-1.17); EST CRCL DRUG DOSING (CG) 33.94 mL/min; MAGNESIUM 1.5 mg/dL (1.8-2.4); POTASSIUM,K 4.4 mmol/L (3.5-5.1); PROTEIN TOTAL,TP 6.5 g/dL (6.4-8.2)
[2024-03-09] MEDS: Lactated Ringers 1,000 ML IV SCH ×2 (13:45→13:56)
[2024-03-09 13:47] LABS: LACTIC ACID 1.5 mmol/L (0.4-2.0)
[2024-03-09 15:26] LABS: PRO B-TYPE NATRIUR PEPT,BNPPRO 2791 pg/mL (0-125)
[2024-03-09] MEDS: Magnesium Sulfate/Water 2 GM in Premix Bag 1 BAG IV ONE (15:44)
[2024-03-09] MEDS: Piperacillin/Tazobactam 4.5 GM in Sodium Chloride 0.9% 100 ML IV ONE (16:56)
[2024-03-09 17:16] LABS: BILIRUBIN,URINE NEGATIVE (NEGATIVE); COLOR,URINE YELLOW; GLUCOSE,URINE NEGATIVE (NEGATIVE); KETONES,URINE NEGATIVE (NEGATIVE); LEUKOCYTE ESTERASE,URINE SMALL (NEGATIVE); NITRITE,URINE NEGATIVE (NEGATIVE); OCCULT BLOOD,URINE TRACE-INTACT (NEGATIVE); PH,URINE 5.5 (5.0-9.0); PROTEIN,URINE TRACE mg/dL (NEGATIVE); UROBILINOGEN,URINE 0.2 E.U./dL (0.2-1.0)
[2024-03-09 17:20] LABS: APPEARANCE,URINE SLIGHTLY CLOUDY
[2024-03-09 17:27] LABS: BACTERIA,URINE NOT SEEN /HPF (NONE TO FEW); EPITHELIAL CELLS,URINE OCCASIONAL /LPF; RBC,URINE 0-5 /HPF
[2024-03-09] MEDS: Acetaminophen 325 MG Tab PO PRN (19:53)
[2024-03-09] MEDS: Piperacillin/Tazobactam 4.5 GM in Sodium Chloride 0.9% 100 ML IV SCH (21:08)
[2024-03-10 07:57] LABS: BASOPHILS ABSOLUTE AUTO 0.07 K/uL (0.00-0.20); BASOPHILS PERCENT AUTO 0.7 % (0.0-2.0); EOSINOPHILS ABSOLUTE AUTO 0.01 K/uL (0.00-0.50); EOSINOPHILS PERCENT AUTO 0.1 % (0.0-5.0); HEMATOCRIT 30.4 % (39.0-49.0); HEMOGLOBIN 9.6 g/dL (13.1-16.8); LYMPHOCYTES ABSOLUTE AUTO 2.13 K/uL (0.50-3.50); LYMPHOCYTES PERCENT AUTO 20.2 % (10.0-50.0); MEAN CORPUSCULAR HEMOGLOBIN 30.6 pg (28.2-33.3); MEAN CORPUSCULAR HGB CONC 31.6 g/dL (31.7-36.0); MEAN CORPUSCULAR VOLUME 96.8 fL (84.0-98.0); MONOCYTES ABSOLUTE AUTO 0.91 K/uL (0.00-1.00); MONOCYTES PERCENT AUTO 8.7 % (2.0-14.0); NEUTROPHILS PERCENT AUTO 70.3 % (45.0-80.0); PLATELET COUNT,PLT 118 K/uL (150-350); RED BLOOD CELL COUNT 3.14 M/uL (4.33-5.41); RED CELL DISTRIBUTION WIDTH 14.3 % (11.2-14.1); WHITE BLOOD CELL COUNT,WBC 10.5 K/uL (4.0-10.2)
[2024-03-10 08:04] LABS: ANION GAP 9.8 meq/L (7-15); CALCIUM 8.9 mg/dL (8.5-10.1); CARBON DIOXIDE,CO2 29.2 mmol/L (21.0-32.0); CREATININE 1.45 mg/dL (0.51-1.17); EST CRCL DRUG DOSING (CG) 37.92 mL/min; POTASSIUM,K 4.1 mmol/L (3.5-5.1)
[2024-03-10] MEDS: DULoxetine 20 MG Cap PO SCH (17:57)
[2024-03-10] MEDS: Metoprolol Tartrate 5 MG/5 ML SDV IVPUSH ONE (23:32)
[2024-03-10 23:43] LABS: BASOPHILS ABSOLUTE AUTO 0.08 K/uL (0.00-0.20); EOSINOPHILS ABSOLUTE AUTO 0.01 K/uL (0.00-0.50); EOSINOPHILS PERCENT AUTO 0.1 % (0.0-5.0); HEMATOCRIT 29.1 % (39.0-49.0); HEMOGLOBIN 9.4 g/dL (13.1-16.8); LYMPHOCYTES PERCENT AUTO 20.3 % (10.0-50.0); MEAN CORPUSCULAR HEMOGLOBIN 30.9 pg (28.2-33.3); MEAN CORPUSCULAR HGB CONC 32.3 g/dL (31.7-36.0); MEAN CORPUSCULAR VOLUME 95.7 fL (84.0-98.0); MONOCYTES ABSOLUTE AUTO 0.63 K/uL (0.00-1.00); NEUTROPHILS ABSOLUTE AUTO 5.55 K/uL (1.40-7.00); NEUTROPHILS PERCENT AUTO 70.6 % (45.0-80.0); PLATELET COUNT,PLT 117 K/uL (150-350); RED BLOOD CELL COUNT 3.04 M/uL (4.33-5.41); RED CELL DISTRIBUTION WIDTH 14.1 % (11.2-14.1); WHITE BLOOD CELL COUNT,WBC 7.9 K/uL (4.0-10.2)
[2024-03-11 00:02] LABS: INR 1.2 (0.9-1.1); PROTHROMBIN TIME 12.1 SEC (9.0-11.1)
[2024-03-11 00:07] LABS: ALBUMIN 2.8 g/dL (3.4-5.0); ANION GAP 9.3 meq/L (7-15); BILIRUBIN TOTAL 0.4 mg/dL (0.2-1.0); CALCIUM 8.7 mg/dL (8.5-10.1); CARBON DIOXIDE,CO2 26.7 mmol/L (21.0-32.0); CREATININE 1.47 mg/dL (0.51-1.17); EST CRCL DRUG DOSING (CG) 37.41 mL/min; PROTEIN TOTAL,TP 6.9 g/dL (6.4-8.2)
[2024-03-11] MEDS: Metoprolol Tartrate 50 MG Tab PO ONE (04:07)
[2024-03-11] MEDS: Sodium Chloride 0.9% 10 ML Syringe FLUSH PRN (16:28)
[2024-03-11 22:41] VITALS: PULSE 63
[2024-03-12 07:18] VITALS: BP 148/64
[2024-03-12] MEDS ORDERED: Loperamide 2 MG Tab PO PRN (10:36)
== END 2024-03-12 17:09 | disposition swing bed (61) | DRG 177 ==
LOC: LL.ED 11:45 → LL.MS 13:14 → OBSVTOIN 18:59
PROVIDERS: ADMIT Emergency Medicine; ATTEND Emergency Medicine
DX: U07.1 COVID-19 (principal); R11.2 Nausea with vomiting, unspecified; I10 Essential (primary) hypertension; I50.43 Acute on chronic combined systolic (congestive) and diastolic (congestive) heart failure; J45.909 Unspecified asthma, uncomplicated; M19.90 Unspecified osteoarthritis, unspecified site; J12.82 Pneumonia due to coronavirus disease 2019; J44.0 Chronic obstructive pulmonary disease with (acute) lower respiratory infection; D84.821 Immunodeficiency due to drugs; M06.9 Rheumatoid arthritis, unspecified; Z91.048 Other nonmedicinal substance allergy status; I25.2 Old myocardial infarction; H54.7 Unspecified visual loss; N40.0 Benign prostatic hyperplasia without lower urinary tract symptoms; I11.0 Hypertensive heart disease with heart failure; K21.9 Gastro-esophageal reflux disease without esophagitis; E83.42 Hypomagnesemia; I48.91 Unspecified atrial fibrillation; K59.09 Other constipation; Z88.1 Allergy status to other antibiotic agents; Z88.8 Allergy status to other drugs, medicaments and biological substances; Z95.5 Presence of coronary angioplasty implant and graft; Z95.1 Presence of aortocoronary bypass graft; Z79.82 Long term (current) use of aspirin; Z98.49 Cataract extraction status, unspecified eye; Z79.01 Long term (current) use of anticoagulants; Z79.52 Long term (current) use of systemic steroids; Z79.899 Other long term (current) drug therapy; Z86.010 Personal history of colon polyps; Z91.040 Latex allergy status; Z98.890 Other specified postprocedural states
CPT/HCPCS: 36415; 74022; 80048; 80053; 81001; 83605; 83735; 83880; 84484; 85025; 85379; 85610; 87086; 93005; 93010; 94640; 96361; 96374; 97162-GP; 97165-GO; 97530-GP; 99223; 99232; 99233; 99239; 99285-25; A9270-GY; G0378; J0456; J0696; J2405; J2543; J3475; J3490; J7030; J7050; J7120; J7512; J7620-GY; U0002

== ENCOUNTER 2024-03-12 11:19 | Inpatient (IN) | payer MEDICARE ==
[2024-03-12] MEDS ORDERED: Sodium Chloride 0.9% 10 ML Syringe FLUSH PRN ×3 (16:44)
[2024-03-12] MEDS ORDERED: Albuterol/Ipratropium 3.0-0.5 MG/3 ML Neb Soln INH PRN (16:44)
[2024-03-12] MEDS ORDERED: Ondansetron 4 MG/2 ML SDV IVPUSH PRN (16:44)
[2024-03-12] MEDS ORDERED: Acetaminophen 325 MG Tab PO PRN (16:44)
[2024-03-12] MEDS: sulfaSALAzine 500 MG Tab PO SCH (17:50)
[2024-03-12] MEDS: Metoprolol Tartrate 25 MG Tab PO SCH (17:51)
[2024-03-12] MEDS ORDERED: Lisinopril 10 MG Tab PO SCH (18:00)
[2024-03-12] MEDS: Apixaban 5 MG Tab PO SCH (18:33)
[2024-03-12] MEDS: Amoxicillin/Clavulanate K 875-125 MG Tab PO SCH (19:45)
[2024-03-12] MEDS: Albuterol/Ipratropium 3.0-0.5 MG/3 ML Neb Soln INH SCH (19:46)
[2024-03-12] MEDS: Budesonide 0.5 MG/2 ML Neb Susp INH SCH (19:47)
[2024-03-12] MEDS ORDERED: Piperacillin/Tazobactam 4.5 GM in Sodium Chloride 0.9% 100 ML IV SCH (21:00)
[2024-03-12] MEDS: DULoxetine 20 MG Cap PO SCH (21:37)
[2024-03-13] MEDS ORDERED: Lisinopril 10 MG Tab PO SCH (08:00)
[2024-03-13] MEDS: Magnesium Oxide 400 MG Tab PO SCH (08:00)
[2024-03-13] MEDS ORDERED: DULoxetine 20 MG Cap PO SCH (08:00)
[2024-03-13] MEDS: amLODIPine 5 MG Tab PO SCH (08:03)
[2024-03-13] MEDS: Aspirin 81 MG Tab.EC PO SCH (08:03)
[2024-03-13] MEDS: predniSONE 5 MG Tab PO SCH (08:04)
[2024-03-13] MEDS: Lisinopril 10 MG Tab PO SCH ×2 (08:21→18:50)
[2024-03-13] MEDS: Loperamide 2 MG Tab PO PRN (10:25)
[2024-03-14 10:53] LABS: BASOPHILS ABSOLUTE AUTO 0.15 K/uL (0.00-0.20); BASOPHILS PERCENT AUTO 2.6 % (0.0-2.0); EOSINOPHILS ABSOLUTE AUTO 0.03 K/uL (0.00-0.50); EOSINOPHILS PERCENT AUTO 0.5 % (0.0-5.0); HEMATOCRIT 29.9 % (39.0-49.0); HEMOGLOBIN 9.7 g/dL (13.1-16.8); LYMPHOCYTES ABSOLUTE AUTO 1.47 K/uL (0.50-3.50); LYMPHOCYTES PERCENT AUTO 25.9 % (10.0-50.0); MEAN CORPUSCULAR HEMOGLOBIN 30.7 pg (28.2-33.3); MEAN CORPUSCULAR HGB CONC 32.4 g/dL (31.7-36.0); MEAN CORPUSCULAR VOLUME 94.6 fL (84.0-98.0); MONOCYTES ABSOLUTE AUTO 0.79 K/uL (0.00-1.00); MONOCYTES PERCENT AUTO 13.9 % (2.0-14.0); NEUTROPHILS ABSOLUTE AUTO 3.23 K/uL (1.40-7.00); NEUTROPHILS PERCENT AUTO 57.1 % (45.0-80.0); PLATELET COUNT,PLT 169 K/uL (150-350); RED BLOOD CELL COUNT 3.16 M/uL (4.33-5.41); RED CELL DISTRIBUTION WIDTH 13.8 % (11.2-14.1); WHITE BLOOD CELL COUNT,WBC 5.7 K/uL (4.0-10.2)
[2024-03-14 11:01] LABS: CALCIUM 9.3 mg/dL (8.5-10.1); CREATININE 1.19 mg/dL (0.51-1.17); EST CRCL DRUG DOSING (CG) 46.21 mL/min
[2024-03-14 11:07] LABS: ANION GAP 11.5 meq/L (7-15); CARBON DIOXIDE,CO2 31.5 mmol/L (21.0-32.0)
[2024-03-16 07:03] VITALS: BP 145/75; PULSE 57
[2024-03-16 09:32] LABS: HEMATOCRIT 32.1 % (39.0-49.0); HEMOGLOBIN 10.3 g/dL (13.1-16.8); MEAN CORPUSCULAR HGB CONC 32.1 g/dL (31.7-36.0); MEAN CORPUSCULAR VOLUME 93.6 fL (84.0-98.0); PLATELET COUNT,PLT 216 K/uL (150-350); RED BLOOD CELL COUNT 3.43 M/uL (4.33-5.41); RED CELL DISTRIBUTION WIDTH 14.2 % (11.2-14.1); WHITE BLOOD CELL COUNT,WBC 5.3 K/uL (4.0-10.2)
[2024-03-16 09:40] LABS: ALBUMIN 3.1 g/dL (3.4-5.0); BILIRUBIN TOTAL 0.4 mg/dL (0.2-1.0); CALCIUM 9.5 mg/dL (8.5-10.1); CREATININE 1.24 mg/dL (0.51-1.17); EST CRCL DRUG DOSING (CG) 44.35 mL/min; PROTEIN TOTAL,TP 7.3 g/dL (6.4-8.2)
[2024-03-16 09:44] LABS: ANION GAP 9.8 meq/L (7-15); CARBON DIOXIDE,CO2 33.2 mmol/L (21.0-32.0)
[2024-03-16 10:21] LABS: LYMPHOCYTES PERCENT MAN 30; MONOCYTES PERCENT MAN 3; SEG NEUTROPHILS PERCENT MAN 67
== END 2024-03-16 09:53 | disposition home or self-care (01) | DRG 947 ==
LOC: LL.MS 17:39
PROVIDERS: ADMIT Physician Assistant; ATTEND Emergency Medicine
DX: R53.1 Weakness (principal); I50.43 Acute on chronic combined systolic (congestive) and diastolic (congestive) heart failure; J18.9 Pneumonia, unspecified organism; D84.9 Immunodeficiency, unspecified; I11.0 Hypertensive heart disease with heart failure; E83.42 Hypomagnesemia; J44.9 Chronic obstructive pulmonary disease, unspecified; K21.9 Gastro-esophageal reflux disease without esophagitis; I48.91 Unspecified atrial fibrillation
CPT/HCPCS: 36415; 80048; 80053; 83735; 85025; 94640; 97110-GP; 97161-GP; 97530-GO; 97530-GP; 99316; A9270-GY; J3490; J7512; J7620-GY

== ENCOUNTER 2024-07-30 14:02 | Emergency (ER) | payer MEDICARE ==
[2024-07-30 14:21] LABS: BASOPHILS ABSOLUTE AUTO 0.03 K/uL (0.00-0.20); BASOPHILS PERCENT AUTO 0.5 % (0.0-2.0); EOSINOPHILS ABSOLUTE AUTO 0.03 K/uL (0.00-0.50); EOSINOPHILS PERCENT AUTO 0.5 % (0.0-5.0); HEMATOCRIT 29.7 % (39.0-49.0); HEMOGLOBIN 9.5 g/dL (13.1-16.8); LYMPHOCYTES ABSOLUTE AUTO 1.43 K/uL (0.50-3.50); LYMPHOCYTES PERCENT AUTO 21.7 % (10.0-50.0); MEAN CORPUSCULAR HEMOGLOBIN 29.1 pg (28.2-33.3); MEAN CORPUSCULAR VOLUME 90.8 fL (84.0-98.0); MONOCYTES ABSOLUTE AUTO 0.78 K/uL (0.00-1.00); MONOCYTES PERCENT AUTO 11.9 % (2.0-14.0); NEUTROPHILS ABSOLUTE AUTO 4.11 K/uL (1.40-7.00); NEUTROPHILS PERCENT AUTO 62.4 % (45.0-80.0); PLATELET COUNT,PLT 104 K/uL (150-350); RED BLOOD CELL COUNT 3.27 M/uL (4.33-5.41); RED CELL DISTRIBUTION WIDTH 15.1 % (11.2-14.1); WHITE BLOOD CELL COUNT,WBC 6.6 K/uL (4.0-10.2)
[2024-07-30 14:39] LABS: INR 1.4 (0.9-1.1); PROTHROMBIN TIME 13.8 SEC (9.0-11.1)
[2024-07-30 14:43] LABS: ALBUMIN 3.6 g/dL (3.4-5.0); ANION GAP 8.8 meq/L (7-15); BILIRUBIN TOTAL 0.3 mg/dL (0.2-1.0); CALCIUM 9.1 mg/dL (8.5-10.1); CARBON DIOXIDE,CO2 31.2 mmol/L (21.0-32.0); CREATININE 1.42 mg/dL (0.51-1.17); EST CRCL DRUG DOSING (CG) 33.08 mL/min; MAGNESIUM 1.5 mg/dL (1.8-2.4); POTASSIUM,K 4.4 mmol/L (3.5-5.1)
[2024-07-30] MEDS: Magnesium Chloride 64 MG Tab.ER PO ONE (15:16)
[2024-07-30 15:36] VITALS: BP 168/66; PULSE 55
[2024-07-31] MEDS ORDERED: Magnesium Chloride 64 MG Tab.ER PO ONE (15:00)
== END 2024-07-30 15:30 | disposition home or self-care (01) ==
LOC: LL.ED 14:02
DX: E83.42 Hypomagnesemia (principal); I10 Essential (primary) hypertension; I25.2 Old myocardial infarction; Z95.1 Presence of aortocoronary bypass graft; Z79.899 Other long term (current) drug therapy; Z79.01 Long term (current) use of anticoagulants; Z79.82 Long term (current) use of aspirin; Z88.0 Allergy status to penicillin; Z88.1 Allergy status to other antibiotic agents; Z91.09 Other allergy status, other than to drugs and biological substances
CPT/HCPCS: 36415; 70450; 80053; 83735; 85025; 85610; 99284

== ENCOUNTER 2024-08-05 13:23 | Inpatient (IN) | payer MEDICARE ==
[2024-08-05 13:45] LABS: BASOPHILS ABSOLUTE AUTO 0.02 K/uL (0.00-0.20); BASOPHILS PERCENT AUTO 0.3 % (0.0-2.0); EOSINOPHILS ABSOLUTE AUTO 0.02 K/uL (0.00-0.50); EOSINOPHILS PERCENT AUTO 0.3 % (0.0-5.0); HEMATOCRIT 28.3 % (39.0-49.0); HEMOGLOBIN 9.1 g/dL (13.1-16.8); IMMATURE GRAN ABSOLUTE AUTO 0.34 10^3/uL (0.00-0.04); IMMATURE GRAN PERCENT AUTO 5.1 % (0.0-0.4); LYMPHOCYTES ABSOLUTE AUTO 0.92 K/uL (0.50-3.50); LYMPHOCYTES PERCENT AUTO 13.8 % (10.0-50.0); MEAN CORPUSCULAR HEMOGLOBIN 28.9 pg (28.2-33.3); MEAN CORPUSCULAR HGB CONC 32.2 g/dL (31.7-36.0); MEAN CORPUSCULAR VOLUME 89.8 fL (84.0-98.0); MONOCYTES ABSOLUTE AUTO 0.71 K/uL (0.00-1.00); MONOCYTES PERCENT AUTO 10.7 % (2.0-14.0); NEUTROPHILS ABSOLUTE AUTO 4.65 K/uL (1.40-7.00); NEUTROPHILS PERCENT AUTO 69.8 % (45.0-80.0); PLATELET COUNT,PLT 90 K/uL (150-350); RED BLOOD CELL COUNT 3.15 M/uL (4.33-5.41); RED CELL DISTRIBUTION WIDTH 15.3 % (11.2-14.1); WHITE BLOOD CELL COUNT,WBC 6.7 K/uL (4.0-10.2)
[2024-08-05 14:01] LABS: ALANINE AMINOTRANSFERASE,ALT 31 U/L (12-78); ALBUMIN 3.8 g/dL (3.4-5.0); ALKALINE PHOSPHATASE 69 IU/L (46-116); ANION GAP 7.9 meq/L (7-15); ASPARTATE AMNIOTRANSFERASE,AST 43 U/L (15-37); BILIRUBIN TOTAL 0.5 mg/dL (0.2-1.0); BLOOD UREA NITROGEN,BUN 34 mg/dL (7-18); CALCIUM 9.3 mg/dL (8.5-10.1); CARBON DIOXIDE,CO2 30.1 mmol/L (21.0-32.0); CHLORIDE,CL 101 mmol/L (98-107); CREATININE 1.17 mg/dL (0.51-1.17); GLUCOSE RANDOM 117 mg/dL (70-99); LIPASE 38 U/L (16-77); POTASSIUM,K 4.4 mmol/L (3.5-5.1); PROTEIN TOTAL,TP 7.1 g/dL (6.4-8.2); SODIUM,NA 139 mmol/L (136-145)
[2024-08-05 14:05] LABS: ESTIMATED GFR 61 mL/min (>=60)
[2024-08-05] MEDS: Acetaminophen/HYDROcodone 325-5 MG Tab PO ONE (14:24)
[2024-08-05] MEDS: hydrALAZINE 10 MG Tab PO STA (14:49)
[2024-08-05] MEDS ORDERED: Naloxone 0.4 MG/ML SDV IVPUSH PRN (15:29)
[2024-08-05 17:22] LABS: APPEARANCE,URINE CLEAR; BILIRUBIN,URINE NEGATIVE (NEGATIVE); COLOR,URINE YELLOW; GLUCOSE,URINE NEGATIVE (NEGATIVE); KETONES,URINE TRACE mg/dL (NEGATIVE); LEUKOCYTE ESTERASE,URINE NEGATIVE (NEGATIVE); NITRITE,URINE NEGATIVE (NEGATIVE); OCCULT BLOOD,URINE MODERATE (NEGATIVE); PROTEIN,URINE >=300 mg/dL (NEGATIVE); UROBILINOGEN,URINE 0.2 E.U./dL (0.2-1.0)
[2024-08-05 17:32] LABS: BACTERIA,URINE FEW /HPF (NONE TO FEW); EPITHELIAL CELLS,URINE FEW /LPF; RBC,URINE 75-100 /HPF; WBC,URINE 20-30 /HPF
[2024-08-05] MEDS: HYDROmorphone 1 MG/ML Syringe IVPUSH SCH (19:31)
[2024-08-05] MEDS: Acetaminophen/HYDROcodone 325-5 MG Tab PO PRN (22:15)
[2024-08-06] MEDS: HYDROmorphone 0.5 MG/0.5 ML Syringe IVPUSH PRN (00:54)
[2024-08-06] MEDS ORDERED: Budesonide 0.5 MG/2 ML Neb Susp INH PRN (05:41)
[2024-08-06] MEDS ORDERED: Albuterol/Ipratropium 3.0-0.5 MG/3 ML Neb Soln INH PRN (05:41)
[2024-08-06] MEDS: Magnesium Oxide 400 MG Tab PO SCH (07:33)
[2024-08-06] MEDS: atorvaSTATin 20 MG Tab PO SCH (07:33)
[2024-08-06] MEDS: Apixaban 2.5 MG Tab PO SCH (07:34)
[2024-08-06] MEDS: Metoprolol Tartrate 50 MG Tab PO SCH (07:34)
[2024-08-06] MEDS: Lisinopril 20 MG Tab PO SCH (07:35)
[2024-08-06] MEDS: Aspirin 81 MG Tab.EC PO SCH (07:37)
[2024-08-06] MEDS: Pantoprazole 40 MG Tab.CR PO SCH (07:37)
[2024-08-06] MEDS: predniSONE 5 MG Tab PO SCH (07:38)
[2024-08-06] MEDS: sulfaSALAzine 500 MG Tab PO SCH (07:38)
[2024-08-06] MEDS: Acetaminophen 325 MG Tab PO PRN (07:44)
[2024-08-06] MEDS: Polyethylene Glycol 3350 Powder 17 GM Packet PO PRN (07:53)
[2024-08-06] MEDS ORDERED: [UNRECOGNIZED DRUG - OTHER] PO SCH (08:00)
[2024-08-06] MEDS: DULoxetine 30 MG Cap PO SCH (19:18)
[2024-08-06] MEDS: Lisinopril 10 MG Tab PO SCH (19:19)
[2024-08-07] MEDS: Alendronate 70 MG Tab PO SCH (05:29)
[2024-08-07] MEDS: Sodium Chloride 0.9% 10 ML Syringe FLUSH PRN (05:30)
[2024-08-07] MEDS: Albuterol/Ipratropium 3.0-0.5 MG/3 ML Neb Soln INH SCH (08:56)
[2024-08-07] MEDS: Budesonide 0.5 MG/2 ML Neb Susp INH SCH (09:06)
[2024-08-07] MEDS: HYDROmorphone 0.5 MG/0.5 ML Syringe IVPUSH SCH (19:52)
[2024-08-08 00:31] LABS: BASOPHILS ABSOLUTE AUTO 0.01 K/uL (0.00-0.20); BASOPHILS PERCENT AUTO 0.1 % (0.0-2.0); EOSINOPHILS ABSOLUTE AUTO 0.02 K/uL (0.00-0.50); EOSINOPHILS PERCENT AUTO 0.3 % (0.0-5.0); HEMATOCRIT 27.2 % (39.0-49.0); HEMOGLOBIN 8.9 g/dL (13.1-16.8); IMMATURE GRAN ABSOLUTE AUTO 0.38 10^3/uL (0.00-0.04); LYMPHOCYTES ABSOLUTE AUTO 1.95 K/uL (0.50-3.50); LYMPHOCYTES PERCENT AUTO 25.8 % (10.0-50.0); MEAN CORPUSCULAR HEMOGLOBIN 29.3 pg (28.2-33.3); MEAN CORPUSCULAR HGB CONC 32.7 g/dL (31.7-36.0); MEAN CORPUSCULAR VOLUME 89.5 fL (84.0-98.0); MONOCYTES ABSOLUTE AUTO 1.46 K/uL (0.00-1.00); MONOCYTES PERCENT AUTO 19.3 % (2.0-14.0); NEUTROPHILS ABSOLUTE AUTO 3.73 K/uL (1.40-7.00); NEUTROPHILS PERCENT AUTO 49.5 % (45.0-80.0); PLATELET COUNT,PLT 97 K/uL (150-350); RED BLOOD CELL COUNT 3.04 M/uL (4.33-5.41); RED CELL DISTRIBUTION WIDTH 16.4 % (11.2-14.1); WHITE BLOOD CELL COUNT,WBC 7.6 K/uL (4.0-10.2)
[2024-08-08] MEDS: HYDROmorphone 0.5 MG/0.5 ML Syringe IVPUSH PRN (00:42)
[2024-08-08 00:50] LABS: ALBUMIN 3.4 g/dL (3.4-5.0); BILIRUBIN TOTAL 0.5 mg/dL (0.2-1.0); C-REACTIVE PROTEIN 11.74 mg/dL (0.05-0.30); CALCIUM 9.2 mg/dL (8.5-10.1); CARBON DIOXIDE,CO2 28.5 mmol/L (21.0-32.0); CREATININE 1.28 mg/dL (0.51-1.17); EST CRCL DRUG DOSING (CG) 42.19 mL/min; POTASSIUM,K 3.8 mmol/L (3.5-5.1); PROTEIN TOTAL,TP 6.8 g/dL (6.4-8.2)
[2024-08-08 00:52] LABS: ANION GAP 11.3 meq/L (7-15)
[2024-08-08] MEDS: Metoprolol Tartrate 25 MG Tab PO ONE (02:00)
[2024-08-08] MEDS: cefTRIAXone 1 GM Vial IVPUSH ONE (02:00)
[2024-08-08] MEDS: Ondansetron 4 MG Tab.DIS PO PRN (02:23)
[2024-08-08] MEDS: Iopamidol 755 Mg/ML 100 ML Bottle IVPUSH STA (02:46)
[2024-08-08] MEDS: HYDROmorphone 0.5 MG/0.5 ML Syringe IVPUSH SCH (07:46)
[2024-08-08 09:40] LABS: BASOPHILS ABSOLUTE AUTO 0.02 K/uL (0.00-0.20); BASOPHILS PERCENT AUTO 0.3 % (0.0-2.0); EOSINOPHILS ABSOLUTE AUTO 0.01 K/uL (0.00-0.50); EOSINOPHILS PERCENT AUTO 0.1 % (0.0-5.0); HEMATOCRIT 27.9 % (39.0-49.0); HEMOGLOBIN 8.9 g/dL (13.1-16.8); IMMATURE GRAN ABSOLUTE AUTO 0.16 10^3/uL (0.00-0.04); IMMATURE GRAN PERCENT AUTO 2.1 % (0.0-0.4); LYMPHOCYTES ABSOLUTE AUTO 2.03 K/uL (0.50-3.50); LYMPHOCYTES PERCENT AUTO 26.8 % (10.0-50.0); MEAN CORPUSCULAR HEMOGLOBIN 28.9 pg (28.2-33.3); MEAN CORPUSCULAR HGB CONC 31.9 g/dL (31.7-36.0); MEAN CORPUSCULAR VOLUME 90.6 fL (84.0-98.0); MONOCYTES ABSOLUTE AUTO 1.46 K/uL (0.00-1.00); MONOCYTES PERCENT AUTO 19.3 % (2.0-14.0); NEUTROPHILS PERCENT AUTO 51.4 % (45.0-80.0); PLATELET COUNT,PLT 102 K/uL (150-350); RED BLOOD CELL COUNT 3.08 M/uL (4.33-5.41); RED CELL DISTRIBUTION WIDTH 16.3 % (11.2-14.1); WHITE BLOOD CELL COUNT,WBC 7.6 K/uL (4.0-10.2)
[2024-08-08 09:49] LABS: ALBUMIN 3.3 g/dL (3.4-5.0); ANION GAP 8.2 meq/L (7-15); BILIRUBIN TOTAL 0.4 mg/dL (0.2-1.0); CALCIUM 9.1 mg/dL (8.5-10.1); CARBON DIOXIDE,CO2 31.8 mmol/L (21.0-32.0); CREATININE 1.24 mg/dL (0.51-1.17); EST CRCL DRUG DOSING (CG) 43.55 mL/min; POTASSIUM,K 4.1 mmol/L (3.5-5.1); PROTEIN TOTAL,TP 6.9 g/dL (6.4-8.2)
[2024-08-08 11:38] VITALS: BP 146/63; PULSE 62
== END 2024-08-08 12:40 | DRG 552 ==
LOC: LL.ED 13:23 → LL.MS 15:09
PROVIDERS: ADMIT Physician Assistant Medical; ATTEND Physician Assistant Medical
DX: S32.019A Unspecified fracture of first lumbar vertebra, initial encounter for closed fracture (principal); S32.029A Unspecified fracture of second lumbar vertebra, initial encounter for closed fracture; S32.010A Wedge compression fracture of first lumbar vertebra, initial encounter for closed fracture; D84.9 Immunodeficiency, unspecified; J45.909 Unspecified asthma, uncomplicated; S32.020A Wedge compression fracture of second lumbar vertebra, initial encounter for closed fracture; H26.9 Unspecified cataract; H91.90 Unspecified hearing loss, unspecified ear; Z91.048 Other nonmedicinal substance allergy status; H54.7 Unspecified visual loss; I10 Essential (primary) hypertension; K59.09 Other constipation; Z79.52 Long term (current) use of systemic steroids; K21.9 Gastro-esophageal reflux disease without esophagitis; W19.XXXA Unspecified fall, initial encounter; N40.0 Benign prostatic hyperplasia without lower urinary tract symptoms; M19.90 Unspecified osteoarthritis, unspecified site; I16.0 Hypertensive urgency; W18.30XA Fall on same level, unspecified, initial encounter; Z66 Do not resuscitate; I48.91 Unspecified atrial fibrillation; E78.5 Hyperlipidemia, unspecified; L81.9 Disorder of pigmentation, unspecified; R82.81 Pyuria; Z88.1 Allergy status to other antibiotic agents; Z88.0 Allergy status to penicillin; Z91.09 Other allergy status, other than to drugs and biological substances; Z79.82 Long term (current) use of aspirin; Z79.51 Long term (current) use of inhaled steroids; Z79.1 Long term (current) use of non-steroidal anti-inflammatories (NSAID); Z79.01 Long term (current) use of anticoagulants; I25.2 Old myocardial infarction; Z95.1 Presence of aortocoronary bypass graft; Z86.19 Personal history of other infectious and parasitic diseases; Z90.89 Acquired absence of other organs; Z98.49 Cataract extraction status, unspecified eye; Z98.890 Other specified postprocedural states; Z95.5 Presence of coronary angioplasty implant and graft; Z79.899 Other long term (current) drug therapy
CPT/HCPCS: 36415; 70450; 71045; 71046; 71275; 72125; 72131; 72170; 80053; 81001; 83605; 83690; 83735; 83880; 84484; 85025; 85379; 86140; 87428-QW; 93005; 93971; 94640; A9270-GY; J0696; J1171; J3490; J7512; J7620-GY; Q9967

== ENCOUNTER 2024-08-16 08:53 | Inpatient (IN) | payer MEDICARE ==
[2024-08-16] MEDS ORDERED: Polyethylene Glycol 3350 Powder 17 GM Packet PO PRN (14:32)
[2024-08-16] MEDS: traMADol 50 MG Tab PO PRN (16:16)
[2024-08-16] MEDS ORDERED: traMADol 50 MG Tab PO PRN (16:35)
[2024-08-16] MEDS: traMADol 50 MG Tab PO ONE (17:04)
[2024-08-16] MEDS: Apixaban 2.5 MG Tab PO SCH (18:01)
[2024-08-16] MEDS: atorvaSTATin 20 MG Tab PO SCH (18:01)
[2024-08-16] MEDS: Albuterol/Ipratropium 3.0-0.5 MG/3 ML Neb Soln NEB SCH (18:01)
[2024-08-16] MEDS: Lisinopril 10 MG Tab PO SCH (18:02)
[2024-08-16] MEDS: Metoprolol Tartrate 50 MG Tab PO SCH (18:02)
[2024-08-16] MEDS: Budesonide 0.5 MG/2 ML Neb Susp INH SCH (18:03)
[2024-08-16] MEDS: sulfaSALAzine 500 MG Tab PO SCH (18:03)
[2024-08-16] MEDS: Acetaminophen 325 MG Tab PO SCH (18:03)
[2024-08-16] MEDS: DULoxetine 30 MG Cap PO SCH (20:47)
[2024-08-16] MEDS: Melatonin 3 MG Tab PO PRN (20:52)
[2024-08-17] MEDS: Acetaminophen 325 MG Tab PO PRN (05:04)
[2024-08-17] MEDS: traMADol 50 MG Tab PO PRN (07:17)
[2024-08-17] MEDS: Pantoprazole 40 MG Tab.CR PO SCH (07:22)
[2024-08-17] MEDS: Lidocaine 4% Patch TOP SCH (08:25)
[2024-08-17] MEDS: Folic Acid 1 MG Tab PO SCH (08:39)
[2024-08-17] MEDS: predniSONE 5 MG Tab PO SCH (08:42)
[2024-08-17] MEDS: Lisinopril 10 MG Tab PO SCH (08:43)
[2024-08-17] MEDS: Magnesium Oxide 400 MG Tab PO SCH (08:46)
[2024-08-17] MEDS: Cholecalciferol (Vitamin D3) 25 MCG Tab PO SCH (08:46)
[2024-08-17] MEDS: Polyethylene Glycol 3350 Powder 510 GM Bot PO PRN (17:57)
[2024-08-17] MEDS: traMADol 50 MG Tab ONE (20:39)
[2024-08-18] MEDS: Ferrous Sulfate 325 MG Tab PO SCH (08:50)
[2024-08-19 07:36] LABS: BASOPHILS ABSOLUTE AUTO 0.03 K/uL (0.00-0.20); BASOPHILS PERCENT AUTO 0.5 % (0.0-2.0); EOSINOPHILS ABSOLUTE AUTO 0.05 K/uL (0.00-0.50); EOSINOPHILS PERCENT AUTO 0.8 % (0.0-5.0); HEMATOCRIT 28.4 % (39.0-49.0); HEMOGLOBIN 9.2 g/dL (13.1-16.8); IMMATURE GRAN ABSOLUTE AUTO 0.11 10^3/uL (0.00-0.04); IMMATURE GRAN PERCENT AUTO 1.9 % (0.0-0.4); LYMPHOCYTES ABSOLUTE AUTO 2.38 K/uL (0.50-3.50); LYMPHOCYTES PERCENT AUTO 40.3 % (10.0-50.0); MEAN CORPUSCULAR HEMOGLOBIN 29.3 pg (28.2-33.3); MEAN CORPUSCULAR HGB CONC 32.4 g/dL (31.7-36.0); MEAN CORPUSCULAR VOLUME 90.4 fL (84.0-98.0); MONOCYTES ABSOLUTE AUTO 0.88 K/uL (0.00-1.00); MONOCYTES PERCENT AUTO 14.9 % (2.0-14.0); NEUTROPHILS ABSOLUTE AUTO 2.45 K/uL (1.40-7.00); NEUTROPHILS PERCENT AUTO 41.6 % (45.0-80.0); PLATELET COUNT,PLT 140 K/uL (150-350); RED BLOOD CELL COUNT 3.14 M/uL (4.33-5.41); RED CELL DISTRIBUTION WIDTH 16.9 % (11.2-14.1); WHITE BLOOD CELL COUNT,WBC 5.9 K/uL (4.0-10.2)
[2024-08-19 07:48] LABS: SEDIMENTATION RATE AUTO 29 mm/hr (0-30)
[2024-08-19 07:59] LABS: ALBUMIN 3.5 g/dL (3.4-5.0); ANION GAP 10.3 meq/L (7-15); BILIRUBIN TOTAL 0.5 mg/dL (0.2-1.0); C-REACTIVE PROTEIN 3.42 mg/dL (0.05-0.30); CALCIUM 9.1 mg/dL (8.5-10.1); CARBON DIOXIDE,CO2 27.7 mmol/L (21.0-32.0); CREATININE 1.51 mg/dL (0.51-1.17); EST CRCL DRUG DOSING (CG) 35.77 mL/min; POTASSIUM,K 4.2 mmol/L (3.5-5.1); PROTEIN TOTAL,TP 7.1 g/dL (6.4-8.2)
[2024-08-19] MEDS ORDERED: Albuterol 0.083% 2.5 MG/3 ML Neb Soln NEB PRN (09:59)
[2024-08-19] MEDS ORDERED: diphenhydrAMINE 50 MG/ML SDV IVPUSH PRN (10:02)
[2024-08-19] MEDS ORDERED: EPINEPHrine 1 MG/ML SDV IM PRN (10:03)
[2024-08-19] MEDS ORDERED: Famotidine 20 MG/2 ML SDV IVPUSH PRN (10:04)
[2024-08-19] MEDS ORDERED: Hydrocortisone Sodium Succinate 100 MG/2 ML SDV IVPUSH PRN (10:13)
[2024-08-19 10:18] LABS: BILIRUBIN,URINE NEGATIVE (NEGATIVE); COLOR,URINE YELLOW; GLUCOSE,URINE NEGATIVE (NEGATIVE); KETONES,URINE NEGATIVE (NEGATIVE); LEUKOCYTE ESTERASE,URINE SMALL (NEGATIVE); NITRITE,URINE NEGATIVE (NEGATIVE); OCCULT BLOOD,URINE SMALL (NEGATIVE); PROTEIN,URINE 30 mg/dL (NEGATIVE); UROBILINOGEN,URINE 0.2 E.U./dL (0.2-1.0)
[2024-08-19 10:25] LABS: APPEARANCE,URINE TURBID; GRANULAR CASTS,URINE FEW; RBC,URINE 0-5 /HPF; WBC,URINE PACKED /HPF
[2024-08-19] MEDS ORDERED: Sodium Chloride 0.9% 10 ML Syringe FLUSH PRN (11:00)
[2024-08-19] MEDS: methylPREDNISolone Sodium Succinate 40 MG/1 ML SDV IVPUSH ONE (11:39)
[2024-08-19] MEDS: Cetirizine 10 MG Tab PO ONE (11:39)
[2024-08-19] MEDS: Sodium Chloride 0.9% 250 ML IV SCH (11:46)
[2024-08-20] MEDS: Sulfamethoxazole/Trimethoprim 800-160 MG Tab PO SCH (19:05)
[2024-08-21] MEDS: Alendronate 70 MG Tab PO SCH (08:31)
[2024-08-23 07:17] LABS: BASOPHILS ABSOLUTE AUTO 0.01 K/uL (0.00-0.20); BASOPHILS PERCENT AUTO 0.2 % (0.0-2.0); EOSINOPHILS ABSOLUTE AUTO 0.05 K/uL (0.00-0.50); EOSINOPHILS PERCENT AUTO 0.9 % (0.0-5.0); HEMATOCRIT 28.4 % (39.0-49.0); HEMOGLOBIN 9.6 g/dL (13.1-16.8); IMMATURE GRAN ABSOLUTE AUTO 0.12 10^3/uL (0.00-0.04); IMMATURE GRAN PERCENT AUTO 2.1 % (0.0-0.4); LYMPHOCYTES PERCENT AUTO 37.7 % (10.0-50.0); MEAN CORPUSCULAR HEMOGLOBIN 30.8 pg (28.2-33.3); MEAN CORPUSCULAR HGB CONC 33.8 g/dL (31.7-36.0); MONOCYTES ABSOLUTE AUTO 0.84 K/uL (0.00-1.00); MONOCYTES PERCENT AUTO 14.4 % (2.0-14.0); NEUTROPHILS ABSOLUTE AUTO 2.61 K/uL (1.40-7.00); NEUTROPHILS PERCENT AUTO 44.7 % (45.0-80.0); PLATELET COUNT,PLT 124 K/uL (150-350); RED BLOOD CELL COUNT 3.12 M/uL (4.33-5.41); RED CELL DISTRIBUTION WIDTH 16.9 % (11.2-14.1); WHITE BLOOD CELL COUNT,WBC 5.8 K/uL (4.0-10.2)
[2024-08-23 07:35] LABS: ANION GAP 9.5 meq/L (7-15); CALCIUM 9.5 mg/dL (8.5-10.1); CARBON DIOXIDE,CO2 29.5 mmol/L (21.0-32.0); CREATININE 1.37 mg/dL (0.51-1.17); EST CRCL DRUG DOSING (CG) 39.42 mL/min
[2024-08-31] MEDS: Tamsulosin 0.4 MG Cap.ER PO SCH (11:08)
[2024-08-31] MEDS: Docusate Sodium 100 MG Cap PO SCH (17:22)
[2024-09-03] MEDS: Mirtazapine 15 MG Tab PO SCH (20:12)
[2024-09-04] MEDS: Albuterol/Ipratropium 3.0-0.5 MG/3 ML Neb Soln NEB SCH (19:28)
[2024-09-04] MEDS: Budesonide 0.5 MG/2 ML Neb Susp INH SCH (19:28)
[2024-09-04] MEDS: Mirtazapine 15 MG Tab PO SCH (19:30)
[2024-09-04] MEDS: Metoprolol Tartrate 25 MG Tab PO SCH (19:41)
[2024-09-05 07:53] LABS: BASOPHILS ABSOLUTE AUTO 0.02 K/uL (0.00-0.20); BASOPHILS PERCENT AUTO 0.3 % (0.0-2.0); EOSINOPHILS ABSOLUTE AUTO 0.07 K/uL (0.00-0.50); EOSINOPHILS PERCENT AUTO 1.1 % (0.0-5.0); HEMATOCRIT 31.1 % (39.0-49.0); HEMOGLOBIN 10.1 g/dL (13.1-16.8); IMMATURE GRAN PERCENT AUTO 1.6 % (0.0-0.4); LYMPHOCYTES ABSOLUTE AUTO 2.49 K/uL (0.50-3.50); LYMPHOCYTES PERCENT AUTO 39.1 % (10.0-50.0); MEAN CORPUSCULAR HEMOGLOBIN 30.1 pg (28.2-33.3); MEAN CORPUSCULAR HGB CONC 32.5 g/dL (31.7-36.0); MEAN CORPUSCULAR VOLUME 92.6 fL (84.0-98.0); MONOCYTES ABSOLUTE AUTO 0.94 K/uL (0.00-1.00); MONOCYTES PERCENT AUTO 14.8 % (2.0-14.0); NEUTROPHILS ABSOLUTE AUTO 2.75 K/uL (1.40-7.00); NEUTROPHILS PERCENT AUTO 43.1 % (45.0-80.0); PLATELET COUNT,PLT 75 K/uL (150-350); RED BLOOD CELL COUNT 3.36 M/uL (4.33-5.41); RED CELL DISTRIBUTION WIDTH 15.8 % (11.2-14.1); WHITE BLOOD CELL COUNT,WBC 6.4 K/uL (4.0-10.2)
[2024-09-05 08:01] LABS: ANION GAP 8.5 meq/L (7-15); CALCIUM 9.4 mg/dL (8.5-10.1); CARBON DIOXIDE,CO2 31.5 mmol/L (21.0-32.0); CREATININE 1.28 mg/dL (0.51-1.17); EST CRCL DRUG DOSING (CG) 41.2 mL/min; POTASSIUM,K 4.2 mmol/L (3.5-5.1)
[2024-09-05 08:42] LABS: APPEARANCE,URINE CLOUDY; BILIRUBIN,URINE NEGATIVE (NEGATIVE); COLOR,URINE DARK YELLOW; GLUCOSE,URINE NEGATIVE (NEGATIVE); KETONES,URINE NEGATIVE (NEGATIVE); LEUKOCYTE ESTERASE,URINE TRACE (NEGATIVE); NITRITE,URINE NEGATIVE (NEGATIVE); OCCULT BLOOD,URINE MODERATE (NEGATIVE); PROTEIN,URINE 100 mg/dL (NEGATIVE); UROBILINOGEN,URINE 0.2 E.U./dL (0.2-1.0)
[2024-09-05 08:55] LABS: WBC,URINE 20-30 /HPF
[2024-09-05 08:56] LABS: HYALINE CASTS,URINE FEW
[2024-09-07] MEDS: Ondansetron 4 MG Tab.DIS PO PRN (01:40)
[2024-09-07] MEDS: Bisacodyl 10 MG Supp RECTAL PRN (04:36)
[2024-09-07 10:43] LABS: BASOPHILS ABSOLUTE AUTO 0.02 K/uL (0.00-0.20); BASOPHILS PERCENT AUTO 0.2 % (0.0-2.0); EOSINOPHILS ABSOLUTE AUTO 0.02 K/uL (0.00-0.50); EOSINOPHILS PERCENT AUTO 0.2 % (0.0-5.0); HEMATOCRIT 29.3 % (39.0-49.0); HEMOGLOBIN 9.5 g/dL (13.1-16.8); IMMATURE GRAN ABSOLUTE AUTO 0.28 10^3/uL (0.00-0.04); IMMATURE GRAN PERCENT AUTO 2.7 % (0.0-0.4); LYMPHOCYTES PERCENT AUTO 21.5 % (10.0-50.0); MEAN CORPUSCULAR HEMOGLOBIN 30.4 pg (28.2-33.3); MEAN CORPUSCULAR HGB CONC 32.4 g/dL (31.7-36.0); MEAN CORPUSCULAR VOLUME 93.6 fL (84.0-98.0); MONOCYTES ABSOLUTE AUTO 1.73 K/uL (0.00-1.00); MONOCYTES PERCENT AUTO 16.9 % (2.0-14.0); NEUTROPHILS ABSOLUTE AUTO 5.99 K/uL (1.40-7.00); NEUTROPHILS PERCENT AUTO 58.5 % (45.0-80.0); PLATELET COUNT,PLT 83 K/uL (150-350); RED BLOOD CELL COUNT 3.13 M/uL (4.33-5.41); RED CELL DISTRIBUTION WIDTH 15.9 % (11.2-14.1); WHITE BLOOD CELL COUNT,WBC 10.2 K/uL (4.0-10.2)
[2024-09-07 10:52] LABS: ANION GAP 9.2 meq/L (7-15); CALCIUM 9.2 mg/dL (8.5-10.1); CARBON DIOXIDE,CO2 30.8 mmol/L (21.0-32.0); CREATININE 1.71 mg/dL (0.51-1.17); EST CRCL DRUG DOSING (CG) 30.84 mL/min; POTASSIUM,K 4.3 mmol/L (3.5-5.1)
[2024-09-07] MEDS: Melatonin 3 MG Tab PO SCH (19:33)
[2024-09-07] MEDS: traMADol 50 MG Tab PO SCH (19:35)
[2024-09-08] MEDS: LORazepam 0.5 MG Tab PO PRN (18:55)
[2024-09-08] MEDS: traMADol 50 MG Tab PO SCH (20:39)
[2024-09-09] MEDS: Nystatin Topical Powder 15 GM Bottle TOP SCH (01:09)
[2024-09-09] MEDS ORDERED: Nystatin Topical Powder 15 GM Bottle TOP SCH (08:00)
[2024-09-09 12:47] LABS: % TRANSFERRIN SAT 7.1 % (20.0-50.0)
[2024-09-09] MEDS: Morphine Oral Concentrate 20 MG/ML 30 ML Bottle SL PRN ×2 (13:47→19:15)
[2024-09-09] MEDS: LORazepam Conc Solution 2 MG/ML 30 ML Bottle PO PRN (17:14)
[2024-09-09 19:20] VITALS: BP 0/0; PULSE 0
[2024-09-10] MEDS: Morphine Oral Concentrate 20 MG/ML 30 ML Bottle SL PRN (11:35)
[2024-09-10] MEDS: Atropine 1% Ophth Soln 5 ML Bottle SL PRN (21:20)
== END 2024-09-11 16:33 | disposition expired | DRG 552 ==
LOC: UNDOADMIN 12:25 → LL.SWG 12:25
PROVIDERS: ADMIT Physician Assistant; ATTEND Physician Assistant
DX: M54.51 Vertebrogenic low back pain (principal); I50.32 Chronic diastolic (congestive) heart failure; I13.0 Hypertensive heart and chronic kidney disease with heart failure and stage 1 through stage 4 chronic kidney disease, or unspecified chronic kidney disease; D84.821 Immunodeficiency due to drugs; R53.81 Other malaise; I25.10 Atherosclerotic heart disease of native coronary artery without angina pectoris; I48.91 Unspecified atrial fibrillation; J44.9 Chronic obstructive pulmonary disease, unspecified; M06.9 Rheumatoid arthritis, unspecified; D63.1 Anemia in chronic kidney disease; I08.3 Combined rheumatic disorders of mitral, aortic and tricuspid valves; H26.9 Unspecified cataract; H91.90 Unspecified hearing loss, unspecified ear; H54.7 Unspecified visual loss; K59.09 Other constipation; J45.909 Unspecified asthma, uncomplicated; K21.9 Gastro-esophageal reflux disease without esophagitis; E78.5 Hyperlipidemia, unspecified; F15.90 Other stimulant use, unspecified, uncomplicated; I48.0 Paroxysmal atrial fibrillation; N40.0 Benign prostatic hyperplasia without lower urinary tract symptoms; M19.90 Unspecified osteoarthritis, unspecified site; N18.2 Chronic kidney disease, stage 2 (mild); T38.0X5A Adverse effect of glucocorticoids and synthetic analogues, initial encounter; F41.9 Anxiety disorder, unspecified; Z66 Do not resuscitate; Z85.828 Personal history of other malignant neoplasm of skin; Z95.5 Presence of coronary angioplasty implant and graft; Z98.49 Cataract extraction status, unspecified eye; Z90.89 Acquired absence of other organs; Z90.49 Acquired absence of other specified parts of digestive tract; Z95.1 Presence of aortocoronary bypass graft; Z88.0 Allergy status to penicillin; Z88.8 Allergy status to other drugs, medicaments and biological substances; Z79.01 Long term (current) use of anticoagulants; Z91.09 Other allergy status, other than to drugs and biological substances; Z79.899 Other long term (current) drug therapy; Z79.02 Long term (current) use of antithrombotics/antiplatelets; Z79.1 Long term (current) use of non-steroidal anti-inflammatories (NSAID); I25.2 Old myocardial infarction; Z86.19 Personal history of other infectious and parasitic diseases; Z98.890 Other specified postprocedural states; Z72.0 Tobacco use; S32.020D Wedge compression fracture of second lumbar vertebra, subsequent encounter for fracture with routine healing; S32.010D Wedge compression fracture of first lumbar vertebra, subsequent encounter for fracture with routine healing
CPT/HCPCS: 36415; 51798; 72100; 80048; 80053; 81001; 82728; 83540; 83550; 85025; 85652; 86140; 87086; 92610-GN; 93005; 94640; 97110-GP; 97161-GP; 97164-GP; 97165-GO; 97530-GO; 97530-GP; 97535-GO; A9270-GY; J2919; J3490; J7512; Q5103

== ENCOUNTER 2024-08-28 15:24 | Emergency (ER) | payer MEDICARE ==
[2024-08-28] MEDS: Lidocaine 2% HCl 11 ML Jelly Filled Syringe ONE (16:00)
[2024-08-28 16:01] LABS: BASOPHILS ABSOLUTE AUTO 0.02 K/uL (0.00-0.20); BASOPHILS PERCENT AUTO 0.4 % (0.0-2.0); EOSINOPHILS ABSOLUTE AUTO 0.01 K/uL (0.00-0.50); EOSINOPHILS PERCENT AUTO 0.2 % (0.0-5.0); HEMATOCRIT 32.2 % (39.0-49.0); HEMOGLOBIN 10.3 g/dL (13.1-16.8); IMMATURE GRAN ABSOLUTE AUTO 0.11 10^3/uL (0.00-0.04); IMMATURE GRAN PERCENT AUTO 2.2 % (0.0-0.4); LYMPHOCYTES ABSOLUTE AUTO 1.39 K/uL (0.50-3.50); LYMPHOCYTES PERCENT AUTO 27.8 % (10.0-50.0); MEAN CORPUSCULAR HEMOGLOBIN 29.8 pg (28.2-33.3); MEAN CORPUSCULAR VOLUME 93.1 fL (84.0-98.0); MONOCYTES ABSOLUTE AUTO 0.47 K/uL (0.00-1.00); MONOCYTES PERCENT AUTO 9.4 % (2.0-14.0); PLATELET COUNT,PLT 99 K/uL (150-350); RED BLOOD CELL COUNT 3.46 M/uL (4.33-5.41); RED CELL DISTRIBUTION WIDTH 16.8 % (11.2-14.1)
[2024-08-28 16:18] LABS: BILIRUBIN,URINE NEGATIVE (NEGATIVE); COLOR,URINE YELLOW; GLUCOSE,URINE NEGATIVE (NEGATIVE); KETONES,URINE NEGATIVE (NEGATIVE); LEUKOCYTE ESTERASE,URINE NEGATIVE (NEGATIVE); NITRITE,URINE NEGATIVE (NEGATIVE); OCCULT BLOOD,URINE MODERATE (NEGATIVE); PROTEIN,URINE >=300 mg/dL (NEGATIVE); UROBILINOGEN,URINE 0.2 E.U./dL (0.2-1.0)
[2024-08-28 16:18] LABS: ALANINE AMINOTRANSFERASE,ALT 35 U/L (12-78); ALBUMIN 3.5 g/dL (3.4-5.0); ALKALINE PHOSPHATASE 96 IU/L (46-116); ANION GAP 11.7 meq/L (7-15); ASPARTATE AMNIOTRANSFERASE,AST 43 U/L (15-37); BILIRUBIN TOTAL 0.5 mg/dL (0.2-1.0); BLOOD UREA NITROGEN,BUN 24 mg/dL (7-18); CARBON DIOXIDE,CO2 29.3 mmol/L (21.0-32.0); CHLORIDE,CL 100 mmol/L (98-107); CREATININE 1.24 mg/dL (0.51-1.17); GLUCOSE RANDOM 117 mg/dL (70-99); POTASSIUM,K 4.7 mmol/L (3.5-5.1); PROTEIN TOTAL,TP 7.1 g/dL (6.4-8.2); SODIUM,NA 141 mmol/L (136-145)
[2024-08-28 16:20] LABS: ESTIMATED GFR 57 mL/min (>=60)
[2024-08-28 16:28] LABS: INR 1.5 (0.9-1.1); PROTHROMBIN TIME 14.4 SEC (9.0-11.1); PTT,PARTIAL THROMBOPLSTIN TIME 25.6 SEC (23.8-34.4)
[2024-08-28 16:33] LABS: APPEARANCE,URINE CLOUDY
[2024-08-28 16:34] LABS: GRANULAR CASTS,URINE FEW; RBC,URINE 40-50 /HPF; WBC,URINE 0-5 /HPF
[2024-08-28] MEDS ORDERED: Naloxone 0.4 MG/ML SDV IVPUSH PRN (17:00)
[2024-08-28] MEDS: Sodium Chloride 0.9% 10 ML Syringe FLUSH PRN (17:03)
[2024-08-28] MEDS: fentaNYL 50 MCG/ML SDV IVPUSH ONE (17:04)
[2024-08-28 17:11] VITALS: BP 157/75; PULSE 65
[2024-08-28] MEDS: Iopamidol 755 Mg/ML 100 ML Bottle IVPUSH ONE (17:31)
== END 2024-08-28 19:40 | disposition swing bed (61) ==
LOC: LL.ED 15:24
DX: G45.9 Transient cerebral ischemic attack, unspecified (principal); I21.A1 Myocardial infarction type 2; R79.89 Other specified abnormal findings of blood chemistry; I10 Essential (primary) hypertension; J45.909 Unspecified asthma, uncomplicated; Z88.0 Allergy status to penicillin; Z95.5 Presence of coronary angioplasty implant and graft; Z88.5 Allergy status to narcotic agent; Z91.09 Other allergy status, other than to drugs and biological substances; Z79.899 Other long term (current) drug therapy; Z79.01 Long term (current) use of anticoagulants
CPT/HCPCS: 36415; 70450; 70496; 70498; 80053; 81001; 82947; 84484; 85025; 85610; 85730; 93005; 93010; 96374; 99284; 99285-25; A9270-GY; J3010; Q9967